=== PATIENT | male | born 1960 | race Caucasian/White ===

== ENCOUNTER 2018-01-26 19:32 | Observation (INO) | payer MEDICARE ==
[2018-01-26 20:08] LABS: Absolute Lymphocytes (CBC) 1.3 K/uL (0.7-4.9); Absolute Monocytes 0.5 K/uL (0.1-1.3); Absolute Neutrophil 10.9 K/uL (1.8-8.0); Basophils % 0.3 % (0-1.3); Eosinophils % 0.7 % (0-4.4); Lymphocytes % 10.4 % (15.3-44.8); MCH 31.4 pg (27.0-35.0); MCV 92.3 fL (80-100); MPV 9.3 fL (7.6-11.3); Monocytes % 4.1 % (3.3-12.3); RBC Red Blood Cell Count 5.52 M/uL (4.33-5.43)
[2018-01-26] MEDS ORDERED: ONDANSETRON 4 MG/2 ML VIAL ONE ×2 (20:21→22:27)
[2018-01-26] MEDS ORDERED: NA CHLORIDE 0.9% 2,000 ML ONE (20:21)
[2018-01-26] MEDS ORDERED: KETOROLAC 30 MG/ML INJ ONE (20:21)
--- NOTE | 2018-01-26 20:28 | RAD REPORT ---
EXAM DESCRIPTION: CT - Stone Protocol - 01/26/2018 8:15 pm CLINICAL HISTORY: Abdominal pain, nausea, history of kidney stones COMPARISON: None. TECHNIQUE: Axial 5 mm thick images were obtained without oral or IV contrast. The ossiq-hz-cakl span s the entirety of the system partially obscuring uppermost abdomen and lung bases. All CT scans are performed using dose optimization technique as appropriate and may include automated exposure control or mA/KV adjustment according to patient size. FINDINGS: Mild right-sided hydronephrosis is present secondary to a 7 mm stone in the mid right uret er. From a KUB projection the stone is at the L4-5 disc level. More distally the ureter is decompress ed. No bladder calculi. Prostate calcifications are present. No left-sided hydronephrosis. A 4 mm amarilis cification is seen lower pole calyx on the right and there is a 2 millimeter calcification present in the mid calyx. A 6 mm calcification is present in a pyramid or calyx of the upper right kidney. 8 mm calcifications seen in the upper pole left kidney. No suspicious renal masses. Isodense masses and p yelonephritis are not excluded on a stone protocol CT scan. No urinary bladder suspicious finding. Imaged portions of the liver, spleen and pancreas show no suspicious findings on non-contrast imaging . Cholecystectomy clips are present. No biliary tree dilatation. No significant adrenal finding. No suspicious bowel findings. No hernia, mass or bulky lymphadenopathy noted. No free air, free fluid or inflammatory stranding. No significant bony abnormality. IMPRESSION: Mild hydronephrosis of the right ureter secondary to 7 mm mid right ureter calculus. From a KUB projection the stone is at the level of the L4-5 disc. Bilateral nonobstructing calculi. Isodense masses and pyelonephritis are not excluded on stone protocol technique.
[2018-01-26 20:30] LABS: Blood Morphology Comment NOT SEEN (NOT SEEN); Platelet Estimate ADEQ; Urine White Blood Cell Casts OK
[2018-01-26 20:51] LABS: Albumin 4.4 g/dL (3.2-5.5); Bilirubin Total 0.9 mg/dL (0.3-1.2); Potassium 4.1 mEq/L (3.6-5.0); Protein, Total 7.5 g/dL (6.0-8.3)
[2018-01-26] MEDS ORDERED: CEFTRIAXONE/SWI 1gm 1 GM/10 ML SYR ONE (21:12)
[2018-01-26] MEDS ORDERED: MORPHINE 4 MG/ML SYR ONE (22:27)
--- NOTE | 2018-01-26 22:50 | ER ---
Nurse's Notes [facility] Name: Lino Dietrich Age: 57 yrs Sex: Male : 1960 Arrival Date: 01/26/2018 Time: 19:34 Bed 15 Private MD: Srinath Stuart E Diagnosis: Kidney stones - right ureter 7 mm Presentation: 01/26 19:40 Presenting complaint: Patient states: abd pain/nausea, started today at 4pm, pt moaning sr5 in triage, history of kidney stone. 19:40 Acuity: MG 2 sr5 19:45 Transition of care: patient was not received from another setting of care. Onset of ea symptoms was January 26, 2018. Care prior to arrival: None. 19:45 Method Of Arrival: Wheelchair ea Triage Assessment: 19:40 General: Appears uncomfortable, Behavior is calm, cooperative, appropriate for age. ea Pain: Complains of pain in posterior aspect of right lateral abdomen, right flank pain Pain currently is 10 out of 10 on a pain scale. Quality of pain is described as sharp, Pain began pain started yesterday but went away and then started again today around 1600. Historical: - Allergies: 19:48 No Known Allergies; ea - Home Meds: 19:48 BLOOD PRESSURE PILL [Active]; ea - PMHx: 19:48 chronic back pain; Hepatitis; Hypertension; Kidney stones; ea - Immunization history:: Adult Immunizations up to date. - Social history:: Smoking status: Patient uses tobacco products, smokes one pack cigarettes per day. Screenin:15 Fall Risk None identified. ea 23:15 Abuse screen: Denies threats or abuse. Nutritional screening: No deficits noted. ea Tuberculosis screening: No symptoms or risk factors identified. Assessment: 19:45 Reassessment: Patient and/or family updated on plan of care and expected duration. Pain ea level reassessed. Patient is alert, oriented x 3, equal unlabored respirations, skin warm/dry/pink. 20:30 Reassessment: Patient and/or family updated on plan of care and expected duration. Pain ea level reassessed. Patient is alert, oriented x 3, equal unlabored respirations, skin warm/dry/pink. 21:55 Reassessment: Patient and/or family updated on plan of care and expected duration. Pain ea level reassessed. Patient is alert, oriented x 3, equal unlabored respirations, skin warm/dry/pink. 22:15 Reassessment: Patient and/or family updated on plan of care and expected duration. Pain ea level reassessed. Patient is alert, oriented x 3, equal unlabored respirations, skin warm/dry/pink. 23:14 Reassessment: Patient and/or family updated on plan of care and expected duration. Pain ea level reassessed. Patient is alert, oriented x 3, equal unlabored respirations, skin warm/dry/pink. 01/27 00:09 Reassessment: Report called to Anita ISRAEL on fourth floor. ea 00:14 Reassessment: Patient and/or family updated on plan of care and expected duration. Pain ea level reassessed. Patient is alert, oriented x 3, equal unlabored respirations, skin warm/dry/pink. Vital Signs: 01/26 19:51 BP 157 / 95; Pulse 61; Resp 20; Temp 98.9(O); Pulse Ox 99% ; Weight 99.34 kg; Height 5 ea ft. 10 in. (177.80 cm); Pain 10/10; 21:00 BP 145 / 92; Pulse 70; Resp 18; Pulse Ox 99% on R/A; ea 22:00 BP 138 / 88; Pulse 68; Resp 18; Pulse Ox 100% on R/A; ea 23:16 BP 132 / 95; Pulse 79; Resp 18; Pulse Ox 100% ; Pain 4/10; ea 01/27 00:13 BP 154 / 88; Pulse 80; Resp 18; Pulse Ox 99% on R/A; ea 01/26 19:51 Body Mass Index 31.42 (99.34 kg, 177.80 cm) ea ED Course: 01/26 19:34 Patient arrived in ED. am2 19:34 Srinath Stuart MD is Private Physician. am2 19:40 Triage completed. sr5 19:45 Barbara Palma, JHONATAN is Primary Nurse. ea 19:45 Patient has correct armband on for positive identification. Bed in low position. Call ea light in reach. Side rails up X2. 19:45 Arm band placed on right wrist. ea 19:47 Jaspal Sexton MD is Attending Physician. ps1 20:04 Missed attempt(s): 20 gauge in right antecubital area. Bleeding controlled, band aid oe applied, catheter tip intact. Inserted saline lock: 22 gauge in left antecubital area, using aseptic technique. Blood collected. 20:[address] via wheelchair. nj 20:15 Stone Protocol In Process Unspecified. EDMS 20:15 CT completed. Patient tolerated procedure well. Patient moved back from CT. nj 22:46 Attending Physician role handed off by Jaspal Sexton MD kdr 22:46 Prem Olivo MD is Attending Physician. kdr 22:49 Lela Valadez MD is Hospitalizing Provider. kdr 01/27 00:14 No provider procedures requiring assistance completed. Patient admitted, IV remains in ea place. Administered Medications: 01/26 20:01 Drug: TORadol 30 mg Route: IVP; Site: left antecubital; ea 20:30 Follow up: Response: Pain is decreased ea 20:01 Drug: Zofran 4 mg Route: IVP; Site: left antecubital; ea 20:30 Follow up: Response: No adverse reaction ea 20:30 Drug: NS 0.9% (20 ml/kg) 20 ml/kg Route: IV; Rate: 1 bolus; Site: left antecubital; ea 01/27 00:18 Follow up: Response: No adverse reaction; IV Status: Completed infusion ea 01/26 21:03 Drug: Rocephin - (cefTRIAXone) 1 grams Route: IVPB; Infused Over: 30 mins; Site: left ea antecubital; 21:50 Follow up: Response: No adverse reaction; IV Status: Completed infusion ea 22:27 Drug: morphine 4 mg Route: IVP; Site: left antecubital; ea 23:19 Follow up: Response: No adverse reaction; Pain is decreased ea 22:27 Drug: Zofran 4 mg Route: IVP; Site: left antecubital; ea 23:19 Follow up: Response: No adverse reaction ea Outcome: 22:50 Decision to Hospitalize by Provider. kdr 23:44 Admitted to Med/surg accompanied by nurse, via wheelchair, room 404, with chart, Report ea called to Anita ISRAEL 23:44 Condition: stable 23:44 Instructed on the need for admit. 01/27 00:16 Patient left the ED. ea Signatures: Dispatcher [employer] EDMS Prem Olivo MD MD kdr Jefferson Lutz RN RN srBret Terrazas Orlando oe Moreno, Amanda am2 Barbara Palma, RN RN Jaspal Chirinos MD MD ps1
--- NOTE | 2018-01-26 22:51 | EDPHYS ---
Physician Documentation [facility] Name: Lino Dietrich Age: 57 yrs Sex: Male : 1960 Arrival Date: 01/26/2018 Time: 19:34 Bed 15 Private MD: Srinath Stuart E ED Physician Prem Olivo HPI: 01/26 22:03 This 57 yrs old Male presents to ER via Wheelchair with complaints of Flank ps1 Pain. 22:03 The patient complains of pain in the right flank. The pain radiates to the abdomen. ps1 Onset: The symptoms/episode began/occurred just prior to arrival. Modifying factors: The symptoms are alleviated by change of position. Associated signs and symptoms: Pertinent positives: nausea, vomiting. Severity of pain: At its worst the pain was moderate. The patient has experienced similar episodes in the past, multiple times. Seen by Dr. Henley for hx of stones in past. . Historical: - Allergies: 19:48 No Known Allergies; ea - Home Meds: 19:48 BLOOD PRESSURE PILL [Active]; ea - PMHx: 19:48 chronic back pain; Hepatitis; Hypertension; Kidney stones; ea - Immunization history:: Adult Immunizations up to date. - Social history:: Smoking status: Patient uses tobacco products, smokes one pack cigarettes per day. ROS: 22:03 Constitutional: Negative for fever, chills, and weight loss, Eyes: Negative for injury, ps1 pain, redness, and discharge, Neck: Negative for injury, pain, and swelling, Cardiovascular: Negative for chest pain, palpitations, and edema, Respiratory: Negative for shortness of breath, cough, wheezing, and pleuritic chest pain. 22:03 MS/Extremity: Negative for injury and deformity, Skin: Negative for injury, rash, and discoloration, Neuro: Negative for headache, weakness, numbness, tingling, and seizure. 22:03 Abdomen/GI: Positive for flank pain. 22:03 : Positive for flank pain. Exam: 22:03 Constitutional: This is a well developed, well nourished patient who is awake, alert, ps1 and in no acute distress. Head/Face: Normocephalic, atraumatic. Neck: Trachea midline, no thyromegaly or masses palpated, and no cervical lymphadenopathy. Supple, full range of motion without nuchal rigidity, or vertebral point tenderness. No Meningismus. Chest/axilla: Normal chest wall appearance and motion. Nontender with no deformity. No lesions are appreciated. Cardiovascular: Regular rate and rhythm. No gallops, murmurs, or rubs. Normal PMI, no JVD. No pulse deficits. Respiratory: Lungs have equal breath sounds bilaterally, clear to auscultation and percussion. No rales, rhonchi or wheezes noted. No increased work of breathing, no retractions or nasal flaring. Abdomen/GI: Soft, non-tender, with normal bowel sounds. No distension or tympany. No guarding or rebound. No evidence of tenderness throughout. Skin: Warm, dry with normal turgor. Normal color with no rashes, no lesions, and no evidence of cellulitis. MS/ Extremity: Pulses equal, no cyanosis. Neurovascular intact. Full, normal range of motion. Neuro: Awake and alert, GCS 15, oriented to person, place, time, and situation. Cranial nerves II-XII grossly intact. Sensory grossly intact. Psych: Awake, alert, with orientation to person, place and time. Behavior, mood, and affect are within normal limits. Vital Signs: 19:51 BP 157 / 95; Pulse 61; Resp 20; Temp 98.9(O); Pulse Ox 99% ; Weight 99.34 kg; Height 5 ea ft. 10 in. (177.80 cm); Pain 10/10; 21:00 BP 145 / 92; Pulse 70; Resp 18; Pulse Ox 99% on R/A; ea 22:00 BP 138 / 88; Pulse 68; Resp 18; Pulse Ox 100% on R/A; ea 23:16 BP 132 / 95; Pulse 79; Resp 18; Pulse Ox 100% ; Pain 4/10; ea 01/27 00:13 BP 154 / 88; Pulse 80; Resp 18; Pulse Ox 99% on R/A; ea 01/26 19:51 Body Mass Index 31.42 (99.34 kg, 177.80 cm) ea MDM: 01/26 19:54 Patient medically screened. ps1 22:03 Data reviewed: vital signs, nurses notes, lab test result(s), radiologic studies. ps1 Response to treatment: the patient's symptoms have markedly improved after treatment. ED course: 7.9mm stone with right hydro. Leukocytosis, minimal. Rocephin given in ED, pain addressed with toradol, morphine and zofran. . 01/26 19:53 Order name: CBC with Diff; Complete Time: 20:43 ps1 01/26 19:53 Order name: CMP; Complete Time: 21:05 ps1 01/26 20:10 Order name: CBC Smear Scan; Complete Time: 20:43 EDMS 01/26 22:35 Order name: Urine Dipstick--Ancillary (enter results); Complete Time: 01:49 oe 01/26 23:29 Order name: CBC with Automated Diff EDMS 01/26 23:29 Order name: CBC with Automated Diff EDCT 01/26 20:01 Order name: Stone Protocol; Complete Time: 20:43 EDMS 01/26 23:29 Order name: Comprehensive Metabolic Panel EDCT 01/26 23:29 Order name: Comprehensive Metabolic Panel EDCT 01/26 19:53 Order name: Urine Dipstick-Ancillary (obtain specimen); Complete Time: 22:33 ps1 01/26 23:29 Order name: CONS Pharmacy Consult EDCT 01/26 23:29 Order name: CONS Physician Consult EDCT 01/26 23:29 Order name: NPO EDCT Administered Medications: 20:01 Drug: TORadol 30 mg Route: IVP; Site: left antecubital; ea 20:30 Follow up: Response: Pain is decreased ea 20:01 Drug: Zofran 4 mg Route: IVP; Site: left antecubital; ea 20:30 Follow up: Response: No adverse reaction ea 20:30 Drug: NS 0.9% (20 ml/kg) 20 ml/kg Route: IV; Rate: 1 bolus; Site: left antecubital; ea 01/27 00:18 Follow up: Response: No adverse reaction; IV Status: Completed infusion ea 01/26 21:03 Drug: Rocephin - (cefTRIAXone) 1 grams Route: IVPB; Infused Over: 30 mins; Site: left ea antecubital; 21:50 Follow up: Response: No adverse reaction; IV Status: Completed infusion ea 22:27 Drug: morphine 4 mg Route: IVP; Site: left antecubital; ea 23:19 Follow up: Response: No adverse reaction; Pain is decreased ea 22:27 Drug: Zofran 4 mg Route: IVP; Site: left antecubital; ea 23:19 Follow up: Response: No adverse reaction ea Disposition: 01/26/18 22:50 Hospitalization ordered by Lela Valadez for Observation. Preliminary diagnosis is Kidney stones - right ureter 7 mm. - Bed requested for Telemetry/MedSurg (observation). - Status is Observation. ea - Condition is Fair. - Problem is an acute exacerbation. - Symptoms have improved. UTI on Admission? No Signatures: Dispatcher [employer] EDMS Sully Fleming rg2 Prem Olivo MD MD kdr Barbara Palma RN RN Jaspal Chirinos MD MD ps1 Corrections: (The following items were deleted from the chart) 20:01 19:54 Abdomen Pelvis Wo Con+CT.RAD.BRZ ordered. EDMS EDMS
[2018-01-26] MEDS ORDERED: ONDANSETRON 4 MG/2 ML VIAL IV PRN (23:27)
[2018-01-26] MEDS ORDERED: MORPHINE 2 MG/ML SYR IV PRN (23:27)
[2018-01-26] MEDS ORDERED: ACETAMINOPHEN 500 MG TAB PO PRN (23:27)
[2018-01-26 23:58] LABS: Urine Blood 3+ (NEG); Urine Glucose NEGATIVE (NEG); Urine Protein 1+ (NEG); Urine Specific Gravity 1.025 (1.005-1.030)
[2018-01-27] MEDS: NA CHLORIDE 0.9% 1,000 ML IV SCH ×2 (00:40→10:27)
[2018-01-27 01:16] VITALS: BMI 31.4
[2018-01-27] MEDS: MORPHINE 4 MG/ML SYR ONE ×2 (02:30→02:33)
[2018-01-27 04:53] LABS: Absolute Lymphocytes (CBC) 1.5 K/uL (0.7-4.9); Absolute Monocytes 0.7 K/uL (0.1-1.3); Absolute Neutrophil 7.5 K/uL (1.8-8.0); Basophils % 0.2 % (0-1.3); Eosinophils % 0.3 % (0-4.4); Hematocrit 42.9 % (39.6-49.0); Lymphocytes % 15.5 % (15.3-44.8); MCH 32.1 pg (27.0-35.0); MPV 10.2 fL (7.6-11.3); Monocytes % 6.9 % (3.3-12.3); RBC Red Blood Cell Count 4.56 M/uL (4.33-5.43)
[2018-01-27 05:21] LABS: ALT/SGPT 42 IU/L (10-60); AST/SGOT 43 IU/L (10-42); Albumin 3.3 g/dL (3.2-5.5); Alkaline Phosphatase 63 IU/L (42-121); BUN Blood Urea Nitrogen 24 mg/dL (6-20); Bicarbonate 24 mEq/L (21-31); Bilirubin Total 0.6 mg/dL (0.3-1.2); Glomerular Filtration Rate > 90 mL/min (=/>90); Glucose Level 112 mg/dL (65-120); Potassium 3.7 mEq/L (3.6-5.0); Protein, Total 6.2 g/dL (6.0-8.3); Sodium Level 139 mEq/L (135-145)
[2018-01-27] MEDS ORDERED: ZOLPIDEM TARTRATE 10 MG TABLET PO PRN (08:31)
[2018-01-27] MEDS ORDERED: HYDROCODONE/APAP 10/325 TAB PO PRN (08:31)
--- NOTE | 2018-01-27 08:57 | P.HP ---
Certification for Inpatient Patient admitted to: Observation With expected LOS: <2 Midnights Patient will require the following post-hospital care: None Practitioner: I am a practitioner with admitting privileges, knowledge of patient current condition, hospital course, and medical plan of care. Services: Services provided to patient in accordance with Admission requirements found in Title 42 Section 412.3 of the Code of Federal Regulations Patient History Date of Service: 01/27/18 Reason for admission: Nephrolithiasis History of Present Illness: Patient is a 57yo who was admitted to the hospital with flank pain. Patient has history of kidney stones. Patient's workup revealed a stone with hydronephrosis. Patient looks to have obstructive uropathy. Patient was admitted to the hospital for further workup. Allergies No Known Allergies Allergy (Unverified 01/27/18 08:36) Home Medications: Hydrocodone 10/APAP 325 [[place] 10/325*] 1 tab PO 5XD PRN 06/21/15 Olmesartan Medoxomil [Benicar] 40 mg PO DAILY AFTER SUPPER 06/21/15 Pravastatin [Pravachol*] 40 mg PO BEDTIME 06/21/15 Hydrochlorothiazide [Hydrochlorothiazide] 12.5 mg PO DAILY 01/27/18 Lisinopril [Lisinopril] 10 mg PO BID 01/27/18 Zolpidem Tartrate [Zolpidem Tartrate] 10 mg PO BEDTIME PRN 01/27/18 - Past Medical/Surgical History Has patient received pneumonia vaccine in the past: No Diabetic: No -: htn -: back pain -: shingles went into nerves in left eye -: Tobacco abuse -: Back acsnomo-Aaxrbqiqedlb-Lj. Bashir- hardware present -: Cholecystectomy Psychosocial/ Personal History: Has fiance, No children, Work-none - Family History Mother Medical History: Hypertension - Social History Smoking Status: Heavy Tobacco smoker (>10 cigarettes/day) Alcohol use: No CD- Drugs: No Caffeine use: Yes Review of Systems 10-point ROS is otherwise unremarkable Physical Examination - Vital Signs Temperature: 98.2 F Blood Pressure: 109/62 Pulse: 56 Respirations: 16 Pulse Ox (%): 94 - Physical Exam General: Alert, In no apparent distress, Oriented x3 HEENT: Atraumatic, PERRLA, Mucous membr. moist/pink, EOMI, Sclerae nonicteric Neck: Supple, 2+ carotid pulse no bruit, No LAD, Without JVD or thyroid abnormality Respiratory: Clear to auscultation bilaterally, Normal air movement Cardiovascular: Regular rate/rhythm, Normal S1 S2, No murmurs Gastrointestinal: Normal bowel sounds, Soft and benign, Non-distended, Tenderness (Right-sided tenderness) Musculoskeletal: No clubbing, No swelling, No tenderness Integumentary: No rashes Neurological: Normal gait, Normal speech, Normal strength at 5/5 x4 extr, Normal tone, Sensation intact, Cranial nerves 3-12 intact, Normal affect Lymphatics: No axilla or inguinal lymphadenopathy - Studies Laboratory Data (last 24 hrs) 01/26/18 19:55: Sodium 136, Potassium 4.1, BUN 26 H, Creatinine 1.05, Glucose 121 H, Total Bilirubin 0.9, AST 26, ALT 30, Alkaline Phosphatase 80 01/26/18 19:55: WBC 12.9 H, Hgb 17.4, Hct 51.0 H, Plt Count 150 L Assessment & Plan - Problems (Diagnosis) (1) Flank pain Onset Date: 06/22/15 Current Visit: No Status: Acute (2) Hydronephrosis Onset Date: 06/19/15 Current Visit: No Status: Acute (3) HTN (hypertension) Onset Date: 06/19/15 Current Visit: No Status: Chronic (4) Nephrolithiasis Onset Date: 06/19/15 Current Visit: No Status: Chronic (5) Tobacco abuse Onset Date: 06/19/15 Current Visit: No Status: Chronic - Plan Plan: 1. IV hydration 2. Pain control 3. Strain urine 4. Urology consultation 5. UA with microscopy 6. GI and DVT prophylaxis - Advance Directives Does patient have a Living Will: Yes Does patient have a Durable POA for Healthcare: No - Code Status/Comfort Care Code Status Assessed: Yes Code Status: Full Code Critical Care: No Time Spent Managing PTS Care (In Minutes): 50
[2018-01-27] MEDS ORDERED: CEFTRIAXONE 1 GM/NS 50 ML 1 GM/50 ML BAG IV SCH (09:00)
[2018-01-27] MEDS ORDERED: hydroCHLOROthiazide 12.5 MG CAP PO SCH (09:00)
[2018-01-27] MEDS ORDERED: LISINOPRIL 10 MG TAB PO SCH (09:00)
[2018-01-27 11:27] VITALS: BP 166/91; TEMP 98
--- NOTE | 2018-01-27 11:42 | RAD REPORT ---
EXAM DESCRIPTION: RAD - Abdomen 1 View (KUB) - 01/27/2018 11:32 am CLINICAL HISTORY: Abdomen pain. ICD N 20.0 FINDINGS: The bowel gas pattern is unremarkable. Bilateral renal calculi are present. A 6 millimeter density is present within the lower right pelvis which probably represents the previou sly described right ureteral calculus which has migrated distally since the January 26 cat scan
[2018-01-27 14:44] VITALS: O2SAT 95
--- NOTE | 2018-01-27 15:53 | P.DS ---
Admission Date: 01/26/18 Discharge Date: 01/27/18 Disposition: ROUTINE DISCHARGE Reason for Admission: Nephrolithiasis - Problems (1) Kidney stone on right side Onset Date: 01/27/18 Status: Acute (2) Urolithiasis Onset Date: 06/19/15 Status: Chronic Qualifiers: Urinary calculus location: kidney and ureter Qualified Code(s): N20.2 - Calculus of kidney with calculus of ureter (3) HTN (hypertension) Onset Date: 06/19/15 Status: Chronic Qualifiers: Hypertension type: essential hypertension Qualified Code(s): I10 - Essential (primary) hypertension (4) Nephrolithiasis Onset Date: 06/19/15 Status: Chronic (5) Tobacco abuse Onset Date: 06/19/15 Status: Chronic Brief History of Present Illness: Patient is a 57yo who was admitted to the hospital with flank pain. Patient has history of kidney stones. Patient's workup revealed a stone with hydronephrosis. Patient looks to have obstructive uropathy. Patient was admitted to the hospital for further workup. Hospital Course: The patient feels much better since after he was hospitalized. He was treated with intravenous fluid replacement pain medicine. Repeated KUB shows some migration of the renal stone without complications. The patient will be discharged home with a follow with Urology in the clinic Vital Signs/Physical Exam: Temp Pulse Resp BP Pulse Ox 98.0 F 50 16 166/91 H 96 01/27/18 11:26 01/27/18 11:26 01/27/18 11:26 01/27/18 11:26 01/27/18 11:26 General: Alert, In no apparent distress HEENT: Atraumatic, PERRLA, EOMI Neck: Supple, JVD not distended Respiratory: Clear to auscultation bilaterally, Normal air movement Cardiovascular: Regular rate/rhythm, Normal S1 S2 Gastrointestinal: Normal bowel sounds, No tenderness Musculoskeletal: No tenderness Integumentary: No rashes Neurological: Normal speech, Normal tone, Normal affect Lymphatics: No axilla or inguinal lymphadenopathy Laboratory Data at Discharge: WBC 9.7 K/uL (4.3-10.9) D 01/27/18 03:51 Hgb 14.6 g/dL (13.6-17.9) D 01/27/18 03:51 Hct 42.9 % (39.6-49.0) D 01/27/18 03:51 Plt Count 156 K/uL (152-406) 01/27/18 03:51 Sodium 139 mEq/L (135-145) 01/27/18 03:51 Potassium 3.7 mEq/L (3.6-5.0) 01/27/18 03:51 BUN 24 mg/dL (6-20) H 01/27/18 03:51 Creatinine 0.84 mg/dL (0.61-1.24) 01/27/18 03:51 Glucose 112 mg/dL (65-120) 01/27/18 03:51 Total Bilirubin 0.6 mg/dL (0.3-1.2) 01/27/18 03:51 AST 43 IU/L (10-42) H 01/27/18 03:51 ALT 42 IU/L (10-60) 01/27/18 03:51 Alkaline Phosphatase 63 IU/L (42-121) 01/27/18 03:51 Home Medications: Hydrocodone 10/APAP 325 [[place] 10/325*] 1 tab PO 5XD PRN 06/21/15 Olmesartan Medoxomil [Benicar] 40 mg PO DAILY AFTER SUPPER 06/21/15 Pravastatin [Pravachol*] 40 mg PO BEDTIME 06/21/15 Hydrochlorothiazide [Hydrochlorothiazide] 12.5 mg PO DAILY 01/27/18 Lisinopril [Lisinopril] 10 mg PO BID 01/27/18 Zolpidem Tartrate [Zolpidem Tartrate] 10 mg PO BEDTIME PRN 01/27/18 Followup: Herberth Henley MD [ACTIVE - CAN ADMIT] - 1-2 Weeks (call to schedule apponitment) Time spent managing pt's care (in minutes): 15
--- NOTE | 2018-01-27 18:37 | CON ---
History Of Present Illness: Pleasant patient who was seen in the past for kidney stones. It has been a few years then, but he presents with about 2 day history of right flank pain. Brought to the emergency room where a CAT scan was done revealing a 2-mm stone in the right mid pole, 4-mm stone in right lower pole, a 7-mm stone by L4-L5. He had a followup KUB in a few hours showing migration of distal stone into pelvic ureter. He is now pain-free for almost 24 hours. We are going to send him home on hydrocodone 10 mg/325, #15, take Surfak b.i.d. and Flomax 0.4 mg 1 p.o. daily #30 to help pass the stone. He knows that if he gets signs for any trouble or severe pain, he is to come back to the emergency room or see me in the office on Thursday morning on February 01. Allergies: NO KNOWN DRUG ALLERGIES. Home Medications: Hydrocodone, Benicar, Pravachol, hydrochlorothiazide, lisinopril 10 mg p.o. b.i.d., zolpidem tartrate 1 p.o. at bedtime 10 mg. Past Medical History: The patient did not receive Pneumovax in the past and not diabetic, with a history of hypertension, back pain, shingles, [QAMARKER] in the left eye, tobacco abuse, back surgery, ear surgery in the past, and cholecystectomy. Psychosocial And Personal History: Lives with clarissa. 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 Family History: Mother with a history of hypertension. Social History: Heavy smoked tobacco smoker, greater than 10 cigarettes a day. Alcohol abuse, none. Drug abuse, none. Caffeine use, yes. Review of Systems: A 10-point review of systems is unremarkable. Physical Examination: Constitutional: The patient is afebrile and stable. Vital Signs: 98.0, pulse 50, respirations 16, blood pressure 166/91, and pulse ox 96%. General: Alert, oriented x3. His fiancee present. HEENT: Atraumatic, normocephalic. Mucous membranes moist. Neck: Supple. No JVD. Respiratory: Clear. Cardiovascular: Regular rate and rhythm. Gastrointestinal: Normal bowel sounds. Musculoskeletal: no clubbing. Integumentary: No rashes. Neurologic: normal gait. Lymphatics: Negative. Laboratory Studies: Chemistries normal. Creatinine 1.05. White count 12.9, H and H 17 and 51 and platelets 150. Assessment: Flank pain, 7 mm stone, which migrated from the mid ureter down to the right lower ureter. He wants medical expulsion therapy by trying to pass the stone. He has been pain-free for several hours now since last night. Wishes to go home on pain medication and Flomax. Follow up with me p.r.n. His pain is severe and has returned to the emergency room. History of back pain and history of tobacco abuse. GENO/MONI Voice ID: [id number] Report ID: [id number] YOLANDA
[2018-01-27] MEDS ORDERED: CEFTRIAXONE/SWI 1gm 1 GM/10 ML SYR IV SCH (21:00)
[2018-01-27] MEDS ORDERED: ATORVASTATIN 10 MG TAB PO SCH (21:00)
== END 2018-01-27 15:36 | disposition home or self-care (01) ==
LOC: ER 19:32 → ERHOLD 22:51 → 4TH 23:54
PROVIDERS: ADMIT Hospitalist; ATTEND Hospitalist
DX: N20.2 Calculus of kidney with calculus of ureter (principal); I10 Essential (primary) hypertension; F17.210 Nicotine dependence, cigarettes, uncomplicated
CPT/HCPCS: 36415; 74000; 74176; 76377; 80053 ×2; 81003; 85025 ×2; 96361; 96365; 96375; 99285; G0378 ×2; J0696; J2405 ×2; J7030 ×3; 74018; J2270

== ENCOUNTER 2018-06-07 22:44 | Observation (INO) | payer MEDICARE ==
[2018-06-07] MEDS ORDERED: MORPHINE 4 MG/ML SYR ONE (23:03)
[2018-06-07] MEDS ORDERED: KETOROLAC 30 MG/ML INJ ONE (23:04)
[2018-06-07] MEDS ORDERED: ONDANSETRON 4 MG/2 ML VIAL ONE (23:04)
[2018-06-07] MEDS ORDERED: NA CHLORIDE 0.9% 1,000 ML ONE (23:06)
[2018-06-07 23:22] LABS: Absolute Lymphocytes (CBC) 1.4 K/uL (0.7-4.9); Absolute Monocytes 2.3 K/uL (0.1-1.3); Absolute Neutrophil 20.7 K/uL (1.8-8.0); Basophils % 0.1 % (0-1.3); Hematocrit 49.2 % (39.6-49.0); Lymphocytes % 5.8 % (15.3-44.8); MCV 93.7 fL (80-100); MPV 9.7 fL (7.6-11.3); Monocytes % 9.3 % (3.3-12.3); RBC Red Blood Cell Count 5.25 M/uL (4.33-5.43)
[2018-06-07 23:36] LABS: Albumin 3.6 g/dL (3.4-5.0); Bilirubin Direct 0.1 mg/dL (0-0.2); Bilirubin Total 0.5 mg/dL (0.2-1.0); Potassium 3.5 mmol/L (3.5-5.1); Protein, Total 7.9 g/dL (6.4-8.2)
[2018-06-07 23:45] LABS: Blood Morphology Comment NOT SEEN (NOT SEEN); Platelet Estimate ADEQ
[2018-06-08 01:11] LABS: Urine Bacteria <20 /HPF (NONE SEEN); Urine Culture Reflex Order NOT NEEDED
[2018-06-08] MEDS ORDERED: NA CHLORIDE 0.9% 1,000 ML ONE (01:18)
[2018-06-08 01:48] LABS: Urine Blood 1+ (NEG); Urine Glucose TRACE (NEG); Urine Protein 2+ (NEG); Urine Specific Gravity 1.025 (1.005-1.030)
--- NOTE | 2018-06-08 02:56 | EDPHYS ---
Physician Documentation [facility] Name: Lino Dietrich Age: 58 yrs Sex: Male : 1960 Arrival Date: 06/07/2018 Time: 22:46 Bed 8 Private MD: ED Physician Casey Valverde HPI: 06/07 23:25 This 58 yrs old Male presents to ER via EMS with complaints of Possible farhad Kidney Stone. 23:25 The patient complains of pain in the right mid back and right low back. The pain does farhad not radiate. Onset: The symptoms/episode began/occurred 1 day(s) ago. Modifying factors: The symptoms are alleviated by nothing. the symptoms are aggravated by nothing. The patient presents with pain. The symptoms are located in the right mid back and right low back. Onset: The symptoms/episode began/occurred 1 day(s) ago. Historical: - Allergies: 22:53 codeine sulfate; ao - Home Meds: 22:53 hydrocodone-acetaminophen 10-325 mg Oral tab 1 tab every 6 hours for Pain [Active]; ao BLOOD PRESSURE PILL [Active]; - PMHx: 22:53 chronic back pain; Hepatitis; Hypertension; Kidney stones; ao - PSHx: 22:53 None; ao - Immunization history:: Adult Immunizations up to date. - Social history:: Smoking status: Patient uses tobacco products, smokes one pack cigarettes per day. Patient/guardian denies using alcohol, street drugs. - Ebola Screening: : Patient negative for fever greater than or equal to 101.5 degrees Fahrenheit, and additional compatible Ebola Virus Disease symptoms Patient denies exposure to infectious person Patient denies travel to an Ebola-affected area in the 21 days before illness onset. - Family history:: not pertinent. ROS: 23:25 Constitutional: Negative for fever, chills, and weight loss, Eyes: Negative for injury, farhad pain, redness, and discharge, ENT: Negative for injury, pain, and discharge, Neck: Negative for injury, pain, and swelling, Cardiovascular: Negative for chest pain, palpitations, and edema, Respiratory: Negative for shortness of breath, cough, wheezing, and pleuritic chest pain, Abdomen/GI: Negative for abdominal pain, nausea, vomiting, diarrhea, and constipation, : Negative for injury, bleeding, discharge, and swelling, MS/Extremity: Negative for injury and deformity, Skin: Negative for injury, rash, and discoloration, Neuro: Negative for headache, weakness, numbness, tingling, and seizure, Psych: Negative for depression, anxiety, suicide ideation, homicidal ideation, and hallucinations, Allergy/Immunology: Negative for hives, rash, and allergies, Endocrine: Negative for neck swelling, polydipsia, polyuria, polyphagia, and marked weight changes, Hematologic/Lymphatic: Negative for swollen nodes, abnormal bleeding, and unusual bruising. 23:25 Back: Positive for flank pain, on the right, radiated pain, of the right mid back and right low back. Exam: 23:25 Constitutional: This is a well developed, well nourished patient who is awake, alert, farhad and in no acute distress. Head/Face: Normocephalic, atraumatic. Eyes: Pupils equal round and reactive to light, extra-ocular motions intact. Lids and lashes normal. Conjunctiva and sclera are non-icteric and not injected. Cornea within normal limits. Periorbital areas with no swelling, redness, or edema. ENT: Nares patent. No nasal discharge, no septal abnormalities noted. Tympanic membranes are normal and external auditory canals are clear. Oropharynx with no redness, swelling, or masses, exudates, or evidence of obstruction, uvula midline. Mucous membranes moist. Neck: Trachea midline, no thyromegaly or masses palpated, and no cervical lymphadenopathy. Supple, full range of motion without nuchal rigidity, or vertebral point tenderness. No Meningismus. Chest/axilla: Normal chest wall appearance and motion. Nontender with no deformity. No lesions are appreciated. Respiratory: Lungs have equal breath sounds bilaterally, clear to auscultation and percussion. No rales, rhonchi or wheezes noted. No increased work of breathing, no retractions or nasal flaring. Abdomen/GI: Soft, non-tender, with normal bowel sounds. No distension or tympany. No guarding or rebound. No evidence of tenderness throughout. Male : Normal genitalia with no discharge or lesions. Skin: Warm, dry with normal turgor. Normal color with no rashes, no lesions, and no evidence of cellulitis. MS/ Extremity: Pulses equal, no cyanosis. Neurovascular intact. Full, normal range of motion. Neuro: Awake and alert, GCS 15, oriented to person, place, time, and situation. Cranial nerves II-XII grossly intact. Motor strength 5/5 in all extremities. Sensory grossly intact. Cerebellar exam normal. Normal gait. Psych: Awake, alert, with orientation to person, place and time. Behavior, mood, and affect are within normal limits. 23:25 Cardiovascular: Rate: tachycardic, Rhythm: regular, Pulses: Pulses are 4+ in bilateral radial, brachial, femoral, popliteal, posterior tibial and and dorsalis pedis arteries.. Heart sounds: normal, Edema: is not appreciated, JVD: is not appreciated. Vital Signs: 22:51 BP 111 / 90; Pulse 112; Resp 22; Temp 98.4(O); Pulse Ox 94% on R/A; Weight 99.79 kg; ao Height 5 ft. 11 in. (180.34 cm); Pain 10/10; 23:45 BP 133 / 78; Pulse 105; Resp 16; Pulse Ox 100% on R/A; Pain 0/10; ao 06/08 00:57 BP 126 / 77; Pulse 94; Resp 12; Pulse Ox 98% on R/A; Pain 0/10; ao 02:06 BP 132 / 70; Pulse 72; Resp 20; Pulse Ox 93% on R/A; Pain 0/10; ao 03:03 BP 108 / 75; Pulse 61; Resp 16; Pulse Ox 96% ; Pain 0/10; ao 04:09 BP 144 / 74; Pulse 60; Resp 20; Temp 98.6(O); Pulse Ox 96% on R/A; Pain 4/10; fc 06/07 22:51 Body Mass Index 30.68 (99.79 kg, 180.34 cm) ao MDM: 06/07 22:48 Patient medically screened. [facility] 23:25 Data reviewed: vital signs, nurses notes, lab test result(s), radiologic studies, CT farhad scan. 06/07 22:51 Order name: Amylase, Serum [facility] 06/07 22:51 Order name: Basic Metabolic Panel [facility] 06/07 22:51 Order name: CBC with Diff; Complete Time: 00:30 [facility] 06/07 22:51 Order name: Creatinine for Radiology; Complete Time: 00:30 [facility] 06/07 22:51 Order name: Hepatic Function; Complete Time: 00:30 [facility] 06/07 22:51 Order name: Lipase; Complete Time: 00:30 [facility] 06/07 22:51 Order name: Urine Microscopic Only [facility] 06/07 22:51 Order name: Urine Culture [facility] 06/07 22:51 Order name: Amylase Level; Complete Time: 00:30 EDMS 06/07 22:51 Order name: Basic Metabolic Panel; Complete Time: 00:30 EDMS 06/07 23:45 Order name: Manual Differential; Complete Time: 00:30 EDMS 06/08 00:58 Order name: Urine Dipstick--Ancillary (enter results) 2 06/08 03:08 Order name: PT-INR 06/08 03:08 Order name: Ptt, Activated 06/07 22:51 Order name: IV Saline Lock; Complete Time: 00:13 [facility] 06/07 22:51 Order name: Labs collected and sent; Complete Time: 00:13 [facility] 06/07 22:51 Order name: Urine Dipstick-Ancillary (obtain specimen); Complete Time: 01:27 [facility] 06/07 22:51 Order name: CT Stone Protocol [facility] 06/08 02:54 Order name: Abdomen 1 View (KUB) XRAY [facility] 06/08 03:01 Order name: CONS Physician Consult; Complete Time: 04:12 EDMS 06/08 03:08 Order name: CXR XRAY 06/08 03:08 Order name: EKG; Complete Time: 03:09 06/08 03:09 Order name: Protime (+INR) EDAL 06/08 03:09 Order name: PTT, Activated Partial Thromb EDAL 06/08 02:54 Order name: NPO; Complete Time: 02:55 [facility] 06/08 03:08 Order name: EKG - Nurse/Tech; Complete Time: 04:12 fc Administered Medications: 23:29 Drug: NS 0.9% 1000 ml Route: IV; Rate: 1 bolus; Site: left antecubital; ao 06/08 01:03 Follow up: IV Status: Completed infusion; IV Intake: 1000ml 06/07 23:29 Drug: TORadol 30 mg Route: IVP; Site: right antecubital; ao 06/08 01:04 Follow up: Response: No adverse reaction ao 06/07 23:50 Drug: Rocephin - (cefTRIAXone) 1 grams Route: IVPB; Infused Over: 30 mins; Site: right ao antecubital; 06/08 00:00 Follow up: IV Status: Completed infusion; IV Intake: 10ml ao 00:11 Drug: Zofran 4 mg Route: IVP; Site: right antecubital; ao 01:04 Follow up: Response: No adverse reaction ao 00:12 Drug: morphine 4 mg Route: IVP; Site: right antecubital; ao 01:04 Follow up: Response: No adverse reaction ao 01:15 Drug: NS 0.9% 1000 ml Route: IV; Rate: 1 bolus; Site: right antecubital; ao 02:00 Follow up: IV Status: Completed infusion; IV Intake: 1000ml ao Disposition: 06/08/18 02:56 Hospitalization ordered by Gina De Anda for Observation. Preliminary diagnosis is Hydronephrosis with renal and ureteral calculous obstruction - 12 mm right mid. - Bed requested for Telemetry/MedSurg (observation). - Status is Observation. ao - Condition is Fair. - Problem is new. - Symptoms have improved. UTI on Admission? Yes Signatures: Dispatcher [employer] EDMS Casey Valverde MD MD cha Chretien, Felicia, RN RN Sourav Orosco RN RN Javy Rome mw2 Corrections: (The following items were deleted from the chart) 03:10 02:56 Hospitalization Ordered by Gina De Anda MD for Observation. Preliminary mw2 diagnosis is Hydronephrosis with renal and ureteral calculous obstruction - 12 mm right mid. Bed requested for Telemetry/MedSurg (observation). Status is Observation. Condition is Fair. Problem is new. Symptoms have improved. UTI on Admission? Yes. farhad 04:47 03:10 06/08/2018 02:56 Hospitalization Ordered by Gina De Anda MD for Observation. ao Preliminary diagnosis is Hydronephrosis with renal and ureteral calculous obstruction - 12 mm right mid. Bed requested for Telemetry/MedSurg (observation). Status is Observation. Condition is Fair. Problem is new. Symptoms have improved. UTI on Admission? Yes. mw2
--- NOTE | 2018-06-08 02:56 | ER ---
Nurse's Notes [facility] Name: Lino Dietrich Age: 58 yrs Sex: Male : 1960 Arrival Date: 06/07/2018 Time: 22:46 Bed 8 Private MD: Diagnosis: Hydronephrosis with renal and ureteral calculous obstruction-12 mm right mid Presentation: 06/07 22:47 Presenting complaint: Patient states: Right kidney pain since yesterday with nausea and ao vomiting. Transition of care: patient was not received from another setting of care. Onset of symptoms was June 06, 2018 at 09:00. Risk Assessment: Do you want to hurt yourself or someone else? Patient reports no desire to harm self or others. Initial Sepsis Screen: Does the patient meet any 2 criteria? No. Patient's initial sepsis screen is negative. Does the patient have a suspected source of infection? No. Patient's initial sepsis screen is negative. Care prior to arrival: None. 22:47 Method Of Arrival: EMS: [facility] ao 22:47 Acuity: MG 3 ao Historical: - Allergies: 22:53 codeine sulfate; ao - Home Meds: 22:53 hydrocodone-acetaminophen 10-325 mg Oral tab 1 tab every 6 hours for Pain [Active]; ao BLOOD PRESSURE PILL [Active]; - PMHx: 22:53 chronic back pain; Hepatitis; Hypertension; Kidney stones; ao - PSHx: 22:53 None; ao - Immunization history:: Adult Immunizations up to date. - Social history:: Smoking status: Patient uses tobacco products, smokes one pack cigarettes per day. Patient/guardian denies using alcohol, street drugs. - Ebola Screening: : Patient negative for fever greater than or equal to 101.5 degrees Fahrenheit, and additional compatible Ebola Virus Disease symptoms Patient denies exposure to infectious person Patient denies travel to an Ebola-affected area in the 21 days before illness onset. - Family history:: not pertinent. Screenin/07 01:02 Abuse screen: Denies threats or abuse. Denies injuries from another. Nutritional ao screening: No deficits noted. Tuberculosis screening: No symptoms or risk factors identified. Fall Risk None identified. Assessment: 06/07 22:55 General: Appears in no apparent distress. uncomfortable, Behavior is cooperative, ao agitated, anxious. Pain: Complains of pain in right low back and right mid back Pain does not radiate. Pain currently is 10 out of 10 on a pain scale. Pain began 1 day ago. Is continuous. Neuro: Level of Consciousness is awake, alert, obeys commands, Oriented to person, place, time, situation, Appropriate for age Moves all extremities. Full function Speech is normal, Facial symmetry appears normal. Cardiovascular: Capillary refill < 3 seconds Patient's skin is warm and dry. Respiratory: Airway is patent Respiratory effort is even, unlabored, Respiratory pattern is regular, symmetrical. GI: Bowel sounds present X 4 quads. Abd is soft and non tender X 4 quads. Reports lower abdominal pain, nausea, vomiting, since yesterday. : No signs and/or symptoms were reported regarding the genitourinary system. EENT: No signs and/or symptoms were reported regarding the EENT system. Derm: Skin is pink, warm \T\ dry. normal, Skin temperature is warm. Musculoskeletal: Circulation, motion, and sensation intact. Range of motion:. 23:55 Reassessment: Patient appears in no apparent distress at this time. No changes from ao previously documented assessment. Patient and/or family updated on plan of care and expected duration. Pain level reassessed. Patient is alert, oriented x 3, equal unlabored respirations, skin warm/dry/pink. Patient denies pain at this time. Patient states feeling better. 06/08 00:57 Reassessment: Patient appears in no apparent distress at this time. Patient and/or ao family updated on plan of care and expected duration. Pain level reassessed. Patient is alert, oriented x 3, equal unlabored respirations, skin warm/dry/pink. Dr Valevrde was notified of patient wishes to talk to him if in case of discharge. Waiting on dispo orders at this moment Patient denies pain at this time. 01:55 Reassessment: Patient appears in no apparent distress at this time. Patient and/or ao family updated on plan of care and expected duration. Pain level reassessed. Patient is alert, oriented x 3, equal unlabored respirations, skin warm/dry/pink. Patient resting with no SS of distress. Waiting on DIspo orders. 02:56 Reassessment: Patient appears in no apparent distress at this time. Patient and/or ao family updated on plan of care and expected duration. Pain level reassessed. Patient is alert, oriented x 3, equal unlabored respirations, skin warm/dry/pink. Patient to stay in the hospital. Waiting for admission orders. 03:55 Reassessment: Patient appears in no apparent distress at this time. Patient and/or ao family updated on plan of care and expected duration. Pain level reassessed. Patient is alert, oriented x 3, equal unlabored respirations, skin warm/dry/pink. Patient to be admitted. patient agree with the POC. Vital Signs: 06/07 22:51 BP 111 / 90; Pulse 112; Resp 22; Temp 98.4(O); Pulse Ox 94% on R/A; Weight 99.79 kg; ao Height 5 ft. 11 in. (180.34 cm); Pain 10/10; 23:45 BP 133 / 78; Pulse 105; Resp 16; Pulse Ox 100% on R/A; Pain 0/10; ao 06/08 00:57 BP 126 / 77; Pulse 94; Resp 12; Pulse Ox 98% on R/A; Pain 0/10; ao 02:06 BP 132 / 70; Pulse 72; Resp 20; Pulse Ox 93% on R/A; Pain 0/10; ao 03:03 BP 108 / 75; Pulse 61; Resp 16; Pulse Ox 96% ; Pain 0/10; ao 04:09 BP 144 / 74; Pulse 60; Resp 20; Temp 98.6(O); Pulse Ox 96% on R/A; Pain 4/10; fc 06/07 22:51 Body Mass Index 30.68 (99.79 kg, 180.34 cm) ao ED Course: 06/07 22:46 Patient arrived in ED. ao 22:48 Casey Valverde MD is Attending Physician. farhad 22:49 Triage completed. ao 22:49 Arm band placed on right wrist. Patient placed in an exam room, on a stretcher, on ao pulse oximetry, Patient notified of wait time Emesis basin given. 23:00 Inserted saline lock: 20 gauge in right antecubital area, using aseptic technique. ak1 Blood collected. 23:[address] nj 23:06 CT completed. Patient tolerated procedure well. Patient moved back from CT. nj 23:06 CT Stone Protocol In Process Unspecified. EDMS 23:29 Sourav Dempsey RN is Primary Nurse. ao 06/08 01:02 Patient has correct armband on for positive identification. Pulse ox on. NIBP on. ao 02:54 Gina De Anda MD is Hospitalizing Provider. farhad 03:21 Patient moved to radiology via wheelchair. kw 03:21 X-ray completed. Patient tolerated procedure well. kw 03:21 Patient moved back from radiology. kw 04:06 No provider procedures requiring assistance completed. Patient admitted, IV remains in fc place. 04:12 Ptt, Activated Sent. fc 04:12 PT-INR Sent. fc 04:12 CXR XRAY Sent. fc 04:12 Abdomen 1 View (KUB) XRAY Sent. fc Administered Medications: 06/07 23:29 Drug: NS 0.9% 1000 ml Route: IV; Rate: 1 bolus; Site: left antecubital; ao 06/08 01:03 Follow up: IV Status: Completed infusion; IV Intake: 1000ml ao 06/07 23:29 Drug: TORadol 30 mg Route: IVP; Site: right antecubital; ao 06/08 01:04 Follow up: Response: No adverse reaction ao 06/07 23:50 Drug: Rocephin - (cefTRIAXone) 1 grams Route: IVPB; Infused Over: 30 mins; Site: right ao antecubital; 06/08 00:00 Follow up: IV Status: Completed infusion; IV Intake: 10ml ao 00:11 Drug: Zofran 4 mg Route: IVP; Site: right antecubital; ao 01:04 Follow up: Response: No adverse reaction ao 00:12 Drug: morphine 4 mg Route: IVP; Site: right antecubital; ao 01:04 Follow up: Response: No adverse reaction ao 01:15 Drug: NS 0.9% 1000 ml Route: IV; Rate: 1 bolus; Site: right antecubital; ao 02:00 Follow up: IV Status: Completed infusion; IV Intake: 1000ml ao Intake: 00:00 IV: 10ml; Total: 10ml. ao 01:03 IV: 1000ml; Total: 1010ml. ao 02:00 IV: 1000ml; Total: 2010ml. ao Outcome: 02:56 Decision to Hospitalize by Provider. farhad 04:06 Admitted to [facility] accompanied by tech, room 428, with chart, Report called to Davy davies RN 04:06 Condition: good 04:06 Discharge instructions given to patient, Instructed on the need for admit, Demonstrated understanding of instructions. 04:47 Patient left the ED. ao Signatures: Dispatcher [employer] Casey Lima MD MD cha Chretien, Felicia, RN RN Cintia Ribera Amber RN RN ak1 Sourav Dempsey RN RN Bret Roe
[2018-06-08 03:29] LABS: Protime INR 1.08
--- NOTE | 2018-06-08 04:06 | P.HP ---
Certification for Inpatient Patient admitted to: Observation With expected LOS: <2 Midnights Practitioner: I am a practitioner with admitting privileges, knowledge of patient current condition, hospital course, and medical plan of care. Services: Services provided to patient in accordance with Admission requirements found in Title 42 Section 412.3 of the Code of Federal Regulations Patient History Date of Service: 06/08/18 Reason for admission: obstructive ureterolithiasis History of Present Illness: Mr Dietrich is a 58 years old male with history of Hepatitis C, kidney stones, HTN , who start yesterday morning with right flank pain. The pain was radiated to his right belen, associated with hot flashes, nausea and vomiting. He had previous episodes like that. Lab work remarkable for leukocytosis, 24.4K, no fever at presentation. CT abd/pelvis remarkable for 12 mm stones in the right ureter, leading with moderate to severe hydronephrosis. Also perinephric stranding consistent with pyelonephritis. Allergies No Known Allergies Allergy (Unverified 06/08/18 03:54) Home medications list reviewed: Yes Home Medications: Hydrocodone Bit/Acetaminophen [[place] 10-325 Tablet] 1 each PO Q4HP PRN 06/08/18 Lisinopril 20 mg PO DAILY 06/08/18 Metoprolol Tartrate 50 mg PO BID 06/08/18 Pravastatin Sodium 20 mg PO DAILY 06/08/18 - Past Medical/Surgical History Diabetic: No -: htn -: back pain -: shingles went into nerves in left eye -: Tobacco abuse -: hep c -: kidney stones -: Back sxilsax-Qsejzowfhekt-Uw. Bashir- hardware present -: Cholecystectomy Psychosocial/ Personal History: Has fiance, No children, Work-none - Family History Mother -: Hypertension - Social History Smoking Status: Heavy Tobacco smoker (>10 cigarettes/day) Counseled patient to stop smoking for: less than 10 minutes Smoking therapy provided: Yes Patient receptive to therapy: Yes Alcohol use: No CD- Drugs: No Caffeine use: Yes Place of Residence: Home Review of Systems 10-point ROS is otherwise unremarkable Physical Examination - Physical Exam General: Alert, In no apparent distress HEENT: Atraumatic, PERRLA, Mucous membr. moist/pink, EOMI, Sclerae nonicteric Neck: Supple, 2+ carotid pulse no bruit, No LAD, Without JVD or thyroid abnormality Respiratory: Clear to auscultation bilaterally, Normal air movement Cardiovascular: Regular rate/rhythm, Normal S1 S2 Gastrointestinal: Normal bowel sounds, Tenderness (right flank, RLQ) Musculoskeletal: No tenderness Integumentary: No rashes Neurological: Normal speech, Normal strength at 5/5 x4 extr, Normal tone, Normal affect Lymphatics: No axilla or inguinal lymphadenopathy - Studies Laboratory Data (last 24 hrs) 06/08/18 01:45: PT 12.7 H, INR 1.08, APTT 31.2 06/07/18 22:59: Creatinine 1.50 H 06/07/18 22:59: WBC 24.4 H*, Hgb 16.8, Hct 49.2 H, Plt Count 222 06/07/18 22:59: Sodium 141, Potassium 3.5, BUN 27 H, Creatinine 1.50 H, Glucose 134 H, Total Bilirubin 0.5, AST 14 L, ALT 30, Alkaline Phosphatase 97, Amylase 34, Lipase 60 L Assessment and Plan - Problems (Diagnosis) (1) Hydronephrosis Onset Date: 06/19/15 Current Visit: No Status: Acute Qualifiers: Hydronephrosis type: with ureteral calculous obstruction Qualified Code(s) : N13.2 - Hydronephrosis with renal and ureteral calculous obstruction (2) Nephrolithiasis Onset Date: 06/19/15 Current Visit: No Status: Chronic (3) Tobacco abuse Onset Date: 06/19/15 Current Visit: No Status: Chronic (4) Urolithiasis Onset Date: 06/19/15 Current Visit: No Status: Chronic Qualifiers: Urinary calculus location: kidney and ureter Qualified Code(s): N20.2 - Calculus of kidney with calculus of ureter (5) Acute renal injury Current Visit: Yes Status: Acute - Plan The patient will be admitted to the hospital due to obstructive ureteral stone. He has signs of pyelonephritis on CT abd/pelvis, also leukocytosis. Will order empiric treatment with Levaquin. Dr Henley already consulted. Keep NPO for potential cystoscopy in AM. - Advance Directives Does patient have a Living Will: No Does patient have a Durable POA for Healthcare: No - Code Status/Comfort Care Code Status Assessed: Yes Code Status: Full Code
[2018-06-08] MEDS ORDERED: ACETAMINOPHEN 500 MG TAB PO PRN (05:15)
[2018-06-08] MEDS ORDERED: Morphine 2 MG/2 ML SYR IV PRN (05:15)
[2018-06-08] MEDS ORDERED: ONDANSETRON 4 MG/2 ML VIAL IV PRN (05:15)
[2018-06-08] MEDS: Levofloxacin 750mg IV 750 MG/150 ML BAG IV SCH (06:18)
[2018-06-08] MEDS: NA CHLORIDE 0.9% 1,000 ML IV SCH ×3 (06:18→21:10)
--- NOTE | 2018-06-08 06:52 | EKG ---
Test Date: 2018-06-08 Test Time: 03:27:41 Mounting Inspector: ABI MEASUREMENT RESULTS: Intervals: Rate: 51 IL: 234 QRSD: 104 QT: 418 QTc: 385 Sublimity: P: 13 IL: 234 QRS: 56 T: -85 INTERPRETIVE STATEMENTS: Sinus bradycardia with 1st degree AV block ST & T wave abnormality, consider inferior ischemia Abnormal ECG Compared to ECG 06/13/2016 10:20:24 ST (T wave) deviation now present Possible ischemia now present Left ventricular hypertrophy no longer present Myocardial infarct finding no longer present Electronically Signed On 06-08-18 06:51:09 CDT by Chaz Garg
[2018-06-08] MEDS ORDERED: MORPHINE 2 MG/ML SYR IV PRN (07:14)
--- NOTE | 2018-06-08 08:25 | RAD REPORT ---
EXAM DESCRIPTION: CT - Stone Protocol - 06/08/2018 6:34 am CLINICAL HISTORY: Flank pain. FLANK PAIN COMPARISON: Stone Protocol dated 01/26/2018; Abdomen 1 View (KUB) dated 01/27/2018; Abdomen Pelvis W Contrast dated 07/23/2017 TECHNIQUE: Axial images were obtained without oral or IV contrast. Lack of contrast limits solid org an and vascular assessment. The [id number] spans the entirety of the system partially obscuring uppermost abdomen and lung bases. Coronal reformatted images were obtained and reviewed. All CT scans are performed using dose optimization technique as appropriate and may include automated exposure control or mA/KV adjustment according to patient size. FINDINGS: The lower lung smith are clear. A small hiatal hernia is present with distal esophageal t hickening. Imaged portions of the liver and spleen show no suspicious findings on non-contrast imaging.Cholecyst ectomy clips. The pancreas and adrenal glands are normal. No pathologic lymphadenopathy in the abdome n or pelvis. 6 mm stone (1300 HU) is present in the mid right ureter to the right of the L4 vertebral body resulti ng in moderate right hydronephrosis. Additional bilateral nephrolithiasis is seen, largest in the sup erior left kidney measuring 9 mm. Tiny sandlike stones are present in the urinary bladder. Several cy sts are suspected involving both kidneys, incompletely assessed due to lack of IV contrast. No bowel obstruction, free air, free fluid or abscess. Normal appendix noted.Sigmoid diverticulosis c anna without diverticulitis. Moderate degenerative change with hardware in place spanning L4-5. IMPRESSION: 6 mm stone (1300 HU) mid right ureter resulting in moderate right hydronephrosis. Additional bilateral nephrolithiasis is present as detailed. Small sandlike stones layer in dependent portion of the urinary bladder.
--- NOTE | 2018-06-08 08:40 | RAD REPORT ---
EXAM DESCRIPTION: RAD - Abdomen 1 View (KUB) - 06/08/2018 3:22 am CLINICAL HISTORY: Abd pain;Flank pain Pain COMPARISON: Abdomen 1 View (KUB) dated 01/27/2018; Abdomen 1 View (KUB) dated 06/17/2016; Abdomen 1 Vi ew (KUB) dated 06/11/2016; ABDOMEN 1 VIEW KUB dated 06/20/2015 FINDINGS: The bowel gas pattern is non-obstructive. No evidence of free air or pneumatosis. Triangul ar calculus is noted in the right ureter at the level of L4. This correlates with recent CT findings. Bilateral nephrolithiasis is also seen. Cholecystectomy clips. Hardware is present at L4-5. IMPRESSION: Triangular right ureter stone is visible on KUB, correlating with recent CT findings. Ad ditional bilateral nephrolithiasis is present.
--- NOTE | 2018-06-08 08:43 | RAD REPORT ---
EXAM DESCRIPTION: RAD - Chest Single View - 06/08/2018 3:23 am CLINICAL HISTORY: Flank pain Chest pain. COMPARISON: Abdomen 1 View (KUB) dated 06/08/2018; Abdomen 1 View (KUB) dated 01/27/2018; Chest Pa And Lat (2 Views) dated 11/12/2017; Abdomen 1 View (KUB) dated 06/17/2016 FINDINGS: Portable technique limits examination quality. Mild linear atelectasis is present in the right mid lung. The lungs are clear of acute infiltrate. Th e heart is normal in size. No displaced fractures.
[2018-06-08] MEDS: HYDRALAZINE HCL 20 MG/ML VIAL IV PRN ×2 (08:48→21:16)
[2018-06-08] MEDS ORDERED: KCL 20 MEQ/100 mL IVPB 20 MEQ/100 ML BAG IV SCH (09:00)
[2018-06-08] MEDS ORDERED: MORPHINE 4 MG/ML SYR IV PRN (09:14)
--- NOTE | 2018-06-08 10:19 | P.PN ---
Subjective Date of Service: 06/08/18 Primary Care Provider: Dr. Stuart; Urology-Dr. Henley Chief Complaint: obstructive ureterolithiasis Subjective: Other (Patient remained stable. Patient currently NPO for cytoscopy. Patient expresses the need for discharge after his procedure or later tonight as the patient has chronic pain and needs to see his chronic pain doctor tomorrow.) Physical Examination - Vital Signs Temperature: 97.9 F Blood Pressure: 174/84 Pulse: 79 Respirations: 18 Pulse Ox (%): 94 - Physical Exam General: Alert, In no apparent distress, Oriented x3, Cooperative HEENT: Atraumatic Neck: Supple Respiratory: Clear to auscultation bilaterally, Normal air movement Cardiovascular: Normal pulses, Regular rate/rhythm Gastrointestinal: Normal bowel sounds, Soft and benign, Non-distended, No masses , No rebound, No guarding Musculoskeletal: No erythema, No tenderness, No warmth Integumentary: No tenderness/swelling, No erythema, No warmth, No cyanosis Neurological: Normal speech, Normal strength at 5/5 x4 extr, Normal tone, Normal affect - Studies Laboratory Data (last 24 hrs) 06/08/18 01:45: PT 12.7 H, INR 1.08, APTT 31.2 06/07/18 22:59: Creatinine 1.50 H 06/07/18 22:59: WBC 24.4 H*, Hgb 16.8, Hct 49.2 H, Plt Count 222 06/07/18 22:59: Sodium 141, Potassium 3.5, BUN 27 H, Creatinine 1.50 H, Glucose 134 H, Total Bilirubin 0.5, AST 14 L, ALT 30, Alkaline Phosphatase 97, Amylase 34, Lipase 60 L Medications List Reviewed: Yes Assessment & Plan - Problems (Diagnosis) (1) Acute renal injury Onset Date: 06/08/18 Current Visit: Yes Status: Acute Plan: Secondary from right mid ureteral stone 6 mm in size with hydronephrosis. Patient NPO as urology plans to take the patient to the OR for treatment. Patient may require removal of stone and/or stent. Will continue with IV fluids. Continue with pain control medication. Patient desires to go home later tonight as the patient has chronic pain in needs to see his pain specialist tomorrow. Will discuss with urology. (2) Flank pain Onset Date: 06/22/15 Current Visit: No Status: Acute Plan: Secondary to ureteral stone. Continue as above. (3) Hematuria Onset Date: 06/22/15 Current Visit: No Status: Acute Plan: Secondary to ureteral stone. Continue as above. Qualifiers: Hematuria type: unspecified type Qualified Code(s): R31.9 - Hematuria, unspecified (4) Hydronephrosis Onset Date: 06/19/15 Current Visit: No Status: Acute Plan: Continue as above Qualifiers: Hydronephrosis type: with ureteral calculous obstruction Qualified Code(s) : N13.2 - Hydronephrosis with renal and ureteral calculous obstruction (5) Kidney stone on right side Onset Date: 01/27/18 Current Visit: No Status: Acute Plan: Continue as above. (6) Chronic back pain Onset Date: 06/19/15 Current Visit: No Status: Chronic Plan: Will provide medication for pain Patient desires the need to be discharged later today as the patient needs to follow up with his chronic pain specialist tomorrow to get his chronic pain medication. Qualifiers: Back pain location: back pain in unspecified location Back pain laterality : unspecified Qualified Code(s): M54.9 - Dorsalgia, unspecified; G89.29 - Other chronic pain (7) HTN (hypertension) Onset Date: 06/19/15 Current Visit: No Status: Chronic Plan: Will provide IV medication at this time. Will continue with his medication at discharge. Qualifiers: Hypertension type: essential hypertension Qualified Code(s): I10 - Essential (primary) hypertension (8) Nephrolithiasis Onset Date: 06/19/15 Current Visit: No Status: Chronic Plan: Continue as above. (9) Tobacco abuse Onset Date: 06/19/15 Current Visit: No Status: Chronic Plan: Patient may require nicotine patch. Will address tobacco cessation (10) Urolithiasis Onset Date: 06/19/15 Current Visit: No Status: Chronic Plan: Continue as above. Qualifiers: Urinary calculus location: kidney and ureter Qualified Code(s): N20.2 - Calculus of kidney with calculus of ureter Discharge Plan: Home Plan to discharge in: 24 Hours Time Spent Managing Pts Care (In Minutes): 55
[2018-06-08] MEDS ORDERED: PROPOFOL 200 MG/20 ML VIAL IV ONE (10:24)
[2018-06-08] MEDS ORDERED: MIDAZOLAM HCL 2 MG/2 ML INJ ONE (10:24)
[2018-06-08] MEDS ORDERED: LIDOCAINE 1% MPF 5 ML VIAL ONE (10:24)
[2018-06-08] MEDS ORDERED: FENTANYL CITR 100 MCG/2 ML ONE (10:24)
[2018-06-08] MEDS ORDERED: GENTAMICIN 100 MG/100 ML BAG 100 MG/100 ML BAG IV ONE (10:45)
[2018-06-08] MEDS ORDERED: ONDANSETRON HCL 40 MG/20 ML VIAL ONE (10:53)
[2018-06-08] MEDS ORDERED: Mastisol Adhesive Liq ONE (10:55)
--- NOTE | 2018-06-08 12:12 | RAD REPORT ---
EXAM DESCRIPTION: RAD - Urethrocystogrphy Retrograde - 06/08/2018 11:23 am CLINICAL HISTORY: ICD N 20.0/ureteral stent placement. FINDINGS: Seven fluoroscopic spot images are submitted. They demonstrate cannulated of the right ureter with the administration of contrast. Subsequently a r ight ureteral stent was placed. The examination was performed by Dr. Henley. Fluoroscopy time 23 seconds.
--- NOTE | 2018-06-08 13:17 | CON ---
History Of Present Illness: A 58-year-old male with a history of hepatitis, kidney stones, hypertens ion, who started to have pains 2 days ago associated with nausea. He denies fevers or chills. The p ain radiates to his right side associated with hot flashes and nausea. He had a previous episode lik e that. His lab work was remarkable for leukocytosis of 24,400, but no fevers on presentation, in fa ct he still is afebrile this morning. CT showed a 12-mm stone in right ureter, approximately right L 4 leading to severe hydronephrosis and perinephric fat stranding. Allergies: NO KNOWN DRUG ALLERGIES. Review of Systems: A 10-point review of systems otherwise is normal as mentioned above. Home Medications: Reviewed. Home medications include hydrocodone acetaminophen 10/325, lisinopril 2 0 mg a day, metoprolol tartrate 50 mg p.o. b.i.d., pravastatin 20 mg p.o. daily. Past Medical And Surgical History: No diabetes. Positive for hypertension, back pain, shingles to n erves in the left eye, tobacco abuse, hepatitis C, viral load 0 to minimal now; kidney stones, back s urgery, ear surgery, hardware present, cholecystectomy. Family History: Significant for hypertension in mom. Social History: Heavy smoker, greater than 10 cigarettes a day home. He has received counseling to stop smoking. No alcohol. No drug use. Some caffeine use. Resides at home. [facility] [employer]. No [employer]. Works at home. Physical Examination: Vital Signs: Afebrile, stable vital signs. Temperature 98.6, pulse 60, respiratory rate 20, BP 144/ 74. He is 96% sating on room air. HEENT: Atraumatic, normocephalic. Neck: Supple. No JVD. Carotid pulses, no bruit. Respirations: Clear. Cardiovascular: S1-S2. Gastrointestinal: Normal bowel sounds. No tenderness. Skin: No rashes. Neurologic: Normal speech, gait. Lymphatics: Negative. Laboratory Data: Laboratory studies; normal PT, PTT, creatinine slightly elevated at 1.0. White cou nt elevated at 24,000. H and H 16.8 and 49, platelet count 222. Electrolytes; sodium 141, potassium 3.5, BUN 27, creatinine 1.5, glucose 134. Urine studies, pH 6.0, specific gravity 1.025, blood 1+, nitrite negative, esterase trace, bacteria less than 20. Assessment: Right, 12 [place] [address]. Plan: Plan is to place a stent. Await for the white count to defervesced and do ESWL. We will send the patient home on antibiotics and pain medications. GENO/MONI Voice ID: [id number] Report ID: [id number]
[2018-06-08 23:05] VITALS: O2SAT 93
[2018-06-09 04:10] LABS: Absolute Monocytes 0.8 K/uL (0.1-1.3); Absolute Neutrophil 6.6 K/uL (1.8-8.0); Basophils % 0.2 % (0-1.3); Eosinophils % 0.2 % (0-4.4); Hematocrit 43.5 % (39.6-49.0); Lymphocytes % 11.3 % (15.3-44.8); MCH 32.4 pg (27.0-35.0); MCV 94.1 fL (80-100); MPV 10.1 fL (7.6-11.3); RBC Red Blood Cell Count 4.63 M/uL (4.33-5.43)
[2018-06-09 04:32] LABS: Magnesium 1.9 mg/dL (1.8-2.4); Potassium 3.4 mmol/L (3.5-5.1)
[2018-06-09] MEDS ORDERED: POTASSIUM 25 MEQ EFFERV TAB PO ONE (05:21)
[2018-06-09] MEDS: Levofloxacin 750mg IV 750 MG/150 ML BAG IV SCH (05:30)
[2018-06-09] MEDS: NA CHLORIDE 0.9% 1,000 ML IV SCH (05:30)
[2018-06-09 06:08] VITALS: BMI 28.4
--- NOTE | 2018-06-09 08:25 | P.DS ---
Admission Date: 06/08/18 Discharge Date: 06/09/18 Primary Care Provider: Dr. Stuart; Urology-Dr. Henley Disposition: ROUTINE DISCHARGE Discharge Condition: GOOD Reason for Admission: obstructive ureterolithiasis Consultations: Urology-Dr. Henley Procedures: CT scan: COMPARISON: Stone Protocol dated 01/26/2018; Abdomen 1 View (KUB) dated 2017; Abdomen Pelvis W Contrast dated 07/23/2017 TECHNIQUE: Axial images were obtained without oral or IV contrast. Lack of contrast limits solid organ and vascular assessment. The [id number] spans the entirety of the system partially obscuring uppermost abdomen and lung bases. Coronal reformatted images were obtained and reviewed. All CT scans are performed using dose optimization technique as appropriate and may include automated exposure control or mA/KV adjustment according to patient size. FINDINGS: The lower lung smith are clear. A small hiatal hernia is present with distal esophageal thickening. Imaged portions of the liver and spleen show no suspicious findings on non- contrast imaging.Cholecystectomy clips. The pancreas and adrenal glands are normal. No pathologic lymphadenopathy in the abdomen or pelvis. 6 mm stone (1300 HU) is present in the mid right ureter to the right of the L4 vertebral body resulting in moderate right hydronephrosis. Additional bilateral nephrolithiasis is seen, largest in the superior left kidney measuring 9 mm. Tiny sandlike stones are present in the urinary bladder. Several cysts are suspected involving both kidneys, incompletely assessed due to lack of IV contrast. No bowel obstruction, free air, free fluid or abscess. Normal appendix noted.Sigmoid diverticulosis coli without diverticulitis. Moderate degenerative change with hardware in place spanning L4-5. IMPRESSION: 6 mm stone (1300 HU) mid right ureter resulting in moderate right hydronephrosis. Additional bilateral nephrolithiasis is present as detailed. Small sandlike stones layer in dependent portion of the urinary bladder. Surgery: Cystoscopy with stent placed to right ureter - Problems (1) Acute renal injury Onset Date: 06/08/18 Current Visit: Yes Status: Acute (2) Flank pain Onset Date: 06/22/15 Current Visit: No Status: Acute (3) Hematuria Onset Date: 06/22/15 Current Visit: No Status: Acute Qualifiers: Hematuria type: unspecified type Qualified Code(s): R31.9 - Hematuria, unspecified (4) Hydronephrosis Onset Date: 06/19/15 Current Visit: No Status: Acute Qualifiers: Hydronephrosis type: with ureteral calculous obstruction Qualified Code(s) : N13.2 - Hydronephrosis with renal and ureteral calculous obstruction (5) Kidney stone on right side Onset Date: 01/27/18 Current Visit: No Status: Acute (6) Chronic back pain Onset Date: 06/19/15 Current Visit: No Status: Chronic Qualifiers: Back pain location: back pain in unspecified location Back pain laterality : unspecified Qualified Code(s): M54.9 - Dorsalgia, unspecified; G89.29 - Other chronic pain (7) HTN (hypertension) Onset Date: 06/19/15 Current Visit: No Status: Chronic Qualifiers: Hypertension type: essential hypertension Qualified Code(s): I10 - Essential (primary) hypertension (8) Nephrolithiasis Onset Date: 06/19/15 Current Visit: No Status: Chronic (9) Tobacco abuse Onset Date: 06/19/15 Current Visit: No Status: Chronic (10) Urolithiasis Onset Date: 06/19/15 Current Visit: No Status: Chronic Qualifiers: Urinary calculus location: kidney and ureter Qualified Code(s): N20.2 - Calculus of kidney with calculus of ureter (11) Hepatitis C Current Visit: Yes Status: Chronic Qualifiers: Viral hepatitis chronicity: chronic Hepatic coma status: without hepatic coma Qualified Code(s): B18.2 - Chronic viral hepatitis C Brief History of Present Illness: 58-year-old male presented to the ER with right flank pain. This started earlier in the day. Patient found to have elevated white count. CT scan showed 6 mm stone to the mid right ureter with moderate right hydronephrosis. Additional bilateral nephrolithiasis was also noted. Small sandlike stones layering in the urinary bladder was identified. The patient was admitted for further treatment. Urology consulted. Hospital Course: Patient found to have right 6 mm mid ureteral stone with moderate right hydronephrosis with additional bilateral nephrolithiasis. Patient was evaluated by urology. Urology intervention was recommended. Patient had cystoscopy with placement of stent to the right ureter. Patient tolerated the procedure well. No complications were noted. Repeat lab showed improvement in CBC and BMP. At discharge patient will continue with Keflex 500 mg daily for 21 days and oxybutynin 10 mg 1 pill daily. Patient will be given a limited supply of tramadol 50 mg every 6 hr as needed for pain by urology. Urology will provide prescriptions. Recommendations for the patient to follow up with urology in 1 week to monitor his progress and continue his care. Patient had acute renal injury secondary to ureteral stone with hydronephrosis. Patient will continue to increase fluid intake. Recommendation to recheck lab -BMP in 1 week to monitor his progress. Patient has hypertension. Patient will continue with his medications- lisinopril 20 mg 1 pill daily and metoprolol 50 mg 1 pill twice daily. Recommendation is to maintain blood pressures less 150/80. Further adjustment can be done by his PCP. Tobacco cessation education will be provided. Patient has chronic pain with his medication-[place] 10/325 mg 1 pill 4 times. Patient has follow up with chronic pain management tomorrow for refill on the med his medication. Patient has hyperlipidemia. Patient will continue with pravastatin 20 mg 1 pill once daily. Vital Signs/Physical Exam: Temp Pulse Resp BP Pulse Ox 98.6 F 85 17 141/80 H 92 06/09/18 04:00 06/09/18 04:00 06/09/18 04:00 06/09/18 04:00 06/09/18 00:00 General: Alert, In no apparent distress, Oriented x3, Cooperative HEENT: Atraumatic Neck: Supple Respiratory: Clear to auscultation bilaterally, Normal air movement Cardiovascular: Normal pulses, Regular rate/rhythm Gastrointestinal: Normal bowel sounds, Soft and benign, Non-distended, No tenderness, No masses, No rebound, No guarding Musculoskeletal: No erythema, No tenderness, No warmth Integumentary: No tenderness/swelling, No erythema, No warmth, No cyanosis Neurological: Normal speech, Normal strength at 5/5 x4 extr, Normal tone, Normal affect Laboratory Data at Discharge: WBC 8.5 K/uL (4.3-10.9) D 06/09/18 03:30 Hgb 15.0 g/dL (13.6-17.9) 06/09/18 03:30 Hct 43.5 % (39.6-49.0) 06/09/18 03:30 Plt Count 151 K/uL (152-406) L D 06/09/18 03:30 PT 12.7 SECONDS (9.5-12.5) H 06/08/18 01:45 INR 1.08 06/08/18 01:45 APTT 31.2 SECONDS (24.3-36.9) 06/08/18 01:45 Sodium 143 mmol/L (136-145) 06/09/18 03:30 Potassium 3.4 mmol/L (3.5-5.1) L 06/09/18 03:30 BUN 22 mg/dL (7-18) H 06/09/18 03:30 Creatinine 1.00 mg/dL (0.55-1.3) 06/09/18 03:30 Glucose 109 mg/dL (74-106) H 06/09/18 03:30 Magnesium 1.9 mg/dL (1.8-2.4) 06/09/18 03:30 Total Bilirubin 0.5 mg/dL (0.2-1.0) 06/07/18 22:59 AST 14 U/L (15-37) L 06/07/18 22:59 ALT 30 U/L (12-78) 06/07/18 22:59 Alkaline Phosphatase 97 U/L (45-117) 06/07/18 22:59 Amylase 34 U/L (25-115) 06/07/18 22:59 Lipase 60 U/L (73-393) L 06/07/18 22:59 Home Medications: Hydrocodone Bit/Acetaminophen [[place] 10-325 Tablet] 1 each PO Q4HP PRN 06/08/18 Lisinopril 20 mg PO DAILY 06/08/18 Metoprolol Tartrate 50 mg PO BID 06/08/18 Pravastatin Sodium 20 mg PO DAILY 06/08/18 Patient Discharge Instructions: 1. Patient presented with right flank pain. Patient found to have 6 mm right mid ureteral stone with hydronephrosis. Nephrolithiasis was also seen. Patient evaluated by urology. Urology intervention performed. Recommendations for the patient to follow up with urology in 1 week to monitor his progress and continue his care. Patient may require future urological intervention. At discharge patient will continue with Keflex 500 mg daily and oxybutynin 10 mg daily. Prescriptions for medications, antibiotic, and tramadol will be provided by urology at discharge. 2. Patient had acute renal injury secondary to ureteral stone with hydronephrosis. Patient will continue to increase fluid intake. Recommendation to recheck lab-BMP in 1 week to monitor his progress. 3. Patient has hypertension. Patient will continue with his medications- lisinopril 20 mg 1 pill daily and metoprolol 50 mg 1 pill twice daily. Recommendation is to maintain blood pressures less 150/80. Further adjustment can be done by his PCP. 4. Tobacco cessation education will be provided. 5. Patient has chronic pain with his medication-[place] 10/325 mg 1 pill 4 times. Patient has follow up with chronic pain management tomorrow for refill on the med his medication. 6. Patient has hyperlipidemia. Patient will continue with pravastatin 20 mg 1 pill once daily. Diet: AHA Activity: Ad eh Time spent managing pt's care (in minutes): 55
[2018-06-09 08:42] VITALS: BP 159/95; TEMP 97.5
== END 2018-06-09 11:19 | disposition home or self-care (01) ==
LOC: ER 22:44 → ERHOLD 06-08 02:57 → 4TH 06-08 04:23
PROVIDERS: ADMIT Internal Medicine; ATTEND Internal Medicine
PROC: 0T768DZ Dilation of Right Ureter with Intraluminal Device, Via Natural or Artificial Opening Endoscopic (ICD-10-PCS; principal; 2018-06-08 15:45)
DX: N13.2 Hydronephrosis with renal and ureteral calculous obstruction (principal); N17.9 Acute kidney failure, unspecified; B18.2 Chronic viral hepatitis C; I10 Essential (primary) hypertension; E78.5 Hyperlipidemia, unspecified; G89.29 Other chronic pain; F17.210 Nicotine dependence, cigarettes, uncomplicated
CPT/HCPCS: 36415 ×2; 51610; 52332; 71045; 74018; 74176; 74450; 76377; 80048 ×2; 80076; 82150; 83690; 83735; 84145; 85025 ×2; 85610; 85730; 87040 ×2; 87088 ×2; 93005; 96361; 96374; 96375; 99285; G0378 ×2; J0360 ×2; J1580; J2250; J2405 ×3; J3010; J7030 ×6; Q9967; 81003; 81015; 87086; J2270

== ENCOUNTER 2018-06-12 20:45 | Observation (INO) | payer MEDICARE ==
[2018-06-12 21:52] LABS: Absolute Lymphocytes (CBC) 2.1 K/uL (0.7-4.9); Absolute Monocytes 1.1 K/uL (0.1-1.3); Absolute Neutrophil 7.4 K/uL (1.8-8.0); Basophils % 0.4 % (0-1.3); Eosinophils % 2.7 % (0-4.4); MCH 32.3 pg (27.0-35.0); MCV 93.2 fL (80-100); MPV 9.6 fL (7.6-11.3); RBC Red Blood Cell Count 5.04 M/uL (4.33-5.43)
[2018-06-12 22:07] LABS: Potassium 3.6 mmol/L (3.5-5.1)
[2018-06-12 22:55] LABS: Urine Blood 3+ (NEG); Urine Glucose NEGATIVE (NEG); Urine Protein 2+ (NEG)
[2018-06-12] MEDS ORDERED: ONDANSETRON 4 MG/2 ML VIAL IV PRN (23:55)
[2018-06-12] MEDS ORDERED: ACETAMINOPHEN 500 MG TAB PO PRN (23:55)
--- NOTE | 2018-06-12 23:56 | EDPHYS ---
Physician Documentation [facility] Name: Lino Dietrich Age: 58 yrs Sex: Male : 1960 Arrival Date: 06/12/2018 Time: 20:46 Bed 14 Private MD: Srinath Stuart E ED Physician Bill Benjamin HPI: 06/12 23:36 This 58 yrs old Male presents to ER via Ambulatory with complaints of Chest gs Pain. 23:36 The patient or guardian reports chest pain that is located primarily in the anterior gs chest wall. Onset: acutely, this morning. The pain does not radiate. Associated signs and symptoms: Pertinent negatives: shortness of breath, vomiting. The chest pain is described as a heaviness. Duration: The patient or guardian reports a single episode, that is still ongoing, but improving. Modifying factors: The symptoms are alleviated by nothing. the symptoms are aggravated by nothing. Severity of pain: At its worst the pain was mild in the emergency department the pain is unchanged. The patient has experienced similar episodes in the past, a few times. Historical: - Allergies: 21:05 NKDA; aj1 - Home Meds: 21:05 hydrocodone-acetaminophen 10-325 mg Oral tab 1 tab every 6 hours for Pain [Active]; 3 aj1 blood pressure medications [Active]; - PMHx: 21:05 chronic back pain; Hepatitis; Hypertension; Kidney stones; aj1 - Immunization history:: Flu vaccine is up to date. - Social history:: Smoking status: Patient uses tobacco products, smokes one pack cigarettes per day. - Ebola Screening: : Patient denies travel to an Ebola-affected area in the 21 days before illness onset. ROS: 23:36 All other systems are negative. gs Exam: 23:36 Head/Face: Normocephalic, atraumatic. Eyes: Pupils equal round and reactive to light, gs extra-ocular motions intact. Lids and lashes normal. Conjunctiva and sclera are non-icteric and not injected. Cornea within normal limits. Periorbital areas with no swelling, redness, or edema. ENT: Nares patent. No nasal discharge, no septal abnormalities noted. Tympanic membranes are normal and external auditory canals are clear. Oropharynx with no redness, swelling, or masses, exudates, or evidence of obstruction, uvula midline. Mucous membranes moist. Neck: Trachea midline, no thyromegaly or masses palpated, and no cervical lymphadenopathy. Supple, full range of motion without nuchal rigidity, or vertebral point tenderness. No Meningismus. Chest/axilla: Normal chest wall appearance and motion. Nontender with no deformity. No lesions are appreciated. Cardiovascular: Regular rate and rhythm with a normal S1 and S2. No gallops, murmurs, or rubs. Normal PMI, no JVD. No pulse deficits. Respiratory: Lungs have equal breath sounds bilaterally, clear to auscultation and percussion. No rales, rhonchi or wheezes noted. No increased work of breathing, no retractions or nasal flaring. Abdomen/GI: Soft, non-tender, with normal bowel sounds. No distension or tympany. No guarding or rebound. No evidence of tenderness throughout. Back: No spinal tenderness. No costovertebral tenderness. Full range of motion. Skin: Warm, dry with normal turgor. Normal color with no rashes, no lesions, and no evidence of cellulitis. Neuro: Awake and alert, GCS 15, oriented to person, place, time, and situation. Cranial nerves II-XII grossly intact. Motor strength 5/5 in all extremities. Sensory grossly intact. Cerebellar exam normal. Normal gait. 23:36 Constitutional: The patient appears in no acute distress, alert, awake. 23:36 ECG was reviewed by the Attending Physician. 23:36 Musculoskeletal/extremity: Extremities: noted in the right antecubital area: erythema, tenderness, palpable cord medial antecubital fossa, Pulses: are normal with no appreciated deficits. Vital Signs: 21:06 BP 137 / 97; Pulse 101; Resp 20; Temp 97.8; Pulse Ox 100% on R/A; Weight 91.63 kg (R); aj1 Height 5 ft. 11 in. (180.34 cm) (R); Pain 3/10; 22:18 BP 157 / 97; Pulse 82; Resp 21; Pulse Ox 95% on R/A; kr2 23:24 BP 153 / 99; Pulse 74; Resp 17; Pulse Ox 96% on R/A; kr2 21:06 Body Mass Index 28.17 (91.63 kg, 180.34 cm) aj1 MDM: 21:21 Patient medically screened. 23:36 Differential diagnosis: acute myocardial infarction, chest wall pain, stable angina, gs unstable angina, superficial phlebitis. Data reviewed: vital signs, nurses notes, old medical records. Physician consultation: Chaz Garg MD regarding consult, ekg review says no sig change will see in hospital. 23:36 Response to treatment: the patient's symptoms have resolved after treatment, the patient's pain is gone, the patient's condition has returned to base line. 06/12 21:22 Order name: Basic Metabolic Panel; Complete Time: 22:31 06/12 21:22 Order name: CBC with Diff; Complete Time: 22:31 06/12 21:22 Order name: Troponin (emerg Dept Use Only); Complete Time: 22:31 06/12 22:47 Order name: Urine Dipstick--Ancillary (enter results); Complete Time: 23:55 de 06/12 23:30 Order name: Troponin (emerg Dept Use Only) 06/13 00:03 Order name: Basic Metabolic Panel [facility] 06/12 21:22 Order name: XRAY Chest (1 view) 06/12 21:22 Order name: EKG; Complete Time: 21:22 06/12 23:30 Order name: EKG; Complete Time: 23:31 06/13 00:03 Order name: CONS Physician Consult [facility] 06/13 00:03 Order name: NPO [facility] 06/13 00:03 Order name: CBC with Automated Diff [facility] 06/13 00:03 Order name: Lipid Profile [facility] 06/13 00:03 Order name: Troponin I [facility] 06/12 21:22 Order name: Cardiac monitoring; Complete Time: 21:47 06/12 21:22 Order name: EKG - Nurse/Tech; Complete Time: 21:47 06/12 21:22 Order name: IV Saline Lock; Complete Time: 21:47 06/12 21:22 Order name: Labs collected and sent; Complete Time: 21:47 06/12 21:22 Order name: O2 Per Protocol; Complete Time: 21:47 06/12 21:22 Order name: O2 Sat Monitoring; Complete Time: 21:47 06/12 21:22 Order name: Urine Dipstick-Ancillary (obtain specimen); Complete Time: 22:36 06/12 23:30 Order name: EKG - Nurse/Tech; Complete Time: 23:46 06/13 00:03 Order name: EKG Electrocardiogram [facility] 06/13 00:03 Order name: EKG Electrocardiogram [facility] EC:36 Rate is 79 beats/min. Rhythm is regular. MT interval is normal. QRS interval is normal. QT interval is normal. Q waves are Old in leads II, III, aVF. T waves are Flattened. Clinical impression: NSR w/ Non-specific ST/T Changes. Changes noted from previous ECG. Administered Medications: No medications were administered Disposition: 23:36 Critical Care:. Disposition: 06/12/18 23:55 Hospitalization ordered by Gina De Anda for Inpatient Admission. Preliminary diagnosis are Precordial pain, Phlebitis and thrombophlebitis. - Bed requested for Telemetry/MedSurg (Inpatient). - Status is Inpatient Admission. ao - Condition is Stable. - Problem is new. - Symptoms have improved. UTI on Admission? No Critical care time excluding procedures: 23:36 Critical care time: Bedside Care: 10 minutes, Consultation: 10 minutes, Family gs Intervention: 10 minutes. Total time: 30 minutes Signatures: Dispatcher [employer] EDFL Marilee Tamez RN RN ajJuana Lugo RN RN kl Ortiz, Alex, RN RN ao Starr, Gregory, MD MD Corrections: (The following items were deleted from the chart) 06/13 00:06/12 23:55 Hospitalization Ordered by Gina De Anda MD for Inpatient Admission. kl Preliminary diagnosis is Precordial pain; Phlebitis and thrombophlebitis. Bed requested for Telemetry/MedSurg (Inpatient). Status is Inpatient Admission. Condition is Stable. Problem is new. Symptoms have improved. UTI on Admission? No. gs 06/13 00:56 00:09 06/12/2018 23:55 Hospitalization Ordered by Gina De Anda MD for Inpatient ao Admission. Preliminary diagnosis is Precordial pain; Phlebitis and thrombophlebitis. Bed requested for Telemetry/MedSurg (Inpatient). Status is Inpatient Admission. Condition is Stable. Problem is new. Symptoms have improved. UTI on Admission? No. kl
--- NOTE | 2018-06-12 23:56 | ER ---
Nurse's Notes [facility] Name: Lino Dietrich Age: 58 yrs Sex: Male : 1960 Arrival Date: 06/12/2018 Time: 20:46 Bed 14 Private MD: Srinath Stuart E Diagnosis: Precordial pain;Phlebitis and thrombophlebitis Presentation: 06/12 20:59 Presenting complaint: Patient states: He was discharged from the hospital 3 days ago, aj1 the site where he had his IV started to swell up when he got home and have gotten progressive worse over the past few days. Patient also reports dizziness and a mild headache. Patient also reports that he is urinating blood at time, but state that he had been admitted for a kidney stone and they put a stent in. Patient also reports chest pain across the lower chest. Denies shortness of breath. States he has not taken any pain medication because his pain is not severe enough to need any. Transition of care: patient was not received from another setting of care. Onset of symptoms was June 09, 2018. Risk Assessment: Do you want to hurt yourself or someone else? Patient reports no desire to harm self or others. Initial Sepsis Screen: Does the patient meet any 2 criteria? HR > 90 bpm. No. Patient's initial sepsis screen is negative. Does the patient have a suspected source of infection? Yes: Skin breakdown/wound. Care prior to arrival: None. 20:59 Method Of Arrival: Ambulatory aj1 20:59 Acuity: MG 3 aj1 Triage Assessment: 21:06 General: Appears in no apparent distress. uncomfortable, Behavior is calm, cooperative, aj1 appropriate for age. Pain: Complains of pain in top of head and chest Pain currently is 3 out of 10 on a pain scale. Neuro: Level of Consciousness is awake, alert, obeys commands. Cardiovascular: Patient's skin is warm and dry. Respiratory: Airway is patent Respiratory effort is even, unlabored, Respiratory pattern is regular, symmetrical. Historical: - Allergies: 21:05 NKDA; aj1 - Home Meds: 21:05 hydrocodone-acetaminophen 10-325 mg Oral tab 1 tab every 6 hours for Pain [Active]; 3 aj1 blood pressure medications [Active]; - PMHx: 21:05 chronic back pain; Hepatitis; Hypertension; Kidney stones; aj1 - Immunization history:: Flu vaccine is up to date. - Social history:: Smoking status: Patient uses tobacco products, smokes one pack cigarettes per day. - Ebola Screening: : Patient denies travel to an Ebola-affected area in the 21 days before illness onset. Screenin:23 Abuse screen: Denies threats or abuse. Denies injuries from another. Nutritional kr2 screening: No deficits noted. Tuberculosis screening: No symptoms or risk factors identified. Fall Risk None identified. Assessment: 21:15 General: Appears in no apparent distress. comfortable, well groomed, well developed, kr2 well nourished, Behavior is calm, cooperative, appropriate for age. Pain: Complains of pain in right bicep and chest Pain currently is 2 out of 10 on a pain scale. Quality of pain is described as aching, tender. Neuro: Level of Consciousness is awake, alert, obeys commands, Oriented to person, place, time, situation, Appropriate for age. Cardiovascular: Capillary refill < 3 seconds in bilateral fingers Patient's skin is warm and dry. Rhythm is regular. Respiratory: Airway is patent Respiratory effort is even, unlabored, Respiratory pattern is regular, symmetrical. GI: Abdomen is round non-distended. : Reports blood in urine at times, recently had a urinary stent placed for stones, currently on antibiotics. EENT: Oral mucosa is moist. Derm: Skin is intact, is healthy with good turgor, Skin is pink, warm \T\ dry. Musculoskeletal: Circulation, motion, and sensation intact. 22:15 Reassessment: Patient appears in no apparent distress at this time. Patient and/or kr2 family updated on plan of care and expected duration. Pain level reassessed. Patient is alert, oriented x 3, equal unlabored respirations, skin warm/dry/pink. 23:24 Reassessment: Patient appears in no apparent distress at this time. Patient and/or kr2 family updated on plan of care and expected duration. Pain level reassessed. Patient is alert, oriented x 3, equal unlabored respirations, skin warm/dry/pink. Patient states feeling better. 23:47 Reassessment: Patient appears in no apparent distress at this time. Patient and/or kr2 family updated on plan of care and expected duration. Pain level reassessed. Patient is alert, oriented x 3, equal unlabored respirations, skin warm/dry/pink. Vital Signs: 21:06 BP 137 / 97; Pulse 101; Resp 20; Temp 97.8; Pulse Ox 100% on R/A; Weight 91.63 kg (R); aj1 Height 5 ft. 11 in. (180.34 cm) (R); Pain 3/10; 22:18 BP 157 / 97; Pulse 82; Resp 21; Pulse Ox 95% on R/A; kr2 23:24 BP 153 / 99; Pulse 74; Resp 17; Pulse Ox 96% on R/A; kr2 21:06 Body Mass Index 28.17 (91.63 kg, 180.34 cm) aj1 ED Course: 20:46 Patient arrived in ED. es 20:49 Srinath Stuart MD is Private Physician. es 21:04 Triage completed. aj1 21:06 Arm band placed on Patient placed in an exam room. aj1 21:11 Bill Benjamin MD is Attending Physician. gs 21:15 Patient has correct armband on for positive identification. Bed in low position. Call kr2 light in reach. Side rails up X 1. monitoring analyst on. Pulse ox on. NIBP on. Door closed. Warm blanket given. Head of bed elevated. 21:28 Hilary Wren RN is Primary Nurse. kr2 21:40 Inserted saline lock: 20 gauge in left upper arm, using aseptic technique. Blood kr2 collected. 21:45 EKG done, by ED staff, reviewed by Bill Benjamin MD. kr2 22:10 XRAY Chest (1 view) In Process Unspecified. EDMS 22:37 Urine collected: clean catch specimen, clear, [place] colored. kr2 23:46 Repeat lab(s) drawn. by id, sent to lab. EKG done, by ED staff, reviewed by Bill Benjamin MD. 23:53 Gina De Anda MD is Hospitalizing Provider. 06/13 00:55 No provider procedures requiring assistance completed. Patient admitted, IV remains in ao place. Administered Medications: No medications were administered Outcome: 06/12 23:55 Decision to Hospitalize by Provider. 06/13 00:55 Admitted to Tele accompanied by suyapa, room 411, with chart, Report called to JHONATAN Estrella ao Condition: stable Instructed on the need for admit. 00:56 Patient left the ED. ao Signatures: Dispatcher [employer] Marilee Black RN RN aj1 Jennifer Grace Alex RN Bill Parikh MD MD Hilray Wren RN RN kr2 Corrections: (The following items were deleted from the chart) 06/12 21:06 20:59 Presenting complaint: Patient states: He was discharged from the hospital 3 days aj1 ago, the site where he had his IV started to swell up when he got home and have gotten progressive worse over the past few days. Patient also reports dizziness and a mild headache. Patient also reports that he is urinating blood at time, but state that he had been admitted for a kidney stone and they put a stent in. Patient also reports chest pain across the lower chest. Denies shortness of breath aj1 22:24 22:18 Pulse 82bpm; Resp 21bpm; Pulse Ox 95% RA; kr2 kr2
--- NOTE | 2018-06-13 00:50 | P.HP ---
Certification for Inpatient Patient admitted to: Observation With expected LOS: <2 Midnights Practitioner: I am a practitioner with admitting privileges, knowledge of patient current condition, hospital course, and medical plan of care. Services: Services provided to patient in accordance with Admission requirements found in Title 42 Section 412.3 of the Code of Federal Regulations Patient History Date of Service: 06/13/18 Reason for admission: Chest pain History of Present Illness: Mr. Dietrich is a 58-year-old male with history of hepatitis-C, hypertension, tobacco abuse, recently was admitted to the hospital due to an obstructive ureteral stone requiring cystoscopy with stent placement, who was discharged 3 days ago with oral antibiotics. He came to ED at this time complaining of redness, swelling, and pain in his right forearm, in the area with his IV was placed. He denied any fever or chills. He also is complaining of recurrent episode chest pain, located in substernal area radiating across the chest, intensity 5/10, associated with nausea. Initial EKG shows pseudonormalization of T-wave in the inferior leads, troponin I within normal limits. He also is complaining of headache. He says that his headache is similar to previous episodes of migraine. Allergies codeine sulfate Allergy (Uncoded 06/13/18 00:41) Unknown Home medications list reviewed: Yes Home Medications: Hydrocodone Bit/Acetaminophen [Walls 10-325 Tablet] 1 each PO Q4HP PRN 06/08/18 Lisinopril 20 mg PO DAILY 06/08/18 Metoprolol Tartrate 50 mg PO BID 06/08/18 Pravastatin Sodium 20 mg PO DAILY 06/08/18 - Past Medical/Surgical History Diabetic: No -: htn -: back pain -: shingles went into nerves in left eye -: Tobacco abuse -: hep c -: kidney stones -: Back [id number]-Gxhyebrebvmn-Pm. Bashir- hardware present -: Cholecystectomy Psychosocial/ Personal History: Has fiance, No children, Work-none - Family History Mother -: Hypertension - Social History Smoking Status: Current every day smoker Counseled patient to stop smoking for: less than 10 minutes Alcohol use: No CD- Drugs: No Caffeine use: Yes Place of Residence: Home Review of Systems 10-point ROS is otherwise unremarkable Physical Examination - Physical Exam General: Alert, In no apparent distress HEENT: Atraumatic, PERRLA, Mucous membr. moist/pink, EOMI, Sclerae nonicteric Neck: Supple, 2+ carotid pulse no bruit, No LAD, Without JVD or thyroid abnormality Respiratory: Clear to auscultation bilaterally, Normal air movement Cardiovascular: Regular rate/rhythm, Normal S1 S2 Gastrointestinal: Normal bowel sounds, No tenderness Musculoskeletal: No tenderness Integumentary: Tenderness/swelling (Right forearm), Erythema, Warmth Neurological: Normal speech, Normal strength at 5/5 x4 extr, Normal tone, Normal affect Lymphatics: No axilla or inguinal lymphadenopathy - Studies Laboratory Data (last 24 hrs) 06/12/18 21:40: WBC 10.9 D, Hgb 16.3, Hct 47.0, Plt Count 197 D 06/12/18 21:40: Sodium 143, Potassium 3.6, BUN 29 H, Creatinine 1.00, Glucose 148 H Assessment and Plan - Problems (Diagnosis) (1) Chest pain Current Visit: Yes Status: Acute Qualifiers: Chest pain type: precordial pain Qualified Code(s): R07.2 - Precordial pain (2) Cellulitis Current Visit: Yes Status: Acute Qualifiers: Site of cellulitis: extremity Site of cellulitis of extremity: upper extremity Laterality: right Qualified Code(s): L03.113 - Cellulitis of right upper limb (3) Migraine Current Visit: Yes Status: Acute Qualifiers: Migraine type: unspecified Status migrainosus presence: without status migrainosus Intractability: not intractable Qualified Code(s): G43.909 - Migraine, unspecified, not intractable, without status migrainosus (4) HTN (hypertension) Onset Date: 06/19/15 Current Visit: No Status: Chronic Qualifiers: Hypertension type: essential hypertension Qualified Code(s): I10 - Essential (primary) hypertension (5) Tobacco abuse Onset Date: 06/19/15 Current Visit: No Status: Chronic - Plan The patient will be admitted to the hospital due to right forearm cellulitis and chest pain with EKG changes. He has normal WBC count, no fever. With will start empirical treatment with Levaquin and vancomycin IV. The patient is has previous history of an inferior IA, and NM stress test from 2011 already shows fixed defect in inferior wall. Will order serial cardiac enzymes and EKG, echo in a.m., consult bit bender. - Advance Directives Does patient have a Living Will: No Does patient have a Durable POA for Healthcare: No - Code Status/Comfort Care Code Status Assessed: Yes Code Status: Full Code
[2018-06-13 00:59] VITALS: BMI 28.0
[2018-06-13] MEDS: NA CHLORIDE 0.9% 1,000 ML IV SCH ×2 (01:09→13:42)
[2018-06-13] MEDS ORDERED: VANCOMYCIN 1 GM in NA CHLORIDE 0.9% 500 ML IVPB SCH (01:18)
[2018-06-13] MEDS ORDERED: Levofloxacin500mg IV 500 MG/100 ML BAG IV SCH (01:18)
[2018-06-13] MEDS ORDERED: HYDROCODONE/APAP 10/325 TAB PO PRN (01:18)
[2018-06-13] MEDS ORDERED: ENOXAPARIN 100 MG/ML SYR SQ SCH (02:00)
[2018-06-13] MEDS: ASPIRIN 81 MG CHEWABLE TABLET PO SCH ×2 (02:50→09:41)
[2018-06-13] MEDS ORDERED: NA CHLORIDE 0.9% IVPB SCH (03:00)
[2018-06-13] MEDS ORDERED: VANCOMYCIN IVPB SCH (03:00)
[2018-06-13] MEDS ORDERED: NA CHLORIDE 0.9% 500 ML ONE (03:05)
[2018-06-13] MEDS ORDERED: VANCOMYCIN 1 GM/VIAL ONE (03:05)
[2018-06-13] MEDS ORDERED: VANCOMYCIN 500 MG/VIAL ONE (03:06)
[2018-06-13 04:48] LABS: Absolute Lymphocytes (CBC) 2.1 K/uL (0.7-4.9); Absolute Monocytes 1.1 K/uL (0.1-1.3); Absolute Neutrophil 8.4 K/uL (1.8-8.0); Basophils % 0.4 % (0-1.3); Eosinophils % 2.4 % (0-4.4); Hematocrit 43.9 % (39.6-49.0); Lymphocytes % 17.5 % (15.3-44.8); MCH 32.2 pg (27.0-35.0); MCV 94.7 fL (80-100); MPV 9.5 fL (7.6-11.3); Monocytes % 9.1 % (3.3-12.3); RBC Red Blood Cell Count 4.64 M/uL (4.33-5.43)
[2018-06-13 05:22] LABS: BUN Blood Urea Nitrogen 28 mg/dL (7-18); Bicarbonate 27 mmol/L (21-32); Glucose Level 130 mg/dL (74-106); HDL Cholesterol 25 mg/dL (40-60); LDL Cholesterol, Calculated 80 (<130); Potassium 3.3 mmol/L (3.5-5.1); Sodium Level 141 mmol/L (136-145)
--- NOTE | 2018-06-13 06:08 | EKG ---
Test Date: 2018-06-12 Test Time: 23:43:17 Baggage And Mail Agent: GEE MEASUREMENT RESULTS: Intervals: Rate: 78 WV: 260 QRSD: 98 QT: 368 QTc: 419 [place]: P: 36 WV: 260 QRS: 34 T: 89 INTERPRETIVE STATEMENTS: Sinus rhythm with 1st degree AV block Anterior infarct, age undetermined Abnormal ECG Compared to ECG 06/12/2018 21:41:37 No significant changes Electronically Signed On 06-13-18 06:08:37 CDT by Chaz Garg
--- NOTE | 2018-06-13 06:10 | EKG ---
Test Date: 2018-06-12 Test Time: 21:41:37 Assessment Rn: GEE MEASUREMENT RESULTS: Intervals: Rate: 79 CT: 254 QRSD: 98 QT: 358 QTc: 410 [place]: P: 17 CT: 254 QRS: -8 T: 82 INTERPRETIVE STATEMENTS: Sinus rhythm with 1st degree AV block Inferior infarct, age undetermined Anterior infarct, age undetermined Abnormal ECG Compared to ECG 06/08/2018 03:27:41 Myocardial infarct finding now present Sinus bradycardia no longer present Electronically Signed On 06-13-18 06:09:13 CDT by Chaz Garg
--- NOTE | 2018-06-13 07:49 | P.PN ---
Subjective Date of Service: 06/13/18 Primary Care Provider: Dr. Stuart; Urology-Dr. Henley Chief Complaint: Chest pain Subjective: Other (Patient denies any significant chest pain flank pain. Patient recently hospitalized for ureteral stone status post stent placement. Patient reported some nausea and vomiting prior to his last admission. Patient with mild erythema to the right elbow all region where he had an IV placed. Patient overall improved. Patient with history of hypertension, chronic back pain, tobacco abuse.) Physical Examination - Vital Signs Temperature: 97.3 F Blood Pressure: 128/75 Pulse: 70 Respirations: 20 Pulse Ox (%): 92 - Physical Exam General: Alert, In no apparent distress, Oriented x3, Cooperative HEENT: Atraumatic, Mucous membr. moist/pink Neck: Supple Respiratory: Clear to auscultation bilaterally, Normal air movement Cardiovascular: Normal pulses, Regular rate/rhythm Gastrointestinal: Normal bowel sounds, Soft and benign, Non-distended, No masses , No rebound, No guarding, Tenderness (Minimal pain to the right flank) Musculoskeletal: No erythema, No tenderness, No warmth Integumentary: No tenderness/swelling, No erythema, No warmth, No cyanosis Neurological: Normal speech, Normal strength at 5/5 x4 extr, Normal tone, Normal affect - Studies Laboratory Data (last 24 hrs) 06/12/18 21:40: WBC 10.9 D, Hgb 16.3, Hct 47.0, Plt Count 197 D 06/12/18 21:40: Sodium 143, Potassium 3.6, BUN 29 H, Creatinine 1.00, Glucose 148 H Medications List Reviewed: Yes Assessment & Plan - Problems (Diagnosis) (1) Cellulitis Current Visit: Yes Status: Acute Plan: Mild cellulitis to the right elbow. This is likely where previous IV was placed. This has improved. Will switch antibiotic therapy to Levaquin 500 mg daily Qualifiers: Site of cellulitis: extremity Site of cellulitis of extremity: upper extremity Laterality: right Qualified Code(s): L03.113 - Cellulitis of right upper limb (2) Chest pain Current Visit: Yes Status: Acute Plan: Patient reported chest pain. Patient with history of hypertension, tobacco abuse. Cardiac enzymes unremarkable. Cardiology consulted to further assess. Chest pain appears to be more related to right flank pain. Patient with recent history of right 6 mm ureteral stone, hydronephrosis and nephrolithiasis. Patient had stent placed by Urology this past week. Patient had reported some increased nausea prior to his last admission. Patient now improved. Await further recommendations from cardiology. Patient now stable at this time. Will consider discharge if okay with cardiology. Qualifiers: Chest pain type: precordial pain Qualified Code(s): R07.2 - Precordial pain (3) Hydronephrosis Onset Date: 06/19/15 Current Visit: No Status: Acute Plan: Will check abdominal ultrasound. Patient has stent in place. Anticipate discharge today if okay with cardiology. Patient has follow up with urology early this week. Qualifiers: Hydronephrosis type: with ureteral calculous obstruction Qualified Code(s) : N13.2 - Hydronephrosis with renal and ureteral calculous obstruction (4) Kidney stone on right side Onset Date: 01/27/18 Current Visit: No Status: Acute Plan: Patient now with stent to right side. 6 mm stone was noted on previous CT scan. Patient also has nephrolithiasis. Patient has urology appointment early this week. (5) Chronic back pain Onset Date: 06/19/15 Current Visit: No Status: Chronic Plan: Continue with chronic pain medication. Qualifiers: Back pain location: back pain in unspecified location Back pain laterality : unspecified Qualified Code(s): M54.9 - Dorsalgia, unspecified; G89.29 - Other chronic pain (6) HTN (hypertension) Onset Date: 06/19/15 Current Visit: No Status: Chronic Plan: Continue with hypertensive medication. Await recommendations by Cardiology. Qualifiers: Hypertension type: essential hypertension Qualified Code(s): I10 - Essential (primary) hypertension (7) Hepatitis C Current Visit: No Status: Chronic Plan: This can be followed up as an outpatient. Qualifiers: Viral hepatitis chronicity: chronic Hepatic coma status: without hepatic coma Qualified Code(s): B18.2 - Chronic viral hepatitis C (8) Nephrolithiasis Onset Date: 06/19/15 Current Visit: No Status: Chronic Plan: Continue as above. Stent in place. (9) Tobacco abuse Onset Date: 06/19/15 Current Visit: No Status: Chronic Plan: Will provide nicotine patch as needed. Tobacco cessation addressed. (10) Urolithiasis Onset Date: 06/19/15 Current Visit: No Status: Chronic Plan: Patient had 6 mm right ureteral stone. Stent was placed last week. Patient to follow up within urology this week. Continue as above. Qualifiers: Urinary calculus location: kidney and ureter Qualified Code(s): N20.2 - Calculus of kidney with calculus of ureter Discharge Plan: Home Plan to discharge in: 24 Hours Time Spent Managing Pts Care (In Minutes): 55
--- NOTE | 2018-06-13 08:01 | RAD REPORT ---
EXAM DESCRIPTION: RAD - Chest Single View - 06/12/2018 10:10 pm CLINICAL HISTORY: Chest pain COMPARISON: June 08 TECHNIQUE: AP portable chest image was obtained 2202 hour . FINDINGS: Lung volumes are relatively low but similar to comparison. Interstitial markings are promi nent, similar or slightly less pronounced than seen previously. No focal infiltrate, mass or signific ant failure finding. Heart and vasculature are normal. No measurable pleural effusion and no pneumoth orax. No gross bony abnormality seen. No acute aortic findings suspected. IMPRESSION: No acute cardiopulmonary finding when compared to June 08 study.
[2018-06-13] MEDS: METOPROLOL TAR 50 MG TAB PO SCH ×2 (09:41→20:58)
[2018-06-13] MEDS: levoFLOXacin 500 MG TAB PO SCH (09:41)
[2018-06-13] MEDS: LISINOPRIL 20 MG TAB PO SCH (09:41)
[2018-06-13] MEDS: PANTOPRAZOLE 40MG TABLET PO SCH (09:42)
[2018-06-13] MEDS: OXYBUTYNIN ER 5 MG TAB PO SCH (09:46)
[2018-06-13] MEDS: MUPIROCIN 2% OINT 22GM TUBE TOP SCH ×2 (09:46→20:57)
--- NOTE | 2018-06-13 11:08 | CON ---
History Of Present Illness: Mr. Dietrich came to the hospital mainly because of an IV, he had blown cau sed a lot of bruising, and then he was worried that he had infected skin. As the doctors were interv iewing, he casually mentioned that he also had chest pain. Apparently, the chest pain happens whenev er he coughs. A week or so ago, he had a kidney stone, underwent surgery, a stent. I think the sten t has been removed. He is not exactly sure. While he was sick with the kidney stone, he was vomitin g a lot, pain medicines made him vomit and that is when his pain is started, so more than a week ago, it hurts when he coughs. It does not sound very much like angina. He has CAD. We have seen it on stress test, on his EKG. There was an extensive inferior and anterior DC that shows both on the EKG and nuclear stress testing. He had a stress test with Dr. Jarrell a year ago. Dr. Jarrell told him he w ould be okay and not need a heart cath. He has never had bypass surgery, stents, or cardiac catheter ization. He does not have exertional chest pain. He has pain when he coughs. Physical Examination: HEENT: Unremarkable. Lungs: Clear. Heart: S4 gallop, otherwise it is normal. Abdomen: Soft. Extremities: Normal. All of his troponins are normal. His EKG shows an extensive anterolateral DC. I have recommended th at he do a nuclear stress test. He also has an elevated calcium level. It has been repeated and fou nd to be elevated, so he really needs a hypercalcemia workup. It may be the cause of various pains h e has as well. Mr. Dietrich has CAD with chest pain, not sure we can safely attribute all the chest pain to his vomiting. I think doing a stress test is really reasonable. We will do that tomorrow. HELENE/MONI Voice ID: [id number] Report ID: [id number]
--- NOTE | 2018-06-13 11:20 | RAD REPORT ---
EXAM DESCRIPTION: US - Abdomen Exam Complete - 06/13/2018 11:09 am CLINICAL HISTORY: Epigastric pain, right upper quadrant pain COMPARISON: CT June 07 FINDINGS: Gallbladder is absent. Common bile duct is normal with no common duct stone identified. Li mukul shows an increased cortical echogenicity that likely reflects diffuse fatty infiltration. No foca l liver or spleen finding. The pancreas is obscured Right hydronephrosis seen on the prior CT imaging is not identifiable on this examination. Patient guevara s echogenicity of the hilum that may represent an indwelling stent. No left-sided hydronephrosis. Upp er pole left calculus again noted. Aorta is normal is size. No ascites or bulky lymphadenopathy. No IVC abnormality. IMPRESSION: Hydronephrosis of the right kidney seen June 07 is no longer identifiable. Patient may still have an indwelling stent in place. Patient is status post cholecystectomy. No biliary tree dilatation. Probable fatty infiltration of the liver. Pancreas is obscured.
[2018-06-13] MEDS ORDERED: ATORVASTATIN 10 MG TAB PO SCH (21:00)
[2018-06-14] MEDS: NA CHLORIDE 0.9% 1,000 ML IV SCH (00:04)
[2018-06-14] MEDS ORDERED: REGADENOSON 0.4 MG/5 ML SYR IV ONE (09:33)
[2018-06-14] MEDS: LISINOPRIL 20 MG TAB PO SCH (10:39)
[2018-06-14] MEDS: ASPIRIN 81 MG CHEWABLE TABLET PO SCH (10:40)
[2018-06-14] MEDS: levoFLOXacin 500 MG TAB PO SCH (10:40)
[2018-06-14] MEDS: METOPROLOL TAR 50 MG TAB PO SCH (10:40)
[2018-06-14] MEDS: PANTOPRAZOLE 40MG TABLET PO SCH (10:40)
[2018-06-14] MEDS: OXYBUTYNIN ER 5 MG TAB PO SCH (10:41)
[2018-06-14] MEDS: MUPIROCIN 2% OINT 22GM TUBE TOP SCH (10:42)
--- NOTE | 2018-06-14 11:09 | RAD REPORT ---
EXAM DESCRIPTION: NM - Rest Stress Cardiac Imaging - 06/14/2018 10:59 am CLINICAL HISTORY: Chest pain COMPARISON: July 2012 TECHNIQUE: The patient was administered 11.1 mCi of Tc 99m Sestamibi prior to resting SPECT imaging of the heart. The patient was then administered 30.3 mCi of Tc 99m Sestamibi following exercise or ph armacologic stress. Multiplanar SPECT images were reviewed. FINDINGS: The end diastolic volume is 105 ml, the end systolic volume is 48 ml, and the ejection fra ction is 55 %. Ventricular volumes have decreased from the 2012 study. Ejection fraction is similar t o the prior study. No stress-induced ischemic changes are a confirmed on this study. Large fixed defect based apex pushpa g the inferior wall and a portion of the septum does not change between rest and stress imaging. Suzy yudi is substantially similar to 2012. Scarring would be favored over diaphragm attenuation artifact. IMPRESSION: No stress-induced ischemic changes seen. Large fixed defect inferior wall is favored to be scarring over attenuation artifact. This defect is similar to 2012. Ventricular volumes are improved compared to 2012 and fall in normal range. Ejection fraction is sapna lar to the prior study at 55%.
[2018-06-14 11:15] VITALS: O2SAT 98
--- NOTE | 2018-06-14 11:34 | ECHO ---
HEIGHT: 5 ft 11 in WEIGHT: 201 lb 0 oz DATE OF STUDY: 06/14/[address]: Gina Hamilton MD 2-DIMENSIONAL: YES M.MODE: YES DOPPLER: YES COLOR FLOW: YES TDS: NO PORTABLE: NO DEFINITY: NO BUBBLE STUDY: NO DIAGNOSIS: CHEST PAIN CARDIAC HISTORY: CATHERIZATION: NO SURGERY: NO PROSTHETIC VALVE: NO PACEMAKER: NO MEASUREMENTS (cm) DIASTOLIC (NORMALS) SYSTOLIC (NORMALS) IVSd 1.3 (0.6-1.2) LA Diam 4.2 (1.9-4.0) LVEF 69% LVIDd 4.5 (3.5-5.7) LVIDs 2.7 (2.0-3.5) %FS 39% LVPWd 1.3 (0.6-1.2) Ao Diam 3.1 (2.0-3.7) 2 DIMENSIONAL ASSESSMENT: RIGHT ATRIUM: NORMAL LEFT ATRIUM: NORMAL RIGHT VENTRICLE: NORMAL LEFT VENTRICLE: NORMAL TRICUSPID VALVE: NORMAL MITRAL VALVE: NORMAL PULMONIC VALVE: NORMAL AORTIC VALVE: NORMAL PERICARDIAL EFFUSION: NONE AORTIC ROOT: NORMAL LEFT VENTRICULAR WALL MOTION: MILD APICAL DISTAL SEPTAL HYPOKINESIS. DOPPLER/COLOR FLOW: MILD MITRAL REGURGITATION. COMMENTS: NORMAL LEFT VENTRICULAR EJECTION FRACTION. MILD MITRAL REGURGITATION. TECHNOLOGIST: Maria Isabel HOLLAND
--- NOTE | 2018-06-14 11:41 | TREADPHA ---
DX: CHEST PAIN Date of Study: 06/14/2018 Ht: 5 11 Wt: 201 lb 0 oz Consulting Physician: DONIS MEDICATIONS: TYLENOL, ASPIRIN, NORCO, LEVAQUIN, LIPITOR, LOPRESSOR, ZOFRAN, PROTONIX HISTORY: 58 YEAR OLD MALE HERE FOR CHEST PAIN. HISTORY OF CHRONIC BACK PAIN, HEPATITIS, HYPERTENSION, KIDNEY STONES AND MYOCARDIAL INFARCTION. PHYSICIAL EXAMINATION: RESTING B.P.: 150/98 RESTING H.R.: 59 RESTING EKG: ANTERIOR LATERAL MYOCARDIAL INFARCTION, INFERIOR MYOCARDIAL INFARCTION. PROTOCOL: LEXISCAN EXERCISE TIME: 3:30 B.P. AT [facility] STRESS: 147/79 IMPRESSION: LEXISCAN STRESS PREFORMED. CARDIOLITE INJECTED PER PROTOCOL. NO ARRHYTHMIAS NOTED. DENIES ANY CHEST PAIN. SEE NUCLEAR MEDICINE REPORT. NON DIAGNOSTIC EKG WITH LEXISCAN STRESS.
[2018-06-14 12:25] VITALS: BP 187/102; TEMP 98.3
--- NOTE | 2018-06-14 12:29 | P.DS ---
Admission Date: 06/12/18 Discharge Date: 06/14/18 Primary Care Provider: Dr. Stuart; Urology-Dr. Henley Disposition: ROUTINE DISCHARGE Discharge Condition: GOOD Reason for Admission: Chest pain Consultations: Cardiology-Dr. Garg Procedures: ECHO: EF 69% LEFT VENTRICULAR WALL MOTION: MILD APICAL DISTAL SEPTAL HYPOKINESIS. DOPPLER/COLOR FLOW: MILD MITRAL REGURGITATION. COMMENTS: NORMAL LEFT VENTRICULAR EJECTION FRACTION. MILD MITRAL REGURGITATION. Cardiac stress test: FINDINGS: The end diastolic volume is 105 ml, the end systolic volume is 48 ml , and the ejection fraction is 55 %. Ventricular volumes have decreased from the 2012 study. Ejection fraction is similar to the prior study. No stress-induced ischemic changes are a confirmed on this study. Large fixed defect based apex along the inferior wall and a portion of the septum does not change between rest and stress imaging. Pattern is substantially similar to 2012. Scarring would be favored over diaphragm attenuation artifact. IMPRESSION: No stress-induced ischemic changes seen. Large fixed defect inferior wall is favored to be scarring over attenuation artifact. This defect is similar to 2012. Ventricular volumes are improved compared to 2012 and fall in normal range. Ejection fraction is similar to the prior study at 55%. - Problems (1) Cellulitis Onset Date: 06/14/18 Current Visit: Yes Status: Acute Qualifiers: Site of cellulitis: extremity Site of cellulitis of extremity: upper extremity Laterality: right Qualified Code(s): L03.113 - Cellulitis of right upper limb (2) Chest pain Onset Date: 06/14/18 Current Visit: Yes Status: Acute Qualifiers: Chest pain type: precordial pain Qualified Code(s): R07.2 - Precordial pain (3) Hydronephrosis Onset Date: 06/19/15 Current Visit: No Status: Acute Qualifiers: Hydronephrosis type: with ureteral calculous obstruction Qualified Code(s) : N13.2 - Hydronephrosis with renal and ureteral calculous obstruction (4) Kidney stone on right side Onset Date: 01/27/18 Current Visit: No Status: Acute (5) Chronic back pain Onset Date: 06/19/15 Current Visit: No Status: Chronic Qualifiers: Back pain location: back pain in unspecified location Back pain laterality : unspecified Qualified Code(s): M54.9 - Dorsalgia, unspecified; G89.29 - Other chronic pain (6) HTN (hypertension) Onset Date: 06/14/18 Current Visit: Yes Status: Chronic Qualifiers: Hypertension type: essential hypertension Qualified Code(s): I10 - Essential (primary) hypertension (7) Hepatitis C Current Visit: No Status: Chronic Qualifiers: Viral hepatitis chronicity: chronic Hepatic coma status: without hepatic coma Qualified Code(s): B18.2 - Chronic viral hepatitis C (8) Nephrolithiasis Onset Date: 06/19/15 Current Visit: No Status: Chronic (9) Tobacco abuse Onset Date: 06/14/18 Current Visit: Yes Status: Chronic (10) Urolithiasis Onset Date: 06/19/15 Current Visit: No Status: Chronic Qualifiers: Urinary calculus location: kidney and ureter Qualified Code(s): N20.2 - Calculus of kidney with calculus of ureter (11) Hypercalcemia Current Visit: Yes Status: Acute (12) Hyperparathyroidism Current Visit: Yes Status: Suspected (13) COPD (chronic obstructive pulmonary disease) Current Visit: Yes Status: Chronic Qualifiers: COPD type: unspecified COPD Qualified Code(s): J44.9 - Chronic obstructive pulmonary disease, unspecified (14) GERD (gastroesophageal reflux disease) Current Visit: Yes Status: Chronic Qualifiers: Esophagitis presence: esophagitis presence not specified Qualified Code(s) : K21.9 - Gastro-esophageal reflux disease without esophagitis Brief History of Present Illness: 58 yo CM presented to the ER with Chest pain. Patient was recently hospitalized for right ureteral stone with hydronephrosis. He was seen in the ER and admitted for further evaluation. Hospital Course: Patient was seen and evaluated for his chest pain. He was seen by Cardiology. Cardiology recommended ECHO and stress test. ECHO was normal and cardiac stress test showed no stress induced ischemia. Cardiology recommended no further workup. Patient may continue with Aspirin 81 mg daily. Patient was also found to have elevated calcium. PTH was slightly high. Ionized calcium is pending. Both can be followed up by his PCP as outpatient. Patient may have Primary Hyperparathyroidism. Recommendation is for the patient to see Endocrinology to further evaluate and workup elevated calcium. This may be contributing to his renal stones. Patient seen last week for right ureteral stone with hydronephrosis. Stent was placed by Urology. Repeat US showed no hydronephrosis. He will need to follow up with Urology to further address. He will continue with Oxybutynin 10 mg daily. I will DC Keflex. He may continue with Levaquin 500 mg one pill daily for 7 days. Patient had mild cellulitis to the right elbow. He will continue with Levaquin 500 mg daily for 7 days. Patient has HTN. He will continue with his medication-Metoprolol 50 mg one pill twice daily and Lisinopril 20 mg one pill every day. Recommendation is to maintain his BP less than 150/80. Further adjustment can be done by his PCP. Patient likely has GERD. At discharge he will continue with Protonix 40 mg daily. He may need to see GI as outpatient to further address. Patient likely has COPD. At discharge he will continue with Symbicort 160 mcg 2 puff twice daily and Proair HFA 2 puff 3 times a day as needed for shortness of breath. Tobacco cessation recommended. Recommendation to follow up and establish care with Pulmonary to follow. Patient has Hyperlipidemia. He will continue with Pravastatin 20 mg daily. Patient has Hepatitis C. He will need to establish care with GI to further address and treat. Vital Signs/Physical Exam: Temp Pulse Resp BP Pulse Ox 98 F 67 20 145/85 H 97 06/14/18 04:00 06/14/18 10:40 06/14/18 04:00 06/14/18 10:40 06/14/18 04:00 General: Alert, In no apparent distress, Oriented x3, Cooperative HEENT: Atraumatic Neck: Supple Respiratory: Clear to auscultation bilaterally, Normal air movement Cardiovascular: Normal pulses, Regular rate/rhythm Gastrointestinal: Normal bowel sounds, Soft and benign, Non-distended, No tenderness, No masses, No rebound, No guarding Musculoskeletal: No erythema, No tenderness, No warmth Integumentary: No tenderness/swelling, No erythema, No warmth, No cyanosis Neurological: Normal speech, Normal strength at 5/5 x4 extr, Normal tone, Normal affect Laboratory Data at Discharge: WBC 11.9 K/uL (4.3-10.9) H 06/13/18 04:30 Hgb 14.9 g/dL (13.6-17.9) 06/13/18 04:30 Hct 43.9 % (39.6-49.0) 06/13/18 04:30 Plt Count 173 K/uL (152-406) 06/13/18 04:30 Sodium 141 mmol/L (136-145) 06/13/18 04:30 Potassium 3.3 mmol/L (3.5-5.1) L 06/13/18 04:30 BUN 28 mg/dL (7-18) H 06/13/18 04:30 Creatinine 0.80 mg/dL (0.55-1.3) 06/13/18 04:30 Glucose 130 mg/dL (74-106) H 06/13/18 04:30 Troponin I < 0.02 ng/mL (0.0-0.045) 06/13/18 04:30 Triglycerides 104 mg/dL (<150) 06/13/18 04:30 Cholesterol 126 mg/dL (<200) 06/13/18 04:30 HDL Cholesterol 25 mg/dL (40-60) L 06/13/18 04:30 Cholesterol/HDL Ratio 5.04 06/13/18 04:30 Home Medications: Hydrocodone Bit/Acetaminophen [Creighton 10-325 Tablet] 1 each PO Q4HP PRN 06/08/18 Lisinopril 20 mg PO DAILY 06/08/18 Metoprolol Tartrate 50 mg PO BID 06/08/18 Pravastatin Sodium 20 mg PO DAILY 06/08/18 Albuterol Sulfate [Proair Hfa] 8.5 gm IH TID PRN #1 hfa.aer.ad 06/14/18 Aspirin Chewable [Aspirin Chewable*] 81 mg PO DAILY #90 tab.chew 06/14/18 Budesonide/Formoterol Fumarate [Symbicort 160-4.5 Mcg Inhaler] 2 puff IH BID #1 hfa.aer.ad 06/14/18 Mupirocin Oint [Bactroban 2% Ointment*] 1 appl TOP BID #1 tube 06/14/18 Oxybutynin Chloride [Ditropan Xl*] 10 mg PO DAILY #30 tab.sa 06/14/18 Pantoprazole [Protonix Tab*] 40 mg PO DAILY #30 tab 06/14/18 levoFLOXacin [Levaquin*] 500 mg PO DAILY #7 tab 06/14/18 New Medications: Albuterol Sulfate [Proair Hfa] 8.5 gm IH TID PRN #1 hfa.aer.ad PRN Reason: Shortness Of Breath Aspirin Chewable [Aspirin Chewable*] 81 mg PO DAILY #90 tab.chew Budesonide/Formoterol Fumarate [Symbicort 160-4.5 Mcg Inhaler] 2 puff IH BID #1 hfa.aer.ad levoFLOXacin [Levaquin*] 500 mg PO DAILY #7 tab Mupirocin Oint [Bactroban 2% Ointment*] 1 appl TOP BID #1 tube Oxybutynin Chloride [Ditropan Xl*] 10 mg PO DAILY #30 tab.sa Pantoprazole [Protonix Tab*] 40 mg PO DAILY #30 tab Patient Discharge Instructions: 1. Patient presented with chest pain and right flank pain. He was seen by Cardiology. Cardiology recommended ECHO and stress test. ECHO was normal and cardiac stress test showed no stress induced ischemia. Cardiology recommended no further workup. Patient may continue with Aspirin 81 mg daily. 2. Patient was also found to have elevated calcium. PTH was slightly high. Ionized calcium is pending. Both can be followed up by his PCP as outpatient. Patient may have Primary Hyperparathyroidism. Recommendation is for the patient to see Endocrinology to further evaluate and workup elevated calcium. This may be contributing to his renal stones. 3. Patient seen last week for right ureteral stone with hydronephrosis. Stent was placed by Urology. Repeat US showed no hydronephrosis. He will need to follow up with Urology to further address. He will continue with Oxybutynin 10 mg daily. I will DC Keflex. He may continue with Levaquin 500 mg one pill daily for 7 days. 4. Patient had mild cellulitis to the right elbow. He will continue with Levaquin 500 mg daily for 7 days. 5. Patient has HTN. He will continue with his medication-Metoprolol 50 mg one pill twice daily and Lisinopril 20 mg one pill every day. Recommendation is to maintain his BP less than 150/80. Further adjustment can be done by his PCP. 6. Patient likely has GERD. At discharge he will continue with Protonix 40 mg daily. He may need to see GI as outpatient to further address. 7. Patient likely has COPD. At discharge he will continue with Symbicort 160 mcg 2 puff twice daily and Proair HFA 2 puff 3 times a day as needed for shortness of breath. Tobacco cessation recommended. Recommendation to follow up and establish care with Pulmonary to follow. 8. Patient has Hyperlipidemia. He will continue with Pravastatin 20 mg daily. 9. Patient has Hepatitis C. He will need to establish care with GI to further address and treat. 10. Patient has chronic pain. He will need to followup with his Pain specialist to continue with his care. Diet: AHA Activity: Ad eh Time spent managing pt's care (in minutes): 55
== END 2018-06-14 14:55 | disposition home or self-care (01) ==
LOC: ER 20:45 → ERHOLD 23:55 → 4TH 06-13 00:24
PROVIDERS: ADMIT Internal Medicine; ATTEND Family Medicine
DX: R07.9 Chest pain, unspecified (principal); I34.0 Nonrheumatic mitral (valve) insufficiency; I44.0 Atrioventricular block, first degree; L03.113 Cellulitis of right upper limb; N13.2 Hydronephrosis with renal and ureteral calculous obstruction; M54.9 Dorsalgia, unspecified; G89.29 Other chronic pain; I10 Essential (primary) hypertension; B18.2 Chronic viral hepatitis C; E83.52 Hypercalcemia; E21.3 Hyperparathyroidism, unspecified; J44.9 Chronic obstructive pulmonary disease, unspecified; K21.9 Gastro-esophageal reflux disease without esophagitis; Z79.82 Long term (current) use of aspirin; I25.10 Atherosclerotic heart disease of native coronary artery without angina pectoris; I25.2 Old myocardial infarction; F17.210 Nicotine dependence, cigarettes, uncomplicated; L03.114 Cellulitis of left upper limb
CPT/HCPCS: 36415; 71045; 76700; 78452; 80048 ×2; 80061; 81003; 82330; 83970; 84145; 84484 ×3; 85025 ×2; 93005 ×2; 93017; 93306; 99285; A9500; G0378 ×2; J1650; J2785; J7030 ×3

== ENCOUNTER 2018-06-27 23:08 | Inpatient (IN) | payer MEDICARE ==
[2018-06-27 23:37] LABS: Absolute Lymphocytes (CBC) 1.2 K/uL (0.7-4.9); Absolute Monocytes 0.9 K/uL (0.1-1.3); Absolute Neutrophil 10.1 K/uL (1.8-8.0); Basophils % 0.2 % (0-1.3); Eosinophils % 2.1 % (0-4.4); Hematocrit 43.5 % (39.6-49.0); MPV 9.7 fL (7.6-11.3); Monocytes % 6.9 % (3.3-12.3); RBC Red Blood Cell Count 4.63 M/uL (4.33-5.43)
[2018-06-27 23:58] LABS: ALT/SGPT 21 U/L (12-78); AST/SGOT 14 U/L (15-37); Albumin 3.2 g/dL (3.4-5.0); Alkaline Phosphatase 87 U/L (45-117); BUN Blood Urea Nitrogen 29 mg/dL (7-18); Bicarbonate 23 mmol/L (21-32); Bilirubin Direct < 0.1 mg/dL (0-0.2); Bilirubin Total 0.2 mg/dL (0.2-1.0); Glucose Level 170 mg/dL (74-106); Lipase 106 U/L (73-393); Magnesium 1.7 mg/dL (1.8-2.4); NT PRO-BNP 106 pg/mL (<125); Potassium 3.7 mmol/L (3.5-5.1); Protein, Total 7.2 g/dL (6.4-8.2); Sodium Level 140 mmol/L (136-145)
[2018-06-27 23:59] LABS: Protime INR 1.03
[2018-06-28] MEDS ORDERED: MEPERIDINE HCL 50 MG/ML AMP ONE ×2 (00:50→04:44)
[2018-06-28 03:09] LABS: Urine Blood 3+ (NEG); Urine Glucose NEGATIVE (NEG); Urine Protein 2+ (NEG); Urine Specific Gravity 1.015 (1.005-1.030)
[2018-06-28] MEDS ORDERED: ENOXAPARIN 100 MG/ML SYR SQ ONE (03:43)
--- NOTE | 2018-06-28 03:48 | EDPHYS ---
Physician Documentation [facility] Name: Lino Dietrich Age: 58 yrs Sex: Male : 1960 Arrival Date: 06/27/2018 Time: 23:10 Bed 20 Private MD: ED Physician Damir Vasques HPI: 06/27 23:51 This 58 yrs old Male presents to ER via EMS with complaints of Chest Pain. rn 23:51 The patient or guardian reports chest pain that is located primarily in the left rn lateral anterior chest. Onset: this morning. The pain does not radiate. Associated signs and symptoms: Pertinent positives: shortness of breath, Pertinent negatives: cough, diaphoresis, near syncope, syncope, vomiting. The chest pain is described as sharp, stabbing. Duration: The patient or guardian reports multiple episodes, that are intermittent. Modifying factors: The symptoms are alleviated by nothing. the symptoms are aggravated by deep breath, movement, palpation of area. Severity of pain: At its worst the pain was moderate in the emergency department the pain has improved. The patient has not experienced similar symptoms in the past. Reports recent ureteral stent placement and removal of kidney stones, reports this AM with left sided chest pain, non-radiating, assoc with sob, no hx of DVT/PE, thinks maybe sore from surgery and from being moved incorrectly, feels better after pain meds from EMS. Reports recent normal stress test. . Historical: - Allergies: 23:22 NKDA; fc - Home Meds: 23:27 pravastatin 20 mg oral tab 1 tab once daily [Active]; Protonix 40 mg oral TbEC 1 tab fc once daily [Active]; Ditropan XL 10 mg Oral tr24 1 tab once daily [Active]; metoprolol tartrate 50 mg Oral tab 1 tab 2 times per day [Active]; lisinopril 20 mg Oral tab 1 tab once daily [Active]; [place] 10-325 mg Oral tab 1 tab q 4 hrs prn [Active]; Symbicort 160-4.5 mcg/actuation inhalation HFAA 2 puffs 2 times per day [Active]; ProAir HFA 90 mcg/actuation inhalation HFAA 1 puff tid prn [Active]; aspirin 81 mg Oral TbEC 1 tab once daily [Active]; - PMHx: 23:22 chronic back pain; Hepatitis; Hypertension; Kidney stones; CAD; fc - PSHx: 23:22 Kidney stents; back surg; Cholecystectomy; fc - Immunization history:: Last tetanus immunization: unknown. - Social history:: Smoking status: Patient uses tobacco products, smokes one pack cigarettes per day. - Ebola Screening: : Patient negative for fever greater than or equal to 101.5 degrees Fahrenheit, and additional compatible Ebola Virus Disease symptoms Patient denies exposure to infectious person Patient denies travel to an Ebola-affected area in the 21 days before illness onset. - Family history:: not pertinent. - Hospitalizations: : The patient was recently seen at [facility]. ROS: 23:51 Constitutional: Negative for fever, chills, and weight loss, Eyes: Negative for injury, rn pain, redness, and discharge, Neck: Negative for injury, pain, and swelling, Cardiovascular: + chest pain Respiratory: + sob, no cough Abdomen/GI: Negative for nausea, vomiting, diarrhea, and constipation, Back: Negative for injury and pain, MS/Extremity: Negative for injury and deformity, Neuro: Negative for headache, weakness, numbness, tingling, and seizure. Exam: 23:51 Constitutional: This is a well developed, well nourished patient who is awake, alert, rn and in no acute distress. Head/Face: Normocephalic, atraumatic. Eyes: Pupils equal round and reactive to light, extra-ocular motions intact. Lids and lashes normal. Conjunctiva and sclera are non-icteric and not injected. Cornea within normal limits. Periorbital areas with no swelling, redness, or edema. Chest/axilla: Normal chest wall appearance and motion. Mild tenderness left lateral/inferior chest wall, no skin changes Cardiovascular: Regular rate and rhythm with a normal S1 and S2. No gallops, murmurs, or rubs. Normal PMI, no JVD. No pulse deficits. Respiratory: Lungs have equal breath sounds bilaterally, clear to auscultation and percussion. No rales, rhonchi or wheezes noted. No increased work of breathing, no retractions or nasal flaring. Abdomen/GI: Soft, non-tender, with normal bowel sounds. No distension or tympany. No guarding or rebound. No evidence of tenderness throughout. MS/ Extremity: Pulses equal, no cyanosis. Neurovascular intact. Full, normal range of motion. Equal circumference. Neuro: Awake and alert, GCS 15, oriented to person, place, time, and situation. Cranial nerves II-XII grossly intact. Motor strength 5/5 in all extremities. Sensory grossly intact. Vital Signs: 23:03 BP 138 / 84; Pulse 71; Resp 20; Temp 97.7(O); Pulse Ox 93% on R/A; Weight 92.99 kg (R); fc Height 5 ft. 10 in. (177.80 cm) (R); Pain 3/10; 23:48 BP 109 / 74; Pulse 99; Resp 16; Pulse Ox 93% on R/A; ak1 06/28 00:23 BP 112 / 75; Pulse 102; Resp 24; Pulse Ox 88% on R/A; ak1 00:36 Pulse Ox 93% on 2 lpm NC; ak1 00:53 BP 113 / 78; Pulse 106; Resp 21 S; Pulse Ox 92% on 2 lpm NC; Pain 6/10; ak1 02:05 BP 117 / 72; Pulse 99; Resp 20; Pulse Ox 94% on R/A; ao 02:43 BP 92 / 64; Pulse 96; Resp 22; Pulse Ox 93% on 2 lpm NC; ak1 06/27 23:03 Body Mass Index 29.41 (92.99 kg, 177.80 cm) fc 00:36 placed pt on 2L NC after oxygent saturation reading 88%. pt responded well. ak1 MDM: 06/27 23:10 Patient medically screened. rn 06/28 03:46 ED course: Pt without gross hematuria, no blood in stool, benefits of anticoagulation rn with multiple PEs outweigh risks, lovenox ordered. . 06/27 23:12 Order name: Basic Metabolic Panel rn 06/27 23:12 Order name: CBC with Diff rn 06/27 23:12 Order name: LFT's; Complete Time: 00:14 rn 06/27 23:12 Order name: Magnesium; Complete Time: 00:14 rn 06/27 23:12 Order name: NT PRO-BNP; Complete Time: 00:14 rn 06/27 23:12 Order name: PT-INR; Complete Time: 00:14 rn 06/27 23:12 Order name: Ptt, Activated; Complete Time: 00:14 rn 06/27 23:12 Order name: Troponin (emerg Dept Use Only); Complete Time: 00:14 rn 06/27 23:12 Order name: XRAY Chest (1 view) rn 06/27 23:12 Order name: Lipase; Complete Time: 00:14 rn 06/27 23:12 Order name: CT Chest For PE Angio rn 06/27 23:12 Order name: Basic Metabolic Panel; Complete Time: 00:14 EDMS 06/27 23:12 Order name: CBC with Automated Diff; Complete Time: 00:14 EDMS 06/28 03:05 Order name: Urine Dipstick--Ancillary (enter results); Complete Time: 03:46 oe 06/27 23:12 Order name: EKG; Complete Time: 23:13 rn 06/27 23:12 Order name: Cardiac monitoring; Complete Time: 23:52 rn 06/27 23:12 Order name: EKG - Nurse/Tech; Complete Time: 23:52 rn 06/27 23:12 Order name: IV Saline Lock; Complete Time: 23:52 rn 06/27 23:12 Order name: Labs collected and sent; Complete Time: 23:51 rn 06/27 23:12 Order name: O2 Per Protocol; Complete Time: 23:51 rn 06/27 23:12 Order name: O2 Sat Monitoring; Complete Time: 23:51 rn 06/27 23:12 Order name: Urine Dipstick-Ancillary (obtain specimen); Complete Time: 03:04 rn 06/27 23:12 Order name: CT Abd/Pelvis - W/Contrast rn Administered Medications: 00:51 Drug: Demerol 50 mg Route: IVP; Site: right hand; ak1 02:04 Follow up: Response: No adverse reaction; Pain is decreased ak1 03:42 Drug: Lovenox 1 mg/kg Route: Sub-Q; Site: abdomen; ao 05:11 Follow up: Response: No adverse reaction ak1 04:10 Drug: Rocephin - (cefTRIAXone) 1 grams Route: IVPB; Infused Over: 30 mins; Site: right ao hand; 05:11 Follow up: IV Status: Completed infusion ak1 04:17 Drug: Zithromax 500 mg Route: IVPB; Infused Over: 1 hrs; Site: left hand; ao 05:11 Follow up: IV Status: Infusion continued upon admission ak1 04:46 Drug: Demerol 25 mg Route: IVP; Site: right hand; ad1 04:56 Drug: NS 0.9% 500 ml Route: IV; Rate: bolus; Site: right antecubital; ad1 Disposition: 06/28/18 03:48 Hospitalization ordered by Gina De Anda for Inpatient Admission. Preliminary diagnosis are Pulmonary embolism without acute cor pulmonale, Pneumonia, Dyspnea, unspecified. - Bed requested for Telemetry/MedSurg (observation). - Status is Inpatient Admission. lp1 - Condition is Stable. - Problem is new. - Symptoms have improved. UTI on Admission? No Signatures: Dispatcher [employer] EDMS Juana Woods RN RN Ann Marie Marrero RN JHONATAN Damir Vasques MD MD rn DelToro, Anna RN JHONATAN ad1 Kristi Cohen RN JHONATAN lp1 Barbara Vega RN RN ak1 Sourav Dempsey RN RN ao Corrections: (The following items were deleted from the chart) 05:02 03:48 Hospitalization Ordered by Gina De Anda MD for Inpatient Admission. Preliminary fc diagnosis is Pulmonary embolism without acute cor pulmonale; Pneumonia; Dyspnea, unspecified. Bed requested for Telemetry/MedSurg (Inpatient). Status is Inpatient Admission. Condition is Stable. Problem is new. Symptoms have improved. UTI on Admission? No. rn 05:14 05:02 06/28/2018 03:48 Hospitalization Ordered by Gina De Anda MD for Inpatient kl Admission. Preliminary diagnosis is Pulmonary embolism without acute cor pulmonale; Pneumonia; Dyspnea, unspecified. Bed requested for [facility] ER HOLD. Status is Inpatient Admission. Condition is Stable. Problem is new. Symptoms have improved. UTI on Admission? No. fc 05:28 05:14 06/28/2018 03:48 Hospitalization Ordered by Gina De Anda MD for Inpatient lp1 Admission. Preliminary diagnosis is Pulmonary embolism without acute cor pulmonale; Pneumonia; Dyspnea, unspecified. Bed requested for Telemetry/MedSurg (observation). Status is Inpatient Admission. Condition is Stable. Problem is new. Symptoms have improved. UTI on Admission? No. kl
--- NOTE | 2018-06-28 03:48 | ER ---
Nurse's Notes [facility] Name: Lino Dietrich Age: 58 yrs Sex: Male : 1960 Arrival Date: 06/27/2018 Time: 23:10 Bed 20 Private MD: Diagnosis: Pulmonary embolism without acute cor pulmonale;Pneumonia;Dyspnea, unspecified Presentation: 06/27 23:03 Presenting complaint: Patient states: he is having left lower chest pain that started fc this am. Positive shortness of breath but denies any nausea or vomiting. Pain is worse with deep breathes and touching the area. He states that it feels like a bad bruise. 23:14 Transition of care: patient was not received from another setting of care. Onset of symptoms was June 27, 2018. Risk Assessment: Do you want to hurt yourself or someone else? Patient reports no desire to harm self or others. Initial Sepsis Screen: Does the patient meet any 2 criteria? No. Patient's initial sepsis screen is negative. Does the patient have a suspected source of infection? No. Patient's initial sepsis screen is negative. Care prior to arrival: Medication(s) given: LR bolus of 500 ml and Morphine 10 mg ivp IV initiated. 20 GA, in the right hand. 23:14 Method Of Arrival: EMS: [facility] 23:14 Acuity: MG 3 Triage Assessment: 23:50 General: Appears in no apparent distress. Behavior is calm, cooperative. Pain: ak1 Complains of pain in chest. Historical: - Allergies: 23:22 NKDA; fc - Home Meds: 23:27 pravastatin 20 mg oral tab 1 tab once daily [Active]; Protonix 40 mg oral TbEC 1 tab fc once daily [Active]; Ditropan XL 10 mg Oral tr24 1 tab once daily [Active]; metoprolol tartrate 50 mg Oral tab 1 tab 2 times per day [Active]; lisinopril 20 mg Oral tab 1 tab once daily [Active]; [place] 10-325 mg Oral tab 1 tab q 4 hrs prn [Active]; Symbicort 160-4.5 mcg/actuation inhalation HFAA 2 puffs 2 times per day [Active]; ProAir HFA 90 mcg/actuation inhalation HFAA 1 puff tid prn [Active]; aspirin 81 mg Oral TbEC 1 tab once daily [Active]; - PMHx: 23:22 chronic back pain; Hepatitis; Hypertension; Kidney stones; CAD; fc - PSHx: 23:22 Kidney stents; back surg; Cholecystectomy; fc - Immunization history:: Last tetanus immunization: unknown. - Social history:: Smoking status: Patient uses tobacco products, smokes one pack cigarettes per day. - Ebola Screening: : Patient negative for fever greater than or equal to 101.5 degrees Fahrenheit, and additional compatible Ebola Virus Disease symptoms Patient denies exposure to infectious person Patient denies travel to an Ebola-affected area in the 21 days before illness onset. - Family history:: not pertinent. - Hospitalizations: : The patient was recently seen at [facility]. Screenin:03 Abuse screen: Denies threats or abuse. Nutritional screening: No deficits noted. fc Tuberculosis screening: No symptoms or risk factors identified. Fall Risk None identified. Assessment: 23:48 Pain: Pain does not radiate. Pain began. Cardiovascular: Reports chest pain. ak1 23:48 General: Appears in no apparent distress. pt resting with eyes closed. resp even and ak1 unlabored. skin w\T\d. . Pain: Pain began this morning. Neuro: No deficits noted. Respiratory: Reports shortness of breath since this morning. no resp distress noted at this time. GI: No signs and/or symptoms were reported involving the gastrointestinal system. : No signs and/or symptoms were reported regarding the genitourinary system. EENT: No signs and/or symptoms were reported regarding the EENT system. Derm: No signs and/or symptoms reported regarding the dermatologic system. 06/28 00:48 Reassessment: pt sat up c/o left sided chest wall pain 10/10. pt resp rate increased to ak1 40breaths per min. ERP notified with new orders for pain medication. Vital Signs: 06/27 23:03 BP 138 / 84; Pulse 71; Resp 20; Temp 97.7(O); Pulse Ox 93% on R/A; Weight 92.99 kg (R); fc Height 5 ft. 10 in. (177.80 cm) (R); Pain 3/10; 23:48 BP 109 / 74; Pulse 99; Resp 16; Pulse Ox 93% on R/A; ak1 06/28 00:23 BP 112 / 75; Pulse 102; Resp 24; Pulse Ox 88% on R/A; ak1 00:36 Pulse Ox 93% on 2 lpm NC; ak1 00:53 BP 113 / 78; Pulse 106; Resp 21 S; Pulse Ox 92% on 2 lpm NC; Pain 6/10; ak1 02:05 BP 117 / 72; Pulse 99; Resp 20; Pulse Ox 94% on R/A; ao 02:43 BP 92 / 64; Pulse 96; Resp 22; Pulse Ox 93% on 2 lpm NC; ak1 06/27 23:03 Body Mass Index 29.41 (92.99 kg, 177.80 cm) fc 00:36 placed pt on 2L NC after oxygent saturation reading 88%. pt responded well. ak1 ED Course: 06/27 23:03 Arm band placed on Patient placed in an exam room, on a stretcher. fc 23:03 Patient has correct armband on for positive identification. Bed in low position. Call fc light in reach. school lunch monitor on. Pulse ox on. NIBP on. 23:03 Maintain EMS IV. Dressing intact. Good blood return noted. Site clean \T\ dry. Gauge \T\ fc site: 20 gauge to right hand. Patient maintains SpO2 saturation greater than 95% on room air. 23:10 Patient arrived in ED. rn 23:10 Damir Vasques MD is Attending Physician. rn 23:12 Barbara Vega, JHONATAN is Primary Nurse. ak1 23:19 X-ray completed. Portable x-ray completed in exam room. Patient tolerated procedure kw well. 23:20 Triage completed. fc 23:21 XRAY Chest (1 view) In Process Unspecified. EDMS 06/28 00:11 Inserted saline lock: 20 gauge in right antecubital area, using aseptic technique. ak1 ,using aseptic technique. placed for CT scan. 01:[address] via stretcher. kw1 02:04 CT completed. Patient tolerated procedure well. Patient moved back from CT. kw1 02:07 CT Chest For PE Angio In Process Unspecified. EDMS 02:09 CT Abd/Pelvis - W/Contrast In Process Unspecified. EDMS 03:47 Gina De Anda MD is Hospitalizing Provider. rn 05:10 Basic Metabolic Panel Sent. ak1 05:10 CBC with Diff Sent. ak1 05:12 No provider procedures requiring assistance completed. Patient admitted, IV remains in ak1 place. Administered Medications: 00:51 Drug: Demerol 50 mg Route: IVP; Site: right hand; ak1 02:04 Follow up: Response: No adverse reaction; Pain is decreased ak1 03:42 Drug: Lovenox 1 mg/kg Route: Sub-Q; Site: abdomen; ao 05:11 Follow up: Response: No adverse reaction ak1 04:10 Drug: Rocephin - (cefTRIAXone) 1 grams Route: IVPB; Infused Over: 30 mins; Site: right ao hand; 05:11 Follow up: IV Status: Completed infusion ak1 04:17 Drug: Zithromax 500 mg Route: IVPB; Infused Over: 1 hrs; Site: left hand; ao 05:11 Follow up: IV Status: Infusion continued upon admission ak1 04:46 Drug: Demerol 25 mg Route: IVP; Site: right hand; ad1 04:56 Drug: NS 0.9% 500 ml Route: IV; Rate: bolus; Site: right antecubital; ad1 Outcome: 03:48 Decision to Hospitalize by Provider. rn 05:13 Admitted to ER Hold. Please see [facility] for further documentation. ak1 05:13 Condition: stable 05:13 Instructed on the need for admit. 05:28 Patient left the ED. lp1 Signatures: Dispatcher [employer] EDMS Ann Marie Marrero RN RN Damir Vasques MD MD rn DelToro, Anna, RN RN ad1 Cintia Gutierrez Laura, RN RN 1 Barbara Vega RN RN ak Sourav Dempsey RN Juana Trejo [facility] Corrections: (The following items were deleted from the chart) 06/27 23:20 23:14 Presenting complaint: Patient states: he is having left lower chest pain that fc started this am. Positive shortness of breath but denies any nausea or vomiting. Pain is worse with deep breathes and touching the area. He states that it feels like a bad bruise.
[2018-06-28] MEDS ORDERED: CEFTRIAXONE/SWI 1gm 1 GM/10 ML SYR ONE (04:16)
[2018-06-28] MEDS ORDERED: AZITHROMYCIN 500 MG/250 ML BAG ONE (04:16)
[2018-06-28] MEDS ORDERED: NA CHLORIDE 0.9% 500 ML ONE (04:53)
--- NOTE | 2018-06-28 05:17 | P.HP ---
Certification for Inpatient Patient admitted to: Inpatient With expected LOS: >2 Midnights Practitioner: I am a practitioner with admitting privileges, knowledge of patient current condition, hospital course, and medical plan of care. Services: Services provided to patient in accordance with Admission requirements found in Title 42 Section 412.3 of the Code of Federal Regulations Patient History Date of Service: 06/28/18 Reason for admission: Pulmonary embolism History of Present Illness: Mr Dietrich is a 58-year-old male with history coronary artery disease, tobacco abuse, hypertension, ureteral stone requiring cystoscopy with stent placement by Dr. Henley a few weeks ago. Then he went to see a different urologist in [place] will need another cystoscopy with stent placement about 2 days ago. Yesterday afternoon, the patient suddenly started feeling chest pain associated with significant shortness of breath. He states that it was difficult for him to catch the air. He denied fever or chills, has had more cough than usual. ER workup remarkable for leukocytosis 12.5 K. CTA chest remarkable for pulmonary embolism in the distal left lower lobar pulmonary artery. He also has a patchy infiltrate in the right lower lobe consistent with possible pneumonia. During his stay in ER, BP was on the lower side, he was tachycardic , O2 sat as low us 88% on room air. Allergies No Known Drug Allergies Allergy (Unverified 06/13/18 01:00) Unknown codeine sulfate Allergy (Uncoded 06/13/18 00:41) Unknown Home Medications: Hydrocodone Bit/Acetaminophen [[place] 10-325 Tablet] 1 each PO Q4HP PRN 06/08/18 Lisinopril 20 mg PO DAILY 06/08/18 Metoprolol Tartrate 50 mg PO BID 06/08/18 Pravastatin Sodium 20 mg PO DAILY 06/08/18 Albuterol Sulfate [Proair Hfa] 8.5 gm IH TID PRN #1 hfa.aer.ad 06/14/18 Aspirin Chewable [Aspirin Chewable*] 81 mg PO DAILY #90 tab.chew 06/14/18 Budesonide/Formoterol Fumarate [Symbicort 160-4.5 Mcg Inhaler] 2 puff IH BID #1 hfa.aer.ad 06/14/18 Mupirocin Oint [Bactroban 2% Ointment*] 1 appl TOP BID #1 tube 06/14/18 Oxybutynin Chloride [Ditropan Xl*] 10 mg PO DAILY #30 tab.sa 06/14/18 Pantoprazole [Protonix Tab*] 40 mg PO DAILY #30 tab 06/14/18 levoFLOXacin [Levaquin*] 500 mg PO DAILY #7 tab 06/14/18 - Past Medical/Surgical History Diabetic: No -: htn -: back pain -: shingles went into nerves in left eye -: Tobacco abuse -: hep c -: kidney stones -: Back [id number]. Bashir- hardware present -: Cholecystectomy Psychosocial/ Personal History: Has fiance, No children, Work-none - Family History Mother -: Hypertension - Social History Smoking Status: Current every day smoker Counseled patient to stop smoking for: less than 10 minutes Alcohol use: No CD- Drugs: No Caffeine use: Yes Place of Residence: Home Review of Systems 10-point ROS is otherwise unremarkable Physical Examination - Physical Exam General: Alert, In no apparent distress HEENT: Atraumatic, PERRLA, Mucous membr. moist/pink, EOMI, Sclerae nonicteric Neck: Supple, 2+ carotid pulse no bruit, No LAD, Without JVD or thyroid abnormality Respiratory: Normal air movement, Crackles/rales (Right lower lobe crackles) Cardiovascular: Regular rate/rhythm, Normal S1 S2 Gastrointestinal: Normal bowel sounds, No tenderness Musculoskeletal: No tenderness Integumentary: No rashes Neurological: Normal speech, Normal strength at 5/5 x4 extr, Normal tone, Normal affect Lymphatics: No axilla or inguinal lymphadenopathy - Studies Laboratory Data (last 24 hrs) 06/27/18 23:30: PT 12.2, INR 1.03, APTT 29.0 06/27/18 23:30: WBC 12.5 H, Hgb 14.8, Hct 43.5, Plt Count 156 06/27/18 23:30: Sodium 140, Potassium 3.7, BUN 29 H, Creatinine 1.30, Glucose 170 H, Magnesium 1.7 L, Total Bilirubin 0.2, AST 14 L, ALT 21, Alkaline Phosphatase 87, Lipase 106 Assessment and Plan - Problems (Diagnosis) (1) CAD (coronary artery disease) Current Visit: Yes Status: Acute Qualifiers: Coronary Disease-Associated Artery/Lesion type: [place] artery [place] vs. transplanted heart: [place] heart Associated angina: without angina Qualified Code(s): I25.10 - Atherosclerotic heart disease of [place] coronary artery without angina pectoris (2) Pulmonary embolism Current Visit: Yes Status: Acute Qualifiers: Pulmonary embolism type: other Chronicity: acute Acute cor pulmonale presence: without acute cor pulmonale Qualified Code(s): I26.99 - Other pulmonary embolism without acute cor pulmonale (3) Chest pain Onset Date: 06/14/18 Current Visit: No Status: Acute Qualifiers: Chest pain type: precordial pain Qualified Code(s): R07.2 - Precordial pain (4) COPD (chronic obstructive pulmonary disease) Current Visit: No Status: Chronic Qualifiers: COPD type: unspecified COPD Qualified Code(s): J44.9 - Chronic obstructive pulmonary disease, unspecified (5) Tobacco abuse Onset Date: 06/14/18 Current Visit: No Status: Chronic - Plan The patient will be admitted to the hospital due to an acute pulmonary embolism , bleeding with acute respiratory failure with hypoxemia. CT of the chest also shows right lower lobe pneumonia, he has had low-grade fever which may be possible due to the PE but also respiratory infection. Will cover with empiric antibiotic in any case. Will consult size maker for evaluation recommendation. - Advance Directives Does patient have a Living Will: Yes Does patient have a Durable POA for Healthcare: No - Code Status/Comfort Care Code Status Assessed: Yes Code Status: Full Code
[2018-06-28] MEDS ORDERED: IPRATROPIUM BROM 0.5MG/2.5ML NEB PRN (05:40)
[2018-06-28] MEDS ORDERED: ONDANSETRON 4 MG/2 ML VIAL IV PRN (05:40)
[2018-06-28] MEDS ORDERED: NA CHLORIDE 0.9% 1,000 ML IV SCH (05:40)
[2018-06-28] MEDS ORDERED: ALBUTEROL 2.5 MG/3 ML NEB SOL NEB PRN (05:40)
[2018-06-28 05:57] VITALS: BMI 28.8
--- NOTE | 2018-06-28 06:48 | RAD REPORT ---
EXAM DESCRIPTION: RAD - Chest Single View - 06/27/2018 11:23 pm CLINICAL HISTORY: Chest pain COMPARISON: June 12 TECHNIQUE: AP portable chest image was obtained 2309 hours . FINDINGS: Low lung volumes are noted. Lung base opacification is probably atelectasis. Mild cardiome milton is present. Central vasculature and lung markings are prominent, in part due to shallow inspirat ion. Small bilateral pleural effusions are not excluded. No gross bony abnormality seen. No acute aor tic findings suspected. IMPRESSION: Bilateral lung base opacification on low lung volume examination. Atelectasis and lung base infiltrates have a similar appearance in this setting. Earliest stages of failure or volume overload can be masked.
[2018-06-28] MEDS ORDERED: HYDROCODONE/APAP 7.5/325 MG TAB PO PRN (08:25)
--- NOTE | 2018-06-28 08:27 | P.CNS ---
Date of Consult: 06/28/18 Reason for Consult: Chest pain Chief Complaint: Pulmonary embolism History of Present Illness: Patient is 58 years of age and active smoker admitted with sudden onset of left- sided lower chest pain describes a pleuritic in nature worse with movement came on rather suddenly the recently had a stent placed for kidney stones patient is uncomfortable with the discomfort in the chest denies any swelling of his lower extremities diagnosed to have an infiltrate with a left lower lobe pulmonary embolism was recently prescribed an inhaler for prior history of cardiac problems recently had a stress test done Allergies No Known Drug Allergies Allergy (Verified 06/28/18 05:56) Unknown - Past Medical/Surgical History Diabetic: No -: htn -: chronic back pain -: shingles went into nerves in left eye -: Tobacco abuse -: hep c -: kidney stones -: Back [id number]-Er. Bashir- hardware present -: Cholecystectomy Psychosocial/ Personal History: Has fiance, No children, Work-none - Family History Mother Medical History: Hypertension - Social History Smoking Status: Current every day smoker Alcohol use: No CD- Drugs: No Caffeine use: Yes Place of Residence: Home Review of Systems 10-point ROS is otherwise unremarkable Respiratory: Shortness of Breath Cardiovascular: Chest Pain Physical Examination Temp Pulse Resp BP Pulse Ox 98.2 F 75 18 118/72 94 06/28/18 05:43 06/28/18 05:43 06/28/18 05:43 06/28/18 05:43 06/28/18 05:43 General: Alert, Oriented x3, Mild distress HEENT: Atraumatic Neck: Supple Respiratory: Clear to auscultation bilaterally Cardiovascular: No edema, Normal S1 S2 Gastrointestinal: Normal bowel sounds, Soft and benign, Non-distended Musculoskeletal: No clubbing, No swelling Integumentary: No rashes, No breakdown Laboratory Data (last 24 hrs) 06/27/18 23:30: PT 12.2, INR 1.03, APTT 29.0 06/27/18 23:30: WBC 12.5 H, Hgb 14.8, Hct 43.5, Plt Count 156 06/27/18 23:30: Sodium 140, Potassium 3.7, BUN 29 H, Creatinine 1.30, Glucose 170 H, Magnesium 1.7 L, Total Bilirubin 0.2, AST 14 L, ALT 21, Alkaline Phosphatase 87, Lipase 106 - Problems (1) Pulmonary embolism Current Visit: Yes Status: Acute Plan: Patient is 58 years of age admitted with sudden onset of left-sided chest pain he recently has some stands place for kidney stones left lower lobe defect with the underlying infiltrates in both lung bases heavy active smoker probably has underlying COPD can change the patient to p.o. Eliquis white count is mildly elevated continue to monitor oxygen he is bronchodilators steroids Qualifiers: Pulmonary embolism type: other Chronicity: acute Acute cor pulmonale presence: without acute cor pulmonale Qualified Code(s): I26.99 - Other pulmonary embolism without acute cor pulmonale
--- NOTE | 2018-06-28 08:51 | RAD REPORT ---
EXAM DESCRIPTION: CT - Chest For Pe Angio - 06/28/2018 5:41 am CLINICAL HISTORY: Left-sided pleuritic chest pain, recent surgery A preliminary report was provided at the time of the study and reviewed prior to final report. COMPARISON: Chest films same date TECHNIQUE: Dynamically enhanced 3 mm thick images of the chest were obtained during administration o f approximately 150mL Isovue 370 IV contrast. Coronal and oblique MIP reconstruction images were gene rated and reviewed. Exam utilizes a protocol to evaluate the pulmonary arterial tree. All CT scans are performed using dose optimization technique as appropriate and may include automated exposure control or mA/KV adjustment according to patient size. FINDINGS: Large pulmonary embolism is present at the left lower lobe lobar and segmental branch junc tion. Emboli continue into segmental and subsegmental branches in the medial left lung base. Left upp er lobe emboli not confirmed. There appear to be small emboli in the medial base on the right. No sad dle embolus or main that pulmonary artery embolic disease. Exam has significant limitation due to mot ion. Pulmonary arteries are prominent. Ascending aorta is 4 cm in diameter. No acute aortic finding. No pericardial thickening or effusion. Left ventricular myocardium appears thickened but limited in assessment due to motion. No pericardial thickening or effusion. Airspace opacification is present in each lower lobe, more so on the right. There is less prominent i nterstitial and alveolar opacification in the lingula and in the posterior inferior right upper lobe. Air bronchograms are present. No pleural effusion or pleural thickening. No mediastinal or hilar suspicious masses. No chest wall masses or abnormal axillary lymphadenopathy. IMPRESSION: Left lower lobe pulmonary emboli and suspected medial right lower lobe pulmonary emboli. Bilateral lung base alveolar opacification suspected to be pneumonia rather than simple atelectasis. Additional nonacute findings detailed in the body of the report.
--- NOTE | 2018-06-28 09:00 | RAD REPORT ---
EXAM DESCRIPTION: CT - Abdomen Pelvis W Contrast - 06/28/2018 2:09 am CLINICAL HISTORY: Abdominal pain, chest pain, shortness of breath. A preliminary report was provided at the time of the study and reviewed prior to final report. COMPARISON: CT imaging July 2017, CT June 07, 2018 TECHNIQUE: Biphasic, helical CT imaging of the abdomen and pelvis was performed following 100 ml non -ionic IV contrast. No oral contrast. All CT scans are performed using dose optimization technique as appropriate and may include automated exposure control or mA/KV adjustment according to patient size. FINDINGS: Lung findings are detailed on separate CT pulmonary angiogram study. The liver, spleen, and pancreas show no suspicious findings. Gallbladder is absent. Extrahepatic bili miguel tree is dilated to 17 mm. Intrahepatic ducts are prominent. Biliary tree overall has enlarged sin ce prior imaging. No CT evidence for a duodenal or pancreatic mass. Duct stones can be occult. Correl ation is needed with any clinical or laboratory findings of biliary obstruction. Findings are potenti ally benign and represent the reservoir effect that can occur after a cholecystectomy. Renal function is symmetric. No pyelonephritis or acute renal parenchymal process. Renal cysts are pr esent. Double-pigtail stent is in place in the right collecting system. Right pelvis and calices are dilated [id number] in degree. Similar to the June 07 study. Left ureter is decompressed. The o bstructing proximal ureter calculus seen June 07 is no longer present. This may have passed or been treated by lithotripsy. No retro grade displacement. There is a tiny 3 mm calcification in the mid ri ght kidney. Approximately 12 mm calcification upper pole left kidney has not changed. No left-sided h ydronephrosis. There is some questionable wall thickening or debris along the floor the bladder anter ior to the pigtail stent. Prostate calcifications are present without prostatic enlargement. No dilated bowel loops or bowel wall thickening. Mild diverticulosis present without diverticulitis. No free air, free fluid or inflammatory stranding. No hernia, mass or bulky lymphadenopathy. Mild ad renal nodularity is similar to comparison. No suspicious bony findings. IMPRESSION: Patient is status post cholecystectomy. Biliary tree is enlarged to 17 mm with intrahepa tic dilatation. No masses identified. Duct stones can be occult. This could also be progression of th e reservoir effect that can be seen after a cholecystectomy. Hydronephrosis of the right pelvis and calices with pigtail stent in place. The obstructing ureteral calculus seen June 07 is not identifiable. This may have been treated with lithotripsy an passed. Retrograde displacement is not seen. Additional non obstructing ureteral calculi. No acute GI process. Prominence along the floor the bladder that could be wall thickening or debris. Mass is not likely bu t not excluded. This can be evaluated at the time of pigtail stent replacement or removal.
[2018-06-28] MEDS: levoFLOXacin 500 MG TAB PO SCH (09:14)
[2018-06-28] MEDS: APIXABAN 5 MG TABLET PO SCH ×2 (09:14→20:49)
[2018-06-28] MEDS: predniSONE 20 MG TAB PO SCH ×2 (09:14→20:50)
--- NOTE | 2018-06-28 09:39 | EKG ---
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
[2018-06-28] MEDS ORDERED: POTASSIUM CL SA 10 MEQ TAB PO ONE (12:21)
[2018-06-28] MEDS ORDERED: MAGNESIUM SULFATE 1 gm IVPB 1 GM/100 ML BAG IV ONE (12:22)
[2018-06-28] MEDS: IPRATROPIUM BROM 0.5MG/2.5ML NEB SCH ×2 (14:26→19:11)
[2018-06-28] MEDS ORDERED: ENOXAPARIN 100 MG/ML SYR SQ SCH (18:00)
[2018-06-28] MEDS: MEPERIDINE HCL 25 MG/0.5 ML IV PRN (20:13)
[2018-06-28 20:26] LABS: Hematocrit 41.5 % (39.6-49.0)
[2018-06-28] MEDS: HOME MED 1 EA UNK (Budesonide/Formoterol Fumarate [Symbicort 160-4.5 Mcg Inhaler] 2 PUFF) IN SCH (20:47)
[2018-06-28] MEDS: ATORVASTATIN 10 MG TAB PO SCH (20:50)
[2018-06-28] MEDS: METOPROLOL TAR 50 MG TAB PO SCH (20:50)
[2018-06-28] MEDS ORDERED: ATORVASTATIN 10 MG TAB PO SCH (21:00)
--- NOTE | 2018-06-28 21:43 | PN ---
Date of Progress Note: 06/28/2018 Subjective: The patient is seen and examined. Chart reviewed and case discussed with RN. The patie nt's at the bedside. Treatment plan explained. All questions answered. The patient is complai eladio of pain with deep breaths. Requesting pain medications to be adjusted. Review of Systems: Negative except as above. Medications: List reviewed. Physical Examination: Vital Signs: Temperature 97, heart rate 79, blood pressure 141/83, respirations 18, and O2 is 90% on room air. General: Awake, alert, oriented x3. Some mild distress. CV: S1, S2. No murmurs. Regular rate and rhythm. Peripheral pulses present. Respiratory: Moving air well bilaterally. No wheezing. Gastrointestinal: Abdomen is soft, nontender, nondistended. Positive bowel sounds. Extremities: No clubbing, cyanosis, edema. Neurologic: Nonfocal. Laboratory Data: Labs pending. CT angio chest shows left lower lobe pulmonary emboli and suspected medial right lower lobe pulmonary emboli. Bilateral lung base alveolar opacification, suspected to b e pneumonia rather than simple atelectasis. CT abdomen status post colectomy. Biliary tree and lexi ry 17 mm with intrahepatic dilatation. No masses identified. Ducts, stones can be occult. This cou ld be progression versus effect that can be seen after cholecystectomy. Hydronephrosis of the right pelvis and calyces with pigtail stent in place. Obstructing ureteral calculus not identifiable since June 07 that was seen at that time. In addition, nonobstructing ureteral calculi. No acute GI pro cess. Prominence along the floor of the bladder that could be wall thickening or debris. Mass not l ikely, but not excluded. Can be evaluated at the time of pigtail stent replacement or removal. Assessment And Plan: A 58-year-old male with; 1.Acute pulmonary embolism, bilateral. We will continue with anticoagulation. The patient has been switched to oral anticoagulation. Appreciate Dr. Collazo's input. 2.Coronary artery disease, [place] artery and [place] heart, without angina, stable. 3.Pleuritic chest pain secondary to pulmonary embolism. 4.Chronic obstructive pulmonary disease, chronic bronchitis. We will continue with nebulizer treatm ents. 5.Nicotine dependence with cigarette smoking. Counseled. 6.Essential hypertension, stable. 7.Recent ureteral stone with stent placement. 8.Possible pneumonia. Plan to continue Levaquin. Follow up on cultures. SA/MODL Voice ID: [id number] Report ID: [id number]
[2018-06-29] MEDS: IPRATROPIUM BROM 0.5MG/2.5ML NEB SCH ×4 (01:51→19:37)
[2018-06-29 04:15] LABS: Absolute Lymphocytes (CBC) 0.7 K/uL (0.7-4.9); Absolute Monocytes 0.3 K/uL (0.1-1.3); Absolute Neutrophil 7.1 K/uL (1.8-8.0); Basophils % 0.1 % (0-1.3); Eosinophils % 0.4 % (0-4.4); Hematocrit 40.7 % (39.6-49.0); Lymphocytes % 8.3 % (15.3-44.8); MCV 93.4 fL (80-100); MPV 10.4 fL (7.6-11.3); Monocytes % 3.9 % (3.3-12.3); RBC Red Blood Cell Count 4.36 M/uL (4.33-5.43)
[2018-06-29 04:29] LABS: BUN Blood Urea Nitrogen 23 mg/dL (7-18); Bicarbonate 26 mmol/L (21-32); Glucose Level 137 mg/dL (74-106); Magnesium 2.2 mg/dL (1.8-2.4); Potassium 4.2 mmol/L (3.5-5.1); Sodium Level 142 mmol/L (136-145)
[2018-06-29 04:50] LABS: Blood Morphology Comment NOT SEEN (NOT SEEN); Platelet Estimate ADEQ
[2018-06-29] MEDS: MEPERIDINE HCL 25 MG/0.5 ML IV PRN (06:08)
[2018-06-29] MEDS ORDERED: HOME MED 1 EA UNK (Oxybutynin Chloride [Oxybutynin Chloride Er] 10 MG) PO SCH (09:00)
[2018-06-29] MEDS ORDERED: CEFTRIAXONE 1 GM/NS 50 ML 1 GM/50 ML BAG IV SCH (09:00)
[2018-06-29] MEDS: HOME MED 1 EA UNK (Budesonide/Formoterol Fumarate [Symbicort 160-4.5 Mcg Inhaler] 2 PUFF) IN SCH ×2 (09:00→20:35)
[2018-06-29] MEDS ORDERED: AZITHROMYCIN IV 500 MG in NA CHLORIDE 0.9% 250 ML IVPB SCH (09:00)
[2018-06-29] MEDS: LISINOPRIL 20 MG TAB PO SCH (09:34)
[2018-06-29] MEDS: levoFLOXacin 500 MG TAB PO SCH (09:34)
[2018-06-29] MEDS: PANTOPRAZOLE 40MG TABLET PO SCH (09:34)
[2018-06-29] MEDS: METOPROLOL TAR 50 MG TAB PO SCH ×2 (09:35→20:33)
[2018-06-29] MEDS: predniSONE 20 MG TAB PO SCH ×2 (09:35→20:34)
[2018-06-29] MEDS: APIXABAN 5 MG TABLET PO SCH ×2 (09:36→20:34)
[2018-06-29] MEDS: OXYBUTYNIN ER 5 MG TAB PO SCH (09:36)
--- NOTE | 2018-06-29 14:35 | CON ---
History Of Present Illness: A 58-year-old gentleman who had a kidney stone. I place a stent on him few weeks ago, then he went to see the urologist due to insurance issues. He had a ureteroscopy, sto ne extraction at that point and stent placed last Thursday. He now comes in with pulmonary embolus aft er his second surgery and he was admitted for anticoagulation. Since then, the urine has been grossl y bloody. He has a stent in place that is irritating the bladder. I reviewed the CT scan. There ar e no more stones in the right ureter. May have a 3 mm stone in the right kidney and a 12 mm stone in the left upper pole of the left kidney that is nonobstructive. I think it is best to remove stent n ow and that can hopefully decrease the hematuria. If he continues to be grossly hematuric over the n ext several hours, we will consider putting a 3-way hematuria catheter flushing. I have advised him to drink lots of water so far. Allergies: CODEINE. Home Medications: Hydrocodone, lisinopril, metoprolol, pravastatin, albuterol, aspirin, Symbicort, _ , oxybutynin 10 mg, Protonix, Levaquin. Past Medical History: Hypertension. No diabetes, back pain, shingles, tobacco use, hep C, kidney st ones, back surgery, cholecystectomy. Psychosocial History: Has fiancee. No children. No work. Family History: Mother had hypertension. Social History: Current smoker. He has received counseling to stop smoking. Some alcohol use, drug use, caffeine use. Resides at home. Review of Systems: A 10-point review of systems otherwise unremarkable. Physical Examination: General: Alert, no acute distress. HEENT: Atraumatic, normocephalic. Neck: Supple. Respiratory: Clear breath sounds. Cardiovascular: S1, S2. Gastrointestinal: Normal bowel sounds. Musculoskeletal: No tenderness. Skin: No rashes. Neurologic: Alert and oriented. Lymphatics: No adenopathies. Laboratory Data: Reviewed. CBC, WBC 12.5, H and H 14 and 43, platelet count 186. Assessment: Status post ureteroscopy, stent placement, now with pulmonary embolus. He is on anticoa gulation. Plan: To go ahead and remove the stent via the string this morning to see how he does. If he is sti ll continuously grossly bloody, then he will need a 3-way hematuria catheter with irrigation. For no w, let us see how he does without a stent. Continue hydration. Continue treatment for pulmonary emb olus. PB/MODL Voice ID: [id number] Report ID: [id number]
[2018-06-29] MEDS ORDERED: NACL 0.9% IRR SOLN 4,000 ML IRR ONE (17:50)
[2018-06-29] MEDS: ATORVASTATIN 10 MG TAB PO SCH (20:34)
--- NOTE | 2018-06-29 22:27 | PN ---
Date of Progress Note: 06/29/2018 Subjective: The patient was seen and examined. Chart was reviewed and case was discussed with JHONATAN Collazo as well as Dr. Henley. The patient states his breathing is significantly better, no fu rther pleuritic chest pain. However, the patient continues to have gross hematuria. Review of Systems: Negative except as above. Medications: Reviewed. Physical Examination: Vital Signs: Temperature 98, heart rate 52, blood pressure 117/70, respirations 20, and O2 98% on ro om air. General: Awake, alert, and oriented x3, in no acute distress. Elderly male. CV: S1, S2. No murmurs. Regular rate and rhythm. Peripheral pulses present. Respiratory: Clear to auscultation bilaterally. No wheezing. No stridor. No use of accessory musc les. Gastrointestinal: Abdomen is soft, nontender, and nondistended. Positive bowel sounds. Extremities: No clubbing, cyanosis, or edema. Neurologic: Nonfocal. Laboratory Data: Sodium 142, potassium 4.2, chloride 110, CO2 26, BUN 23, creatinine 0.8, glucose 13 7, calcium 10.6, and magnesium 2.2. WBC 8.1, H and H 14 and 40.7, platelets 137, and neutrophils 87% . Assessment And Plan: A 58-year-old male with: 1.Acute pulmonary embolism, bilateral. We will continue with anticoagulation. Appreciate Dr. Diane fowler's input. The patient's pleuritic chest pain is resolved, saturating 100% on room air. 2.Gross hematuria. We will start on bladder irrigation. Appreciate Dr. Henley's input. He removed the stent today at bedside. 3.Coronary artery disease, [place] artery and [place] heart without angina, stable. 4.Pleuritic chest pain, resolved. 5.Chronic obstructive pulmonary disease, chronic bronchitis. Continue nebulizer treatments. 6.Nicotine dependence with cigarette smoking. Counseled. 7.Essential hypertension, stable. 8.Pneumonia underlying the pulmonary embolism. We will continue with Levaquin. White count has nor malized. No signs of sepsis. We will likely DC once gross hematuria is resolved. SA/MODL Voice ID: [id number] Report ID: [id number]
--- NOTE | 2018-06-29 23:03 | PN ---
The patient's urine cleared up after the stent was removed this morning. It became grossly bloody ag ain this afternoon, so Dr. Vogel called me to place a 3-way hematuria [place] catheter. He came in. T he patient did not want a catheter placed and said he is afraid of complications and things like that , but he said he is continent, he is not losing his urine. I have explained to him that the reason f or placing the catheter was not for continence, but for the gross hematuria. We want to begin normal saline CBI to have him clear up the infection because we were not able to take him back to surgery n ow and he has an acute pulmonary embolism going on. After talking for a while, he and his agree d to have it placed. He was prepped and draped. Jelly was placed inside the urethra, approximately 8 cc. The 22-[place] 3-way hematuria catheter was placed. It was tight to the meatus. We were able to place it all the way into the bladder with good return of pink urine. I went ahead and irrigated. No clots were seen. It was placed in a bag. The nurses were trying to get the irrigation tubing a ttached to the bag, so we can start irrigating tonight. We can titrate irrigation to keep it clear. GENO/MONI Voice ID: [id number] Report ID: [id number]
[2018-06-30] MEDS: IPRATROPIUM BROM 0.5MG/2.5ML NEB SCH ×4 (01:31→19:38)
[2018-06-30] MEDS ORDERED: NACL 0.9% IRR SOLN 4,000 ML IRR ONE (03:20)
[2018-06-30] MEDS: MORPHINE 2 MG/ML SYR IV PRN ×2 (03:25→22:06)
[2018-06-30] MEDS ORDERED: SODIUM CHL 0.9% IRR SOLN 2000 ML IRR PRN (03:45)
[2018-06-30 04:54] LABS: Absolute Lymphocytes (CBC) 0.6 K/uL (0.7-4.9); Absolute Monocytes 0.4 K/uL (0.1-1.3); Basophils % 0.1 % (0-1.3); Eosinophils % 0.3 % (0-4.4); Hematocrit 41.7 % (39.6-49.0); Lymphocytes % 5.9 % (15.3-44.8); MCH 32.1 pg (27.0-35.0); MPV 9.7 fL (7.6-11.3); Monocytes % 3.6 % (3.3-12.3); RBC Red Blood Cell Count 4.43 M/uL (4.33-5.43)
[2018-06-30] MEDS: METOPROLOL TAR 50 MG TAB PO SCH ×2 (08:13→22:06)
[2018-06-30] MEDS: APIXABAN 5 MG TABLET PO SCH ×2 (08:13→22:05)
[2018-06-30] MEDS: PANTOPRAZOLE 40MG TABLET PO SCH (08:13)
[2018-06-30] MEDS: LISINOPRIL 20 MG TAB PO SCH (08:14)
[2018-06-30] MEDS: levoFLOXacin 500 MG TAB PO SCH (08:14)
[2018-06-30] MEDS: OXYBUTYNIN ER 5 MG TAB PO SCH (08:14)
[2018-06-30] MEDS: predniSONE 20 MG TAB PO SCH (08:17)
[2018-06-30] MEDS: HOME MED 1 EA UNK (Budesonide/Formoterol Fumarate [Symbicort 160-4.5 Mcg Inhaler] 2 PUFF) IN SCH ×2 (09:00→21:00)
--- NOTE | 2018-06-30 11:48 | P.PN ---
Subjective Date of Service: 06/30/18 Chief Complaint: Pulmonary embolism and hematuria Subjective: Improving Patient is doing much better the pain on the left side has resolved he has hematuria is also resolved Review of Systems Unremarkable Physical Examination - Vital Signs Temperature: 97.4 F Blood Pressure: 168/92 Pulse: 67 Respirations: 18 Pulse Ox (%): 94 - Physical Exam General: Alert, Oriented x3 HEENT: Atraumatic Neck: Supple Respiratory: Clear to auscultation bilaterally Cardiovascular: No edema Assessment & Plan - Problems (Diagnosis) (1) Pulmonary embolism Onset Date: 06/29/18 Current Visit: Yes Status: Acute Plan: Patient is 58 years of age admitted with pulmonary embolism doing much better left-sided chest pain has resolved oxygenation satisfactory blood pressure is little elevated labs reviewed I have ordered a repeat x-ray can Dc his antibiotics and steroids can be discharged on an inhaler Qualifiers: Pulmonary embolism type: other Chronicity: acute Acute cor pulmonale presence: without acute cor pulmonale Qualified Code(s): I26.99 - Other pulmonary embolism without acute cor pulmonale
[2018-06-30] MEDS ORDERED: NACL 0.9% IRR SOLN 2,000 ML IRR ONE (13:22)
--- NOTE | 2018-06-30 13:28 | RAD REPORT ---
EXAM DESCRIPTION: RAD - Chest Pa And Lat (2 Views) - 06/30/2018 1:04 pm CLINICAL HISTORY: Follow for possible pneumonia<Reason For Exam>Follow for possible pneumonia COMPARISON: Chest Single View dated 06/27/2018; Chest Single View dated 06/12/2018; Chest Single View dated 06/08/2018; Abdomen 1 View (KUB) dated 06/08/2018; Chest For Pe Angio dated 06/28/2018<Comparisons> TECHNIQUE: PA and lateral views of the chest were obtained. FINDINGS: The lungs are clear of a focal mass or consolidation. No remnant infiltrate seen. No acut e failure or volume overload. Heart size is normal and central vasculature is within normal limits. No pleural effusion or pneumothorax seen. No acute bony finding noted. No aortic abnormality. IMPRESSION: No acute cardiopulmonary process. No residual pneumonia, edema or volume overload.
[2018-06-30] MEDS: ATORVASTATIN 10 MG TAB PO SCH (22:06)
--- NOTE | 2018-06-30 22:26 | PN ---
The patient is doing well today. He is ready for discharge. His urine is clear. CT has been normal . Plans: We will plan to remove the [place] catheter at midnight. The patient can void. He is planned to go home in a.m. and follow up p.r.n. Actually, he has a urologist in [place] he will follow up w [facility]. ANN-MARIE Voice ID: [id number] Report ID: [id number]
[2018-07-01] MEDS: MORPHINE 2 MG/ML SYR IV PRN (00:46)
[2018-07-01] MEDS: IPRATROPIUM BROM 0.5MG/2.5ML NEB SCH ×2 (01:40→07:53)
--- NOTE | 2018-07-01 05:32 | DS ---
Date of Discharge: 06/30/2018 Consultants: Dr. Collazo with Pulmonology and Dr. Henley with Urology. Procedures: By Dr. Henley on 06/29/2018, removal of double-J stent. Admitting Diagnoses: 1.Pulmonary embolism, bilateral. 2.Pleuritic chest pain. 3.Coronary artery disease, [place] artery and [place] heart, without angina. 4.Chronic obstructive pulmonary disease, chronic bronchitis. 5.Nicotine dependence with cigarette smoking. 6.Respiratory distress. Discharge Diagnoses: 1.Acute pulmonary embolism, bilateral, on oral anticoagulation. 2.Gross hematuria, resolved. 3.Recent nephrolithiasis with extraction and stenting with double-J stent removal at this admission. 4.Coronary artery disease, [place] artery and [place] heart, without angina, stable. 5.Pleuritic chest pain, resolved. 6.Chronic obstructive pulmonary disease, chronic bronchitis, stable. 7.Nicotine dependence with cigarette smoking, counseled. 8.Essential hypertension. 9.Pneumonia, improving. Blood cultures negative. Hospital Course: The patient is a 58-year-old male who comes in with complaint of shortness of breat h. He has history of COPD, nicotine dependence, hypertension. Had recent ureteral stone requiring c ystoscopy and stent placement, and subsequent stone extraction. The patient was found to have elevat ed white blood cell count. CTA chest was remarkable for PE. The patient was started on anticoagulat ion and was hypoxic at 88%. Was seen by Dr. Collazo with Pulmonology. The patient did have some pl euritic chest pain, which improved with treatment of the blood clot. His x-ray also showed some pneu monia. The patient was started on Levaquin. The patient's white count normalized. His clinical sym ptoms improved. He was no longer have a cough, pleuritic chest pain, no sputum production. He was n o longer hypoxic. He was able to be weaned off oxygen. The patient did, however, developed some navin ss hematuria secondary to his stents and recent nephrolithiasis. The patient was seen by Dr. Henley, who removed the double-J stents. He had to be placed on a 3-way catheter irrigation which cleared up his urine. Catheter was removed. The patient was cleared for discharge from [facility]. He has been sent home in a stable condition. The patient was counseled extensively on his new me dications side effects and warning signs. The patient voiced understanding. at the bedside. Followup: The patient will be followed up with primary care physician in 2-3 days. Follow up with p ulmonologist, Dr. Collazo in 2 weeks. Follow up with urologist in [place] as he is unable to follo w up with Dr. Henley as an outpatient due to insurance reasons within 2 weeks. Return to ER for worse eladio condition. Total time spent discharging the patient was 38 minutes. Physical Examination: General: Awake, alert, oriented. No acute distress. CV: S1, S2. No murmurs. Respiratory: Moving air well bilaterally. Abdomen: Soft, nontender, nondistended. Positive bowel sounds. Extremities: No clubbing, cyanosis, edema. Neurologic: Nonfocal. SA/MODL Voice ID: [id number] Report ID: [id number]
[2018-07-01 08:21] VITALS: BP 150/98; TEMP 97.4
[2018-07-01 08:29] VITALS: O2SAT 94
[2018-07-01] MEDS: HOME MED 1 EA UNK (Budesonide/Formoterol Fumarate [Symbicort 160-4.5 Mcg Inhaler] 2 PUFF) IN SCH (09:00)
[2018-07-01] MEDS: METOPROLOL TAR 50 MG TAB PO SCH ×2 (09:08→09:17)
[2018-07-01] MEDS: OXYBUTYNIN ER 5 MG TAB PO SCH (09:08)
[2018-07-01] MEDS: LISINOPRIL 20 MG TAB PO SCH (09:09)
[2018-07-01] MEDS: PANTOPRAZOLE 40MG TABLET PO SCH (09:09)
[2018-07-01] MEDS: APIXABAN 5 MG TABLET PO SCH (09:09)
--- NOTE | 2018-07-01 19:09 | PN ---
Date of Progress Note: 07/01/2018 Subjective: The patient seen and examined, chart reviewed and case discussed with RN. The patient's discharge was held yesterday as Dr. Henley wished to retain the catheter until midnight and then to r emove it and ensure the patient is able to void after the [place] catheter was removed. The patient di d have significant difficulty having [place] catheter removed and it was slightly traumatic removal. T he patient did well overnight. No further gross hematuria. The patient did have some dark urine how ever. Review of Systems: Negative except as above. Medications: List reviewed. Objective: Vital Signs: Temperature 97.4, heart rate 54, blood pressure 150/98, respirations 16, O2 94% on room air. GENERAL: Awake, alert, oriented x3. No acute distress CV: S1, S2. No murmurs. Respiratory: Moving air well bilaterally. Abdomen: Soft, nontender, nondistended. Positive bowel sounds. Extremities: No clubbing, cyanosis, edema. Neurologic: Nonfocal. Laboratory Data: None. Assessment: A 58-year-old male with: 1.Acute pulmonary embolism, bilateral, on anticoagulation. 2.Gross hematuria, resolved. 3.Recent nephrolithiasis with extraction and stenting with double-J stent removal. 4.Coronary artery disease, [place] artery, [place] heart without angina. 5.Pleuritic chest pain, resolved. 6.Chronic obstructive pulmonary disease, chronic bronchitis, stable. 7.Nicotine dependence with cigarette smoking, counseled. 8.Essential hypertension, stable. 9.Pneumonia, resolving. Plan: Discharge the patient home. The patient was again counseled regarding his medications and voi geoff understanding. He understands that he has to take a loading dose of 10 mg twice a day for 7 days and then 5 mg p.o. b.i.d. afterwards. /MONI Voice ID: [id number] Report ID: [id number]
== END 2018-07-01 10:53 | disposition home or self-care (01) | DRG 175 ==
LOC: ER 23:08 → ERHOLD 06-28 05:06 → 4TH 06-28 05:20
PROVIDERS: ADMIT Internal Medicine; ATTEND Internal Medicine
DX: I26.99 Other pulmonary embolism without acute cor pulmonale (principal); J18.9 Pneumonia, unspecified organism; J44.0 Chronic obstructive pulmonary disease with (acute) lower respiratory infection; R31.0 Gross hematuria; I25.10 Atherosclerotic heart disease of native coronary artery without angina pectoris; I10 Essential (primary) hypertension; R06.03 Acute respiratory distress; Z87.442 Personal history of urinary calculi; F17.210 Nicotine dependence, cigarettes, uncomplicated
CPT/HCPCS: 36415; 71045; 71046; 71275; 74177; 80048; 80076; 81003; 83690; 83735; 83880; 84484; 85014; 85018; 85025; 85610; 85730; 93005; 94640; 94760; 96372; 99285; J0456; J0696; J1650; J2175; J2270; J3475; J7030; J7512; Q9967

== ENCOUNTER 2019-04-29 20:25 | Emergency (ER) | payer MEDICARE, SELFPAY ==
--- NOTE | 2019-04-29 21:30 | RAD REPORT ---
EXAM DESCRIPTION: RAD - Lumbar Spine 3 Views - 04/29/2019 9:08 pm CLINICAL HISTORY: Back pain FINDINGS: Postsurgical changes involve lower lumbar spine. The hardware is in good position. Alignment of the lumbar spine is satisfactory. No fracture is seen. Mild spondylosis. Mild scoliosis Renal calculi
[2019-04-29] MEDS ORDERED: KETOROLAC 30 MG/ML INJ ONE (21:32)
--- NOTE | 2019-04-29 21:38 | ER ---
Nurse's Notes [facility] Name: Lino Dietrich Age: 59 yrs Sex: Male : 1960 Arrival Date: 04/29/2019 Time: 20:27 Bed 5 Private MD: Diagnosis: Lumbago;Paraspinal spasm;Mechanical fall Presentation: 04/29 20:35 Presenting complaint: Patient states: He was in the bathroom and he slipped on a loose aj1 tile and fell backwards and hit the wall behind him on his back. Reports that he has had previous back issues that this has made worse. States that he is concerned this may have messed with some of the hardware he already has in his back. Transition of care: patient was not received from another setting of care. Onset of symptoms was April 29, 2019. Risk Assessment: Do you want to hurt yourself or someone else? Patient reports no desire to harm self or others. Initial Sepsis Screen: Does the patient meet any 2 criteria? No. Patient's initial sepsis screen is negative. Does the patient have a suspected source of infection? No. Patient's initial sepsis screen is negative. Care prior to arrival: None. 20:35 Method Of Arrival: Ambulatory aj1 20:35 Acuity: MG 2 aj1 Triage Assessment: 20:37 General: Appears in no apparent distress. uncomfortable, Behavior is calm, cooperative, aj1 appropriate for age. Pain: Complains of pain in back Pain currently is 4 out of 10 on a pain scale. Neuro: Level of Consciousness is awake, alert, obeys commands, Oriented to person, place, time, situation. Cardiovascular: Patient's skin is warm and dry. Respiratory: Airway is patent Respiratory effort is even, unlabored, Respiratory pattern is regular, symmetrical. Historical: - Allergies: 20:37 NKDA; aj1 - Home Meds: 20:37 aspirin 81 mg Oral TbEC 1 tab once daily [Active]; Ditropan XL 10 mg Oral tr24 1 tab aj1 once daily [Active]; lisinopril 20 mg Oral tab 1 tab once daily [Active]; metoprolol tartrate 50 mg Oral tab 1 tab 2 times per day [Active]; [place] 10-325 mg Oral tab 1 tab Q 4 hrs PRN [Active]; pravastatin 20 mg Oral tab 1 tab once daily [Active]; ProAir HFA 90 mcg/actuation inhalation HFAA 1 puff TID prn [Active]; Protonix 40 mg Oral TbEC 1 tab once daily [Active]; Symbicort 160-4.5 mcg/actuation inhalation HFAA 2 puffs 2 times per day [Active]; - PMHx: 20:37 CAD; chronic back pain; Hepatitis; Hypertension; Kidney stones; aj1 - Immunization history:: Flu vaccine is up to date. - Social history:: Smoking status: Patient uses tobacco products, smokes one pack cigarettes per day. - Ebola Screening: : Patient denies travel to an Ebola-affected area in the 21 days before illness onset. Screenin:40 Abuse screen: Denies threats or abuse. Denies injuries from another. Nutritional aa1 screening: No deficits noted. Tuberculosis screening: No symptoms or risk factors identified. Fall Risk Fall in past 12 months (25 points). Assessment: 20:40 General: Appears in no apparent distress. comfortable, Behavior is calm, cooperative, aa1 appropriate for age. Pain: Complains of pain in back. Neuro: Level of Consciousness is awake, alert, obeys commands, Oriented to person, place, time, situation, Moves all extremities. Full function Gait is steady. Respiratory: Airway is patent Respiratory effort is even, unlabored, Respiratory pattern is regular, symmetrical. GI: No signs and/or symptoms were reported involving the gastrointestinal system. : No signs and/or symptoms were reported regarding the genitourinary system. EENT: No signs and/or symptoms were reported regarding the EENT system. Derm: Skin is intact, is healthy with good turgor, Skin is pink, warm \T\ dry. Musculoskeletal: Circulation, motion, and sensation intact. Capillary refill < 3 seconds, Range of motion: intact in all extremities. 21:26 Reassessment: Patient appears in no apparent distress at this time. Patient and/or aa1 family updated on plan of care and expected duration. Pain level reassessed. Patient is alert, oriented x 3, equal unlabored respirations, skin warm/dry/pink. Awaiting x-ray results. 21:48 Reassessment: Patient appears in no apparent distress at this time. Patient is alert, aa1 oriented x 3, equal unlabored respirations, skin warm/dry/pink. Discussed d/c \T\ f/u instructions with pt; denies questions or concerns at this time Patient states feeling better. Vital Signs: 20:37 BP 211 / 127; Pulse 67; Resp 18; Temp 98.0; Pulse Ox 99% on R/A; Weight 92.53 kg (R); aj1 Height 5 ft. 10 in. (177.80 cm) (R); Pain 4/10; 21:26 BP 182 / 113; Pulse 61; Resp 18; Pulse Ox 96% on R/A; Pain 4/10; aa1 21:48 BP 171 / 106; Pulse 61; Resp 18; Temp 98.1; Pulse Ox 98% on R/A; Pain 0/10; aa1 20:37 Body Mass Index 29.27 (92.53 kg, 177.80 cm) aj1 ED Course: 20:27 Patient arrived in ED. as 20:37 Triage completed. aj1 20:37 Arm band placed on Patient placed in an exam room. aj1 20:40 Patient has correct armband on for positive identification. Bed in low position. Call aa1 light in reach. Pulse ox on. NIBP on. 20:41 Jaspal Sexton MD is Attending Physician. ps1 20:41 Kimberley Lr, JHONATAN is Primary Nurse. aa1 21:04 Lumbar Spine (3 Views) XRAY In Process Unspecified. EDMS 21:48 No provider procedures requiring assistance completed. Patient did not have IV access aa1 during this emergency room visit. Administered Medications: 21:20 Drug: TORadol 30 mg Route: IM; Site: right deltoid; aa1 21:45 Follow up: Response: No adverse reaction; Pain is decreased aa1 Outcome: 21:37 Discharge ordered by . ps1 21:48 Discharged to home ambulatory, with significant other. aa1 21:48 Condition: good 21:48 Discharge instructions given to patient, Instructed on discharge instructions, follow up and referral plans. Demonstrated understanding of instructions, follow-up care. 21:50 Patient left the ED. aa1 Signatures: Dispatcher [employer] EDMS Marilee Tamez RN RN ajKimberley Danielson RN RN aa1 Jade Moore as Jaspal Sexton MD MD ps1
--- NOTE | 2019-04-29 21:38 | EDPHYS ---
Physician Documentation [facility] Name: Lino Dietrich Age: 59 yrs Sex: Male : 1960 Arrival Date: 04/29/2019 Time: 20:27 Bed 5 Private MD: ED Physician Jaspal Sexton HPI: 04/29 20:45 This 59 yrs old Male presents to ER via Ambulatory with complaints of Fall ps1 Injury, Back Pain. 20:45 patient has numerous back problems s/p surgery 6 years ago and sees pain management in [address] Bailon. States that [place] the [place] and fell on some loose tile and wants an X-ray to make sure that nothing has changed since his last one 5 weeks ago. He states that he has increased back pain since the fall localized to the right paraspinal region. No urinary complaints. No fecal incontinence. No saddle anesthesia. States that he has a history of hypertension. Just started taking his blood pressure medication again yesterday and states that it will come down and does not need to be addressed. . Historical: - Allergies: 20:37 NKDA; aj1 - Home Meds: 20:37 aspirin 81 mg Oral TbEC 1 tab once daily [Active]; Ditropan XL 10 mg Oral tr24 1 tab aj1 once daily [Active]; lisinopril 20 mg Oral tab 1 tab once daily [Active]; metoprolol tartrate 50 mg Oral tab 1 tab 2 times per day [Active]; [place] 10-325 mg Oral tab 1 tab Q 4 hrs PRN [Active]; pravastatin 20 mg Oral tab 1 tab once daily [Active]; ProAir HFA 90 mcg/actuation inhalation HFAA 1 puff TID prn [Active]; Protonix 40 mg Oral TbEC 1 tab once daily [Active]; Symbicort 160-4.5 mcg/actuation inhalation HFAA 2 puffs 2 times per day [Active]; - PMHx: 20:37 CAD; chronic back pain; Hepatitis; Hypertension; Kidney stones; aj1 - Immunization history:: Flu vaccine is up to date. - Social history:: Smoking status: Patient uses tobacco products, smokes one pack cigarettes per day. - Ebola Screening: : Patient denies travel to an Ebola-affected area in the 21 days before illness onset. ROS: 20:45 Constitutional: Negative for fever, chills, and weight loss, Eyes: Negative for injury, ps1 pain, redness, and discharge, Cardiovascular: Negative for chest pain, palpitations, and edema, Respiratory: Negative for shortness of breath, cough, wheezing, and pleuritic chest pain, Abdomen/GI: Negative for abdominal pain, nausea, vomiting, diarrhea, and constipation, Skin: Negative for injury, rash, and discoloration, Neuro: Negative for headache, weakness, numbness, tingling, and seizure, Psych: Negative for depression, anxiety, suicide ideation, homicidal ideation, and hallucinations. 20:45 MS/extremity: Positive for injury or acute deformity, pain, tenderness, of the right mid back and right low back. Exam: 20:45 Constitutional: This is a well developed, well nourished patient who is awake, alert, ps1 and in no acute distress. Head/Face: Normocephalic, atraumatic. Eyes: Pupils equal round and reactive to light, extra-ocular motions intact. Lids and lashes normal. Conjunctiva and sclera are non-icteric and not injected. Chest/axilla: Normal chest wall appearance and motion. Nontender with no deformity. No lesions are appreciated. Cardiovascular: Regular rate and rhythm. No gallops, murmurs, or rubs. Normal PMI, no JVD. No pulse deficits. Respiratory: Lungs have equal breath sounds bilaterally, clear to auscultation and percussion. No rales, rhonchi or wheezes noted. No increased work of breathing, no retractions or nasal flaring. Abdomen/GI: Soft, non-tender, with normal bowel sounds. No distension or tympany. No guarding or rebound. No evidence of tenderness throughout. Neuro: Awake and alert, GCS 15, oriented to person, place, time, and situation. Cranial nerves II-XII grossly intact. Sensory grossly intact. Psych: Awake, alert, with orientation to person, place and time. Behavior, mood, and affect are within normal limits. 20:45 Back: pain, that is moderate, of the right low back and right mid back, ROM is normal, normal spinal alignment noted, vertebral tenderness, is not appreciated, muscle spasm, is appreciated in the right low back and right mid back. Vital Signs: 20:37 BP 211 / 127; Pulse 67; Resp 18; Temp 98.0; Pulse Ox 99% on R/A; Weight 92.53 kg (R); aj1 Height 5 ft. 10 in. (177.80 cm) (R); Pain 4/10; 21:26 BP 182 / 113; Pulse 61; Resp 18; Pulse Ox 96% on R/A; Pain 4/10; aa1 21:48 BP 171 / 106; Pulse 61; Resp 18; Temp 98.1; Pulse Ox 98% on R/A; Pain 0/10; aa1 20:37 Body Mass Index 29.27 (92.53 kg, 177.80 cm) aj1 MDM: 21:36 Data reviewed: vital signs, nurses notes, radiologic studies, plain films. Counseling: ps1 I had a detailed discussion with the patient and/or guardian regarding: the historical points, exam findings, and any diagnostic results supporting the discharge/admit diagnosis, radiology results, to return to the emergency department if symptoms worsen or persist or if there are any questions or concerns that arise at home. 21:37 Patient medically screened. ps1 04/29 20:51 Order name: Lumbar Spine (3 Views) XRAY; Complete Time: 21:35 ps1 04/29 21:35 Interpretation: No acute disease. ps1 Administered Medications: 21:20 Drug: TORadol 30 mg Route: IM; Site: right deltoid; aa1 21:45 Follow up: Response: No adverse reaction; Pain is decreased aa1 Disposition: 04/29/19 21:37 Discharged to Home. Impression: Lumbago, Paraspinal spasm, Mechanical fall. - Condition is Stable. - Discharge Instructions: Back Pain, Adult. - Medication Reconciliation Form, Thank You Letter, Antibiotic Education, Prescription Opioid Use form. - Follow up: Private Physician; When: As needed; Reason: Further diagnostic work-up, Recheck today's complaints, Re-evaluation by your physician. Follow up: Emergency Department; When: As needed; Reason: Fever > 102 F, Worsening of condition. - Problem is new. - Symptoms have improved. Signatures: Dispatcher [employer] EDMS Marilee Tamez RN RN aj1 Kimberley Lr RN RN aa1 Jaspal Sexton MD MD ps1 Corrections: (The following items were deleted from the chart) 21:50 21:37 04/29/2019 21:37 Discharged to Home. Impression: Lumbago; Paraspinal spasm; aa1 Mechanical fall. Condition is Stable. Forms are Medication Reconciliation Form, Thank You Letter, Antibiotic Education, Prescription Opioid Use. Follow up: Private Physician; When: As needed; Reason: Further diagnostic work-up, Recheck today's complaints, Re-evaluation by your physician. Follow up: Emergency Department; When: As needed; Reason: Fever > 102 F, Worsening of condition. Problem is new. Symptoms have improved. ps1
[2019-04-30 00:37] VITALS: BP 171/106; TEMP 98.1; O2SAT 98
== END 2019-04-29 21:50 | disposition home or self-care (01) ==
LOC: ER 20:25
DX: M62.830 Muscle spasm of back (principal); M54.5 Low back pain; W19.XXXA Unspecified fall, initial encounter; Y93.9 Activity, unspecified; Y92.510 Bank as the place of occurrence of the external cause; Z79.82 Long term (current) use of aspirin; I10 Essential (primary) hypertension; I25.10 Atherosclerotic heart disease of native coronary artery without angina pectoris; F17.210 Nicotine dependence, cigarettes, uncomplicated
CPT/HCPCS: 72100; 96372; 99283

== ENCOUNTER 2019-10-12 15:02 | Emergency (ER) | payer MEDICARE, SELFPAY ==
[2019-10-12] MEDS ORDERED: KETOROLAC 30 MG/ML INJ ONE (15:39)
--- NOTE | 2019-10-12 15:43 | RAD REPORT ---
EXAM DESCRIPTION: RAD - Ankle Left 3 View - 10/12/2019 3:31 pm CLINICAL HISTORY: Pain;Swelling COMPARISON: No comparisons FINDINGS: Moderate soft tissue swelling is seen along the lateral malleolus. No acute fracture is se en. Small calcaneal spurs evident.
--- NOTE | 2019-10-12 15:49 | ER ---
Nurse's Notes [facility] Name: Lino Dietrich Age: 59 yrs Sex: Male : 1960 Arrival Date: 10/12/2019 Time: 15:05 Bed 23 Private MD: Diagnosis: Sprain of ankle Presentation: 10/12 15:08 Presenting complaint: left ankle pain 10/10 after stepping in hole 45 mins [employer]. hb Transition of care: patient was not received from another setting of care. Onset of symptoms was October 12, 2019. Risk Assessment: Do you want to hurt yourself or someone else? Patient reports no desire to harm self or others. Initial Sepsis Screen: Does the patient meet any 2 criteria? No. Patient's initial sepsis screen is negative. Does the patient have a suspected source of infection? No. Patient's initial sepsis screen is negative. Care prior to arrival: None. 15:08 Method Of Arrival: Wheelchair hb 15:08 Acuity: MG 4 hb Historical: - Allergies: 15:09 NKDA; hb - Home Meds: 15:53 aspirin 81 mg Oral TbEC 1 tab once daily [Active]; Ditropan XL 10 mg Oral tr24 1 tab mg2 once daily [Active]; lisinopril 20 mg Oral tab 1 tab once daily [Active]; metoprolol tartrate 50 mg Oral tab 1 tab 2 times per day [Active]; [place] 10-325 mg Oral tab 1 tab Q 4 hrs PRN [Active]; pravastatin 20 mg Oral tab 1 tab once daily [Active]; ProAir HFA 90 mcg/actuation inhalation HFAA 1 puff TID prn [Active]; Protonix 40 mg Oral TbEC 1 tab once daily [Active]; Symbicort 160-4.5 mcg/actuation inhalation HFAA 2 puffs 2 times per day [Active]; - PMHx: 15:09 chronic back pain; Hypertension; Hepatitis; CAD; Kidney stones; hb - Immunization history:: Adult Immunizations up to date. - Social history:: Smoking status: Patient uses tobacco products, smokes one pack cigarettes per day. - Ebola Screening: : No symptoms or risks identified at this time. Screenin:47 Abuse screen: Denies threats or abuse. Denies injuries from another. Nutritional mg2 screening: No deficits noted. Tuberculosis screening: No symptoms or risk factors identified. Fall Risk Fall in past 12 months (25 points). Gait- Weak (10 pts.). Assessment: 15:48 General: Appears in no apparent distress. comfortable, Behavior is calm, cooperative. mg2 Pain: Complains of pain in left lateral ankle Pain does not radiate. Pain currently is 5 out of 10 on a pain scale. Quality of pain is described as aching, Pain began suddenly, 1 hour ago. Neuro: Level of Consciousness is awake, alert, obeys commands, Oriented to person, place, time, situation. Cardiovascular: Capillary refill < 3 seconds Patient's skin is warm and dry. Respiratory: Airway is patent Respiratory effort is even, unlabored, Respiratory pattern is regular, symmetrical. GI: No signs and/or symptoms were reported involving the gastrointestinal system. : No signs and/or symptoms were reported regarding the genitourinary system. EENT: No signs and/or symptoms were reported regarding the EENT system. Derm: Skin is intact, is healthy with good turgor, Skin is pink, warm \T\ dry. normal. Musculoskeletal: Circulation, motion, and sensation intact. Capillary refill < 3 seconds, Swelling present in left lateral ankle. 16:15 Reassessment: Patient appears in no apparent distress at this time. patient refused mg2 crutches. he said he has one at home. Vital Signs: 15:09 BP 144 / 82; Pulse 55; Resp 16; Temp 98; Pulse Ox 99% on R/A; Weight 96.62 kg; Height 5 hb ft. 10 in. (177.80 cm); Pain 10/10; 16:15 BP 135 / 78; Pulse 59; Resp 18; Temp 98; Pulse Ox 100% on R/A; mg2 15:09 Body Mass Index 30.56 (96.62 kg, 177.80 cm) hb ED Course: 15:05 Patient arrived in ED. mr 15:06 Lois Phillips [facility]-C [facility]. kb 15:06 Prem Olivo MD is Attending Physician. kb 15:09 Triage completed. hb 15:09 Arm band placed on. hb 15:26 Desmond Beasley, JHONATAN is Primary Nurse. mg2 15:32 Ankle Left 3 View XRAY In Process Unspecified. EDMS 15:47 Patient has correct armband on for positive identification. Door closed. mg2 15:47 No provider procedures requiring assistance completed. Patient did not have IV access mg2 during this emergency room visit. 16:14 Air stirrup applied to left ankle. mg2 Administered Medications: 15:42 Drug: TORadol 30 mg Route: IM; Site: right gluteus; mg2 16:01 Follow up: Response: No adverse reaction mg2 Outcome: 15:48 Discharge ordered by . jeromy 16:16 Discharged to home via wheelchair, with family. mg2 16:16 Condition: good 16:16 Discharge instructions given to patient, family, Instructed on discharge instructions, follow up and referral plans. medication usage, Demonstrated understanding of instructions, follow-up care, medications, splint care, Prescriptions given X 1. 16:16 Patient left the ED. mg2 Signatures: Dispatcher [employer] EDMS Lois Phillips, SHAYY LOW-Shireen Kenny Sheyla Barger, RN RN Desmond Beasley RN RN mg2
--- NOTE | 2019-10-12 15:49 | EDPHYS ---
Physician Documentation [facility] Name: Lino Dietrich Age: 59 yrs Sex: Male : 1960 Arrival Date: 10/12/2019 Time: 15:05 Bed 23 Private MD: ED Physician Prem Olivo HPI: 10/12 15:45 This 59 yrs old Male presents to ER via Wheelchair with complaints of Ankle kb Injury. 15:45 The patient presents with decreased range of motion, an injury, pain, that is acute, kb swelling, tenderness. The complaints affect the left ankle. Onset: The symptoms/episode began/occurred 1 hour(s) ago. Context: The problem was sustained outdoors, resulted from a mis-step by the patient, hole, The patient can partially bear weight on the affected extremity. must have assistance. Associated signs and symptoms: Pertinent positives: swelling. Modifying factors: The symptoms are alleviated by nothing, the symptoms are aggravated by weight bearing. Severity of symptoms: At their worst the symptoms were moderate, in the emergency department the symptoms are unchanged. The patient has not experienced similar symptoms in the past. The patient has not recently seen a physician. Historical: - Allergies: 15:09 NKDA; hb - Home Meds: 15:53 aspirin 81 mg Oral TbEC 1 tab once daily [Active]; Ditropan XL 10 mg Oral tr24 1 tab mg2 once daily [Active]; lisinopril 20 mg Oral tab 1 tab once daily [Active]; metoprolol tartrate 50 mg Oral tab 1 tab 2 times per day [Active]; [place] 10-325 mg Oral tab 1 tab Q 4 hrs PRN [Active]; pravastatin 20 mg Oral tab 1 tab once daily [Active]; ProAir HFA 90 mcg/actuation inhalation HFAA 1 puff TID prn [Active]; Protonix 40 mg Oral TbEC 1 tab once daily [Active]; Symbicort 160-4.5 mcg/actuation inhalation HFAA 2 puffs 2 times per day [Active]; - PMHx: 15:09 chronic back pain; Hypertension; Hepatitis; CAD; Kidney stones; hb - Immunization history:: Adult Immunizations up to date. - Social history:: Smoking status: Patient uses tobacco products, smokes one pack cigarettes per day. - Ebola Screening: : No symptoms or risks identified at this time. ROS: 15:42 Constitutional: Negative for fever, chills, and weight loss, ENT: Negative for injury, kb pain, and discharge, Neck: Negative for injury, pain, and swelling, Cardiovascular: Negative for chest pain, palpitations, and edema, Respiratory: Negative for shortness of breath, cough, wheezing, and pleuritic chest pain, Abdomen/GI: Negative for abdominal pain, nausea, vomiting, diarrhea, and constipation, Back: Negative for injury and pain, Skin: Negative for injury, rash, and discoloration, Neuro: Negative for headache, weakness, numbness, tingling, and seizure. 15:42 MS/extremity: Positive for injury or acute deformity, pain, swelling, tenderness, of the left lateral ankle. Exam: 15:41 Constitutional: This is a well developed, well nourished patient who is awake, alert, kb and in no acute distress. Head/Face: Normocephalic, atraumatic. ENT: Nares patent. No nasal discharge, no septal abnormalities noted. Tympanic membranes are normal and external auditory canals are clear. Oropharynx with no redness, swelling, or masses, exudates, or evidence of obstruction, uvula midline. Mucous membranes moist. Neck: Trachea midline, no thyromegaly or masses palpated, and no cervical lymphadenopathy. Supple, full range of motion without nuchal rigidity, or vertebral point tenderness. No Meningismus. Chest/axilla: Normal chest wall appearance and motion. Nontender with no deformity. No lesions are appreciated. Cardiovascular: Regular rate and rhythm with a normal S1 and S2. No gallops, murmurs, or rubs. Normal PMI, no JVD. No pulse deficits. Respiratory: Lungs have equal breath sounds bilaterally, clear to auscultation and percussion. No rales, rhonchi or wheezes noted. No increased work of breathing, no retractions or nasal flaring. Abdomen/GI: Soft, non-tender, with normal bowel sounds. No distension or tympany. No guarding or rebound. No evidence of tenderness throughout. Skin: Warm, dry with normal turgor. Normal color with no rashes, no lesions, and no evidence of cellulitis. Neuro: Awake and alert, GCS 15, oriented to person, place, time, and situation. Cranial nerves II-XII grossly intact. Motor strength 5/5 in all extremities. Sensory grossly intact. Cerebellar exam normal. Normal gait. 15:41 Musculoskeletal/extremity: Extremities: grossly normal except: noted in the left lateral ankle: decreased ROM, pain, swelling, tenderness, ROM: limited active range of motion due to pain, Circulation is intact in all extremities. Sensation intact. Weight bearing: can bear weight with assistance only. Vital Signs: 15:09 BP 144 / 82; Pulse 55; Resp 16; Temp 98; Pulse Ox 99% on R/A; Weight 96.62 kg; Height 5 hb ft. 10 in. (177.80 cm); Pain 10/10; 16:15 BP 135 / 78; Pulse 59; Resp 18; Temp 98; Pulse Ox 100% on R/A; mg2 15:09 Body Mass Index 30.56 (96.62 kg, 177.80 cm) hb MDM: 15:10 Patient medically screened. kb 15:41 Data reviewed: vital signs, nurses notes. Data interpreted: Pulse oximetry: on room air kb is 99 %. Interpretation: normal. 15:47 Counseling: I had a detailed discussion with the patient and/or guardian regarding: the kb historical points, exam findings, and any diagnostic results supporting the discharge/admit diagnosis, radiology results, the need for outpatient follow up, a orthopedic surgeon, to return to the emergency department if symptoms worsen or persist or if there are any questions or concerns that arise at home. 10/12 15:16 Order name: Ankle Left 3 View XRAY; Complete Time: 15:47 kb 10/12 15:48 Order name: Aircast Ankle Splint; Complete Time: 16:16 kb Administered Medications: 15:42 Drug: TORadol 30 mg Route: IM; Site: right gluteus; mg2 16:01 Follow up: Response: No adverse reaction mg2 Disposition: 10/13 07:16 Co-signature as Attending Physician, Prem Olivo MD I agree with the assessment and kdr plan of care. Disposition: 10/12/19 15:48 Discharged to Home. Impression: Sprain of ankle. - Condition is Stable. - Discharge Instructions: Ankle Sprain, [id number]. - Prescriptions for Diclofenac Sodium 75 mg Oral Tablet, Delayed Release (E.C.) - take 1 tablet by ORAL route 2 times per day As needed; 30 tablet. - Medication Reconciliation Form, Thank You Letter, Antibiotic Education, Prescription Opioid Use form. - Follow up: Emergency Department; When: As needed; Reason: Worsening of condition. Follow up: Private Physician; When: 2 - 3 days; Reason: Recheck today's complaints, Continuance of care, Re-evaluation by your physician. Signatures: Dispatcher [employer] EDMS AlanStewartLois, CARROTING MACHINE OFFBEARER-C CARROTING MACHINE OFFBEARER-Ckb Prem Olivo MD MD [facility] Sheyla Barger RN RN Desmond Beasley RN RN mg2 Corrections: (The following items were deleted from the chart) 10/12 16:16 15:48 Crutches ordered. kb mg2 16:16 15:48 10/12/2019 15:48 Discharged to Home. Impression: Sprain of ankle. Condition is mg2 Stable. Forms are Medication Reconciliation Form, Thank You Letter, Antibiotic Education, Prescription Opioid Use. Follow up: Emergency Department; When: As needed; Reason: Worsening of condition. Follow up: Private Physician; When: 2 - 3 days; Reason: Recheck today's complaints, Continuance of care, Re-evaluation by your physician. kb
[2019-10-13 03:06] VITALS: TEMP 98
[2019-10-13 03:08] VITALS: BP 135/78; O2SAT 100
== END 2019-10-12 16:16 | disposition home or self-care (01) ==
LOC: ER 15:02
DX: S93.402A Sprain of unspecified ligament of left ankle, initial encounter (principal); X58.XXXA Exposure to other specified factors, initial encounter; Y93.01 Activity, walking, marching and hiking; Y92.89 Other specified places as the place of occurrence of the external cause; I10 Essential (primary) hypertension; I25.119 Atherosclerotic heart disease of native coronary artery with unspecified angina pectoris; F17.210 Nicotine dependence, cigarettes, uncomplicated; Z79.82 Long term (current) use of aspirin
CPT/HCPCS: 96372; 99284

== ENCOUNTER 2020-04-09 08:58 | Observation (INO) | payer MEDICARE ==
[2020-04-09 09:21] LABS: Absolute Lymphocytes (CBC) 1.4 K/uL (0.7-4.9); Basophils % 0.5 % (0-1.3); Hematocrit 46.8 % (39.6-49.0); Lymphocytes % 20.1 % (15.3-44.8); MPV 9.6 fL (7.6-11.3); RBC Red Blood Cell Count 5.03 M/uL (4.33-5.43)
--- NOTE | 2020-04-09 09:21 | RAD REPORT ---
EXAM DESCRIPTION: CT - Ct Stroke Brain Wo Cont - 04/09/2020 9:14 am CLINICAL HISTORY: VISUAL DISTURBANCES Headache, drowsiness COMPARISON: HEAD BRAIN W O CONTRAST dated 12/29/2010; HEAD BRAIN W O CONTRAST dated 05/03/2008 TECHNIQUE: All CT scans are performed using dose optimization technique as appropriate and may inclu de automated exposure control or mA/KV adjustment according to patient size. FINDINGS: No intracranial hemorrhage, hydrocephalus or extra-axial fluid collection.Mild generalized brain atrophy is seen.No areas of brain edema or evidence of midline shift. The paranasal sinuses and mastoids are clear. The calvarium is intact. IMPRESSION: No acute intracranial abnormality. The findings were discussed with Dr. Olivo On 04/09/2020 at 9:15 a.m. by telephone.
[2020-04-09 09:28] LABS: Protime INR 0.92
--- NOTE | 2020-04-09 09:32 | RAD REPORT ---
EXAM DESCRIPTION: RAD - Chest Single View - 04/09/2020 9:27 am CLINICAL HISTORY: MD wallace Chest pain. COMPARISON: Chest Pa And Lat (2 Views) dated 12/01/2018; Chest Pa And Lat (2 Views) dated 06/30/2018; Chest Single View dated 06/27/2018; Chest Single View dated 06/12/2018 FINDINGS: Portable technique limits examination quality. The lungs are grossly clear. The heart is upper limit normal in size with a tortuous thoracic aorta. No displaced fractures. IMPRESSION: No acute intrathoracic process suspected.
[2020-04-09 09:38] LABS: Potassium 3.9 mmol/L (3.5-5.1)
[2020-04-09 09:48] LABS: Thyroid Stimulating Hormone 0.633 uIU/mL (0.360-3.740); Troponin (Emerg Dept Use Only) < 0.02 ng/mL (0.0-0.045)
--- NOTE | 2020-04-09 11:02 | RAD REPORT ---
EXAM DESCRIPTION: MRI - Brain Wo Cont - 04/09/2020 10:50 am CLINICAL HISTORY: VISUAL DISTURBANCES Headache, drowsiness, CVA symptomology COMPARISON: Ct Stroke Brain Wo Cont dated 04/09/2020 TECHNIQUE: Multi-sequence, multiplanar MR imaging of the brain was performed without contrast. FINDINGS: Motion degradation is present, limiting quality of the study. No intracranial hemorrhage, hydrocephalus or extra-axial fluid collections. Generalized brain atrophy is present with [id number] periventricular and deep white matter chronic microvascular ischemi c changes. Small area of restricted diffusion measuring 8 mm is seen in the region of the right thala mus compatible with acute to subacute time frame lacunar infarct. No hemorrhagic component. Midline structures are normally formed. Mild left mastoid effusion. IMPRESSION: 8 mm acute to subacute time frame nonhemorrhagic right sided lacunar infarct in the [place] on of the right thalamus.
--- NOTE | 2020-04-09 11:38 | EDPHYS ---
Physician Documentation [facility] Name: Lino Dietrich Age: 59 yrs Sex: Male : 1960 Arrival Date: 04/09/2020 Time: 08:59 Bed 13 Private MD: ED Physician Brad Gotti HPI: 04/09 09:30 This 59 yrs old Male presents to ER via EMS with complaints of S/S of snw Possible Stroke. 09:30 The patient's problem is reported as difficulty walking, off balance, visual snw difficulty. Onset: The symptoms/episode began/occurred gradually, 3 day(s) ago, and became worse this morning, 0300. Duration: The episode is continuous. 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 The symptoms are alleviated by nothing. The symptoms are aggravated by changing position. Associated signs and symptoms: Pertinent positives: dizziness, lightheadedness, double blurry vision. Severity of symptoms: At their worst the symptoms were moderate severe. Patient's baseline: Neuro: alert and fully oriented, Motor: no deficits. The patient has not experienced similar symptoms in the past. It is unknown whether or not the patient has recently seen a physician. Historical: - Allergies: : NKDA; em - Home Meds: lisinopril 20 mg Oral tab 1 tab once daily [Active]; [place] 10-325 mg Oral tab 1 tab Q 4 em hrs PRN [Active]; pravastatin 20 mg Oral tab 1 tab once daily [Active]; Eliquis oral oral [Active]; metoprolol tartrate 50 mg Oral tab 1 tab 2 times per day [Active]; amlodipine 5 mg tab 1 tab once daily [Active]; hydrochlorothiazide 12.5 mg Oral tab 1 tab once daily [Active]; - PMHx: CAD; chronic back pain; Hepatitis; Hypertension; Kidney stones; em - PSHx: None; em - Immunization history:: Adult Immunizations up to date. - Social history:: Smoking status: Patient reports the use of cigarette tobacco products, smokes one pack cigarettes per day. ROS: 09:28 ENT: Negative for injury, pain, and discharge, Neck: Negative for injury, pain, and snw swelling, Cardiovascular: Negative for chest pain, palpitations, and edema, Respiratory: Negative for shortness of breath, cough, wheezing, and pleuritic chest pain, Abdomen/GI: Negative for abdominal pain, nausea, vomiting, diarrhea, and constipation, Back: Negative for injury and pain, : Negative for injury, bleeding, discharge, and swelling, MS/Extremity: Negative for injury and deformity, Skin: Negative for injury, rash, and discoloration, Psych: Negative for depression, anxiety, suicide ideation, homicidal ideation, and hallucinations. 09:28 Constitutional: Positive for malaise, loss of coordination, double vision. 09:28 Eyes: Positive for blurry vision, visual disturbance, double vision. 09:28 Neuro: Positive for dizziness, x 3 days, feeling intoxicated and falling at 0300. Exam: 09:16 Radiologist reports: Nothing acute snw 09:16 Constitutional: This is a well developed, well nourished patient who is awake, alert, and in no acute distress. Head/Face: Normocephalic, atraumatic. ENT: Nares patent. No nasal discharge, no septal abnormalities noted. Tympanic membranes are normal and external auditory canals are clear. Oropharynx with no redness, swelling, or masses, exudates, or evidence of obstruction, uvula midline. Mucous membranes moist. Neck: Trachea midline, no thyromegaly or masses palpated, and no cervical lymphadenopathy. Supple, full range of motion without nuchal rigidity, or vertebral point tenderness. No Meningismus. Chest/axilla: Normal chest wall appearance and motion. Nontender with no deformity. No lesions are appreciated. Cardiovascular: Regular rate and rhythm with a normal S1 and S2. No gallops, murmurs, or rubs. Normal PMI, no JVD. No pulse deficits. Respiratory: Lungs have equal breath sounds bilaterally, clear to auscultation and percussion. No rales, rhonchi or wheezes noted. No increased work of breathing, no retractions or nasal flaring. Abdomen/GI: Soft, non-tender, with normal bowel sounds. No distension or tympany. No guarding or rebound. No evidence of tenderness throughout. Back: No spinal tenderness. No costovertebral tenderness. Full range of motion. Skin: Warm, dry with normal turgor. Normal color with no rashes, no lesions, and no evidence of cellulitis. MS/ Extremity: Pulses equal, no cyanosis. Neurovascular intact. Full, normal range of motion. Psych: Awake, alert, with orientation to person, place and time. Behavior, mood, and affect are within normal limits. 09:16 Neuro: Orientation: is normal, Mentation: is normal, Memory: is normal, Cranial nerves: double vision on right medial gaze. extraocular movements show gaze deviation to the unable to move right eye all the way laterally, no gross hearing deficit,. Speech is clear and appropriate. Gag reflex present. Tongue strength is normal, Cerebellar function: Motor: is normal, moves all fours, Sensation: is normal, Gait: not tested. seizure activity, is not displayed by the patient, Abnormal movements: there are no abnormal movements. 09:21 Special observations: gaze appears off, pt states double vision on lateral gaze. snw Vital Signs: 08:57 BP 149 / 97; Pulse 52; Resp 18; Temp 97.7(O); Pulse Ox 95% on R/A; Weight 96.16 kg (R); em Height 5 ft. 10 in. (177.80 cm); Pain 2/10; 10:30 BP 156 / 103; Pulse 48; Resp 16; Pulse Ox 96% on R/A; em 12:04 BP 172 / 97; Pulse 47; Resp 16; Pulse Ox 94% on R/A; em 14:09 BP 130 / 69; Pulse 48; Resp 18; Pulse Ox 96% on R/A; em 08:57 Body Mass Index 30.42 (96.16 kg, 177.80 cm) em NIH Stroke Scale Scores: 09:00 NIHSS Score: 2 em 09:21 NIHSS Score: 2 snw [place] Coma Score: 09:21 Eye Response: spontaneous(4). Verbal Response: oriented(5). Motor Response: obeys snw commands(6). Total: 15. MDM: 09:11 Patient medically screened. snw 09:35 Data reviewed: vital signs, nurses notes. Data interpreted: Pulse oximetry: on room air snw is 95 %. Interpretation: normal. Counseling: I had a detailed discussion with the patient and/or guardian regarding: the historical points, exam findings, and any diagnostic results supporting the discharge/admit diagnosis, the presence of at least one elevated blood pressure reading (>120/80) during this emergency department visit, lab results, radiology results, TPA not considered 2nd to onset time decreased clarity and pt on Eliquis. Response to treatment: There is no appreciated change of the patient's symptoms at this time. 11:37 Counseling: I had a detailed discussion with the patient and/or guardian regarding: the snw historical points, exam findings, and any diagnostic results supporting the discharge/admit diagnosis. Physician consultation: Marcelino Ingram MD was called at 11:38, was contacted at 11:38, regarding consult, patient's condition, and will see patient in inpatient room. 11:39 Physician consultation: Feng Traylor MD was called at 11:39, was contacted at 11:39, snw regarding admission, to the ICU. 04/09 09:00 Order name: Basic Metabolic Panel; Complete Time: 09:39 aa5 04/09 09:00 Order name: CBC with Diff; Complete Time: 09:24 aa5 04/09 09:00 Order name: Protime (+inr); Complete Time: 09:36 aa5 04/09 09:00 Order name: Ptt, Activated; Complete Time: 09:36 aa5 04/09 09:04 Order name: TSH; Complete Time: 09:50 snw 04/09 09:05 Order name: Troponin (emerg Dept Use Only); Complete Time: 09:50 snw 04/09 13:42 Order name: glucometer results - FOR PT WITH NO ID; Complete Time: 15:10 em1 04/09 14:31 Order name: Thyroid Stimulating Hormone EDFL 04/09 14:31 Order name: CBC with Automated Diff EDMS 04/09 14:31 Order name: CBC with Automated Diff EDMS 04/09 14:31 Order name: Comprehensive Metabolic Panel EDMS 04/09 14:31 Order name: Comprehensive Metabolic Panel EDMS 04/09 14:31 Order name: Lipid Profile EDMS 04/09 14:31 Order name: Lipid Profile EDMS 04/09 09:00 Order name: CT Stroke Brain w/o Contrast; Complete Time: 09:24 aa5 04/09 09:00 Order name: Stroke CXR 1 View; Complete Time: 09:36 aa5 04/09 09:00 Order name: EKG; Complete Time: 09:02 aa5 04/09 10:02 Order name: Brain Wo Cont; Complete Time: 11:04 EDFL 04/09 14:17 Order name: Social Service Consult EDFL 04/09 14:31 Order name: Case Management Consult EDFL 04/09 14:31 Order name: CONS Pharmacy Consult EDFL 04/09 14:31 Order name: CONS Physician Consult EDFL 04/09 14:31 Order name: CONS Physician Consult EDFL 04/09 14:31 Order name: Occupational Therapy Consult EDFL 04/09 14:31 Order name: Physical Therapy Consult EDFL 04/09 14:31 Order name: Heart Healthy EDFL 04/09 14:31 Order name: Echo with Doppler EDFL 04/09 14:31 Order name: Carotid Artery Bilateral EDFL 04/09 09:00 Order name: Accucheck; Complete Time: 09:42 04/09 09:00 Order name: Cardiac monitoring; Complete Time: 09:42 04/09 09:00 Order name: EKG - Nurse/Tech; Complete Time: 09:42 04/09 09:00 Order name: IV Saline Lock; Complete Time: 09:42 04/09 09:00 Order name: Labs collected and sent; Complete Time: 09:42 04/09 09:00 Order name: NPO; Complete Time: 11:09 04/09 09:00 Order name: O2 Per Protocol; Complete Time: 09:42 04/09 09:00 Order name: O2 Sat Monitoring; Complete Time: 09:42 04/09 09:00 Order name: Stroke Swallow Screen; Complete Time: 11:09 aa Administered Medications: 11:40 Drug: foLIC Acid 1 mg Route: PO; em 12:00 Follow up: Response: No adverse reaction em Point of Care Testing: Blood Glucose: 09:23 Blood Glucose: 134 mg/dL; em Ranges: Critical Glucose Levels:Adult <50 mg/dl or >400 mg/dl <40 mg/dl or >180 mg/dl Disposition: 04/10 02:11 Co-signature as Attending Physician, Brad Gotti MD. [email or web address] Disposition: 04/09/20 11:37 Hospitalization ordered by Feng Traylor for Inpatient Admission. 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 - Bed requested for Telemetry/MedSurg (Inpatient). - Status is Inpatient Admission. em - Condition is Stable. - Problem is new. - Symptoms are unchanged. NIH Stroke Scale - NIH Stroke Score Date: 04/09/2020 Time: 09:00 Total Score = 2 1a. Level of Consciousness (LOC) - 0(Alert) 1b. Level of Consciousness (LOC) (Year \T\ Age) - 0(Both) 1c. LOC Commands (Open \T\ Closes Eyes/Banking Teacher) - 0(Both) 2. Best Gaze (Lateral Gaze Paresis) - 2(Forced deviation) 3. Visual Field Loss - 0(No visual loss) 4. Facial Palsy - 0(Normal) 5a. Left Arm: Motor (10-second hold) - 0(No drift) 5b. Right Arm: Motor (10-second hold) - 0(No drift) 6a. Left Leg: Motor (5-second hold - always test supine) - 0(No drift) 6b. Right Leg: Motor (5-second hold - always test supine) - 0(No drift) 7. Limb Ataxia (finger/nose \T\ heel/garcia - test with eyes open) - 0(Absent) 8. Sensory Loss (pinprick arms/legs/face) - 0(Normal) 9. Best Language: Aphasia (description/naming/reading) - 0(No aphasia) 10. Dysarthria (speech clarity - read or repeat words) - 0(Normal) 11. Extinction and Inattention (visual/tactile/auditory/spatial/personal) - 0(No abnormality) Initials: em NIH Stroke Scale - NIH Stroke Score Date: 04/09/2020 Time: 09:21 Total Score = 2 1a. Level of Consciousness (LOC) - 0(Alert) 1b. Level of Consciousness (LOC) (Year \T\ Age) - 0(Both) 1c. LOC Commands (Open \T\ Closes Eyes/Banking Teacher) - 0(Both) 2. Best Gaze (Lateral Gaze Paresis) - 2(Forced deviation) 3. Visual Field Loss - 0(No visual loss) 4. Facial Palsy - 0(Normal) 5a. Left Arm: Motor (10-second hold) - 0(No drift) 5b. Right Arm: Motor (10-second hold) - 0(No drift) 6a. Left Leg: Motor (5-second hold - always test supine) - 0(No drift) 6b. Right Leg: Motor (5-second hold - always test supine) - 0(No drift) 7. Limb Ataxia (finger/nose \T\ heel/garcia - test with eyes open) - 0(Absent) 8. Sensory Loss (pinprick arms/legs/face) - 0(Normal) 9. Best Language: Aphasia (description/naming/reading) - 0(No aphasia) 10. Dysarthria (speech clarity - read or repeat words) - 0(Normal) 11. Extinction and Inattention (visual/tactile/auditory/spatial/personal) - 0(No abnormality) Initials: snw Signatures: Dispatcher [employer] [facility] Riya Hair, JHONATAN RN dw Yamileth Carter, BOX LINER-C BOX LINER-Csnw Anthony Encarnacion, RN RN em Tia Medrano RN RN aa5 Brad Gotti MD MD [email or web address] Corrections: (The following items were deleted from the chart) 04/09 10:02 09:28 MR STROKE PROTOCOL+MRI.RAD.BRZ ordered. [facility] 11:39 11:37 Hospitalization Ordered by Feng rTaylor MD for Inpatient Admission. 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 Bed requested for Telemetry/MedSurg (Inpatient). Status is Inpatient Admission. Condition is Stable. Problem is new. Symptoms are unchanged. snw 14:57 11:39 04/09/2020 11:37 Hospitalization Ordered by Feng Traylor MD for dw Inpatient Admission. 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 Bed requested for Intensive Care Unit. Status is Inpatient Admission. Condition is Stable. Problem is new. Symptoms are unchanged. snw 15:37 14:57 04/09/2020 11:37 Hospitalization Ordered by Feng Traylor MD for em Inpatient Admission. 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 Bed requested for Telemetry/MedSurg (Inpatient). Status is Inpatient Admission. Condition is Stable. Problem is new. Symptoms are unchanged. dw
--- NOTE | 2020-04-09 11:38 | ER ---
Nurse's Notes [facility] Name: Lino Dietrich Age: 59 yrs Sex: Male : 1960 Arrival Date: 04/09/2020 Time: 08:59 Bed 13 Private MD: Diagnosis: Brain stem stroke syndrome Presentation: 04/09 08:57 Chief complaint: EMS states: called out for dizziness, blurred vision that started em about 3 days ago but got worse at 0300 this morning, BP 171/113 left arm, 161/101 right arm, BGL 101, pt states he feels like he is drunk, denies ETOH use, code stroke called at 0857. 08:57 Coronavirus screen: Proceed with normal triage. Patient denies a cough. Patient reports em shortness of breath or difficulty breathing. Patient denies measured and/or subjective temperature greater than 100.4F prior to today's visit. Patient denies travel on a cruise ship or to a country the [facility] currently lists as an affected area. Patient denies contact with known and/or suspected case of COVID-19. Ebola Screen: Patient negative for fever greater than or equal to 101.5 degrees Fahrenheit, and additional compatible Ebola Virus Disease symptoms Patient denies exposure to infectious person. Patient denies travel to an Ebola-affected area in the 21 days before illness onset. No symptoms or risks identified at this time. An acute neurological deficit is present. The charge nurse has been notified. The patients blood glucose was checked before arriving to the hospital and was found to be normal. Initial Sepsis Screen: Does the patient meet any 2 criteria? No. Patient's initial sepsis screen is negative. Does the patient have a suspected source of infection? No. Patient's initial sepsis screen is negative. Risk Assessment: Do you want to hurt yourself or someone else? Patient reports no desire to harm self or others. Onset of symptoms was April 09, 2020 at 03:00. 08:57 Method Of Arrival: EMS: [facility] em 08:57 Acuity: MG 2 em Stroke Activation: Symptom onset > 6 hours Physician: Stroke Attending; Name: ; Notified At: ; Arrived At: Physician: Chief Stroke Resident; Name: ; Notified At: ; Arrived At: Physician: Stroke Resident; Name: ; Notified At: ; Arrived At: Physician: ED Attending; Name: ; Notified At: ; Arrived At: Physician: ED Resident; Name: ; Notified At: ; Arrived At: Historical: - Allergies: : NKDA; em - Home Meds: lisinopril 20 mg Oral tab 1 tab once daily [Active]; Mellen 10-325 mg Oral tab 1 tab Q 4 em hrs PRN [Active]; pravastatin 20 mg Oral tab 1 tab once daily [Active]; Eliquis oral oral [Active]; metoprolol tartrate 50 mg Oral tab 1 tab 2 times per day [Active]; amlodipine 5 mg tab 1 tab once daily [Active]; hydrochlorothiazide 12.5 mg Oral tab 1 tab once daily [Active]; - PMHx: CAD; chronic back pain; Hepatitis; Hypertension; Kidney stones; em - PSHx: None; em - Immunization history:: Adult Immunizations up to date. - Social history:: Smoking status: Patient reports the use of cigarette tobacco products, smokes one pack cigarettes per day. Screenin:25 Abuse screen: Denies threats or abuse. Nutritional screening: No deficits noted. em Tuberculosis screening: No symptoms or risk factors identified. Fall Risk None identified. Assessment: 09:00 T-PA (Activase) Screening: Contraindications: Patient reports onset of signs and em symptoms of stroke greater than 6 hours ago: Yes. Is the patient on Aspirin, Heparin, or Warfarin: Yes. 09:00 VAN Scoring: Arm Drift: Patients demonstrates NO arm weakness. Patient is VAN Negative. em 09:00 General: Appears in no apparent distress. comfortable, Behavior is cooperative, em anxious, Denies fever. Pain: Complains of pain in head Pain currently is 2 out of 10 on a pain scale. Pain began last night. Neuro: Level of Consciousness is awake, alert, obeys commands, Oriented to person, place, time, situation, Appropriate for age Moves all extremities. Speech is slurred, Facial symmetry appears normal, Reports blurred vision diplopia, headache weakness. Cardiovascular: Capillary refill < 3 seconds Patient's skin is warm and dry. Rhythm is. Respiratory: Airway is patent Respiratory effort is even, unlabored, Respiratory pattern is regular, symmetrical. GI: Patient currently denies nausea, vomiting. Derm: Skin is pink, warm \T\ dry. Musculoskeletal: Capillary refill < 3 seconds, Range of motion: intact in all extremities. 09:07 Reassessment: taken to CT by me. em 09:37 Reassessment: Patient appears in no apparent distress at this time. pt wheeled to MRI em via wheelchair. 10:40 Patient has been NPO before screening. The patient is alert, and able to follow em commands. The patient exhibits slurred or garbled speech. Provider notified of the indication for Speech Therapy consult. The patient is not exhibiting difficulty speaking. The patient does not exhibit difficulty understanding words. The patient is able to swallow own secretions with no drooling or need for suction. Patient tolerated one teaspoon of water. No drooling, immediate coughing, gurgling, or clearing of the throat was noted. The patient tolerated 90mL of water. No drooling, immediate coughing, gurgling, or clearing of the throat was noted. The patient passed the bedside swallow screening. Oral medications may be given as ordered. Contact Physician for further diet orders. Provider notified of bedside swallow screening results: Yamileth LUCAS. 10:40 Reassessment: Patient appears in no apparent distress at this time. pt states voice is em normal for him, denies slurred speech. 11:40 Reassessment: pt request something to eat, provider notified, ordered pt tray. em 13:18 Reassessment: hospitalist at bedside, pt will be admitted, pending room assignment. em 15:04 Reassessment: US at bedside. em 15:05 Reassessment: nurse unavailable to receive report at this time. em Vital Signs: 08:57 BP 149 / 97; Pulse 52; Resp 18; Temp 97.7(O); Pulse Ox 95% on R/A; Weight 96.16 kg (R); em Height 5 ft. 10 in. (177.80 cm); Pain 2/10; 10:30 BP 156 / 103; Pulse 48; Resp 16; Pulse Ox 96% on R/A; em 12:04 BP 172 / 97; Pulse 47; Resp 16; Pulse Ox 94% on R/A; em 14:09 BP 130 / 69; Pulse 48; Resp 18; Pulse Ox 96% on R/A; em 08:57 Body Mass Index 30.42 (96.16 kg, 177.80 cm) em Esme Coma Score: 09:21 Eye Response: spontaneous(4). Verbal Response: oriented(5). Motor Response: obeys snw commands(6). Total: 15. NIH Stroke Scale Scores: 09:00 NIHSS Score: 2 em 09:21 NIHSS Score: 2 snw ED Course: 08:59 Patient arrived in ED. aa5 09:03 [facility] Carter [facility]C [facility] snw 09:04 Brad Gotti MD is Attending Physician. snw 09:12 Anthony Encarnacion, JHONATAN is Primary Nurse. em 09:13 CT completed. Patient tolerated procedure well. Patient moved back from CT. md1 09:14 CT Stroke Brain w/o Contrast In Process Unspecified. EDMS 09:20 Triage completed. em 09:20 Initial lab(s) drawn, by me, sent to lab. Inserted saline lock: 20 gauge in right em antecubital area, using aseptic technique. Blood collected. 09:23 Arm band placed on. em 09:25 Patient has correct armband on for positive identification. Placed in gown. Bed in low em position. Call light in reach. Side rails up X2. velvet weaver on. Pulse ox on. NIBP on. 09:26 X-ray completed. Portable x-ray completed in exam room. Patient tolerated procedure jb2 well. 09:28 Stroke CXR 1 View In Process Unspecified. EDMS 10:13 Brain Wo Cont In Process Unspecified. EDMS 11:33 Feng Traylor MD is Hospitalizing Provider. snw 15:33 No provider procedures requiring assistance completed. Patient admitted, IV remains in em place. Administered Medications: 11:40 Drug: foLIC Acid 1 mg Route: PO; em 12:00 Follow up: Response: No adverse reaction em Point of Care Testing: Blood Glucose: 09:23 Blood Glucose: 134 mg/dL; em Ranges: Outcome: 11:37 Decision to Hospitalize by Provider. snw 15:33 Admitted to Med/surg accompanied by tech, via wheelchair, room JHONATAN Hammonds, with chart, em Report called to JHONATAN Hammonds 15:33 Condition: good 15:33 Instructed on the need for admit, Demonstrated understanding of instructions. 15:37 Patient left the ED. em NIH Stroke Scale - NIH Stroke Score Date: 04/09/2020 Time: 09:00 Total Score = 2 1a. Level of Consciousness (LOC) - 0(Alert) 1b. Level of Consciousness (LOC) (Year \T\ Age) - 0(Both) 1c. LOC Commands (Open \T\ Closes Eyes/Glost Kiln Operator) - 0(Both) 2. Best Gaze (Lateral Gaze Paresis) - 2(Forced deviation) 3. Visual Field Loss - 0(No visual loss) 4. Facial Palsy - 0(Normal) 5a. Left Arm: Motor (10-second hold) - 0(No drift) 5b. Right Arm: Motor (10-second hold) - 0(No drift) 6a. Left Leg: Motor (5-second hold - always test supine) - 0(No drift) 6b. Right Leg: Motor (5-second hold - always test supine) - 0(No drift) 7. Limb Ataxia (finger/nose \T\ heel/garcia - test with eyes open) - 0(Absent) 8. Sensory Loss (pinprick arms/legs/face) - 0(Normal) 9. Best Language: Aphasia (description/naming/reading) - 0(No aphasia) 10. Dysarthria (speech clarity - read or repeat words) - 0(Normal) 11. Extinction and Inattention (visual/tactile/auditory/spatial/personal) - 0(No abnormality) Initials: NIH Stroke Scale - NIH Stroke Score Date: 04/09/2020 Time: 09:21 Total Score = 2 1a. Level of Consciousness (LOC) - 0(Alert) 1b. Level of Consciousness (LOC) (Year \T\ Age) - 0(Both) 1c. LOC Commands (Open \T\ Closes Eyes/Glost Kiln Operator) - 0(Both) 2. Best Gaze (Lateral Gaze Paresis) - 2(Forced deviation) 3. Visual Field Loss - 0(No visual loss) 4. Facial Palsy - 0(Normal) 5a. Left Arm: Motor (10-second hold) - 0(No drift) 5b. Right Arm: Motor (10-second hold) - 0(No drift) 6a. Left Leg: Motor (5-second hold - always test supine) - 0(No drift) 6b. Right Leg: Motor (5-second hold - always test supine) - 0(No drift) 7. Limb Ataxia (finger/nose \T\ heel/garcia - test with eyes open) - 0(Absent) 8. Sensory Loss (pinprick arms/legs/face) - 0(Normal) 9. Best Language: Aphasia (description/naming/reading) - 0(No aphasia) 10. Dysarthria (speech clarity - read or repeat words) - 0(Normal) 11. Extinction and Inattention (visual/tactile/auditory/spatial/personal) - 0(No abnormality) Initials: snw Signatures: Dispatcher [employer] EDYamileth Vásquez, MEDICINE WORKER-C MEDICINE WORKER-Csnw Ritesh Hernandez2 Anthony Encarnacion, RN RN Tia Pearson, RN RN aa5 Yaent Cast md1
[2020-04-09] MEDS ORDERED: FOLIC ACID 1 MG TABLET ONE (11:42)
--- NOTE | 2020-04-09 14:04 | P.HP ---
Certification for Inpatient With expected LOS: >2 Midnights Patient will require the following post-hospital care: Rehabilitation Practitioner: I am a practitioner with admitting privileges, knowledge of patient current condition, hospital course, and medical plan of care. Services: Services provided to patient in accordance with Admission requirements found in Title 42 Section 412.3 of the Code of Federal Regulations Patient History Date of Service: 04/09/20 Reason for admission: Double vision, fall History of Present Illness: 59-year-old male with past medical history of HTN, CAD, hx of PE on chronic anticoagulation , hyperlipidemia, no prior history of CVA or acute OK admitted for new onset weakness and double vision since last night. Patient started symptoms was preceded by intense headache while he was watching TV. headache was very strong and persistent to the extent he turned off the game on TV and he went to sleep and waking up at about 2:00 a.m. he had double vision affecting his ability to ambulate to the bathroom. He admits to 2 falls last night due to the double vision. He presented to the ED today over 12 hr from symptom onset. MRI of the head shows evidence of right thalamic lesion. Chest x-ray was clear. Patient was also noted with elevated calcium at 11.0. Review of his record shows persistent elevated calcium since the last 3 years. He has a history of renal stones status post basket extraction 2 years ago. Patient states his home blood pressure is usually controlled be admitted to average numbers been in the 170s over 90s. He is on show why he is on anticoagulation but denies any history of blood clot although noted on review of his records he had an acute PE requiring admission here 2 years ago On is evaluating the patient in the ED he has a left eye patch placed over his eye which he states has improved his vision Allergies No Known Drug Allergies Allergy (Verified 06/28/18 05:56) Unknown Home Medications: Budesonide/Formoterol Fumarate [Symbicort 160-4.5 Mcg Inhaler] 2 puff IN BID 06/28/18 Metoprolol Tartrate 50 mg PO BID 06/28/18 Oxybutynin Chloride [Oxybutynin Chloride ER] 10 mg PO DAILY 06/28/18 Pantoprazole [Protonix Tab*] 40 mg PO DAILY 06/28/18 Pravastatin Sodium 20 mg PO BEDTIME 06/28/18 lisinopriL [Lisinopril] 20 mg PO DAILY 06/28/18 Apixaban [Eliquis] 5 mg PO BID #60 tablet 06/30/18 Apixaban [Eliquis] 10 mg PO BID #28 tablet 06/30/18 levoFLOXacin [Levaquin*] 500 mg PO DAILY #5 tab 06/30/18 predniSONE [Deltasone] 10 mg PO BID #20 tab 06/30/18 - Past Medical/Surgical History Has patient received pneumonia vaccine in the past: No Diabetic: No -: htn -: chronic back pain -: shingles went into nerves in left eye -: Tobacco abuse -: hep c -: kidney stones -: Back [id number]-Pi. Bashir- hardware present -: Cholecystectomy Psychosocial/ Personal History: Has fiance, No children, Work-none - Family History Mother -: Hypertension Father -: Stroke (Multiple CVAs in the 60s) - Social History Smoking Status: Light Tobacco smoker (1-9 cigarettes/day) Counseled patient to stop smoking for: more than 10 minutes Smoking therapy provided: Yes Patient receptive to therapy: Yes Alcohol use: No CD- Drugs: No Caffeine use: Yes Place of Residence: Home Physical Examination - Vital Signs Blood Pressure: 151/111 Pulse: 64 Respirations: 16 - Physical Exam General: Alert, In no apparent distress, Oriented x3 HEENT: Atraumatic, Normocephalic, PERRLA, Other (impaired upward gaze , ) Neck: Supple, 2+ carotid pulse no bruit, JVD not distended Respiratory: Clear to auscultation bilaterally, Normal air movement Cardiovascular: No edema, Normal pulses, Regular rate/rhythm, Normal S1 S2 Gastrointestinal: Normal bowel sounds, Soft and benign, Non-distended, No tenderness Musculoskeletal: No clubbing, No swelling, No contractures Integumentary: No rashes, No breakdown, No significant lesion Neurological: Normal gait, Normal speech, Normal strength at 5/5 x4 extr (no p ronator drift , ), Sensation intact, Cranial nerves 3-12 intact, Normal reflexes 2+, Other (extraocular lesion -limited upward gaze , ) - Studies Laboratory Data (last 24 hrs) 04/09/20 09:14: PT 10.9, INR 0.92, APTT 29.3 04/09/20 09:14: WBC 7.1, Hgb 15.7, Hct 46.8, Plt Count 152 04/09/20 09:14: Sodium 140, Potassium 3.9, BUN 24 H, Creatinine 0.96, Glucose 141 H Imagings Data: MRI - Brain Wo Cont - 04/09/2020 10:50 am CLINICAL HISTORY: VISUAL DISTURBANCES Headache, drowsiness, CVA symptomology COMPARISON: Ct Stroke Brain Wo Cont dated 04/09/2020 TECHNIQUE: Multi-sequence, multiplanar MR imaging of the brain was performed without contrast. FINDINGS: Motion degradation is present, limiting quality of the study. No intracranial hemorrhage, hydrocephalus or extra-axial fluid collections. Generalized brain atrophy is present with [id number] periventricular and deep white matter chronic microvascular ischemic changes. Small area of restricted diffusion measuring 8 mm is seen in the region of the right thalamus compatible with acute to subacute time frame lacunar infarct. No hemorrhagic component. Midline structures are normally formed. Mild left mastoid effusion. IMPRESSION: 8 mm acute to subacute time frame nonhemorrhagic right sided lacunar infarct in the region of the right thalamus. Assessment and Plan - Problems (Diagnosis) (1) CVA, old, disturbances of vision Current Visit: Yes Status: Acute (2) CVA (cerebral vascular accident) Current Visit: Yes Status: Acute Qualifiers: Precerebral and cerebral artery: small artery (3) Hypercalcemia Current Visit: No Status: Acute (4) HTN (hypertension) Onset Date: 06/14/18 Current Visit: No Status: Chronic Qualifiers: Hypertension type: essential hypertension Qualified Code(s): I10 - Essential (primary) hypertension (5) Nephrolithiasis Onset Date: 06/19/15 Current Visit: No Status: Chronic (6) Tobacco abuse Onset Date: 06/14/18 Current Visit: No Status: Chronic (7) Hyperparathyroidism Current Visit: No Status: Suspected - Advance Directives Does patient have a Living Will: No Does patient have a Durable POA for Healthcare: No Physician Review: Patient Assessed, Agree with Above Assessment and Plan Physician Review Additional Text: Acute CVA with diplopia/impaired inferior oblique muscles-due to right thalamic lacunar infarct Will admit patient to inpatient status Will consult Neurology-already discussed with by emergency room Will obtain homocystine, folic acid, echocardiography, carotid Doppler Obtain lipid panel. Start aspirin and Plavix Continue Eliquis for now Keep blood pressure. Optimize better allow permissive hypertension over the next 48 hr we do IV hydralazine p.r.n. MAP greater than 120 Given limitation of neurological symptoms to effusion, will consult Ophthalmology Advice to continue eye patch for now but alternate with each eye Hypertension-permissible for now Chronic tobacco use-start nicotine patch, smoking cessation advised Hyperlipidemia, follow lipid panel, continue statin next NS line DVT prophylaxis-on Eliquis Hypercalcemia-chronic history, history of hyperparathyroidism, consult Nephrology to follow Obtain repeat PTH and vitamin-D level profile Disposition-possible hospital stay for 1-2 days Time Spent Managing Pts Care (In Minutes): 65
[2020-04-09] MEDS ORDERED: ALBUTEROL 2.5 MG/3 ML NEB SOL NEB PRN (14:17)
[2020-04-09] MEDS ORDERED: ONDANSETRON 4 MG/2 ML VIAL IV PRN (14:17)
[2020-04-09] MEDS ORDERED: ACETAMINOPHEN 500 MG TAB PO PRN (14:17)
[2020-04-09] MEDS ORDERED: MORPHINE 2 MG/ML SYR IV PRN (14:17)
[2020-04-09] MEDS ORDERED: HYDRALAZINE HCL 20 MG/ML VIAL IV PRN (14:27)
--- NOTE | 2020-04-09 15:38 | RAD REPORT ---
EXAM DESCRIPTION: USCarotid Artery Bilateral04/09/2020 3:08 pm CLINICAL HISTORY: cva COMPARISON: None FINDINGS: The velocity of the right internal carotid artery equals 73 cm/sec. The right ICA/CCA rati o 1.3 The velocity of the left internal carotid artery equals 46 cm/sec. The left ICA/CCA ratio .6 Mild plaque is present within the carotid arteries. The vertebral arteries demonstrate antegrade flow IMPRESSION: Mild plaque within the carotid arteries without evidence of a hemodynamically significan t stenosis NASCET criteria used. Mild 0-49% stenosis Moderate 50-69% stenosis Severe 70-99% stenosis
[2020-04-09] MEDS: PANTOPRAZOLE 40MG TABLET PO SCH (15:53)
[2020-04-09] MEDS: ASPIRIN EC 81 MG TAB PO SCH (15:54)
[2020-04-09 16:10] VITALS: BMI 30.7
[2020-04-09] MEDS: NICOTINE 21 MG/PAT TD SCH (16:32)
[2020-04-09] MEDS: APIXABAN 5 MG TABLET PO SCH (19:30)
[2020-04-09] MEDS ORDERED: ATORVASTATIN 10 MG TAB PO SCH (21:00)
[2020-04-09] MEDS ORDERED: HOME MED 1 EA UNK (Pravastatin Sodium [Pravastatin Sodium] 20 MG) PO SCH (21:00)
[2020-04-09] MEDS: HYDROCODONE/APAP 10/325 TAB PO PRN (23:08)
[2020-04-10 06:52] LABS: Absolute Lymphocytes (CBC) 1.9 K/uL (0.7-4.9); Basophils % 0.5 % (0-1.3); Hematocrit 46.3 % (39.6-49.0); Lymphocytes % 31.9 % (15.3-44.8); RBC Red Blood Cell Count 4.94 M/uL (4.33-5.43)
[2020-04-10 07:15] LABS: ALT/SGPT 28 U/L (12-78); AST/SGOT 12 U/L (15-37); Albumin 3.2 g/dL (3.4-5.0); Alkaline Phosphatase 75 U/L (45-117); BUN Blood Urea Nitrogen 25 mg/dL (7-18); Bicarbonate 24 mmol/L (21-32); Bilirubin Total 0.2 mg/dL (0.2-1.0); Glucose Level 96 mg/dL (74-106); HDL Cholesterol 32 mg/dL (40-60); LDL Cholesterol, Calculated 99 (<130); Potassium 3.7 mmol/L (3.5-5.1); Protein, Total 6.6 g/dL (6.4-8.2); Sodium Level 139 mmol/L (136-145)
[2020-04-10] MEDS ORDERED: HYDROCODONE/APAP 10/325 TAB PO PRN (07:54)
--- NOTE | 2020-04-10 07:54 | P.PN ---
Subjective Date of Service: 04/10/20 Chief Complaint: Double vision, fall Patient states his double vision has improved but not totally resolved. He also states his gait has improved and now able to walk in a straight line. Physical Examination - Vital Signs Temperature: 95.9 F Blood Pressure: 132/66 Pulse: 60 Respirations: 12 Pulse Ox (%): 93 - Physical Exam General: Alert, In no apparent distress, Oriented x3 HEENT: PERRLA, Mucous membr. moist/pink, EOMI Neck: No Thyromegaly Respiratory: Clear to auscultation bilaterally, Normal air movement Cardiovascular: No edema, Regular rate/rhythm, Normal S1 S2 Gastrointestinal: Normal bowel sounds, Soft and benign, No tenderness Musculoskeletal: No swelling, No erythema Integumentary: No rashes Neurological: Normal speech, Normal strength at 5/5 x4 extr - Studies Laboratory Data (last 24 hrs) 04/09/20 09:14: PT 10.9, INR 0.92, APTT 29.3 04/09/20 09:14: WBC 7.1, Hgb 15.7, Hct 46.8, Plt Count 152 04/09/20 09:14: Sodium 140, Potassium 3.9, BUN 24 H, Creatinine 0.96, Glucose 141 H Assessment And Plan - Current Problems (Diagnosis) (1) CVA (cerebral vascular accident) Current Visit: Yes Status: Acute Qualifiers: Precerebral and cerebral artery: small artery (2) Hypercalcemia Current Visit: No Status: Acute (3) HTN (hypertension) Onset Date: 06/14/18 Current Visit: No Status: Chronic Qualifiers: Hypertension type: essential hypertension Qualified Code(s): I10 - Essential (primary) hypertension (4) History of pulmonary embolism Current Visit: Yes Status: Acute (5) Tobacco abuse Onset Date: 06/14/18 Current Visit: No Status: Chronic - Plan Patient neurologic symptoms are improving. He is on Eliquis and Plavix. Lipitor. Patient to be seen by neurology. Echocardiogram is pending No problem with swallowing. Hold home antihypertensives for permissive hypertension. PT and OT. Physician Review: Patient Assessed, Agree with Above Assessment and Plan Physician Review Additional Text: Acute CVA with diplopia/impaired inferior oblique muscles-due to right thalamic lacunar infarct Will admit patient to inpatient status Will consult Neurology-already discussed with by emergency room Will obtain homocystine, folic acid, echocardiography, carotid Doppler Obtain lipid panel. Start aspirin and Plavix Continue Eliquis for now Keep blood pressure. Optimize better allow permissive hypertension over the next 48 hr we do IV hydralazine p.r.n. MAP greater than 120 Given limitation of neurological symptoms to effusion, will consult Ophthalmology Advice to continue eye patch for now but alternate with each eye Hypertension-permissible for now Chronic tobacco use-start nicotine patch, smoking cessation advised Hyperlipidemia, follow lipid panel, continue statin next NS line DVT prophylaxis-on Eliquis Hypercalcemia-chronic history, history of hyperparathyroidism, consult Nephrology to follow Obtain repeat PTH and vitamin-D level profile Disposition-possible hospital stay for 1-2 days
[2020-04-10] MEDS: ASPIRIN EC 81 MG TAB PO SCH (08:47)
[2020-04-10] MEDS: NICOTINE 21 MG/PAT TD SCH (08:47)
[2020-04-10] MEDS: PANTOPRAZOLE 40MG TABLET PO SCH (08:48)
[2020-04-10] MEDS: APIXABAN 5 MG TABLET PO SCH (08:48)
[2020-04-10] MEDS: HYDROCODONE/APAP 10/325 TAB PO PRN (08:54)
[2020-04-10] MEDS ORDERED: FOLIC ACID 1 MG TABLET PO SCH (09:00)
[2020-04-10] MEDS ORDERED: APIXABAN 5 MG TABLET PO SCH (09:00)
[2020-04-10] MEDS ORDERED: CLOPIDOGREL 75 MG TABLET PO SCH (09:00)
--- NOTE | 2020-04-10 11:24 | ECHO ---
HEIGHT: 5 ft 10 in WEIGHT: 214 lb 9 oz DATE OF STUDY: 04/10/[address]: Feng Traylor MD 2-DIMENSIONAL: YES M.MODE: YES DOPPLER: YES COLOR FLOW: YES TDS: NO PORTABLE: NO DEFINITY: NO BUBBLE STUDY: NO DIAGNOSIS: CEREBRAL VASCULAR ACCIDENT CARDIAC HISTORY: CATHERIZATION: NO SURGERY: NO PROSTHETIC VALVE: NO PACEMAKER: NO MEASUREMENTS (cm) DIASTOLIC (NORMALS) SYSTOLIC (NORMALS) IVSd 1.2 (0.6-1.2) LA Diam 4.2 (1.9-4.0) LVEF 68% LVIDd 4.1 (3.5-5.7) LVIDs 2.6 (2.0-3.5) %FS 38% LVPWd 1.2 (0.6-1.2) Ao Diam 3.1 (2.0-3.7) 2 DIMENSIONAL ASSESSMENT: RIGHT ATRIUM: NORMAL LEFT ATRIUM: NORMAL RIGHT VENTRICLE: NORMAL LEFT VENTRICLE: NORMAL TRICUSPID VALVE: NORMAL MITRAL VALVE: NORMAL PULMONIC VALVE: NORMAL AORTIC VALVE: NORMAL PERICARDIAL EFFUSION: NONE AORTIC ROOT: NORMAL LEFT VENTRICULAR WALL MOTION: NORMAL. DOPPLER/COLOR FLOW: NORMAL. COMMENTS: NORMAL LEFT VENTRICULAR SIZE AND FUNCTION. NO WALL MOTION ABNORMALITY. NO THROMBUS. NO VEGETATION. TECHNOLOGIST: JACKIE RICHARD
--- NOTE | 2020-04-10 12:02 | P.CNS ---
Chief Complaint: Double vision, fall Allergies No Known Drug Allergies Allergy (Verified 06/28/18 05:56) Unknown Home Medications: Amlodipine [Norvasc] 5 mg PO DAILY 04/09/20 Apixaban [Eliquis] 5 mg PO BID 04/09/20 Hydrocodone Bit/Acetaminophen [Hydrocodon-Acetaminophn 10-325] 1 each PO QIDP PRN 04/09/20 Lisinopril [Zestril] 20 mg PO DAILY 04/09/20 Metoprolol Succinate [Toprol Xl] 50 mg PO BID 6AM 6PM 04/09/20 Pravastatin Sodium 20 mg PO BEDTIME 04/09/20 hydroCHLOROthiazide [Hydrochlorothiazide] 12.5 mg PO DAILY 04/09/20 - Past Medical/Surgical History Diabetic: No -: htn -: chronic back pain -: shingles went into nerves in left eye -: Tobacco abuse -: hep c -: kidney stones -: Back [id number]-Iy. Bashir- hardware present -: Cholecystectomy Psychosocial/ Personal History: Has fiance, No children, Work-none - Family History Father Medical History: Stroke Mother Medical History: Hypertension - Social History Smoking Status: Current every day smoker Alcohol use: No CD- Drugs: No Caffeine use: No Place of Residence: Home Physical Examination Temp Pulse Resp BP Pulse Ox 97.0 F 53 18 160/94 H 96 04/10/20 08:00 04/10/20 08:00 04/10/20 09:54 04/10/20 08:00 04/10/20 09:54
[2020-04-10 12:13] VITALS: BP 152/96; TEMP 96.7
[2020-04-10 13:04] VITALS: O2SAT 56
[2020-04-10] MEDS ORDERED: HOME MED 1 EA UNK (Pravastatin Sodium [Pravastatin Sodium] 20 MG) PO SCH (21:00)
--- NOTE | 2020-04-10 22:02 | P.CNS ---
Date of Consult: 04/10/20 Reason for Consult: Hypercalcemia Requesting Physician: Feng Traylor Chief Complaint: Double vision, fall History of Present Illness: Pt is a 59 y/o male with past medical hx of HTN, presenting with complaints of double vision, s/p syncopal episode, slurred speech and trasient confusion. Pt state symptoms suddenly occured w/o warning he thought symptoms would improve but didnt, causing him to present. Pt underwent brain imaging in house which suggested a subacute infarct. Pt did not get tpa as he was out of the window for tpa. He does state at this time, his double vision is improved but not completely resolved. Reports improvement in generalized strength Labwork inhouse demonstrated hypercalcemia of 11 which improved to 10 today. Pt does report having a hx of recurrent kidney stones since the age of 14 and follows with urology Dr Reinaldo Henley. He has undergone lithotripsy a number of santhosh. Pt denies any current abdominal or flank discomfort. Denies any nausea, vomiting, diarrhea, chest pain. Does report that he tries to stay hydrated because of his kidney stones Allergies No Known Drug Allergies Allergy (Verified 06/28/18 05:56) Unknown Home Medications: Amlodipine [Norvasc*] 5 mg PO DAILY 04/09/20 Apixaban [Eliquis] 5 mg PO BID 04/09/20 Hydrocodone Bit/Acetaminophen [Hydrocodon-Acetaminophn 10-325] 1 each PO QIDP PRN 04/09/20 Lisinopril [Zestril] 20 mg PO DAILY 04/09/20 Metoprolol Succinate [Toprol Xl*] 50 mg PO BID 6AM 6PM 04/09/20 hydroCHLOROthiazide [Hydrochlorothiazide] 12.5 mg PO DAILY 04/09/20 Aspirin [Aspirin EC 81 MG] 162 mg PO DAILY #60 tablet. 04/10/20 Atorvastatin Calcium [Lipitor] 40 mg PO BEDTIME #30 tablet 04/10/20 - Past Medical/Surgical History Diabetic: No -: htn -: chronic back pain -: shingles went into nerves in left eye -: Tobacco abuse -: hep c -: kidney stones -: Back [id number]. Bashir- hardware present -: Cholecystectomy Psychosocial/ Personal History: Has fiance, No children, Work-none - Family History Father Medical History: Stroke Mother Medical History: Hypertension - Social History Smoking Status: Current every day smoker Alcohol use: No CD- Drugs: No Caffeine use: No Place of Residence: Home Review of Systems General: Unremarkable Eyes: Vision Change, As per HPI ENT: Unremarkable Respiratory: Unremarkable Cardiovascular: Unremarkable Gastrointestinal: Unremarkable Genitourinary: Unremarkable Musculoskeletal: Unremarkable Integumentary: Unremarkable Neurological: As per HPI Physical Examination Temp Pulse Resp BP Pulse Ox 96.7 F L 56 18 152/96 H 95 04/10/20 12:00 04/10/20 12:00 04/10/20 12:00 04/10/20 12:00 04/10/20 12:00 General: Alert, Oriented x3 HEENT: Atraumatic, Normocephalic, PERRLA Neck: Supple, Without JVD or thyroid abnormality Respiratory: Clear to auscultation bilaterally, Normal air movement Cardiovascular: No edema, Regular rate/rhythm, Normal S1 S2, No rubs, No murmurs Capillary refill: <2 Seconds Gastrointestinal: Normal bowel sounds, Soft and benign, Non-distended Musculoskeletal: No swelling - Problems (1) Acute renal injury Onset Date: 06/08/18 Status: Acute (2) CVA (cerebral vascular accident) Status: Acute Qualifiers: Precerebral and cerebral artery: small artery (3) Hypercalcemia Status: Acute (4) HTN (hypertension) Onset Date: 06/14/18 Status: Chronic Qualifiers: Hypertension type: essential hypertension Qualified Code(s): I10 - Essential (primary) hypertension (5) Nephrolithiasis Onset Date: 06/19/15 Status: Chronic Conclusions/Impression: PLAN kidney injury improved and resolved, Continued hydration. Hypercalcemia improved as well. However would obtain pTH and vitamin d level. Family hx of kidney stones. 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 Further work up and management in outpt. Discussed with patient further follow up in the outpt. Can see in clinic 2-3 weeks post discharge. Gave clinic imformation. Thank you for this consult. Will continue to follow along while in house
--- NOTE | 2020-04-12 21:53 | P.DS ---
Admission Date: 04/09/20 Discharge Date: 04/10/20 Disposition: ROUTINE DISCHARGE Discharge Condition: FAIR Reason for Admission: Double vision, fall - Problems (1) CVA (cerebral vascular accident) Status: Acute Qualifiers: Precerebral and cerebral artery: small artery (2) Hypercalcemia Status: Acute (3) HTN (hypertension) Onset Date: 06/14/18 Status: Chronic Qualifiers: Hypertension type: essential hypertension Qualified Code(s): I10 - Essential (primary) hypertension (4) History of pulmonary embolism Status: Acute (5) Tobacco abuse Onset Date: 06/14/18 Status: Chronic Brief History of Present Illness: 59-year-old gentleman with a history of hypertension, coronary artery disease, pulmonary embolism on chronic anticoagulation, hyperlipidemia presented to the emergency department with a complaint of double vision, preceded by headache. Brain CT in the ED showed no acute abnormality. MRI of the brain reported right lacunar thalamic infarct. Patient was hospitalized for further management of acute CVA. Hospital Course: Patient started on aspirin in addition to his chronic anticoagulation with Eliquis. Echocardiogram performed was unremarkable. Carotid Doppler showed Mild plaque within the carotid arteries without evidence of a hemodynamically significant stenosis. Patient had no trouble swallowing. His diplopia improved during the course of the hospital stay. He had no limb weakness. Patient also started on lipitor. LDL was within normal range. He is deemed clinically stable for discharge. Vital Signs/Physical Exam: Temp Pulse Resp BP Pulse Ox 96.7 F L 56 18 152/96 H 95 04/10/20 12:00 04/10/20 12:00 04/10/20 12:00 04/10/20 12:00 04/10/20 12:00 General: Alert, In no apparent distress, Oriented x3 HEENT: PERRLA, EOMI Neck: JVD not distended Respiratory: Clear to auscultation bilaterally, Normal air movement Gastrointestinal: Normal bowel sounds, Soft and benign, No tenderness Musculoskeletal: No swelling Neurological: Normal speech, Normal strength at 5/5 x4 extr Laboratory Data at Discharge: WBC 6.1 K/uL (4.3-10.9) D 04/10/20 05:19 Hgb 15.4 g/dL (13.6-17.9) 04/10/20 05:19 Hct 46.3 % (39.6-49.0) 04/10/20 05:19 Plt Count 139 K/uL (152-406) L 04/10/20 05:19 PT 10.9 SECONDS (9.5-12.5) 04/09/20 09:14 INR 0.92 04/09/20 09:14 APTT 29.3 SECONDS (24.3-36.9) 04/09/20 09:14 Sodium 139 mmol/L (136-145) 04/10/20 05:19 Potassium 3.7 mmol/L (3.5-5.1) 04/10/20 05:19 BUN 25 mg/dL (7-18) H 04/10/20 05:19 Creatinine 0.83 mg/dL (0.55-1.3) 04/10/20 05:19 Glucose 96 mg/dL (74-106) 04/10/20 05:19 Total Bilirubin 0.2 mg/dL (0.2-1.0) 04/10/20 05:19 AST 12 U/L (15-37) L 04/10/20 05:19 ALT 28 U/L (12-78) 04/10/20 05:19 Alkaline Phosphatase 75 U/L (45-117) 04/10/20 05:19 Triglycerides 147 mg/dL (<150) 04/10/20 05:19 Cholesterol 160 mg/dL (<200) 04/10/20 05:19 HDL Cholesterol 32 mg/dL (40-60) L 04/10/20 05:19 Cholesterol/HDL Ratio 5.00 04/10/20 05:19 Home Medications: Amlodipine [Norvasc*] 5 mg PO DAILY 04/09/20 Apixaban [Eliquis] 5 mg PO BID 04/09/20 Hydrocodone Bit/Acetaminophen [Hydrocodon-Acetaminophn 10-325] 1 each PO QIDP PRN 04/09/20 Lisinopril [Zestril] 20 mg PO DAILY 04/09/20 Metoprolol Succinate [Toprol Xl*] 50 mg PO BID 6AM 6PM 04/09/20 hydroCHLOROthiazide [Hydrochlorothiazide] 12.5 mg PO DAILY 04/09/20 Aspirin [Aspirin EC 81 MG] 162 mg PO DAILY #60 tablet. 04/10/20 Atorvastatin Calcium [Lipitor] 40 mg PO BEDTIME #30 tablet 04/10/20 New Medications: Aspirin [Aspirin EC 81 MG] 162 mg PO DAILY #60 tablet. Atorvastatin Calcium [Lipitor] 40 mg PO BEDTIME #30 tablet Patient Discharge Instructions: Follow up with primary care physician in 2-3 days. Follow up with neurologist Dr. Ingram in 1 month. Return to ER for worsening condition Diet: AHA Activity: Ad eh Followup: Marcelino Ingram MD [ASSOCIATE-ACTIVE - CAN ADMIT] -
[2020-04-13 13:32] LABS: Vitamin D 1,25-Dihydroxy Total 43 pg/mL (18-72); Vitamin D,1,25-OH2, D2 <8 pg/mL
== END 2020-04-10 14:09 | disposition home or self-care (01) ==
LOC: ER 08:58 → ERHOLD 14:18 → 2ND 15:31
PROVIDERS: ADMIT Internal Medicine; ATTEND Internal Medicine
DX: I63.81 Other cerebral infarction due to occlusion or stenosis of small artery (principal); H53.2 Diplopia; R47.81 Slurred speech; R53.1 Weakness; R29.702 NIHSS score 2; E83.52 Hypercalcemia; I10 Essential (primary) hypertension; I65.23 Occlusion and stenosis of bilateral carotid arteries; I25.10 Atherosclerotic heart disease of native coronary artery without angina pectoris; E78.5 Hyperlipidemia, unspecified; F17.210 Nicotine dependence, cigarettes, uncomplicated; Z79.01 Long term (current) use of anticoagulants; Z79.899 Other long term (current) drug therapy; Z86.711 Personal history of pulmonary embolism; Z86.39 Personal history of other endocrine, nutritional and metabolic disease; Z87.442 Personal history of urinary calculi; Z86.19 Personal history of other infectious and parasitic diseases
CPT/HCPCS: 93005; 93306; 85025 ×2; 80048; 36415; 85610; 80061; 82947; 85730; 82652; 84443; 84484; 83970; 80053; 82306; 70450; 71045; 93880; 70551; 97112; 97116; 97161; 97530; 99285; J2270; G0378 ×3

== ENCOUNTER 2022-09-17 05:27 | Observation (INO) | payer OTHER ==
--- OUTSIDE RECORDS SUMMARY | 2022-09-17 05:29 | XMS REPORT | Continuity of Care Document ---
:[address] [facility] t Address [address] [place] [address] Care Team Providers Name Role Phone RODERICK TANG Alex Primary Care Physician Unavailable MARIETTA QUEVEDO Attending Clinician Unavailable Marietta Quevedo MD Attending Clinician Bernabe ISRAEL, Leslee Lindsey Attending Clinician Unavailable Brenda Rosales MD Attending Clinician Doctor Unassigned, [place] Attending Clinician Unavailable Prem Mcdaniel MD Attending Clinician BARBARA MENDEZ Attending Clinician Unavailable Barbara Mendez MD Attending Clinician Only, Adc Test Attending Clinician Unavailable Iggy Gannon MD Attending Clinician IGGY GANNON Attending Clinician Unavailable Prem Mcdaniel Attending Clinician Ana Lilia Andrea Attending Clinician Lab, Ang - Db Attending Clinician Unavailable PREM MCDANIEL Attending Clinician Unavailable LEIA MACK Attending Clinician Unavailable Leia Mack MD Attending Clinician Pob, Adc Lab Main Attending Clinician Unavailable Eliud Perez MD Attending Clinician VIKI TAFOYA Attending Clinician Unavailable PANFILO HAMILTON Attending Clinician Unavailable MARIETTA QUEVEDO Admitting Clinician Unavailable Marietta Quevedo MD Admitting Clinician BARBARA MENDEZ Admitting Clinician Unavailable EMERGENCY ROOM, EMERGENCY Admitting Clinician Unavailable Payers Payer Name Policy Type Policy Number Effective Date Expiration Date Nadja ENGLAND/KAREN [id number] 2020 MEDICARE ADVANTAGE 00:00:00 Problems Condition Condition Condition Status Onset Resolution Last Treating Co mments Source Name Details Category Date Date Treatment Clinician Date Hyperparat Hyperparat Disease Active Overview : Univers hyroidism hyroidism 01-21 Formattin i ty of 00:00: g of this [place] note Medical might be Branch different from the original. Added automatic ally from request for surgery [id number] Thyroid Thyroid Disease Active Overview: Univ ers nodule nodule 01-21 Formattin ity of 00:00: g of [place] note Medical might be Branch different from the original. Added automatic ally from request for surgery [id number] Obesity Obesity Disease Active Univers (BMI (BMI 2-16 ity of 30-39.9) 30-39.9) 00:00: [place] 00 [facility] Allergies, Adverse Reactions, Alerts Allergy Allergy Status Severity Reaction(s) Onset Inactive Treating Comm ents Source Name Type Date Date Clinician NO KNOWN Drug Active Univers ALLERGIE Class ity of S [facility] Social History Social Habit Start Date Stop Date Quantity Comments Source Exposure to 2022-03-14 2022-03-24 Not sure [facility] SARS-CoV-2 (event) 00:00:00 14:17:00 [facility] Tobacco Comment 2022-03-11 2022-03-11 1 ppd [facility] 00:00:00 00:00:00 [facility] Tobacco use and 2017-10-16 2017-10-16 Never used [facility] exposure 00:00:00 00:00:00 [facility] Sex Ass[birth year] At [birth year] [facility] 00:00:00 00:00:00 [facility] Smoking Status Start Date Stop Date Source Current every day smoker 2017-10-16 00:00:00 Uni versity [facility] Medications Ordered Filled Start Stop Current Ordering Indication Dosage Frequency Signature Comments Components Source Medication Medication Date Date Medication? Clinician (SIG) Name Name hydroCHLORO Yes 25mg Take 25 mg Univers thiazide 25 5-14 by mouth ity of mg tablet 10:35: daily. [address] METOPROLOL Yes Take by [facility] ers TARTRATE 5-14 mouth. ity of ORAL 10:35: [address] amLODIPine Yes 10mg Take 10 mg U nivers 10 mg 5-14 by mouth ity of tablet 10:35: daily. [address] lisinopril Yes 40mg Take 40 mg U nivers 40 mg 5-14 by mouth ity of tablet 10:35: daily. [address] apixaban 5 Yes 5mg Take 5 mg Un manny mg tablet 5-14 by mouth 2 ity of 10:35: (two) [place] [address] times Medical daily. Branch ADULT Yes Take by [facility] ASPIRIN 5-14 mouth. ity of ORAL 10:35: [address] dexAMETHaso Yes [id number] Take one Univers ne 2 mg 8-02 tablet at ity of tablet 00:00: 11:30 PM [place] [address] as part of [facility] dexamethas one suppressio n test. CYCLOBENZAP Yes take 1 po U nivers RINE 10 MG 7-13 tid prn ity of ORAL TAB 00:00: pain/spasm [place] [address] Immunizations Ordered Filled Immunization Date Status Comments [facility] e Immunization Name Name SARS-COV-2 COVID-19 2022-02-12 Completed Unive rsity of MODERNA VACCINE 00:00:00 [facility] SARS-COV-2 COVID-19 2021-09-13 Completed Unive rsity of MODERNA VACCINE 00:00:00 [facility] SARS-COV-2 COVID-19 2021-02-07 Completed Unive rsity of MODERNA VACCINE 00:00:00 [facility] SARS-COV-2 COVID-19 2021-01-11 Completed Unive rsity of MODERNA VACCINE 00:00:00 [facility] Vital Signs Vital Name Observation Time Observation Value Comments Source Body height 2022-03-24 19:19:00 177.8 cm [facility] Body weight 2022-03-24 19:19:00 95.301 kg [facility] BMI 2022-03-24 19:19:00 30.15 kg/m2 [facility] Procedures This patient has no known procedures. Encounters Start End Encounter Admission Attending Care Care Encounter Source Date/Time Date/Time Type Type Clinicians Facility Department ID 2022-01-21 Outpatient Eliz QUEVEDO [facility] ABY [id number] Univers 13:29:41 MARIETTA graham [facility] 2022-08-14 2022-08-14 Outpatient [facility] [id number] Willis 11:03:49 11:03:49 [id number] F Ubly 2022-08-13 2022-08-13 Outpatient [facility] [id number] Willis 18:03:12 18:03:12 [id number] F Ubly 2022-08-04 2022-08-04 Outpatient Eliz KASIEJERZY [facility] [id number] Univers 11:15:00 11:15:00 MARIETTA graham [facility] 2022-03-24 2022-03-24 Outpatient Eliz FERROJERZY [facility] [id number] Univers 14:30:00 15:29:55 MARIETTA grhaam [facility] 2022-03-24 2022-03-24 Office WILLY Quevedo 1.2.840.114 [id number] Univers 14:30:00 15:29:55 Visit Marietta Iyer [id number] it y [facility] 4.2.7.2.686 Walter as BANK [phone] [facility] BLDG. [address] 2022-03-24 2022-03-24 Outpatient Eliz QUEVEDO [facility] [id number] Univers 14:30:00 15:29:55 MARIETTA graham [facility] 2022-03-14 2022-03-15 Outpatient Eliz MARTHA [facility] ABY [id number] Univers 06:47:00 10:35:00 MARIETTA graham [facility] 2022-03-14 2022-03-15 [facility] JOSE Quevedo [id number] Univers 06:47:00 10:35:00 Encounter Marietta COLINDRES 350.1.13.[address] [facility] 4.2.7.2.686 Walter as [phone] [facility] [address] 2022-03-14 2022-03-14 Anesthesia Leslee Kidd 1.2.840 .114 [id number] Univers 09:24:00 14:12:00 Event Brenda RosalesY 350.1.13.10 ity of HOSPITAL 4.2.7.2.686 Walter as [phone] [facility] [address] 2022-03-14 2022-03-14 Surgery JOSE Quevedo 1.2.840.114 [id number] Univers 09:10:00 13:49:00 Marietta JENS 350.1.13.10 it y of HOSPITAL 4.2.7.2.686 Walter as [phone] [facility] [address] 2022-03-14 2022-03-14 Orders Doctor LUPE 1.2.840.114 [id number] Univers 00:00:00 00:00:00 Only UnassignedJENS 350.1.13.10 ity of [place] [facility] 4.2.7.2.686 Walter as [phone] [address] 2022-03-10 2022-03-10 Telephone Martha [facility] 1.2.840.114 [id number] Univers 00:00:00 00:00:00 Marietta Helder 350.1.13.10 it y of NATIONAL 4.2.7.2.686 Walter as BANK [phone] [facility] [address] 2022-01-20 2022-01-20 Office Martha [facility] 1.2.840.114 [id number] [facility] 13:30:00 13:45:00 Visit Marietta Helder 350.1.13.10 it y of NATIONAL 4.2.7.2.686 Walter as BANK [phone] [facility] [address] 2022-01-20 2022-01-20 Outpatient R MARTHA [facility] [id number] Univers 13:30:00 13:30:00 MARIETTA graham [facility] 2022-01-20 2022-01-20 Orders Doctor LUPE 1.2.840.114 [id number] Univers 00:00:00 00:00:00 Only UnassignedJENS 350.1.13.10 ity of [place] [facility] 4.2.7.2.686 Walter as [phone] [address] 2022-01-20 2022-01-20 Orders Doctor LUPE 1.2.840.114 [id number] Univers 00:00:00 00:00:00 Only Unassigned, JENS 350.1.13.10 ity of [place] [facility] 4.2.7.2.686 Walter as [phone] [facility] [address] 2021-12-20 2021-12-20 Telephone [facility] 1.2.840.114 [id number] Univers 00:00:00 00:00:00 Prem [employer] 350.1.13.10 it y of [place] 4.2.7.2.686 Walter as RAFAL?BLEA [phone] [address] MEDICAL OFFICE BUILDING 2021-12-20 2021-12-20 Telephone [facility] 1.2.840.114 [id number] Univers 00:00:00 00:00:00 Prem Laury [facility] 350.1.13.10 i ty of [place].2.[place].2.[place] [phone] [address] 2021-12-18 2021-12-18 Outpatient R [facility] [id number] Univers 09:56:04 23:59:00 BARBARA ity [facility] 2021-12-18 2021-12-18 [facility] 1.2.840.114 [id number] Univers 09:56:04 23:59:00 Encounter Barbara Helder HEALTH 350.1.13.10 ity of [facility] 4.2.7.2.[place] [id number] [facility] [address] 2021-12-18 2021-12-18 Outpatient R [facility] [id number] Univers 09:56:04 23:59:00 BARBARA ity of [facility] 2021-12-16 2021-12-16 Laboratory Only, Adc Test [facility] 1.2.840. 114 [id number] Univers 10:00:00 10:15:00 Only Iggy Gannon 350.1.13.10 ity of [place] 4.2.7.2.686 [place] [phone] [facility] [address] 2021-12-16 2021-12-16 Outpatient R JAGDEEP [facility] [id number] Univers 10:00:00 10:00:00 IGGY ity of [facility] 2021-12-16 2021-12-16 Orders Doctor LUPE 1.2.840.114 [id number] Univers 00:00:00 00:00:00 Only Unassigned, JENS 350.1.13.10 ity of [place] [facility] 4.2.7.2.686 Walter as [phone] [facility] [address] 2021-12-12 2021-12-12 Telephone [facility] 1.2.840.114 [id number] Univers 00:00:00 00:00:00 Prem HEALTH 350.1.13.10 it y of [place] 4.2.7.2.686 Walter as RAFAL?BLEA [phone] [address] MEDICAL OFFICE BUILDING 2021-12-09 2021-12-09 [facility] 1.2.840.114 [id number] Univers 11:51:54 23:59:00 Encounter Barbara Y HEALTH 350.1.13.10 ity of CL[place]ICS [place]2.7.2.[place] [id number] [facility] [address] 2021-12-09 2021-12-09 [facility] [id number] Univers 09:32:20 11:50:00 BARBARA ity of [facility] 2021-12-09 2021-12-09 [facility] 1.2.840.114 [id number] Univers 09:32:20 11:50:00 Encounter Barbara Y HEALTH 350.1.13.10 ity of CL[place]ICS [place]2.7.2.[place] [id number] [facility] [address] [place] 2021-12-09 2021-12-09 [facility] 1.2.840.114 [id number] Univers 09:31:14 09:31:14 Encounter Barbara Y HEALTH 350.1.13.10 ity of CL[place]ICS [place]2.7.2.[place] [phone] [facility] [address] 2021-11-28 2021-11-28 Telephone [facility] 1.2.840.114 [id number] Univers 00:00:00 00:00:00 [facility] 350.1.13.10 it y of [place] 4.2.7.2.686 Walter as RAFAL?BLEA [phone] Pa katy TAYLOR [address] [place] [address] MEDICAL OFFICE BUILDING 2021-11-26 2021-11-26 Outpatient R ANDREA [facility] [id number] Univers 13:45:00 15:32:12 BARBARA ity of [facility] 2021-11-26 2021-11-26 Office ELISABET Mendez 1.2.840.114 [id number] Univers 13:45:00 15:32:12 Visit Barbara Iyer 350.1.13.10 it y of [facility] 4.2.7.2.686 Walter as BANK [phone] [facility] BLDG. [address] 2021-11-14 2021-11-14 Telephone [facility] 1.2.840.114 [id number] Univers 00:00:00 00:00:00 Ana Lilia HOOPER 350.1.13.10 ity of [facility] 4.2.7.2.[place] [phone] [facility] AND [address] DIABETES CLINIC 2021-11-07 2021-11-07 Telephone [facility] 1.2.840.114 [id number] Univers 00:00:00 00:00:00 Ana Lilia DUNBAR 350.1.13.10 i ty of [facility] 4.2.7.2.[place] [phone] Pa katy ALBERTO [address] [facility] 2021-11-06 2021-11-06 Director Of Philanthropy Lab, Stefano Ribera [facility] 1.2.840.1 [id number] Univers 08:00:00 08:15:00 Visit Violeta Prem [facility] 350.1.13.10 ity of [place] 4.2.7.2.686 Walter as RAFAL?BLEA [phone] Pa katy TAYLOR [address] MEDICAL OFFICE [facility] 2021-11-06 2021-11-06 Outpatient R [facility] [id number] Univers 08:00:00 08:00:00 PREM graham [facility] 2021-11-06 2021-11-06 Telephone [facility] .2.840.114 [id number] Univers 00:00:00 00:00:00 Prem Schaeffer [employer] 350.1.13.10 it y of [place] 4.2.7.2.686 Walter as RAFAL?BLEA [phone] Pa katy [address] MEDICAL OFFICE [facility] 2021-11-05 2021-11-05 Outpatient R VIOLETA [facility] [id number] Univers 10:30:00 10:30:00 PREM helder [facility] 2021-11-04 2021-11-04 Outpatient R [facility] [id number] Univers 14:15:00 14:15:00 PREM graham [facility] 2021-11-01 2021-11-01 Outpatient R [facility] [id number] Univers 16:00:00 17:15:34 PREM helder [facility] 2021-11-01 2021-11-01 Outpatient R [facility] [id number] Univers 16:00:00 17:15:34 PREM graham [facility] 2021-11-01 2021-11-01 Office [facility] .2.457.068 [id number] Univers 16:00:00 17:15:34 Visit Prem Schaeffer [employer] 350.1.13.10 it y of [facility] 4.2.7.2.686 Walter as RAFAL?BLEA [phone] Pa katy [address] OFFICE [facility] 2021-11-01 2021-11-01 Outpatient R [facility] [id number] Univers 16:00:00 17:15:34 PREM helder [facility] 2021-08-14 2021-08-14 Telephone [facility] .2.840.114 [id number] Univers 00:00:00 00:00:00 Prem Schaeffer Health 350.1.13.10 it y of [place] 4.2.7.2.686 Walter as Rafal?Blea [phone] [address] Medical Office [facility] 2021-07-12 2021-07-12 Office [facility] 1.2.269.496 [id number] Univers 16:33:40 17:49:19 Visit Prem H Health 350.1.13.10 it y of [place] 4.2.7.2.686 Walter as Rafal?Blea [phone] [address] Medical Office [facility] 2021-07-12 2021-07-12 Outpatient R [facility] [id number] Univers 16:30:00 16:30:00 PREM ity of [facility] 2021-07-10 2021-07-10 Orders Doctor LUPE 1.2.840.114 [id number] Univers 00:00:00 00:00:00 Only Unassigned, JENS 350.1.13.10 ity of [place] [facility] 4.2.7.2.686 Walter as [phone] [address] 2021-07-10 2021-07-10 Orders Doctor LUPE 1.2.840.114 [id number] Univers 00:00:00 00:00:00 Only Unassigned, JENS 350.1.13.10 ity of [place] [facility] 4.2.7.2.686 Walter as [phone] [address] 2021-07-04 2021-07-04 Telephone [facility] 1.2.840.114 [id number] Univers 00:00:00 00:00:00 Prem Schaeffer Health 350.1.13.10 it y of [place] 4.2.7.2.686 Walter as Rafal?Blea [phone] [address] Medical Office [facility] 2021-06-25 2021-06-25 Orders Doctor LUPE 1.2.840.114 [id number] Univers 00:00:00 00:00:00 Only Unassigned, JENS 350.1.13.10 ity of [place] [facility] 4.2.7.2.686 Walter as [phone] [address] 2021-06-25 2021-06-25 Orders Doctor LUPE 1.2.840.114 [id number] Univers 00:00:00 00:00:00 Only Unassigned, JENS 350.1.13.10 ity of [place] [facility] 4.2.7.2.686 Walter as [phone] [address] 2021-06-19 2021-06-19 Telephone [facility] 1.2.840.114 [id number] Univers 00:00:00 00:00:00 Prem Schaeffer [facility] 350.1.13.10 it y of [place] 4.2.7.2.686 Walter as Rafal?Blea [phone] [address] Office [facility] 2021-06-03 2021-06-03 Outpatient R [facility] [id number] Univers 16:30:00 17:22:40 PREM [facility] 2021-06-03 2021-06-03 Office [facility] 1.2.284.449 [id number] Univers 16:10:38 17:22:40 Visit Prem [place] 350.1.13.10 i ty of [place] [phone] [facility] [address] [facility] 2021-06-03 2021-06-03 Office [facility] 1.2.219.090 [id number] Univers 16:10:38 17:22:40 Visit Prem [place] 350.1.13.10 i ty of [place].2.[place] [phone] [facility] [address] [facility] 2021-06-03 2021-06-03 Outpatient R [facility] [id number] Univers 16:30:00 16:30:00 PRME [facility] 2021-05-23 2021-05-23 Orders Doctor ANDRADE 1.2.840.114 [id number] Univers 00:00:00 00:00:00 Only Unassigned, JENS 350.1.13.10 ity of [place] [facility] 4.2.7.2.686 Walter as [phone] [facility] [address] 2020-10-22 2020-10-22 [facility] [id number] Univers 11:00:00 11:00:00 LEIA ity [facility] 2020-08-21 2020-08-21 Telephone [facility] 1.2.840.114 [id number] Univers 00:00:00 00:00:00 Leia MULTISPEC 350.1.13.10 ity of IALTY 4.2.7.2.686 [facility] [phone] [facility] AND [place] [address] [place] [facility] 2020-08-15 2020-08-15 [facility] 1.2.840.114 [id number] Univers 16:36:27 23:59:00 Encounter Leia Dunbar 350.1.13.10 ity of [place] 4.2.7.2.686 [facility] [phone] [facility] [address] 2020-08-15 2020-08-15 Outpatient [facility] [id number] Univers 00:00:00 00:00:00 LEIA ity [facility] 2020-08-15 2020-08-15 Orders Doctor ANDRADE 1.2.840.114 [id number] Univers 00:00:00 00:00:00 Only Unassigned, JENS 350.1.13.10 ity of [place] [facility] 4.2.7.2.686 Walter as [phone] [address] 2020-05-24 2020-05-24 Orders Doctor LUPE 1.2.840.114 [id number] Univers 00:00:00 00:00:00 Only Unassigned, JENS 350.1.13.10 ity of [place] [facility] 4.2.7.2.686 Walter as [id number] [address] 2020-05-18 2020-05-18 [facility] [id number] Univers 10:00:00 10:00:00 LEIA ity [facility] 2020-05-08 2020-05-08 Telephone [facility] 1.2.840.114 [id number] Univers 00:00:00 00:00:00 Leia MULTISPEC 350.1.13.10 ity of [place]2.7.2.[place] C[place] [phone] [facility] AND [place] [address] [place] [facility] 2020-05-04 2020-05-04 Director Of Philanthropy Kenna, Adc Lab Main [facility] 1.2.8 40.114 [id number] [facility] 10:08:34 10:23:34 Visit Eliud Perez 350.1.13.10 ity of [place] Mackena [place] 4.2.7.2.686 [place] Professio [phone] [address] 2020-05-04 2020-05-04 Outpatient R FREDERICK [facility] [id number] [facility] 10:00:00 10:00:00 LEIA ity [facility] 2020-05-01 2020-05-01 Telephone [facility] 1.2.840.114 [id number] [facility] 00:00:00 00:00:00 Leia Dunbar 350.1.13.10 i ty of [place].2.[place] [phone] [address] 2020-04-30 2020-04-30 Director Of Philanthropy Kenna, Adc Lab Main [facility] 1.2.8 40.114 [id number] [facility] 11:35:41 11:50:41 Visit Leia Mack 350.1.13.10 ity of [place].2.[place].2.686 [place] [phone] [address] 2020-04-30 2020-04-30 Office [facility] 1.2.840.114 [id number] [facility] 10:26:53 11:20:58 Visit Leia Dunbar 350.1.13.10 i ty of [place] 4.2.[place].2.[place] [phone] [address] 2020-04-30 2020-04-30 Outpatient R FREDERICK [facility] [id number] Univers 10:30:00 10:30:00 LEIA [facility] 2007-05-13 2007-05-14 Emergency X LOTTIE, [facility] ERT [id number] Univers 21:15:00 04:26:00 VIKI 9 [facility] 2006-07-25 2006-07-25 Emergency X JOY, [facility] ERT [id number] Univers 13:28:00 14:37:00 PANFILO 8 [facility] Results Test Description Test Time Test Comments Results Result Comments Source SARS-CoV-2 (COVID-19), RT-PCR/TMA 2021-11-20 13:14:07 Test Item Value Reference Range Interpretation Comme nts SARS-CoV-2 INTERPRETATION NEGATIVE SEE NOTE S ARS-CoV-2 RNA NOT (test code = 08234) DETECTED Negative results do not preclude SARS-C oV-2 infection and should notb e used as the sole basis for patient management deci sions. Negativeresults must be combined with c linical observations, p atient history,and epi demiological information. Op timum specimen types and timin gfor peak viral levels during i nfections caused by SARS-CoV-2 h ave notbeen determined. Col lection of multiple specim ens or types ofspecimens may be necessary to detect virus. I mproper specimencollect ion and handling, seque nce variability under primers/p robes,or organism presen t below the limit of detect ion may lead to falsenegative r esults. Positive and negative pr edictive values oftesting are h ighly dependent on prevalence. False negative testresults are more likely when prevalence is high. SOURCE (test code = 74683) NASOPHARYNGEAL Note: Methodology is Harika Wm Real-Time RT-PCR. The expected result or reference range is NEGATI VE (Not Detected). For more information regarding COVID -19 testing to include clinica linformation, methodology det ail, intended use, FDA author ization andrecommended fact sheets for patients or hea lthcare providers, see Newcliniq.ly Announcement: S ARS-CoV-2 (COVID-19) by N AAT at URL below (note,fact shee ts are provided by method given in report:https:// www.[employer].com/ clinicians/tamika nt-communication s/ Alternativel y, see downloadable PD F fact sheet at:https://www. [employer].ShowEvidence/COVI D-19-RT-PCR UNL ESS OTHERWISE INDICATED, ALL TESTING PERFORMED [facility], [facility]. [address] [place] [address] 4 PRIVATE DUTY NURSE: Rena AU [id number] [employer] ACCREDITATION N O. [id number]
[2022-09-17] MEDS ORDERED: CYCLOBENZAPRINE 10 MG TAB ONE (06:01)
[2022-09-17] MEDS ORDERED: NITROGLYCERIN 1 GM PKT TD ONE (06:01)
[2022-09-17 06:13] LABS: Absolute Lymphocytes (CBC) 1.5 K/uL (0.7-4.9); Hematocrit 45.4 % (39.6-49.0); Lymphocytes % 21.8 % (15.3-44.8); MCV 92.5 fL (80-100); MPV 9.4 fL (7.6-11.3); RBC Red Blood Cell Count 4.91 M/uL (4.33-5.43)
[2022-09-17 06:31] LABS: Potassium 3.3 mmol/L (3.5-5.1); Troponin High Sensitivity 17.1 pg/mL (<58.9)
--- NOTE | 2022-09-17 07:49 | RAD REPORT ---
EXAM DESCRIPTION: CT - Angio Aorta For Dissection - 09/17/2022 7:05 am CLINICAL HISTORY: . Chest and abd pain COMPARISON: None TECHNIQUE: Computed tomography angiography of the chest, abdomen pelvis were obtained. 100 cc Isovue 370 was administered intravenously. Coronal and sagittal reconstruction were performed. MIP 3D reconstruction was performed All CT scans are performed using dose optimization technique as appropriate and may include automated exposure control or mA/KV adjustment according to patient size. FINDINGS: An aortic dissection is not seen. An aortic aneurysm is not displayed. The celiac, SMA and MARIA D are patent Mild atherosclerotic disease. A lung consolidation is not present. A pericardial effusion is not seen. A pleural effusion is not no anthony. Two cystic masses in the region of the pancreatic uncinate process. Largest measures 2.3 centimeters. Mild enlargement since the prior exam 1.8 centimeter left renal calculus. No hydronephrosis. Small renal cysts Cholecystectomy. With prominence common bile duct. Normal appendix with There no evidence diverticulitis. Postsurgical changes lumbar spine 2.2 centimeter nodule right lobe thyroid gland IMPRESSION: Negative for an aortic dissection. Cystic pancreatic masses may represent intraductal mucinous pancreatic neoplasm. Nonemergent MRI [place] mmended Prominence of common bile duct may be physiologic in this patient status post cholecystectomy. Pathol ogy such as a stricture can also result in this appearance. This should be correlated clinically and with appropriate lab values 2.2 centimeter nodule right lobe thyroid gland. Nonemergent thyroid ultrasound recommended
--- NOTE | 2022-09-17 08:09 | EDPHYS ---
Physician Documentation [facility] Name: Lino Dietrich Age: 62 yrs Sex: Male : 1960 Arrival Date: 09/17/2022 Time: 05:32 Bed 6 Private MD: KENNETH Physician Casey Valverde HPI: 09/17 06:37 This 62 yrs old Male presents to ER via Ambulatory with complaints of Back Pain, Chest rt Pain > 30 y/o. 06:37 The patient presents with pain that is chronic. The symptoms are located in the rt thoracic spine. Onset: The symptoms/episode began/occurred gradually. The pain radiates to the chest. Associated signs and symptoms: Pertinent positives: chest pain. Modifying factors: The patient symptoms are alleviated by nothing, the patient symptoms are aggravated by any movement. Severity of symptoms: At their worst the symptoms were moderate. Patient presents to the ED with an upper back pain that radiates upwards into the chest. The patient states that this is different in location from his chronic back pain. Denies numbness, tingling. Reports mild shortness of breath. Denies other acute complaints at this time, symptoms are moderate in severity, no other aggravating or elevating factors.. Historical: - Allergies: 05:51 NKDA; kl - Home Meds: 05:51 amlodipine 5 mg tab 1 tab once daily [Active]; aspirin 81 mg Oral TbEC 1 tab once daily kl [Active]; Ditropan XL 10 mg Oral tr24 1 tab once daily [Active]; Eliquis Oral [Active]; hydrochlorothiazide 12.5 mg Oral tab 1 tab once daily [Active]; lisinopril 20 mg Oral tab 1 tab once daily [Active]; [place] 10-325 mg Oral tab 1 tab Q 4 hrs PRN [Active]; metoprolol tartrate 50 mg Oral tab 1 tab 2 times per day [Active]; pravastatin 20 mg Oral tab 1 tab once daily [Active]; ProAir HFA 90 mcg/actuation inhalation HFAA 1 puff TID prn [Active]; Protonix 40 mg Oral TbEC 1 tab once daily [Active]; Symbicort 160-4.5 mcg/actuation inhalation HFAA 2 puffs 2 times per day [Active]; - PMHx: 05:51 CAD; chronic back pain; Hepatitis; Hypertension; Kidney stones; COPD; [place]; kl - Immunization history:: Adult Immunizations up to date. - Social history:: Smoking status: Patient reports the use of cigarette tobacco products, smokes one pack cigarettes per day. - Family history:: not pertinent. ROS: 06:37 Constitutional: Negative for fever, chills, and weight loss. rt 06:37 Constitutional: Negative for fever, chills, and weight loss, Eyes: Negative for injury, pain, redness, and discharge, ENT: Negative for injury, pain, and discharge, Neck: Negative for injury, pain, and swelling, Respiratory: Negative for shortness of breath, cough, wheezing, and pleuritic chest pain, Abdomen/GI: Negative for abdominal pain, nausea, vomiting, diarrhea, and constipation, MS/Extremity: Negative for injury and deformity, Skin: Negative for injury, rash, and discoloration, Neuro: Negative for headache, weakness, numbness, tingling, and seizure, Psych: Negative for depression, anxiety, suicide ideation, homicidal ideation, and hallucinations. 06:37 Cardiovascular: Positive for chest pain, Negative for edema. 06:37 Back: Positive for pain at rest, Negative for injury or acute deformity. Exam: 06:37 Constitutional: This is a well developed, well nourished patient who is awake, alert, rt and in no acute distress. Head/Face: Normocephalic, atraumatic. Eyes: Pupils equal round and reactive to light, extra-ocular motions intact. Lids and lashes normal. Conjunctiva and sclera are non-icteric and not injected. Cornea within normal limits. Periorbital areas with no swelling, redness, or edema. ENT: Nares patent. No nasal discharge, no septal abnormalities noted. Tympanic membranes are normal and external auditory canals are clear. Oropharynx with no redness, swelling, or masses, exudates, or evidence of obstruction, uvula midline. Mucous membranes moist. Neck: Trachea midline, no thyromegaly or masses palpated, and no cervical lymphadenopathy. Supple, full range of motion without nuchal rigidity, or vertebral point tenderness. No Meningismus. Chest/axilla: Normal chest wall appearance and motion. Nontender with no deformity. No lesions are appreciated. Cardiovascular: Regular rate and rhythm with a normal S1 and S2. No gallops, murmurs, or rubs. Normal PMI, no JVD. No pulse deficits. Respiratory: Lungs have equal breath sounds bilaterally, clear to auscultation and percussion. No rales, rhonchi or wheezes noted. No increased work of breathing, no retractions or nasal flaring. Abdomen/GI: Soft, non-tender, with normal bowel sounds. No distension or tympany. No guarding or rebound. No evidence of tenderness throughout. Back: No spinal tenderness. No costovertebral tenderness. Full range of motion. Skin: Warm, dry with normal turgor. Normal color with no rashes, no lesions, and no evidence of cellulitis. MS/ Extremity: Pulses equal, no cyanosis. Neurovascular intact. Full, normal range of motion. Neuro: Awake and alert, GCS 15, oriented to person, place, time, and situation. Cranial nerves II-XII grossly intact. Motor strength 5/5 in all extremities. Sensory grossly intact. Cerebellar exam normal. Normal gait. Psych: Awake, alert, with orientation to person, place and time. Behavior, mood, and affect are within normal limits. 06:37 ECG was reviewed by the Attending Physician. Vital Signs: 05:49 BP 217 / 123; Pulse 75; Resp 20; Temp 97.7(O); Pulse Ox 96% on R/A; Pain 5/10; kl 06:00 BP 199 / 109; Pulse 54; Resp 14; Temp 97.7; Pulse Ox 95% ; Pain 1/10; kd3 06:30 BP 157 / 96; Pulse 51; Resp 14; Pulse Ox 93% ; Pain 1/10; kd3 MDM: 05:47 Patient medically screened. rt 08:56 Differential diagnosis: arthritis, Obesity Osteoarthritis sprain. Data reviewed: vital farhad signs, nurses notes, lab test result(s), EKG, radiologic studies, plain films. 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 Test interpretation: by ED physician or midlevel provider: ECG, plain radiologic studies. Counseling: I had a detailed discussion with the patient and/or guardian regarding: the historical points, exam findings, and any diagnostic results supporting the discharge/admit diagnosis, lab results, radiology results, the need [facility] 09/17 05:56 Order name: Basic Metabolic Panel; Complete Time: 06:33 rt 09/17 05:56 Order name: CBC with Diff; Complete Time: 06:33 rt 09/17 05:56 Order name: NT PRO-BNP; Complete Time: 06:33 rt 09/17 05:56 Order name: Troponin HS; Complete Time: 06:33 rt 09/17 08:05 Order name: LFT's farhad 09/17 08:05 Order name: Lipase farhad 09/17 08:05 Order name: Strep farhad 09/17 08:05 Order name: COVID-19/FLU A+B farhad 09/17 08:07 Order name: TSH jd3 09/17 09:08 Order name: Potassium EDMS 09/17 09:15 Order name: Magnesium EDMS 09/17 09:15 Order name: Phosphorus EDMS 09/17 09:15 Order name: T4 Free EDMS 09/17 09:15 Order name: Urinalysis EDMS 09/17 05:56 Order name: XRAY Chest (1 view); Complete Time: 08:55 rt 09/17 05:56 Order name: CT Aorta for Dissection; Complete Time: 08:01 rt 09/17 08:05 Order name: CT C Spine; Complete Time: 08:55 farhad 09/17 08:14 Order name: Cholangiogram EDMS 09/17 09:15 Order name: Basic Metabolic Panel EDMS 09/17 09:15 Order name: Basic Metabolic Panel EDMS 09/17 09:15 Order name: CBC with Automated Diff EDMS 09/17 09:15 Order name: CBC with Automated Diff EDMS 09/17 09:15 Order name: NT PRO-BNP EDMS 09/17 09:15 Order name: NT PRO-BNP EDMS 09/17 09:28 Order name: Troponin High Sensitivity EDMS 09/17 09:28 Order name: Troponin High Sensitivity EDMS 09/17 09:28 Order name: Troponin High Sensitivity EDMS 09/17 13:27 Order name: MRI EDMS 09/17 05:56 Order name: EKG; Complete Time: 05:57 rt 09/17 05:56 Order name: Cardiac monitoring; Complete Time: 05:58 rt 09/17 05:56 Order name: EKG - Nurse/Tech; Complete Time: 05:58 rt 09/17 05:56 Order name: IV Saline Lock; Complete Time: 05:59 rt 09/17 05:56 Order name: Labs collected and sent; Complete Time: 06:12 rt 09/17 05:56 Order name: O2 Sat Monitoring; Complete Time: 05:58 rt 09/17 09:15 Order name: Heart Healthy EDMS 09/17 10:29 Order name: Diet Regular; Complete Time: 10:29 bd EC:37 Rate is 54 beats/min. Rhythm is regular, Sinus bradycardia. Left axis deviation noted. rt [place] interval is normal. QRS interval is normal. QT interval is normal. T waves are Inverted in lead aVL. No ST changes noted. Interpreted by me. Administered Medications: 06:05 Drug: Flexeril (cyclobenzaprine) 10 mg Route: PO; kd3 07:10 Follow up: Response: No adverse reaction; Pain is decreased kd3 06:05 Drug: Nitro-Bid (nitroglycerin) Ointment 2 % 1 inches Route: Transdermal; Site: 3 anterior chest wall; 07:09 Follow up: Response: No adverse reaction; Blood pressure is lowered kd3 09:37 Drug: Potassium Effervescent Tablet 25 mEq Route: PO; ko1 09:46 Drug: Zofran (Ondansetron) 4 mg Route: IVP; Site: left antecubital; ko1 09:46 Drug: Valtrex (valACYclovir) 1000 mg Route: PO; ko1 09:47 Drug: morphine 2 mg Route: IVP; Infused Over: 4 mins; Site: left antecubital; ko1 10:06 Drug: Rocephin (cefTRIAXone) 1 grams Route: IV; Rate: per protocol; Site: left ko1 antecubital; 10:40 Drug: morphine 2 mg Route: IVP; Infused Over: 4 mins; Site: left antecubital; ko1 Disposition Summary: 09/17/22 08:08 Hospitalization Ordered Hospitalization Status: Observation farhad Location: Telemetry/MedSurg (observation) farhad Condition: Fair farhad Problem: new farhad Symptoms: have improved farhad Bed/Room Type: Standard farhad Provider: Julian Anderson(09/17/22 08:53) farhad Room Assignment: 220(09/17/22 16:10) bd Diagnosis - Chest pain, unspecified farhad - Acute pharyngitis, unspecified farhad - Tobacco abuse counseling farhad - Tobacco use farhad - COPD/ Chronic obstructive pulmonary disease with (acute) exacerbation farhad Forms: - Medication Reconciliation Form farhad - SBAR form farhad Signatures: Dispatcher [employer] Germania Peralta Kimberly, RN RN kl Anderson, Corey, MD MD cha Doucette, Kyli, RN RN kd3 Araceli Marrero RN RN ko1 Taz Solis MD MD rt Corrections: (The following items were deleted from the chart) 08:53 08:08 Lela Valadez cha, cha 16:10 08:08 farhad ivan
--- NOTE | 2022-09-17 08:09 | ER ---
Nurse's Notes [facility] Name: Lino Dietrich Age: 62 yrs Sex: Male : 1960 Arrival Date: 09/17/2022 Time: 05:32 Bed 6 Private MD: Diagnosis: Chest pain, unspecified;Acute pharyngitis, unspecified;Tobacco abuse counseling;Tobacco use;COPD/ Chronic obstructive pulmonary disease with (acute) exacerbation Presentation: 09/17 05:49 Chief complaint: Chief complaint: Patient states: back neck and chest pain x 2 days kl pain starts in back and radiates up to right shoulder reports has not take medications x 2 days because he has felt ill. Coronavirus screen: Vaccine status: Patient reports receiving the 2nd dose of the covid vaccine. phizer. Ebola Screen: Patient negative for fever greater than or equal to 101.5 degrees Fahrenheit, and additional compatible Ebola Virus Disease symptoms. Initial Sepsis Screen: Does the patient meet any 2 criteria? No. Patient's initial sepsis screen is negative. Does the patient have a suspected source of infection? No. Patient's initial sepsis screen is negative. Risk Assessment: Do you want to hurt yourself or someone else? Patient reports no desire to harm self or others. 05:49 Method Of Arrival: Ambulatory 05:49 Acuity: MG 3 kl Triage Assessment: 05:52 General: Appears in no apparent distress. Behavior is calm, cooperative. Pain: Complains of pain in right clavicle, anterior aspect of right upper chest, right arm, posterior chest and back Pain currently is 5 out of 10 on a pain scale. EENT: No deficits noted. Neuro: No deficits noted. Cardiovascular: No deficits noted. Respiratory: No deficits noted. GI: No deficits noted. : No deficits noted. Derm: No deficits noted. Historical: - Allergies: 05:51 NKDA; kl - Home Meds: 05:51 amlodipine 5 mg tab 1 tab once daily [Active]; aspirin 81 mg Oral TbEC 1 tab once daily [Active]; Ditropan XL 10 mg Oral tr24 1 tab once daily [Active]; Eliquis Oral [Active]; hydrochlorothiazide 12.5 mg Oral tab 1 tab once daily [Active]; lisinopril 20 mg Oral tab 1 tab once daily [Active]; [place] 10-325 mg Oral tab 1 tab Q 4 hrs PRN [Active]; metoprolol tartrate 50 mg Oral tab 1 tab 2 times per day [Active]; pravastatin 20 mg Oral tab 1 tab once daily [Active]; ProAir HFA 90 mcg/actuation inhalation HFAA 1 puff TID prn [Active]; Protonix 40 mg Oral TbEC 1 tab once daily [Active]; Symbicort 160-4.5 mcg/actuation inhalation HFAA 2 puffs 2 times per day [Active]; - PMHx: 05:51 CAD; chronic back pain; Hepatitis; Hypertension; Kidney stones; COPD; [place]; kl - Immunization history:: Adult Immunizations up to date. - Social history:: Smoking status: Patient reports the use of cigarette tobacco products, smokes one pack cigarettes per day. - Family history:: not pertinent. Screenin:21 Abuse screen: Denies threats or abuse. Nutritional screening: No deficits noted. kd3 Tuberculosis screening: No symptoms or risk factors identified. Fall Risk None identified. Assessment: 05:50 General: Appears in no apparent distress. uncomfortable, well groomed, well developed, kd3 Behavior is calm, cooperative, appropriate for age. 05:50 Pain: Complains of pain in Patient C/O mid upper back pain that radiates to anterior kd3 aspect of right upper chest and right shoulder,onset 2 days. Patient C/O hoarse voice since yesterday. Pain currently is 10 out of 10 on a pain scale. Alleviated by medications, repositioning, Aggravated by repositioning. Neuro: No deficits noted. Cardiovascular: Chest pain is described as Pain is 10 out of 10 on a pain scale. is aggravated by Patient C/O repositioning from lying to sitting upright decreases pain to 1. Respiratory: Reports shortness of breath at rest on exertion. GI: No deficits noted. : No deficits noted. EENT: Reports hoarse voice.. Derm: No deficits noted. Musculoskeletal: No deficits noted. 08:00 Reassessment: No changes from previously documented assessment. Neuro: Level of ko1 Consciousness is awake, alert, obeys commands, Oriented to person, place, time, situation, Appropriate for age. Vital Signs: 05:49 BP 217 / 123; Pulse 75; Resp 20; Temp 97.7(O); Pulse Ox 96% on R/A; Pain 5/10; kl 06:00 BP 199 / 109; Pulse 54; Resp 14; Temp 97.7; Pulse Ox 95% ; Pain 1/10; kd3 06:30 BP 157 / 96; Pulse 51; Resp 14; Pulse Ox 93% ; Pain 1/10; kd3 ED Course: 05:32 Patient arrived in ED. bp1 05:37 Taz Solis MD is Attending Physician. rt 05:50 Inserted saline lock: 20 gauge in right antecubital area, using aseptic technique. kd3 05:51 Triage completed. kl 05:57 Lubna Davis, JHONATAN is Primary Nurse. kd3 06:21 Patient has correct armband on for positive identification. Bed in low position. Call kd3 light in reach. 06:32 XRAY Chest (1 view) In Process Unspecified. EDMS 06:50 intact, bleeding controlled, No redness/swelling at site. Pressure dressing applied, IV kd3 was not flushing, removed 20g IV to RAC. 06:52 Inserted saline lock: 20 gauge in left antecubital area, using aseptic technique. kd3 07:07 CT Aorta for Dissection In Process Unspecified. EDMS 07:55 Attending Physician role handed off by Taz Solis MD farhad 07:55 Casey Valverde MD is Attending Physician. farhad 08:00 No provider procedures requiring assistance completed. ko1 08:07 Lela Valadez MD is Hospitalizing Provider. farhad 08:22 CT C Spine In Process Unspecified. EDMS 08:53 Julian Anderson is Hospitalizing Provider. farhad 09:47 Strep Sent. ko1 09:47 COVID-19/FLU A+B Sent. ko1 09:47 Lipase Sent. ko1 09:47 LFT's Sent. ko1 09:47 TSH Sent. ko1 17:22 Client placed on continuous cardiac and pulse oximetry monitoring. NIBP monitoring ko1 applied. manager monitoring on. Administered Medications: 06:05 Drug: Flexeril (cyclobenzaprine) 10 mg Route: PO; kd3 07:10 Follow up: Response: No adverse reaction; Pain is decreased kd3 06:05 Drug: Nitro-Bid (nitroglycerin) Ointment 2 % 1 inches Route: Transdermal; Site: kd3 anterior chest wall; 07:09 Follow up: Response: No adverse reaction; Blood pressure is lowered kd3 09:37 Drug: Potassium Effervescent Tablet 25 mEq Route: PO; ko1 09:46 Drug: Zofran (Ondansetron) 4 mg Route: IVP; Site: left antecubital; ko1 09:46 Drug: Valtrex (valACYclovir) 1000 mg Route: PO; ko1 09:47 Drug: morphine 2 mg Route: IVP; Infused Over: 4 mins; Site: left antecubital; ko1 10:06 Drug: Rocephin (cefTRIAXone) 1 grams Route: IV; Rate: per protocol; Site: left ko1 antecubital; 10:40 Drug: morphine 2 mg Route: IVP; Infused Over: 4 mins; Site: left antecubital; ko1 Medication: 17:22 VIS not applicable for this client. ko1 Outcome: 08:08 Decision to Hospitalize by Provider. farhad 17:22 Admitted to Med/surg accompanied by tech, via wheelchair, room 220, with chart. ko1 17:22 Condition: good 17:22 Instructed on the need for admit, Demonstrated understanding of 17:23 Patient left the ED. ko1 Signatures: Dispatcher [employer] EDMS Juana Woods RN RN kl Anderson, Corey, MD MD cha Paniauga, Brittany bp1 Doucette, Kyli, RN RN kd3 Oliver, Kathy, RN RN ko1 Taz Solis MD MD rt Corrections: (The following items were deleted from the chart) 05:51 05:48 Chief complaint: kl kl 06:18 06:13 General: Appears in no apparent distress. uncomfortable, well groomed, well kd3 developed, kd3
--- NOTE | 2022-09-17 08:35 | RAD REPORT ---
EXAM DESCRIPTION: CT - C Spine Wo Con - 09/17/2022 8:20 am CLINICAL HISTORY: Right radiculopathy. Neck pain COMPARISON: None. TECHNIQUE: Computed axial tomography of the cervical spine were obtained with sagittal and coronal r econstruction images generated and reviewed. All CT scans are performed using dose optimization technique as appropriate and may include automated exposure control or mA/KV adjustment according to patient size. FINDINGS: Uncal vertebral and facet hypertrophy C2-3 results in mild to moderate narrowing of the ri ght neural foramina. Mild anterior subluxation C3 on C4. Uncal vertebral and facet hypertrophy C3-4 result in moderate liam rowing of the right neural foramina. Mild spondylosis C4-5 and C5-6 Disc space narrowing C6-7. Disc bulge. Mild narrowing of the thecal sac. Mild narrowing neural forami na. C7-T1 appears unremarkable. Loss of the normal lordosis cervical spine. No fracture or dislocation seen. IMPRESSION: A cervical fracture is not seen. Spondylosis C3-4 resulting in moderate right foraminal stenosis If the patient continues have symptoms to suggest spinal cord/spinal canal pathology then MRI would b e recommended.
--- NOTE | 2022-09-17 08:36 | RAD REPORT ---
EXAM DESCRIPTION: Angela Single View09/17/2022 6:30 am CLINICAL HISTORY: Chest pain COMPARISON: 2020 FINDINGS: The lungs appear clear of acute infiltrate. The heart is borderline enlarged IMPRESSION: No acute abnormalities displayed
[2022-09-17] MEDS ORDERED: ONDANSETRON 4 MG/2 ML VIAL ONE (08:47)
[2022-09-17] MEDS ORDERED: CEFTRIAXONE 1000 MG/VIAL ONE (08:47)
[2022-09-17] MEDS ORDERED: MORPHINE 2 MG/ML SYR ONE ×2 (08:55→10:42)
[2022-09-17] MEDS ORDERED: POTASSIUM CL SA 10 MEQ TAB PO ONE ×2 (09:06→14:16)
[2022-09-17] MEDS ORDERED: ACETAMINOPHEN 325 MG TABLET PO PRN (09:09)
[2022-09-17] MEDS ORDERED: ONDANSETRON 4 MG/2 ML VIAL IV PRN (09:12)
[2022-09-17] MEDS ORDERED: HYDRALAZINE HCL 20 MG/ML VIAL IV PRN (09:27)
--- NOTE | 2022-09-17 09:27 | P.HP ---
Certification for Inpatient Patient admitted to: Observation With expected LOS: <2 Midnights Patient will require the following post-hospital care: None Practitioner: I am a practitioner with admitting privileges, knowledge of patient current condition, hospital course, and medical plan of care. Services: Services provided to patient in accordance with Admission requirements found in Title 42 Section 412.3 of the Code of Federal Regulations Patient History Date of Service: 09/17/22 Reason for admission: Back and chest pain History of Present Illness: Patient is a 62-year-old male with a past medical history significant for hypertension, hyperlipidemia, chronic back pain, nicotine dependence, hep C who presents with complaint of low back pain ongoing for the past 3 days. Patient indicates that he is now having pain in the neck area with radiation to his right shoulder and right chest wall. Patient rated pain as 10/10 in severity and described pain as aching\sharp in quality. Patient denies any other signs or symptoms. Symptoms are aggravated or relieved by nothing. Patient decided to present to the hospital due to worsening symptoms. Allergies No Known Drug Allergies Allergy (Verified 06/28/18 05:56) Unknown Home Medications: Amlodipine [Norvasc*] 5 mg PO DAILY 04/09/20 Apixaban [Eliquis] 5 mg PO BID 04/09/20 Hydrocodone Bit/Acetaminophen [Hydrocodon-Acetaminophn 10-325] 1 each PO QIDP PRN 04/09/20 Lisinopril [Zestril] 20 mg PO DAILY 04/09/20 Metoprolol Succinate [Toprol Xl*] 50 mg PO BID 6AM 6PM 04/09/20 hydroCHLOROthiazide [Hydrochlorothiazide] 12.5 mg PO DAILY 04/09/20 Aspirin [Aspirin EC 81 MG] 162 mg PO DAILY #60 tablet. 04/10/20 Atorvastatin Calcium [Lipitor] 40 mg PO BEDTIME #30 tablet 04/10/20 - Past Medical/Surgical History Diabetic: No -: htn -: chronic back pain -: shingles went into nerves in left eye -: Tobacco abuse -: hep c -: kidney stones -: Back wvyvlvs-Brgglhlwetqk-Yv. Bashir- hardware present -: Cholecystectomy Psychosocial/ Personal History: Has fiance, No children, Work-none - Family History Father -: Stroke Mother -: Hypertension - Social History Smoking Status: Current every day smoker Smoking therapy provided: Yes Patient receptive to therapy: Yes Alcohol use: No CD- Drugs: No Caffeine use: No Place of Residence: Home Review of Systems General: Unremarkable Eyes: Unremarkable ENT: Unremarkable Respiratory: Unremarkable Cardiovascular: Chest Pain, Unremarkable Gastrointestinal: Unremarkable Genitourinary: Unremarkable Musculoskeletal: Neck Pain, Shoulder Pain, Back Pain Integumentary: Unremarkable Neurological: Unremarkable Lymphatics: Unremarkable Physical Examination - Physical Exam General: Alert, Oriented x3, Cooperative HEENT: Atraumatic, Normocephalic, PERRLA Neck: Supple, 2+ carotid pulse no bruit, JVD not distended Respiratory: Clear to auscultation bilaterally, Normal air movement Cardiovascular: No edema, Normal pulses Capillary refill: <2 Seconds Gastrointestinal: Normal bowel sounds, Soft and benign Musculoskeletal: Tenderness Integumentary: No rashes, No significant lesion Neurological: Normal speech, Sensation intact, Normal affect Lymphatics: No axilla or inguinal lymphadenopathy - Studies Laboratory Data (last 24 hrs) 09/17/22 05:50: WBC 6.60, Hgb 15.6, Hct 45.4, Plt Count 161 09/17/22 05:50: Sodium 139, Potassium 3.3 L, BUN 18, Creatinine 0.97, Glucose 125 H Assessment and Plan - Plan --Back pain. Patient has a history of chronic back pain. MRI of lumbar pending. Continue current pain medication regimen. --Cervicalgia. Patient reports neck pain that radiates to his right shoulder and right chest wall. CT Cervical spine indicates findings of Spondylosis C3-4 resulting in moderate right foraminal stenosis. MRI cervical pending for further evaluation. Continue current pain medication regimen. --Chest pain. Likely atypical. Serial troponins negative so far. Telemetry to monitor for any significant arrhythmia. --Hypertension. Stable. Continue home medication. --Nicotine dependence. Patient counseled on tobacco cessation. Refuses nicotine patch. --Hyperlipidemia. Continue statin. --History of hep C. Continue supportive care. --Transaminitis. Likely secondary to liver disease. We will continue to monitor LFTs. --DVT prophylaxis with Lovenox subQ. Discharge Plan: Home Plan to discharge in: 48 Hours - Advance Directives Does patient have a Living Will: No Does patient have a Durable POA for Healthcare: No - Code Status/Comfort Care Code Status Assessed: Yes Code Status: Full Code Physician Review: Patient Assessed, Agree with Above Assessment and Plan Critical Care: No
[2022-09-17] MEDS ORDERED: POTASSIUM 25 MEQ EFFERV TAB ONE (09:35)
[2022-09-17] MEDS ORDERED: VALACYCLOVIR 500 MG TAB ONE (09:36)
--- NOTE | 2022-09-17 10:13 | RAD REPORT ---
EXAM DESCRIPTION: [id number]/16/2022 10:06 am CLINICAL HISTORY: Abdominal pain COMPARISON: September 17, 2022 cat scan TECHNIQUE: Magnetic resonance cholangiogram was performed.3D MIP reconstruction performed. Additiona l axial and coronal magnetic resonance imaging of abdomen obtained. 16 cc MultiHance administered int ravenously. Dynamic sequences obtained FINDINGS: Cholecystectomy. Moderate dilatation of the common bile and common hepatic ducts. Abrupt transition in caliber involve s the distal common bile duct. A filling defect is not seen. Mild dilatation of the intrahepatic biliary tree. Pancreatic duct is normal caliber IMPRESSION: Moderate dilatation of the common bile and common hepatic ducts with an abrupt transitio n with the distal common bile duct. This may indicate a stricture. ERCP is recommended
[2022-09-17 10:34] LABS: Albumin 3.4 g/dL (3.4-5.0); Bilirubin Direct 0.2 mg/dL (0-0.2); Bilirubin Total 0.9 mg/dL (0.2-1.0); Protein, Total 7.8 g/dL (6.4-8.2)
[2022-09-17 11:01] LABS: SARS-COV-2 RT PCR NEGATIVE (NEGATIVE)
[2022-09-17 11:20] VITALS: BMI 31.2
[2022-09-17 11:24] LABS: Calcium Oxalate Crystals- Ur Few /HPF (None Seen); Specific Gravity > 1.030 (1.005-1.030); Urine Bilirubin NEGATIVE (Negative); Urine Blood Negative (Negative); Urine Clarity Clear (Clear); Urine Color Light-Yellow (Yellow); Urine Glucose NEGATIVE (Negative); Urine Protein TRACE (Negative); Urine Urobilinogen Normal (Normal); Urine pH 7.5 (5.0-7.0)
[2022-09-17 11:35] LABS: Magnesium 2.2 mg/dL (1.8-2.4)
[2022-09-17] MEDS: MORPHINE 4 MG/ML SYR IV PRN ×2 (13:21→16:49)
[2022-09-17] MEDS ORDERED: MORPHINE 4 MG/ML SYR ONE ×2 (13:24→16:52)
--- NOTE | 2022-09-17 13:27 | RAD REPORT ---
EXAM DESCRIPTION: MRI - C Spine Wo Cont- 09/17/2022 1:04 pm CLINICAL HISTORY: Cervical pain Neck pain, radiculopathy COMPARISON: No comparisons FINDINGS: Cervical vertebral bodies are normal in height and alignment. No suspicious marrow edema or marrow replacing process. No fracture or traumatic subluxation. The craniocervical junction is normal. C2-3 level: No significant findings. C3-4 level: Small posterior osteophyte/ disc complex is present attenuating the anterior subarachnoid space. Right-sided uncovertebral facet spurring mildly narrows the right exit foramen. C4-5 level: Mild bilateral facet hypertrophy. C5-6 level: Posterior disc bulge is present asymmetric to the left. Mild central canal stenosis. Left -sided facet uncovertebral spurring narrows the left exit foramen. C6-7 level: Moderate disc/ osteophyte complex is present moderately narrowing the central canal. Face t and uncovertebral spurring bilaterally with narrowing of both exit foramina. Mild edema is seen in the cord at this level. C7-T1 level: Small posterior osteophyte/ disc complex is present attenuating the anterior subarachnoi d space. Subtle cord edema suspected at C5-6 and C6-7. IMPRESSION: Moderate degenerative spondylosis is seen greatest at C5-6 and C6-7 with mild cord edema present.
[2022-09-17] MEDS ORDERED: ACETAMINOPHEN 325 MG TABLET ONE (16:05)
[2022-09-17] MEDS: METOPROLOL XL 50 MG TAB PO SCH (17:47)
--- NOTE | 2022-09-17 19:01 | EKG ---
Test Date: 2022-09-17 Test Time: 06:32:04 Freight Traffic Consultant: MEASUREMENT RESULTS: Intervals: Rate: 54 OR: 322 QRSD: 106 QT: 452 QTc: 428 [place]: P: 51 OR: 322 QRS: -12 T: 128 INTERPRETIVE STATEMENTS: Sinus bradycardia with 1st degree AV block with blocked premature atrial complexes Left ventricular hypertrophy with repolarization abnormality Cannot rule out Septal infarct, age undetermined Inferior infarct, age undetermined Abnormal ECG Compared to ECG 04/09/2020 09:12:19 Atrial premature complex(es) now present Left ventricular hypertrophy now present Early repolarization now present Sinus arrhythmia no longer present ST (T wave) deviation no longer present Possible ischemia no longer present Myocardial infarct finding still present Electronically Signed On 09-17-22 19:00:23 SENIOR PROCUREMENT SPECIALIST by Jv Erickson
[2022-09-17] MEDS ORDERED: ATORVASTATIN 40 MG TAB PO SCH (21:00)
[2022-09-18 05:04] LABS: Absolute Lymphocytes (CBC) 1.4 K/uL (0.7-4.9); Hematocrit 42.5 % (39.6-49.0); Lymphocytes % 19.4 % (15.3-44.8); MCV 92.8 fL (80-100); MPV 9.3 fL (7.6-11.3); RBC Red Blood Cell Count 4.58 M/uL (4.33-5.43)
[2022-09-18 05:39] LABS: Potassium 3.9 mmol/L (3.5-5.1)
[2022-09-18] MEDS: METOPROLOL XL 50 MG TAB PO SCH (06:00)
[2022-09-18 08:43] VITALS: BP 158/93; TEMP 97.9
[2022-09-18] MEDS ORDERED: ENOXAPARIN 40 MG/0.4 ML SQ SCH (09:00)
[2022-09-18] MEDS ORDERED: hydroCHLOROthiazide 12.5 MG CAP PO SCH (09:00)
[2022-09-18] MEDS ORDERED: AMLODIPINE 5 MG TAB PO SCH (09:00)
[2022-09-18] MEDS ORDERED: ASPIRIN EC 81 MG TAB PO SCH (09:00)
[2022-09-18] MEDS ORDERED: lisinopriL 20 MG TAB PO SCH (09:00)
[2022-09-18 10:13] VITALS: O2SAT 97
--- NOTE | 2022-09-18 12:26 | P.DS ---
Admission Date: 09/17/22 Discharge Date: 09/18/22 Disposition: ROUTINE DISCHARGE Discharge Condition: FAIR Reason for Admission: Back and chest pain - Problems (1) Chest pain Onset Date: 06/14/18 Status: Acute Qualifiers: Chest pain type: precordial pain Qualified Code(s): R07.2 - Precordial pain (2) Chronic back pain Onset Date: 06/19/15 Status: Chronic Qualifiers: Back pain location: back pain in unspecified location Back pain laterality: unspecified Qualified Code(s): M54.9 - Dorsalgia, unspecified; G89.29 - Other chronic pain (3) Biliary stricture Status: Acute Brief History of Present Illness: Patient is a 62-year-old male with a past medical history significant for hypertension, hyperlipidemia, chronic back pain, nicotine dependence, hep C who presents with complaint of low back pain ongoing for the past 3 days. Patient indicates that he was having pain in the neck area with radiation to his right shoulder and right chest wall. Patient rated pain as 10/10 in severity and described pain as aching\sharp in quality. Noted elevated LFT. Patient hospitalized for further evaluation and management. Hospital Course: Patient placed under observation on the medical floor. Troponin trended negative. Patient appears atypical, located in the right lower chest, radiating to the right shoulder. Noted history of hepatitis C. MRCP done showed moderate dilatation of the common bile and common hepatic ducts with an abrupt transition with the distal common bile duct. This may indicate a stricture. CT dissection showed cystic pancreatic masses which may represent intraductal mucinous pancreatic neoplasm. Patient informed of these findings and the need to follow-up with GI as an outpatient for further evaluation. ACS ruled out. Patient is deemed stable for discharge. Vital Signs/Physical Exam: Temp Pulse Resp BP Pulse Ox 97.9 F 55 18 158/93 H 96 09/18/22 08:00 09/18/22 09:32 09/18/22 08:00 09/18/22 09:32 09/18/22 08:00 General: Alert, In no apparent distress, Oriented x3 HEENT: Mucous membr. moist/pink Neck: Supple, JVD not distended Respiratory: Clear to auscultation bilaterally, Normal air movement Cardiovascular: No edema, Regular rate/rhythm, Normal S1 S2 Gastrointestinal: Soft and benign, Non-distended, No tenderness Musculoskeletal: No swelling Integumentary: No rashes, No cyanosis Neurological: Normal strength at 5/5 x4 extr Laboratory Data at Discharge: WBC 7.20 K/uL (4.3-10.9) 09/18/22 04:50 Hgb 14.2 g/dL (13.6-17.9) D 09/18/22 04:50 Hct 42.5 % (39.6-49.0) 09/18/22 04:50 Plt Count 162 K/uL (152-406) 09/18/22 04:50 Sodium 140 mmol/L (136-145) 09/18/22 04:50 Potassium 3.9 mmol/L (3.5-5.1) 09/18/22 04:50 BUN 22 mg/dL (7-18) H 09/18/22 04:50 Creatinine 0.87 mg/dL (0.55-1.3) 09/18/22 04:50 Glucose 115 mg/dL (74-106) H 09/18/22 04:50 Phosphorus 2.0 mg/dL (2.5-4.9) L 09/17/22 10:00 Magnesium 2.2 mg/dL (1.8-2.4) 09/17/22 10:00 Total Bilirubin 0.9 mg/dL (0.2-1.0) 09/17/22 10:00 AST 140 U/L (15-37) H 09/17/22 10:00 ALT 307 U/L (12-78) H* 09/17/22 10:00 Alkaline Phosphatase 218 U/L (45-117) H 09/17/22 10:00 Lipase 75 U/L (73-393) 09/17/22 10:00 Home Medications: Amlodipine [Norvasc*] 5 mg PO DAILY 04/09/20 Apixaban [Eliquis] 5 mg PO BID 04/09/20 Hydrocodone Bit/Acetaminophen [Hydrocodon-Acetaminophn 10-325] 1 each PO QIDP PRN 04/09/20 Lisinopril [Zestril] 20 mg PO DAILY 04/09/20 Metoprolol Succinate [Toprol Xl*] 50 mg PO BID 6AM 6PM 04/09/20 hydroCHLOROthiazide [Hydrochlorothiazide] 12.5 mg PO DAILY 04/09/20 Aspirin [Aspirin EC 81 MG] 162 mg PO DAILY #60 tablet. 04/10/20 Atorvastatin Calcium [Lipitor] 40 mg PO BEDTIME #30 tablet 04/10/20 Diet: AHA Activity: Ad eh Followup: NONE,NONE [Primary Care Provider] -
== END 2022-09-18 13:55 | disposition home or self-care (01) ==
LOC: ER 05:27 → ERHOLD 09:04 → 2ND 16:39
PROVIDERS: ADMIT Internal Medicine; ATTEND Internal Medicine
DX: R07.2 Precordial pain (principal); M54.2 Cervicalgia; G89.29 Other chronic pain; M54.9 Dorsalgia, unspecified; K86.2 Cyst of pancreas; I10 Essential (primary) hypertension; E78.5 Hyperlipidemia, unspecified; F17.200 Nicotine dependence, unspecified, uncomplicated; B19.20 Unspecified viral hepatitis C without hepatic coma; R74.01 Elevation of levels of liver transaminase levels; Z20.822 Contact with and (suspected) exposure to COVID-19
CPT/HCPCS: 93005; 87070; 85025 ×2; 81001; 80048 ×2; 36415; 83735; 84100; 84132; 80076; 87081; 84443; 84484 ×3; 84439; 83690; 83880 ×2; 0240U; 72125; 71275; 74175; 71045; 72141; 74181; 96375; 96374; 99285; Q9967; J1650; J2270 ×2; J2405; G0378 ×3

== ENCOUNTER 2024-10-19 12:54 | Emergency (ER) | payer OTHER ==
[2024-10-19 13:49] LABS: Absolute Eosinophils 0.1 K/uL (0-0.5); Absolute Lymphocytes (CBC) 0.7 K/uL (0.7-4.9); Absolute Monocytes 0.5 K/uL (0.1-1.3); Absolute Neutrophil 4.3 K/uL (1.8-8.0); Basophils % 0.5 % (0-1.3); Eosinophils % 1.3 % (0-4.4); Hematocrit 35.7 % (39.6-49.0); Hemoglobin 11.9 g/dL (13.6-17.9); Lymphocytes % 11.7 % (15.3-44.8); MCH 33.2 pg (27.0-35.0); MCHC 33.4 g/dL (32.0-36.0); MCV 99.3 fL (80-100); MPV 10.6 fL (7.6-11.3); Monocytes % 9.1 % (3.3-12.3); Neutrophils % 77.4 % (41.7-73.7); Platelets 99 thou/uL (152-406); Red Cell Distribution Width 16.1 % (12.1-15.2)
[2024-10-19 14:02] LABS: Anion Gap 9.8 mEq/L (5.0-15.0); Potassium 2.8 mEq/L (3.5-5.1)
[2024-10-19] MEDS ORDERED: POTASSIUM CL SA 10 MEQ TAB PO ONE (14:15)
--- NOTE | 2024-10-19 14:28 | ER ---
Nurse's Notes [facility] Name: iLno Dietrich Age: 64 yrs Sex: Male : 1960 Arrival Date: 10/19/2024 Time: 12:54 Bed 8 Private MD: Diagnosis: Hypokalemia Presentation: 10/19 13:05 Chief complaint: Patient states: he was sent by his cancer doctor for abnormal lab ap3 work, but it is unknown what the lab work was. Coronavirus screen: At this time, the client does not indicate any symptoms associated with coronavirus-19. Ebola Screen: No symptoms or risks identified at this time. Initial Sepsis Screen: Does the patient meet any 2 criteria? HR > 90 bpm. No. Patient's initial sepsis screen is negative. Does the patient have a suspected source of infection? No. Patient's initial sepsis screen is negative. Risk Assessment: Do you want to hurt yourself or someone else? Patient reports no desire to harm self or others. Onset of symptoms is unknown. 13:05 Method Of Arrival: Wheelchair ap3 13:05 Acuity: MG 3 ap3 Triage Assessment: 13:07 General: Appears uncomfortable, ill, Behavior is cooperative, appropriate for age, ap3 Reports fatigue for. Pain: Complains of pain in abdomen. Neuro: Level of Consciousness is awake, alert, obeys commands, Oriented to person, place, time, situation, Appropriate for age. Cardiovascular: Patient's skin is warm and dry. Respiratory: Airway is patent Respiratory effort is even, unlabored, Respiratory pattern is regular, symmetrical. GI: Reports lower abdominal pain, upper abdominal pain, nausea. Historical: - Allergies: 13:06 NKDA; ap3 - PMHx: 13:06 CAD; chronic back pain; COPD; Hepatitis; Hypertension; Kidney stones; [place]; pancreatic ap3 cancere (PR); - Immunization history:: unkown Flu vaccine status is unknown. - Infectious Disease History:: Denies. - Social history:: Smoking status: Patient denies any tobacco usage or history of. Screenin:08 Abuse screen: Denies threats or abuse. ap3 13:09 Tuberculosis screening: No symptoms or risk factors identified. ap3 14:13 [facility] ED Fall Risk Assessment (Adult) History of falling in the last 3 months, kc6 including since admission No falls in past 3 months (0 pts) Confusion or Disorientation No (0 pts) Intoxicated or Sedated No (0 pts) Impaired Gait No (0 pts) Mobility Assist Device Used No (0 pt) Altered Elimination No (0 pt) Score/Fall Risk Level 0 - 2 = Low Risk Oriented to surroundings, Maintained a safe environment. Nutritional screening: No deficits noted. Assessment: 14:12 General: Appears in no apparent distress. uncomfortable, well groomed, well developed, kc6 Behavior is calm, cooperative, appropriate for age. Neuro: Level of Consciousness is awake, alert, obeys commands, Oriented to person, place, time, situation, Appropriate for age. 15:28 Reassessment: Patient and/or family updated on plan of care and expected duration. Pain tm6 level reassessed. Patient is alert, oriented x 3, equal unlabored respirations, skin warm/dry/pink. Vital Signs: 13:05 BP 139 / 85; Pulse 94; Resp 19; Temp 98.2; Pulse Ox 100% ; ap3 14:13 BP 139 / 81; Pulse 80; Resp 16 S; Pulse Ox 100% on R/A; kc6 15:27 BP 135 / 80; Pulse 87; Resp 16; Temp 98.2; Pulse Ox 98% on R/A; Pain 0/10; tm6 15:27 Pain Scale: Adult tm6 ED Course: 12:57 Patient arrived in ED. mr 12:59 Stewart Phillipsistin, [facility] kb 12:59 Damir Vasques MD is Attending Physician. kb 13:06 Triage completed. ap3 13:08 Arm band placed on right wrist. ap3 13:17 Krystina Clark, RN is Primary Nurse. tm6 13:24 Patient has correct armband on for positive identification. Bed in low position. Call ap3 light in reach. Side rails up X 1. Adult w/ patient. Client placed on continuous cardiac and pulse oximetry monitoring. NIBP monitoring applied. monitor technician on. Pulse ox on. NIBP on. 13:39 Initial lab(s) drawn, by me, sent to lab. Inserted saline lock: 22 gauge in right ap3 wrist, using aseptic technique. Blood collected. Flushed with 10 mL NS. 13:40 BMP Sent. ap3 13:40 CBC with Diff Sent. ap3 15:01 EKG done, by ED staff, reviewed by Lois LUCAS. tm6 15:28 Provided Education on: go to cancer center upon discharge. tm6 15:28 No provider procedures requiring assistance completed. IV discontinued, intact, tm6 bleeding controlled, No redness/swelling at site. Pressure dressing applied. Administered Medications: 14:21 Drug: Potassium Chloride PO 40 mEq PO once Route: PO; kc6 15:01 Follow up: Response: No adverse reaction tm6 Medication: 15:29 VIS not applicable for this client. tm6 Outcome: 14: Discharge ordered by . jeromy 15:28 Discharged to home via wheelchair, with family, tm6 15:28 Condition: stable 15:28 Discharge instructions given to patient, family, Instructed on discharge instructions, follow up and referral plans. Demonstrated understanding of instructions, follow-up care, 15:29 Patient left the ED. tm6 Signatures: Lois Phillips, SHAYY CARDIAC CATH TECHNICIAN-CkShireen Kauffman, Reg Reg mr Ninfa Dubose, RN RN ap3 Toma Modi RN RN kc6 Krystina Clark RN RN tm6
--- NOTE | 2024-10-19 14:28 | EDPHYS ---
Physician Documentation [facility] Name: Lino Dietrich Age: 64 yrs Sex: Male : 1960 Arrival Date: 10/19/2024 Time: 12:54 Bed 8 Private MD: ED Physician Damir Vasques HPI: 10/19 13:10 This 64 yrs old Male presents to ER via Wheelchair with complaints of Abnormal Lab kb Results. 13:10 Pt is a 64 year old male who presents for abnormal labs. States he was diagnosed with kb pancreatic cancer a few months ago. States he had had upper abd pain since then that has not improved. Was admitted to [facility] 3 weeks ago and had a stent placed. Pt had his first appointment with the oncologist at the Cancer Center yesterday and had blood work done. States he got a call today and was told to come in because his blood work was "off." Pt denies any new symptoms. . Historical: - Allergies: 13:06 NKDA; ap3 - PMHx: 13:06 CAD; chronic back pain; COPD; Hepatitis; Hypertension; Kidney stones; [place]; pancreatic ap3 cancere ([place]); - Immunization history:: unkown Flu vaccine status is unknown. - Infectious Disease History:: Denies. - Social history:: Smoking status: Patient denies any tobacco usage or history of. ROS: 13:09 Constitutional: As per HPI kb Exam: 13:09 Constitutional: This is a well developed, well nourished patient who is awake, alert, kb and in no acute distress. Head/Face: Normocephalic, atraumatic. ENT: Moist Mucous membranes Cardiovascular: Regular rate Respiratory: Respirations even and unlabored. No increased work of breathing. Talking in full sentences Skin: Warm, dry with normal turgor. Normal color. MS/ Extremity: Pulses equal, no cyanosis. Neurovascular intact. Full, normal range of motion. Neuro: Awake and alert, GCS 15, oriented to person, place, time, and situation. 13:09 Abdomen/GI: Inspection: abdomen appears normal, Bowel sounds: normal, Palpation: soft, in all quadrants, moderate abdominal tenderness, in the right upper quadrant and left upper quadrant, 15:09 ECG was reviewed by the Attending Physician. kb Vital Signs: 13:05 BP 139 / 85; Pulse 94; Resp 19; Temp 98.2; Pulse Ox 100% ; ap3 14:13 BP 139 / 81; Pulse 80; Resp 16 S; Pulse Ox 100% on R/A; kc6 15:27 BP 135 / 80; Pulse 87; Resp 16; Temp 98.2; Pulse Ox 98% on R/A; Pain 0/10; tm6 15:27 Pain Scale: Adult tm6 MDM: 12:59 Medical Screening Exam initiated kb 13:10 Data reviewed: vital signs, nurses notes. kb 13:16 Historians other than the Patient: I spoke with a nurse at the Cancer Center. She kb informed me that the pt's potassium was low and that is why he was sent to the ER. . 14:22 Differential diagnosis: abnormal electrolytes, anemia, dehydration. Counseling: I had a kb detailed discussion with the patient and/or guardian regarding the historical points, exam findings, and any diagnostic results supporting the discharge/admit diagnosis, lab results, the need for outpatient follow up, a family practitioner, to return to the emergency department if symptoms worsen or persist or if there are any questions or concerns that arise at home. ED course: Discussed case with Sravanthi at the [facility]. She reports their potassium level came back 2.6. states they were going to call in PO potassium replacement, but pt's wanted to bring him into the ER. Potassium 2.8 at this time. PO potassium ordered. Pt will go to cancer center upon discharge for further instructions for starting treatment. . 14:26 Management of patient was discussed with the following: Sravanthi with the [facility]. kb 10/19 13:14 Order name: CBC with Diff; Complete Time: 14:44 kb 10/19 13:14 Order name: BMP; Complete Time: 14:04 kb 10/19 13:52 Order name: CBC Smear Scan; Complete Time: 14:44 EDMS 10/19 14:48 Order name: EKG; Complete Time: 14:48 kb 10/19 13:14 Order name: IV Start; Complete Time: 13:40 kb 10/19 14:48 Order name: EKG - Nurse/Tech; Complete Time: 15:01 kb EC:09 Rate is 78 beats/min. Rhythm is regular. QRS [place] is Normal. QRS interval is normal at kb 94 msec. QT interval is normal at 492 msec. Administered Medications: 14:21 Drug: Potassium Chloride PO 40 mEq PO once Route: PO; kc6 15:01 Follow up: Response: No adverse reaction tm6 Disposition: 16:18 Co-signature as Attending Physician, Damir Vasques MD I reviewed the patient's care rn provided by the Advanced Practice Provider and agree with the diagnosis and treatment plan. Disposition Summary: 10/19/24 14:27 Discharge Ordered Notes: Location: Home kb Condition: Stable kb Diagnosis - Hypokalemia kb Followup: kb - With: Emergency Department - When: As needed - Reason: Worsening of condition Followup: kb - With: Private Physician - When: 2 - 3 days - Reason: Recheck today's complaints, Continuance of care, Re-evaluation by your physician Discharge Instructions: - Discharge Summary Sheet kb - Hypokalemia kb Forms: - Medication Reconciliation Form kb - Antibiotic Education kb - Prescription Opioid Use kb - Patient Portal Instructions kb - Leadership Thank You Letter kb Signatures: Dispatcher [employer] EDLois Awad, RADIATION MONITOR-C RADIATION MONITOR-Ckb Damir Vasques MD MD rn Ninfa Dubose RN RN ap3 Toma Modi RN RN kc6 Krystina Clark RN tm6
[2024-10-19 14:43] LABS: Blood Morphology Comment NOT SEEN (NOT SEEN); Platelet Estimate DECR; White Blood Cell Scan OK (OK)
[2024-10-19 15:44] VITALS: TEMP 98.2
[2024-10-19 15:49] VITALS: BP 135/80; O2SAT 98
--- NOTE | 2024-10-21 15:45 | EKG ---
Test Date: 2024-10-19 Test Time: 14:59:10 Flat Sorting Machine Clerk: JOAO MEASUREMENT RESULTS: Intervals: Rate: 78 MS: QRSD: 94 QT: 432 QTc: 492 [place]: P: MS: QRS: -51 T: 44 INTERPRETIVE STATEMENTS: Accelerated Junctional rhythm Left axis deviation Anteroseptal infarct, age undetermined ST & T wave abnormality, consider inferior ischemia Abnormal ECG Compared to ECG 09/17/2022 06:32:04 ST (T wave) deviation now present Possible ischemia now present Sinus bradycardia no longer present Atrial premature complex(es) no longer present First degree AV block no longer present Left ventricular hypertrophy no longer present Early repolarization no longer present Myocardial infarct finding still present Electronically Signed On 10-21-24 15:44:07 BOX MAKER PAPERBOARD by Armond Raphael
== END 2024-10-19 15:29 | disposition home or self-care (01) ==
LOC: ER 12:54
DX: E87.6 Hypokalemia (principal); C25.9 Malignant neoplasm of pancreas, unspecified; I10 Essential (primary) hypertension; J44.9 Chronic obstructive pulmonary disease, unspecified; G89.29 Other chronic pain; I25.10 Atherosclerotic heart disease of native coronary artery without angina pectoris
CPT/HCPCS: 36415; 80048; 85025; 93005; 99284

== ENCOUNTER 2024-10-20 13:04 | Inpatient (IN) | payer OTHER ==
[2024-10-20 14:07] LABS: Absolute Eosinophils 0.1 K/uL (0-0.5); Absolute Lymphocytes (CBC) 0.6 K/uL (0.7-4.9); Absolute Monocytes 0.5 K/uL (0.1-1.3); Absolute Neutrophil 5.3 K/uL (1.8-8.0); Basophils % 0.2 % (0-1.3); Eosinophils % 0.8 % (0-4.4); Hematocrit 36.5 % (39.6-49.0); Hemoglobin 12.2 g/dL (13.6-17.9); Lymphocytes % 9.9 % (15.3-44.8); MCH 33.1 pg (27.0-35.0); MCHC 33.3 g/dL (32.0-36.0); MCV 99.4 fL (80-100); MPV 10.6 fL (7.6-11.3); Monocytes % 7.5 % (3.3-12.3); Neutrophils % 81.6 % (41.7-73.7); Nucleated Red Blood Cells % 0.1 % (0-0); Platelets 113 thou/uL (152-406); RBC Red Blood Cell Count 3.68 M/uL (4.33-5.43); Red Cell Distribution Width 15.8 % (12.1-15.2)
--- NOTE | 2024-10-20 14:19 | RAD REPORT ---
EXAMINATION: CT HEAD WITHOUT CONTRAST CT CERVICAL SPINE WITHOUT CONTRAST CLINICAL INDICATION: Head and neck injury status post fall. Head and neck pain TECHNIQUE: Axial CT images from the skull base to the vertex without intravenous contrast. Axial CT i mages through the cervical spine were obtained without intravenous contrast. Sagittal and coronal reformatted images were created from the data set. Coronal and sagittal reformatted images were creat ed from the data set. One or more of the following dose reduction techniques were used: Automated exposure control, adjustment of the mA and/or kV according to patient size, and/or iterative reconstr uction. Unless otherwise specified, incidental findings do not require dedicated imaging follow-up. [id number]. Comparison: 2021 C-spine FINDINGS: Small low-density area left cerebellum. Patchy low-density areas left occipital parietal region. An intracranial bleed is not seen. Ventricles are normal in caliber. Fluid right maxillary sinus. Right periorbital hematoma with air bubbles within the right face. Fract ure lateral wall right orbit No extra-axial fluid collection No fracture or dislocation is seen involving the cervical spine. Mild chronic anterior subluxation C3 on C4 and C4 on C5. Spondylosis cervical spine IMPRESSION: Low density area left cerebellum may represent an acute infarction. Low-density area left occipital parietal region probably infarction. Age is indeterminate. Small low-density areas basal ganglia and right thalamus probably lacunar infarcts of indeterminate a ge. MRI of the brain would be helpful for further evaluation. Fracture lateral wall right orbit incompletely evaluated on this exam. Dedicated CT face could be obt ained for further evaluation. A cervical fracture is not seen. If the patient continues to have symptoms to suggest acute QA INTERN/spinal pathology then MRI would be rec ommended
[2024-10-20 14:24] LABS: Anion Gap 8.3 mEq/L (5.0-15.0)
[2024-10-20 14:29] LABS: Potassium 2.3 mEq/L (3.5-5.1); Troponin High Sensitivity 89.7 pg/mL (<58.9)
[2024-10-20] MEDS ORDERED: KCL 20 MEQ/100 mL IVPB 100 ML IV ONE (14:34)
[2024-10-20] MEDS ORDERED: NA CHLORIDE 0.9% 1,000 ML ONE (14:34)
[2024-10-20] MEDS ORDERED: Magnesium Sulfate 2gm IVPB 2 G/50 ML BAG IV ONE (14:34)
--- NOTE | 2024-10-20 14:35 | RAD REPORT ---
Procedure: Chest Single View HISTORY: Cough COMPARISON: 2021 FINDINGS: The lungs appear clear of acute infiltrate. No significant pleural effusion noted. The heart is normal size. IMPRESSION: No acute abnormality is displayed.
[2024-10-20] MEDS ORDERED: ASPIRIN 81 MG CHEWABLE TABLET ONE (15:10)
--- NOTE | 2024-10-20 15:28 | RAD REPORT ---
EXAMINATION: CT MAXILLOFACIAL WITHOUT CONTRAST CLINICAL INDICATION: Facial pain status post fall TECHNIQUE: Axial images were obtained through the facial bones and orbits without intravenous contras t. Sagittal and coronal reconstructions were created from the data. One or more of the following dose reduction techniques were used: Automated exposure control, adjustment of the mA and/or kV accor ding to patient size, and/or iterative reconstruction. Unless otherwise specified, incidental findings do not require dedicated imaging follow-up. COMPARISON: No prior exam. FINDINGS: Minimally displaced fracture lateral wall right maxillary sinus. Nondisplaced fracture right orbital floor. Small amount of fluid right maxillary sinus. Right periorbital hematoma. The right globe is intact. Several air bubbles are present anterior to th e right globe and adjacent to the right maxillary sinus. IMPRESSION: Minimally displaced fracture lateral wall right maxillary sinus Nondisplaced fracture right orbital floor
--- NOTE | 2024-10-20 15:38 | EDPHYS ---
Physician Documentation [facility] Name: Lino Dietrich Age: 64 yrs Sex: Male : 1960 Arrival Date: 10/20/2024 Time: 13:04 Bed 6 Private MD: ED Physician Lake Paige HPI: 10/20 13:11 This 64 yrs old Male presents to ER via Unassigned with complaints of fall. ec2 13:12 Patient arrives today for generalized weakness and a fall. Patient with a history of ec2 pancreatic cancer, states that he has been having worsening generalized weakness, poor p.o. intake. Had a fall today, no LOC, not sure if he is on blood thinners.. Historical: - Allergies: 13:54 NKDA; tm6 - PMHx: 13:54 CAD; chronic back pain; COPD; Hepatitis; Hypertension; Kidney stones; [place]; pancreatic tm6 cancere ([place]); - Immunization history:: Flu vaccine is up to date. - Infectious Disease History:: Denies. - Social history:: Smoking status: Patient denies any tobacco usage or history of. ROS: 13:12 Constitutional: as per hpi ec2 Exam: 13:12 Constitutional: GEN: NAD Head: atraumatic Eyes: EOMI Ears: External ears are ec2 normal. CV: regular rate LUNGS: no respiratory distress ABD: non-distended SKIN: no evidence of rashes MSK: Contusion/abrasion to the right cheek. Neuro: Cranial nerves II through XII intact. Vital Signs: 13:16 BP 158 / 96 LA Sitting (/reg); Pulse 93; Resp 16; Temp 98.9; Pulse Ox 98% on R/A; tm6 13:57 Weight 71.67 kg; Height 5 ft. 11 in. ; Pain 2/10; tm6 15:37 BP 164 / 96; Pulse 82; Resp 16; Pulse Ox 99% on R/A; ll1 17:11 BP 120 / 82; Pulse 81; Resp 17; Pulse Ox 98% ; ll1 13:57 Body Mass Index 22.04 (71.67 kg, 180.34 cm) tm6 13:57 Pain Scale: Adult tm6 MDM: 13:09 Medical Screening Exam initiated ec2 13:12 Data reviewed: vital signs, nurses notes. ED course: Patient arrives today for ec2 evaluation after ground-level fall. Examination revealing for abrasion to the right face for elevated CT scan of the head and C-spine given the patient's age. Will obtain lab work as well as urine studies. Differential diagnosis includes intracranial brain bleed, C-spine fracture, urinary tract infection, anemia, electrolyte disturbances.. 14:11 ED course: EKG independently reviewed and interpreted by me, shows normal sinus rhythm, ec2 rate of 84, QTc prolongation at 612. will supplement potassium and mag. 15:36 ED course: CT imaging shows nonoperative facial fractures on the right side that can ec2 follow-up outpatient with ENT. Also with acute infarct, will require stroke workup. Will admit for further stroke workup, hypokalemia, hypomagnesemia, QTc prolongation.. 10/20 13:11 Order name: Basic Metabolic Panel; Complete Time: 14:43 ec2 10/20 13:11 Order name: CBC with Diff; Complete Time: 14:15 ec2 10/20 13:11 Order name: Troponin HS; Complete Time: 14:43 ec2 10/20 13:12 Order name: UAM ec2 10/20 16:43 Order name: Basic Metabolic Panel EDMS 10/20 16:43 Order name: Basic Metabolic Panel EDMS 10/20 16:43 Order name: CBC with Automated Diff EDMS 10/20 16:43 Order name: CBC with Automated Diff EDMS 10/20 16:43 Order name: Magnesium EDMS 10/20 16:43 Order name: Magnesium EDMS 10/20 16:43 Order name: Phosphorus EDMS 10/20 16:43 Order name: Phosphorus EDMS 10/20 16:43 Order name: Troponin High Sensitivity EDMS 10/20 16:43 Order name: Troponin High Sensitivity EDMS 10/20 16:43 Order name: Troponin High Sensitivity EDMS 10/20 16:43 Order name: Basic Metabolic Panel EDMS 10/20 16:55 Order name: Anti-Thrombin III Activity EDMS 10/20 16:55 Order name: C-ANCA Anti-Proteinase 3 EDMS 10/20 16:55 Order name: Cardiolipin Antibodies G,M EDMS 10/20 16:55 Order name: Factor V Leiden Mutation EDMS 10/20 16:55 Order name: Homocysteine EDMS 10/20 16:55 Order name: Miscellaneous Test Lab EDMS 10/20 16:55 Order name: P-ANCA Anti-Myeloperoxidase Ab EDDE 10/20 16:55 Order name: Protein C Antigen EDDE 10/20 16:55 Order name: Protein Electo w/M Moreno Serum EDDE 10/20 16:55 Order name: Protein S (Total EDDE 10/20 16:55 Order name: PROTHROMBIN GENE ANALYSIS (F2) EDDE 10/20 16:55 Order name: RPR [facility] 10/20 16:55 Order name: Vitamin B12 Level EDDE 10/20 16:55 Order name: Vitamin D, 25 ([place]), TOTAL EDDE 10/20 16:55 Order name: Lipid Profile EDDE 10/20 16:55 Order name: Lipid Profile [facility] 10/20 16:55 Order name: T4,Total EDDE 10/20 16:55 Order name: T4,Total [facility] 10/20 16:55 Order name: Thyroid Stimulating Hormone [facility] 10/20 16:55 Order name: Thyroid Stimulating Hormone [facility] 10/20 13:11 Order name: XRAY Chest (1 view); Complete Time: 14:43 ec2 10/20 13:11 Order name: CT Head C Spine; Complete Time: 15:32 ec2 10/20 14:22 Order name: Facial Bones W/O Con CT; Complete Time: 15:29 ec2 10/20 16:55 Order name: Echo with Doppler EDDE 10/20 16:55 Order name: Stroke Protocol [facility] 10/20 16:43 Order name: Physical Therapy Consult [facility] 10/20 16:46 Order name: CONS Physician Consult [facility] 10/20 16:55 Order name: Speech Therapy Consult [facility] 10/20 17:03 Order name: CONS Physician Consult [facility] 10/20 13:11 Order name: Cardiac monitoring; Complete Time: 14:10 ec2 10/20 13:11 Order name: EKG - Nurse/Tech; Complete Time: 14:10 ec2 10/20 13:11 Order name: IV Saline Lock; Complete Time: 13:27 ec2 10/20 13:11 Order name: Labs collected and sent; Complete Time: 13:27 ec2 10/20 13:11 Order name: O2 Per Protocol; Complete Time: 13:56 ec2 10/20 13:11 Order name: O2 Sat Monitoring; Complete Time: 13:56 ec2 Administered Medications: 15:52 Drug: Magnesium Sulfate IVPB 2 grams IVPB once over 30 mins Route: IVPB; Infused Over: hb 30 mins; Site: right forearm; 18:05 Follow up: Response: No adverse reaction; IV Status: Completed infusion; IV Intake: ll1 100ml 15:52 Drug: Aspirin PO Chewable Tablet 324 mg PO once; 81 mg tablets x 4 Route: PO; hb 17:14 Follow up: Response: No adverse reaction ll1 18:05 Not Given (NO IV): potassium [id number] meq IV at calculated rate once; administer over ll1 1-2 hours Disposition Summary: 10/20/24 15:38 Hospitalization Ordered Notes: Hospitalization Status: Inpatient Admission ec2 Provider: Casper Vasques ec2 [facility] ec2 Condition: Stable ec2 Problem: new ec2 Symptoms: are unchanged ec2 Bed/Room Type: Standard ec2 Room Assignment: 217(10/20/24 17:15) kb3 Diagnosis - Facial Bone Fractures, Hypokalemia, QTc prolongation, Weakness, Acute Cerebellar ec2 Infarct Forms: - Medication Reconciliation Form ec2 - SBAR form ec2 - Leadership Thank You Letter ec2 Critical care time excluding procedures: 15:36 Critical care time: Bedside Care: 30 minutes, Consultation: 5 minutes, Family ec2 Intervention: 5 minutes. Total time: 40 minutes Signatures: Dispatcher [employer] EDSheyla Brownlee RN RN Marion Sunshine RN RN kb3 Lake Paige MD MD ec2 Krystina Clark RN RN tm6 Barak Woods RN ll1 Corrections: (The following items were deleted from the chart) 13:12 13:12 Head C Spine MPR Wo Con+CT.RAD.BRZ ordered. EDMS EDMS 14:23 14:22 Facial Bones W/ MPR+CT.RAD.BRZ ordered. EDMS EDMS 17:15 15:38 ec2 kb3
--- NOTE | 2024-10-20 15:38 | ER ---
Nurse's Notes [facility] Name: Lino Dietrich Age: 64 yrs Sex: Male : 1960 Arrival Date: 10/20/2024 Time: 13:04 Bed 6 Private MD: Diagnosis: Facial Bone Fractures, Hypokalemia, QTc prolongation, Weakness, Acute Cerebellar Infarct Presentation: 10/20 13:09 Chief complaint: EMS states: about 1 hour ago, fell down on concrete, hit face. No LOC, tm6 right eye blurry. Coronavirus screen: Client denies travel out of the [place] in the last 14 days. Ebola Screen: Patient negative for fever greater than or equal to 101.5 degrees Fahrenheit, and additional compatible Ebola Virus Disease symptoms Patient denies exposure to infectious person. Patient denies travel to an Ebola-affected area in the 21 days before illness onset. No symptoms or risks identified at this time. Initial Sepsis Screen: Does the patient meet any 2 criteria? HR > 90 bpm. No. Patient's initial sepsis screen is negative. Does the patient have a suspected source of infection? No. Patient's initial sepsis screen is negative. Risk Assessment: Do you want to hurt yourself or someone else? Patient reports no desire to harm self or others. Onset of symptoms was October 20, 2024 at 12:00. 13:09 Method Of Arrival: EMS: [facility] tm6 13:09 Acuity: MG 4 tm6 Triage Assessment: 13:54 General: Appears in no apparent distress. Behavior is calm, cooperative. Pain: tm6 Complains of pain in right eye Pain currently is 2 out of 10 on a pain scale. EENT: Eyes bruising and hematoma round right eye. EENT: Reports blurred vision in right eye since fall. Neuro: Level of Consciousness is awake, alert, obeys commands, Oriented to person, place, time, situation. Cardiovascular: Patient's skin is warm and dry. Respiratory: Airway is patent Respiratory effort is even, unlabored, Respiratory pattern is regular, symmetrical. GI: No signs and/or symptoms were reported involving the gastrointestinal system. Abdomen is flat, non-distended. : No signs and/or symptoms were reported regarding the genitourinary system. Derm: Wound noted right eye Wound is bruising, hematoma. Musculoskeletal: No signs and/or symptoms reported regarding the musculoskeletal system. Historical: - Allergies: 13:54 NKDA; tm6 - PMHx: 13:54 CAD; chronic back pain; COPD; Hepatitis; Hypertension; Kidney stones; [place]; pancreatic tm6 cancere ([place]); - Immunization history:: Flu vaccine is up to date. - Infectious Disease History:: Denies. - Social history:: Smoking status: Patient denies any tobacco usage or history of. Screenin:[facility] ED Fall Risk Assessment (Adult) History of falling in the last 3 months, tm6 including since admission Yes- single mechanical fall (1 pt) Confusion or Disorientation Yes (5 pts) Intoxicated or Sedated No (0 pts) Impaired Gait Yes (1 pt) Mobility Assist Device Used Yes (1 pt) Altered Elimination No (0 pt) Score/Fall Risk Level 3 or more points = High Risk Oriented to surroundings, Maintained a safe environment, Educated pt \T\ family on fall prevention, incl call for assistance when getting out of bed, Provided non-skid footwear. Abuse screen: Denies threats or abuse. Denies injuries from another. Nutritional screening: No deficits noted. Tuberculosis screening: No symptoms or risk factors identified. Assessment: 13:55 General: Appears uncomfortable, Behavior is calm, cooperative, appropriate for age. ll1 Pain: Complains of pain in face Quality of pain is described as aching. Neuro: Reports headache. 13:55 Derm: hematoma to R eye area. ll1 13:57 Reassessment: see triage assessment. tm6 14:55 Reassessment: No changes from previously documented assessment. Patient and/or family ll1 updated on plan of care and expected duration. Pain level reassessed. Patient is alert, oriented x 3, equal unlabored respirations, skin warm/dry/pink. 15:36 Reassessment: No changes from previously documented assessment. Patient and/or family ll1 updated on plan of care and expected duration. Pain level reassessed. Patient is alert, oriented x 3, equal unlabored respirations, skin warm/dry/pink. 17:12 Reassessment: No changes from previously documented assessment. Patient and/or family ll1 updated on plan of care and expected duration. Pain level reassessed. Patient is alert, oriented x 3, equal unlabored respirations, skin warm/dry/pink. 18:12 Reassessment: No changes from previously documented assessment. Patient and/or family ll1 updated on plan of care and expected duration. Pain level reassessed. Patient is alert, oriented x 3, equal unlabored respirations, skin warm/dry/pink. Vital Signs: 13:16 BP 158 / 96 LA Sitting (/reg); Pulse 93; Resp 16; Temp 98.9; Pulse Ox 98% on R/A; tm6 13:57 Weight 71.67 kg; Height 5 ft. 11 in. ; Pain 2/10; tm6 15:37 BP 164 / 96; Pulse 82; Resp 16; Pulse Ox 99% on R/A; ll1 17:11 BP 120 / 82; Pulse 81; Resp 17; Pulse Ox 98% ; ll1 13:57 Body Mass Index 22.04 (71.67 kg, 180.34 cm) tm6 13:57 Pain Scale: Adult tm6 ED Course: 13:08 Patient arrived in ED. hb 13:09 Lake Paige MD is Attending Physician. ec2 13:09 Arm band placed on right wrist. tm6 13:09 Patient has correct armband on for positive identification. Bed in low position. Call tm6 light in reach. Side rails up X2. Provided Education on: use of call edmonds. Client placed on continuous cardiac and pulse oximetry monitoring. NIBP monitoring applied. child monitor on. Pulse ox on. NIBP on. Warm blanket given. Pillow given. 13:26 Barak Woods, RN is Primary Nurse. ll1 13:35 CT Head C Spine In Process Unspecified. EDMS 13:43 XRAY Chest (1 view) In Process Unspecified. EDMS 13:54 Triage completed. tm6 13:56 Initial lab(s) drawn, by me, sent to lab. Missed attempt(s): 22 gauge in right ll1 antecubital area. Bleeding controlled, band aid applied, catheter tip intact. 14:44 Missed attempt(s): 20 gauge in left antecubital area. Bleeding controlled, band aid sa1 applied, catheter tip intact. 14:50 Missed attempt(s): 22 gauge in left antecubital area. Bleeding controlled, band aid ll1 applied, catheter tip intact. 14:55 Missed attempt(s): 20 gauge in left upper arm. Bleeding controlled, band aid applied, ll1 catheter tip intact. 15:02 Facial Bones W/O Con CT In Process Unspecified. EDMS 15:38 Casper Vasques MD is Hospitalizing Provider. ec2 15:49 Inserted saline lock: 20 gauge in right antecubital area, using aseptic technique. hb ,using aseptic technique. US GUIDED Flushed with 10 mL NS. 16:15 Notified Charge Nurse of Unable to get IV after multiple attempts with multiple ll1 personnel. Mid line nurse contacted by Charge Nurse. Currently doing a Mid line and he will be next. Patient informed. 16:16 IV discontinued, intact, bleeding controlled, No redness/swelling at site. Pressure ll1 dressing applied. 18:08 No provider procedures requiring assistance completed. ll1 Administered Medications: 15:52 Drug: Magnesium Sulfate IVPB 2 grams IVPB once over 30 mins Route: IVPB; Infused Over: hb 30 mins; Site: right forearm; 18:05 Follow up: Response: No adverse reaction; IV Status: Completed infusion; IV Intake: ll1 100ml 15:52 Drug: Aspirin PO Chewable Tablet 324 mg PO once; 81 mg tablets x 4 Route: PO; hb 17:14 Follow up: Response: No adverse reaction ll1 18:05 Not Given (NO IV): potassium [id number] meq IV at calculated rate once; administer over ll1 1-2 hours Medication: 18:14 VIS not applicable for this client. ll1 Intake: 18:05 IV: 100ml; Total: 100ml. ll1 Outcome: 15:38 Decision to Hospitalize by Provider. ec2 17:46 Admitted to Med/surg accompanied by tech, via wheelchair, room 217, with chart, Report ll1 called to faxed to 2nd 17:46 Condition: stable 18:08 Patient left the ED. ll1 18:14 Instructed on the need for admit, ll1 Signatures: Dispatcher [employer] EDSheyla Brownlee RN RN Barak Woods RN RN ll1 Lake Paige MD MD ec2 Krystina Clark RN RN tm6 Sultan Ruben 1 Corrections: (The following items were deleted from the chart) 14:12 13:16 BP 158 / 96 Sitting L Arm Regular; Pulse 93bpm; Pulse Ox 98% RA; Temp 98.9F; sa1 tm6 15:36 13:55 Neuro: Reports a syncopal episode weakness ll1 ll1
--- NOTE | 2024-10-20 16:46 | P.HP ---
Certification for Inpatient Patient admitted to: Observation With expected LOS: <2 Midnights Practitioner: I am a practitioner with admitting privileges, knowledge of patient current condition, hospital course, and medical plan of care. Services: Services provided to patient in accordance with Admission requirements found in Title 42 Section 412.3 of the Code of Federal Regulations Patient History Date of Service: 10/20/24 Reason for admission: CVA, Trauma fall History of Present Illness: Lino Dietrich is a 64 year old male with Pmhx CAD, chronic back pain, COPD, Hepatitis, Hypertension, Kidney stones, [place], pancreatic cancere ([place]) who presented to the ED after a fall hitting his right face on the ground. He reports no loss of consciousness, but explains he is falling several times everyday. He reports not starting any medications, he does not take blood pressure medications, he feels he eats enough every day. Laboratory evaluation significant for potassium of 2.3, serum glucose 159, troponin 89.7, left shift with neutrophils 81.6. Initial vitals BP 158 / 96 LA Sitting (/reg); Pulse 93; Resp 16; Temp 98.9; Pulse Ox 98% on R/A; Chest xray reports "No acute abnormality is displayed." CT maxillofacial reports "Minimally displaced fracture lateral wall right maxillary sinus. Nondisplaced fracture right orbital floor. Right periorbital hematoma. The right globe is intact. Several air bubbles are present anterior to the right globe and adjacent to the right maxillary sinus." CT head/cervical spine reports "Low density area left cerebellum may represent an acute infarction. Low-density area left occipital parietal region probably infarction. Age is indeterminate. Small low-density areas basal ganglia and right thalamus probably lacunar infarcts of indeterminate age. MRI of the brain would be helpful for further evaluation. Fracture lateral wall right orbit incompletely evaluated on this exam. Dedicated CT face could be obtained for further evaluation. Lino Dietrich will be admitted to hospital service for further evaluation and treatment of CVA, right periorbital hematoma and fracture. Allergies No Known Drug Allergies Allergy (Verified 06/28/18 05:56) Unknown Home Medications: Amlodipine [Norvasc*] 5 mg PO DAILY 04/09/20 Apixaban [Eliquis] 5 mg PO BID 04/09/20 Hydrocodone Bit/Acetaminophen [Hydrocodon-Acetaminophn 10-325] 1 each PO QIDP PRN 04/09/20 Lisinopril [Zestril] 20 mg PO DAILY 04/09/20 Metoprolol Succinate [Toprol Xl*] 50 mg PO BID 6AM 6PM 04/09/20 hydroCHLOROthiazide [Hydrochlorothiazide] 12.5 mg PO DAILY 04/09/20 Aspirin [Aspirin EC 81 MG] 162 mg PO DAILY #60 tablet. 04/10/20 Atorvastatin Calcium [Lipitor] 40 mg PO BEDTIME #30 tablet 04/10/20 - Past Medical/Surgical History Diabetic: No -: htn -: chronic back pain -: shingles went into nerves in left eye -: Tobacco abuse -: hep c -: kidney stones -: Back upnolmq-Fyaycglvslkt-Nf. Bashir- hardware present -: Cholecystectomy Psychosocial/ Personal History: Has fiance, No children, Work-none - Family History Father -: Stroke Mother -: Hypertension - Social History Alcohol use: No CD- Drugs: No Caffeine use: No Review of Systems General: Weakness Eyes: Pain (Right eye), Redness ENT: Other (Dentures) Neurological: Weakness, Other ("Fall out") Physical Examination - Physical Exam General: Alert, In no apparent distress, Oriented x3 HEENT: PERRLA, Other (right facial bruising and abrasions), EOMI Neck: Supple, 2+ carotid pulse no bruit Respiratory: Clear to auscultation bilaterally, Normal air movement Cardiovascular: No edema, Normal pulses, Regular rate/rhythm, Normal S1 S2 Capillary refill: <2 Seconds Gastrointestinal: Normal bowel sounds, Hypoactive Musculoskeletal: No clubbing Integumentary: No rashes Neurological: Normal speech, Normal tone - Studies Laboratory Data (last 24 hrs) 10/20/24 10/20/24 13:55 13:55 WBC 6.50 Hgb 12.2 L Hct 36.5 L Plt Count 113 L Sodium 140 Potassium 2.3 L* D BUN 17 Creatinine 0.62 L Glucose 159 H Assessment and Plan - Plan Assessment and Plan Acute CVA Frequent Falls -CT head/cervical spine reports "Low density area left cerebellum may represent an acute infarction. Low-density area left occipital parietal region probably infarction. Age is indeterminate. Small low-density areas basal ganglia and right thalamus probably lacunar infarcts of indeterminate age." -hold plavix and aspirin with hematoma to right periorbit - Consulted Neurology - recommendations appreciated - Admit under observation status - No neurologic deficits on my exam - NIHSS = 0 - Allow permissive hypertension for tonight - q4hr neurochecks - Ordered MR brain + MRA head/neck - Ordered TTE - PT/OT evaluation requested - Ordered risk profile: Hgb A1c, lipid panel, TSH - Started folic acid, atorvastatin -orthostatic vitals Elevated troponin History of [place] -Troponin 89.7, serial pending -Consider cardiology consult -continuous telemetry Prolonged QT 2/2 hypokalemia -hold all medications that prolong QT -K 2.3 -replaced in ED, Redraw tonight Trauma /Fall Weakness and debilitation Right periorbital hematoma -Consult Dr. Anna for CT maxillofacial image review -CT maxillofacial reports "Minimally displaced fracture lateral wall right maxillary sinus. Nondisplaced fracture right orbital floor. Right periorbital hematoma. The right globe is intact. Several air bubbles are present anterior to the right globe and adjacent to the right maxillary sinus." -CT head/cervical spine reports "Fracture lateral wall right orbit incompletely evaluated on this exam. Dedicated CT face could be obtained for further evaluation." -Nasal precautions: Do not lift greater than 10 pounds Do not blow nose Do not use a straw Sleep with HOB elevated at 30 degrees Watch for blood from nose -Follow up with opthamology at discharge, delay reasonable for CVA admission -EOMI present, right eye palpable-nonrigid, HTN -monitor BP, allow permissive hypertension tonight DVT ppx SCD, hold lovenox with right periorbital hematoma Full code LOS 2 days Discharge Plan: Home Plan to discharge in: 48 Hours - Advance Directives Does patient have a Living Will: No Does patient have a Durable POA for Healthcare: No
--- NOTE | 2024-10-20 17:00 | P.CNS ---
Date of Consult: 10/20/24 I was asked by ER staff, LENS CEMENTER Rupinder Lemus, to review and comment on CT scan of the face in order to assist in medical decision making especially in regards to any need to transfer for higher level of care. I was informed of the following - the patient suffered CVA and fell and was brought to ER and evaluated including performance of imaging. The ER reported verbally that the patient was alert with facial bruising and swelling and was able to open the eyes. I reviewed the CT face which showed nondisplaced fracture of the right maxillary sinus and right orbit with some subcutaneous air in the right lower eye lid and soft tissue emphysema around the sinus fracture site. I do not see any role for operative management of the sinus fracture. 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 In lieu of immediate consultation, I recommended the ER staff check and document extraocular movements, pupillary response and monocular vision testing and monitor for any changes. There is no ENT indication for admission and the patient was not personally interviewed nor examined by me. I spent a total of 20 minutes with review of imaging, documention and direct communication via text and telephone.
[2024-10-20 18:52] VITALS: BMI 22.0
[2024-10-20] MEDS: NA CHLORIDE 0.9% 1,000 ML IV SCH (18:55)
[2024-10-20] MEDS: Mupirocin NASAL 2 APPL/1 GM TUBE NAS SCH (20:09)
[2024-10-20] MEDS ORDERED: AYR NASAL SALINE DROPS NAS PRN (20:42)
[2024-10-20] MEDS: ATORVASTATIN 40 MG TAB PO SCH (21:26)
[2024-10-20] MEDS: POTASSIUM CL SA 10 MEQ TAB PO SCH (21:27)
[2024-10-21] MEDS: MORPHINE 2 MG/ML SYR IV PRN (03:23)
[2024-10-21 04:05] LABS: Calcium Oxalate Crystals- Ur Few /HPF (None Seen); Specific Gravity 1.023 (1.005-1.030); Sqamous Epithelial <5 /HPF (None Seen); Urine Bacteria None Seen /HPF (<20); Urine Bilirubin NEGATIVE (Negative); Urine Blood 3+ (OVER) (Negative); Urine Clarity Extremely Turbid (Clear); Urine Color Yellow (Yellow); Urine Culture Reflex Order REFLEXED; Urine Glucose 4+ (Over) (Negative); Urine Ketones NEGATIVE (Negative); Urine Micro Reflex YN NO BILL MICROSCOPIC; Urine Mucus 1+ /HPF (None Seen); Urine Nitrite NEGATIVE (Negative); Urine Protein 1+ (Negative); Urine RBC >50 /HPF (None Seen); Urine Urobilinogen 1+ (Normal); Urine WBC 20-50 /HPF (<5)
[2024-10-21 04:47] LABS: Hemoglobin 11.5 g/dL (13.6-17.9); MCH 33.5 pg (27.0-35.0); MPV 10.4 fL (7.6-11.3); RBC Red Blood Cell Count 3.44 M/uL (4.33-5.43)
[2024-10-21 04:54] LABS: Absolute Eosinophils 0.1 K/uL (0-0.5); Absolute Lymphocytes (CBC) 0.8 K/uL (0.7-4.9); Absolute Monocytes 0.5 K/uL (0.1-1.3); Absolute Neutrophil 5.1 K/uL (1.8-8.0); Basophils % 0.4 % (0-1.3); Eosinophils % 1.7 % (0-4.4); Hematocrit 33.5 % (39.6-49.0); MCHC 34.3 g/dL (32.0-36.0); MCV 97.5 fL (80-100); Monocytes % 8.2 % (3.3-12.3); Neutrophils % 77.7 % (41.7-73.7); Nucleated Red Blood Cells % 0.1 % (0-0); Platelets 108 thou/uL (152-406)
[2024-10-21 05:12] LABS: Anion Gap 7.3 mEq/L (5.0-15.0); Magnesium 1.6 mg/dL (1.6-2.4); Phosphorus 1.7 mg/dL (2.5-4.9); T4,Total 9.8 ug/dL (4.5-12.1); Thyroid Stimulating Hormone 1.23 uIU/mL (0.358-3.740)
[2024-10-21 05:14] LABS: Potassium 2.3 mEq/L (3.5-5.1); Troponin High Sensitivity 80.3 pg/mL (<58.9)
[2024-10-21] MEDS: MAGNESIUM SULFATE 1 gm IVPB 1 GM/100 ML BAG IV ONE (06:34)
[2024-10-21] MEDS: POTASS/SODIUM PHOSPHATE 1 PKT POWD.PACK PO ONE ×2 (07:00→15:30)
--- NOTE | 2024-10-21 09:03 | RAD REPORT ---
EXAMINATION: CAROTID DUPLEX ULTRASOUND CLINICAL INDICATION: Acute CVA TECHNIQUE: Real-time grayscale, color flow and spectral Doppler sonographic images were obtained of t he extracranial carotid system using a linear transducer. COMPARISON: No prior exam. FINDINGS: RIGHT: Common carotid artery: 65 cm/s Internal carotid artery: 100 cm/s External carotid artery: 90 cm/s Right ICA/CCA ratio: 1.6 Plaque: Mild hard plaque at the carotid bulb. Vertebral artery Antegrade LEFT: Common carotid artery: 50 cm/s Internal carotid artery: 73 cm/s External carotid artery: 82 cm/s Left ICA/CCA ratio: 1.5 Plaque: Mild to moderate hard plaque at the carotid bulb Vertebral artery Antegrade IMPRESSION: No hemodynamically significant stenosis (greater than 50%) within the extracranial internal carotid a rteries. The degrees of stenosis, if any, are quantified according to the consensus statement of the Society o f Radiologists in Ultrasound (SRUS). Please refer to Evaristo E, Gautam C, Harsha G et al. Carotid Artery Stenosis: John-Scale and Doppler US Diagnosis--Society of Radiologists in Ultrasound Consensus Conference. Radiology. 2003;229(2):340-6.
[2024-10-21] MEDS: FOLIC ACID 1 MG TABLET PO SCH (09:55)
[2024-10-21] MEDS: POTASSIUM CL 40 MEQ in NA CHLORIDE 0.9% 500 ML IV SCH (09:55)
--- NOTE | 2024-10-21 11:00 | P.PN ---
Date of Service: 10/21/24 Subjective Sleeping comfortably this AM, when awake, sitting on the side of the bed, observed ambulating with physical therapy MRI head showing multi infarcts, Dr. Ingram visited with the family, Lino will be off balance and require further physical therapy right eye bruised, hematoma, good EOMI, reports some blurred vision int ermittently. ROS 10 point ROS as noted above, otherwise negative Physical Exam General: Sleeping but awakens easily, Alert, Oriented x3, NAD HEENT: PERRLA, Other (right facial bruising and abrasions), EOMI Neck: Supple, 2+ carotid pulse no bruit Respiratory: Clear to auscultation bilaterally, Normal air movement Cardiovascular: No edema, Normal pulses, NSR, Normal S1 S2 Capillary refill: <2 Seconds Gastrointestinal: Normal bowel sounds, Hypoactive, soft on palpation Musculoskeletal: No clubbing Integumentary: No rashes Neurological: Normal speech, Normal tone Vitals Reviewed Problem list Multiple acute infarction/18 mm left cerebellar/4.4 cm left occipital lobe/13 mm left frontal lobe [place] Elevated troponin History of [place] Prolonged QT 2/2 hypokalemia Trauma /Fall Weakness and debilitation Right periorbital hematoma Minimally displaced fracture lateral wall right maxillary sinus HTN Assessment and Plan Multiple acute infarction/18 mm left cerebellar/4.4 cm left occipital lobe/13 mm left frontal lobe F[place] -CT head/cervical spine reports "Low density area left cerebellum may represent an acute infarction. Low-density area left occipital parietal region probably infarction. Age is indeterminate. Small low-density areas basal ganglia and right thalamus probably lacunar infarcts of indeterminate age." -MRI brain reports ": Multiple areas of acute infarction are noted. These involve both cerebellar hemispheres, greater on the left measuring up to 18 mm. There is also a moderate-sized 4.4 cm area of infarct left occipital lobe. Several foci of infarction also seen in both parietal lobes as well as the left frontal lobe measuring 13 mm. No acute hemorrhage, hydrocephalus or midline shift." -hold plavix and aspirin with hematoma to right periorbital hematoma - Consulted Neurology - recommendations appreciated - Admit under observation status - No neurologic deficits on my exam - NIHSS = 0 - Allow permissive hypertension for tonight - q4hr neurochecks - Bilateral carotid US reports Right mild hard plaque at the carotid bulb and Left carotid with mild to moderate hard plaque at the carotid bulb - ECHO results pending - PT consulted -MANAGER PHARMACEUTICAL consulted - Ordered risk profile: Hgb A1c pending, lipid panel (Triglycerides 112, Cholesterol 110, LDL 66, HDL 22), TSH/free T4 1.230/9.8 - Started folic acid, atorvastatin -orthostatic vitals -Unknown time of last known normal, TNK/antithrombotics not appropriate Elevated troponin History of [place] -Troponin 89.7, 80.3- troponin last night was cancelled -Consider cardiology consult -continuous telemetry Prolonged QT 2/2 hypokalemia -hold all medications that prolong QT -K 2.3, redraw tonight -replaced in ED, Redraw last night was cancelled -Potassium BID today with potassium IV replaced this morning Trauma /Fall Weakness and debilitation Right periorbital hematoma Minimally displaced fracture lateral wall right maxillary sinus -Consult Dr. Anna for CT maxillofacial image review -CT maxillofacial reports "Minimally displaced fracture lateral wall right maxillary sinus. Nondisplaced fracture right orbital floor. Right periorbital hematoma. The right globe is intact. Several air bubbles are present anterior to the right globe and adjacent to the right maxillary sinus." -CT head/cervical spine reports "Fracture lateral wall right orbit incompletely evaluated on this exam. Dedicated CT face could be obtained for further evaluation." -Nasal precautions: Do not lift greater than 10 pounds Do not blow nose Do not use a straw Sleep with HOB elevated at 30 degrees Watch for blood from nose -Follow up with opthamology at discharge, delay reasonable for CVA admission -EOMI present, right eye palpable-nonrigid -Inpatient rehab recommended HTN Pulmonary embolism -monitor BP, allow permissive hypertension tonight -Chart reviewed, history of Pulmonary embolism 04/10/20, on chronic eliquis, will hold with current right periorbital hematoma DVT ppx SCD, hold lovenox with right periorbital hematoma Full code LOS 2 days Discharge Plan: Home Plan to discharge in: 48 Hours
--- NOTE | 2024-10-21 11:48 | RAD REPORT ---
EXAMINATION: MRI BRAIN WITHOUT CONTRAST CLINICAL INDICATION: CVA per CT head TECHNIQUE: Multiplanar multisequence MR images of the brain were obtained without intravenous contras t. Unless otherwise specified, incidental findings do not require dedicated imaging follow-up. COMPARISON: 10/20/2024 FINDINGS: INTRACRANIAL: Multiple areas of acute infarction are noted. These involve both cerebellar hemispheres , greater on the left measuring up to 18 mm. There is also a moderate-sized 4.4 cm area of infarct left occipital lobe. Several foci of infarction also seen in both parietal lobes as well as the left frontal lobe measuring 13 mm. No acute hemorrhage, hydrocephalus or midline shift. VASCULATURE: Normal signal voids in the larger intracranial arteries and dural venous sinuses. SINUSES: The paranasal sinuses and mastoid air cells are predominantly clear. BONE: The marrow signal pattern is within normal limits. IMPRESSION: Multiple bilateral areas of acute CVA as detailed. The distribution of these infarcts includes multip le vascular territories, suggesting potential embolic etiology.
--- NOTE | 2024-10-21 13:30 | P.CNS ---
Date of Consult: 10/21/24 Chief Complaint: CVA, Trauma fall History of Present Illness: Patient presented with acute CVA and fall with facial fracture, he denies syncope, report lot of problems with balance, denies cardiac history although his medications list shows Eliquis and BP medications, he can not really answer why he is on Eliquis. Allergies No Known Drug Allergies Allergy (Verified 06/28/18 05:56) Unknown Home medications list reviewed: Yes Home Medications: Amlodipine [Norvasc*] 5 mg PO DAILY 04/09/20 Apixaban [Eliquis] 5 mg PO BID 04/09/20 Hydrocodone Bit/Acetaminophen [Hydrocodon-Acetaminophn 10-325] 1 each PO QIDP PRN 04/09/20 Lisinopril [Zestril] 20 mg PO DAILY 04/09/20 Metoprolol Succinate [Toprol Xl*] 50 mg PO BID 6AM 6PM 04/09/20 hydroCHLOROthiazide [Hydrochlorothiazide] 12.5 mg PO DAILY 04/09/20 Aspirin [Aspirin EC 81 MG] 162 mg PO DAILY #60 tablet. 04/10/20 Atorvastatin Calcium [Lipitor] 40 mg PO BEDTIME #30 tablet 04/10/20 - Past Medical/Surgical History Diabetic: No -: htn -: chronic back pain -: shingles went into nerves in left eye -: Tobacco abuse -: hep c -: kidney stones -: Back adknllx-Yzofdjvtnehm-Bz. Bashir- hardware present -: Cholecystectomy Psychosocial/ Personal History: Has fiance, No children, Work-none - Family History Father Medical History: Stroke Mother Medical History: Hypertension - Social History Smoking Status: Current every day smoker Alcohol use: No CD- Drugs: No Caffeine use: No Place of Residence: Home Review of Systems 10-point ROS is otherwise unremarkable Physical Examination Temp Pulse Resp BP Pulse Ox 98.5 F 75 16 163/97 H 97 10/21/24 12:00 10/21/24 12:00 10/21/24 12:00 10/21/24 12:00 10/21/24 12:00 General: Alert, In no apparent distress HEENT: Atraumatic, PERRLA, Mucous membr. moist/pink, EOMI, Sclerae nonicteric Neck: Supple, 2+ carotid pulse no bruit, No LAD, Without JVD or thyroid abnormality Respiratory: Clear to auscultation bilaterally, Normal air movement Cardiovascular: Regular rate/rhythm, Normal S1 S2 Gastrointestinal: Normal bowel sounds, No tenderness Musculoskeletal: No tenderness Integumentary: No rashes Neurological: Normal gait, Normal speech, Normal tone, Normal affect Lymphatics: No axilla or inguinal lymphadenopathy Laboratory Data (last 24 hrs) 10/20/24 10/20/24 13:55 13:55 WBC 6.50 Hgb 12.2 L Hct 36.5 L Plt Count 113 L Sodium 140 Potassium 2.3 L* D BUN 17 Creatinine 0.62 L Glucose 159 H - Problems (1) Elevated troponin Current Visit: Yes Status: Acute Plan: mild elevated troponin that is trending down, denies chest pain, no significant EKG changes, most likely type 2 FL from recent fall and CVA. get Echo (2) CVA (cerebral vascular accident) Current Visit: No Status: Acute Plan: Patient BP is mild elevated, will allow some permissive HTN for 24 hours after stroke, Tele monitor shows no significant arrhythmia advised patient that he will need outpatient event monitor. Qualifiers: Precerebral and cerebral artery: small artery (3) HTN (hypertension) Onset Date: 06/14/18 Current Visit: No Status: Chronic Plan: resume BP medications once ok with Neurology team start with Toprol XL 50 mg daily Lisinopril 20 mg daily if BP stays high then can add HCTZ and Norvasc. Qualifiers: Hypertension type: essential hypertension Qualified Code(s): I10 - Essential (primary) hypertension
[2024-10-21] MEDS: POTASSIUM CL SA 10 MEQ TAB PO ONE (15:30)
--- NOTE | 2024-10-21 15:42 | EKG ---
Test Date: 2024-10-20 Test Time: 14:04:04 Cable Respooler: LAWANDA MEASUREMENT RESULTS: Intervals: Rate: 84 OK: 216 QRSD: 90 QT: 518 QTc: 612 [place]: P: OK: 216 QRS: -54 T: 15 INTERPRETIVE STATEMENTS: Sinus rhythm with 1st degree AV block Left axis deviation Inferior infarct, age undetermined Anterolateral infarct, age undetermined Prolonged QT Abnormal ECG Compared to ECG 10/19/2024 14:59:10 First degree AV block now present Prolonged QT interval now present Accelerated junctional rhythm no longer present ST (T wave) deviation no longer present Possible ischemia no longer present Myocardial infarct finding still present Electronically Signed On 10-21-24 15:40:04 STEEL ERECTOR by Armond Raphael
--- NOTE | 2024-10-21 19:35 | CON ---
Reason For Consultation: Consultation called because of multiple strokes. Chief Complaint: Had strokes and pancreatic cancer and he actually became emotional. History Of Present Illness: Mr. Dietrich is a 64-year-old right-handed patient with stage IV pancreatic cancer, hypertension, hepatitis, multiple kidney stones, COPD, chronic back pain, who had been falling for a few days without warning and unable to protect his face with the falls. After a s ignificant fall on the , where he impacted his right face on the ground and had severe pain. He came to [facility], where head and cervical spine CT scan identified a fracture in the later al wall of the right maxillary sinus, it was then completely evaluated by the imaging study. There w as an area of low density in the left cerebellum suspicious for infarct. Patchy low-density area in the left occipital and parietal region also identified. There was no intracranial bleeding. Ventric les were of normal size. The MRI subsequently done today showed multiple areas of acute infarct in b oth cerebellar hemispheres on the left at 18 mm, on the left occipital lobe 4.4 cm in size, in additi on left frontal lobe 13 mm area. The signal voids in the larger intracranial arteries and dural sinu ses were normal. The impression in the MRI is multiple bilateral areas of acute infarct noted as the y were in multiple vascular territories left, right, front, and back suggesting of embolic etiology, most likely cardioembolic. The patient did receive IV fluids, electrolyte replacement, , f olic acid. He has not received aspirin. It is noted there is no hemorrhage on his brain MRI. No ev idence of brain metastases, it is a pancreatic cancer. His laboratory studies did show significant h ypokalemia of 2.3 and elevated troponin I of 89.7, and he is evaluated by Cardiology for myocardial i nfarction. 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 He has had back surgery by Dr. Braswell with hardware present. Cholecystectomy. Medications: At home, aspirin 162 mg daily, Lipitor 40 mg at bedtime, hydrochlorothiazide 12.5 mg da izzy, Toprol 50 mg twice daily, lisinopril 20 mg daily, [place] 10/325 every 4 hours as needed, Eliquis 5 mg twice daily, Norvasc 5 mg daily. X-ray/imaging: Please note, a CT scan of the face did show minimally displaced fracture of the later al wall of the right maxillary sinus, nondisplaced fracture of the right orbital floor. There is rig ht periorbital hematoma. The right globe is intact. Air bubbles present anterior to the right lobe and adjacent to the right maxillary sinus. Laboratory Studies: White blood cell count 6.3, hemoglobin 11.5, platelets 108. pending. Sodium 140, potassium 2.3, chloride 105, BUN 17, creatinine 0.62, calcium 8.4. Troponin I 89.7. V itamin B12 is greater than 2000. Vitamin D is 31.3. Urinalysis shows 1+ urobilinogen, 75 esterase, greater than 50 red blood cells, white blood cells 20 to 50, 3+ blood, 4+ glucose, extreme clarity, a nd total protein is 1+. Carotid artery ultrasound shows no hemodynamically significant stenosis grea ter than 50% within the extracranial internal carotid arteries. Physical Examination: Vital Signs: Blood pressure 163/97, pulse 75, respiratory rate 12 to 18, temperature 98.6, oxygen sa turation 97%. Weight 158 pounds, height 5 feet 11 inches, BMI 22.0. General: Mr. Dietrich is lying in bed. He does have hematoma beneath the right eye, some bruising abov e as well from the fall where he impacted the ground. He does have some pain in that area. Chest: Clear. Heart: Regular. Extremities: Show some bruising, but no clubbing or cyanosis. Neurological: appears symmetric. Obviously, some swelling beneath the right eye, makes i t difficult for him to fully or move the face. His sensation appears intact. Arms do hav e some dysmetria noted bilaterally. Also in the lower extremities, some difficulty with coordination in terms of [id number]. His strength appears symmetrically weak in upper and lower extremities an d difficult to fully assess sensation. Does not appear to have significant focal sensory deficits. He has not ambulated and will ambulate. Attempts will be made with physical therapy to have the juan ent up and ambulate. Assessment: Mr. Dietrich is a 64-year-old patient with likely a hypercoagulable state in addition to guevara ving likely cardioembolic strokes in anterior, posterior, left, and right vascular territories. He h as had significant cerebellar and occipital strokes, largely away from the motor area. Deficits to i nclude incoordination, unsteady gait with high risk of falls, likely the reason for the patient losin g his balance and falling and he is unable to be fully aware that he is about to fall as he will have a very difficult time protecting himself from falling and at this point should be mobilized via a wh eelchair and a [id number] transfer done with both hands on a 2-wheeled walker at all times. He i s to be seen in the [facility] by the oncologist, Dr. Torres. He is also followed by Cardiology and ENT. As noted, he has multiple medical comorbid conditions. Plan: The patient may require full anticoagulation such as Eliquis 5 mg twice daily for the likely c ardioembolic strokes he suffered, high-dose statin 80 mg at night, folic acid 1 mg daily. At this po int, may have mild permissive hypertension over the next 5 days, then attempt to move towards normal systolic blood pressures. He may be evaluated by the Therapy Service to determine his need for physi amarilis, occupational, and speech therapy and if acute inpatient rehab is appropriate. His pain may be m anaged as needed with Tylenol and if need be, low dose of narcotic. Gabapentin may also be considere d at least 100 mg twice daily. The patient will be followed while in hospital or if he is of course transferred to the inpatient rehab unit. KYLAH/MONI Voice ID: [id number] Report ID: [id number]
[2024-10-21] MEDS: HYDROCODONE/APAP 7.5/325 MG TAB PO PRN (19:57)
[2024-10-21] MEDS: ENSURE ENLIVE 237 ML CAN PO SCH (20:01)
[2024-10-22 04:40] LABS: RPR (Rapid Plasma Reagin) NON-REACT (NON-REACT)
--- NOTE | 2024-10-22 07:33 | P.PN ---
Date of Service: 10/22/24 Subjective Awake sitting on the side of the bed bed mobility at baseline Some "off balance" observed during ambulation reports Lino would prefer to go home vs inpatient rehab and attend physical therapy outpatient Lino will need to see an medical office receptionist assistant upon discharge when that time comes. Squirrel Man, Dr. Anthony consulted, recommends outpatient evaluation at his clinic. Eye exam with EOMI intact, right eye peripheral vision declined to seeing shadows and denies tunneled vision Lovenox tonight, will monitor for bleeding Will need an ECHO prior to discharge, likely Thursday ROS 10 point ROS as noted above, otherwise negative Physical Exam General: Alert, Oriented x3, NAD HEENT: PERRLA, Other (right facial bruising and abrasions), EOMI Neck: Supple, 2+ carotid pulse no bruit Respiratory: Clear to auscultation bilaterally, Normal air movement Cardiovascular: No edema, Normal pulses, NSR, Normal S1 S2 Capillary refill: <2 Seconds Gastrointestinal: Normal bowel sounds, soft on palpation, NT/ND Musculoskeletal: No clubbing Integumentary: No rashes Neurological: Normal speech, Normal tone Vitals Reviewed Problem list Multiple acute infarction/18 mm left cerebellar/4.4 cm left occipital lobe/13 mm left frontal lobe [place] Elevated troponin History of [place] Prolonged QT 2/2 hypokalemia Trauma /Fall Weakness and debilitation Right periorbital hematoma Minimally displaced fracture lateral wall right maxillary sinus HTN Assessment and Plan Multiple acute infarction/18 mm left cerebellar/4.4 cm left occipital lobe/13 mm left frontal lobe Cardioembolic stroke with history of pancreatic cancer [place] -CT head/cervical spine reports "Low density area left cerebellum may represent an acute infarction. Low-density area left occipital parietal region probably infarction. Age is indeterminate. Small low-density areas basal ganglia and right thalamus probably lacunar infarcts of indeterminate age." -MRI brain reports ": Multiple areas of acute infarction are noted. These involve both cerebellar hemispheres, greater on the left measuring up to 18 mm. There is also a moderate-sized 4.4 cm area of infarct left occipital lobe. Several foci of infarction also seen in both parietal lobes as well as the left frontal lobe measuring 13 mm. No acute hemorrhage, hydrocephalus or midline shift." -hold plavix and aspirin with right periorbital hematoma - Consulted Neurology - recommendations appreciated - Admit under observation status - No neurologic deficits on my exam - NIHSS = 0 - Allow permissive hypertension for tonight - q4hr neurochecks - Bilateral carotid US reports Right mild hard plaque at the carotid bulb and Left carotid with mild to moderate hard plaque at the carotid bulb - ECHO pending, machine is currently down - PT ambulating -BID MANAGER recommends thin liquids and regular diet - Ordered risk profile: Hgb A1c pending, lipid panel (Triglycerides 112, Cholesterol 110, LDL 66, HDL 22), TSH/free T4 1.230/9.8 - Started folic acid, atorvastatin -orthostatic vitals -Unknown time of last known normal, TNK/antithrombotics not appropriate Elevated troponin History of [place] -Troponin 89.7, 80.3 -Consider cardiology consult -continuous telemetry Prolonged QT 2/2 hypokalemia -hold all medications that prolong QT -K 3.1-improved -replaced in ED, Redraw last night was cancelled -Potassium BID today with potassium IV replaced this morning Trauma /Fall Weakness and debilitation Right periorbital hematoma Minimally displaced fracture lateral wall right maxillary sinus -Consult Dr. Anna for CT maxillofacial image review -CT maxillofacial reports "Minimally displaced fracture lateral wall right maxillary sinus. Nondisplaced fracture right orbital floor. Right periorbital hematoma. The right globe is intact. Several air bubbles are present anterior to the right globe and adjacent to the right maxillary sinus." -CT head/cervical spine reports "Fracture lateral wall right orbit incompletely evaluated on this exam. 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 Torres d/t continual falling HTN Pulmonary embolism -monitor BP, allow permissive hypertension tonight -Chart reviewed, history of Pulmonary embolism 04/10/20, on chronic eliquis, will hold with current right periorbital hematoma DVT ppx SCD, hold lovenox with right periorbital hematoma Full code LOS 2 days Discharge Plan: Home Plan to discharge in: 48 Hours
[2024-10-22] MEDS: KCL 20 MEQ/100 mL IVPB 20 MEQ/100 ML BAG IV SCH (08:00)
[2024-10-22 09:27] LABS: Anion Gap 7.1 mEq/L (5.0-15.0); Magnesium 1.7 mg/dL (1.6-2.4); Phosphorus 1.8 mg/dL (2.5-4.9); Potassium 3.1 mEq/L (3.5-5.1)
[2024-10-22] MEDS: ENOXAPARIN 40 MG/0.4 ML SQ SCH (16:13)
[2024-10-23 06:19] LABS: Absolute Eosinophils 0.1 K/uL (0-0.5); Absolute Lymphocytes (CBC) 0.7 K/uL (0.7-4.9); Absolute Monocytes 0.5 K/uL (0.1-1.3); Absolute Neutrophil 4.9 K/uL (1.8-8.0); Basophils % 0.3 % (0-1.3); Eosinophils % 1.7 % (0-4.4); Hematocrit 32.9 % (39.6-49.0); Hemoglobin 10.8 g/dL (13.6-17.9); MCH 32.9 pg (27.0-35.0); MCHC 32.8 g/dL (32.0-36.0); MCV 100.2 fL (80-100); MPV 10.3 fL (7.6-11.3); Monocytes % 8.6 % (3.3-12.3); Neutrophils % 78.4 % (41.7-73.7); Platelets 101 thou/uL (152-406); RBC Red Blood Cell Count 3.29 M/uL (4.33-5.43); Red Cell Distribution Width 16.2 % (12.1-15.2)
[2024-10-23 06:32] LABS: Anion Gap 7.8 mEq/L (5.0-15.0); Magnesium 1.6 mg/dL (1.6-2.4); Phosphorus 1.9 mg/dL (2.5-4.9); Potassium 3.8 mEq/L (3.5-5.1)
[2024-10-23] MEDS: POTASSIUM PHOS IN 0.9 % NACL 15 MMOL/250 ML BAG IV ONE (10:08)
--- NOTE | 2024-10-23 12:45 | P.PN ---
Subjective Date of Service: 10/23/24 Chief Complaint: CVA, Trauma fall Subjective: No new changes, No C/O voiced, Tolerating diet, Ambulating, Improving Review of Systems 10-point ROS is otherwise unremarkable Physical Examination - Vital Signs Temperature: 97.7 F Blood Pressure: 183/94 Pulse: 82 Respirations: 12 Pulse Ox (%): 97 - Physical Exam General: Alert, In no apparent distress HEENT: Atraumatic, PERRLA, EOMI Neck: Supple, JVD not distended Respiratory: Clear to auscultation bilaterally, Normal air movement Cardiovascular: Regular rate/rhythm, Normal S1 S2 Gastrointestinal: Normal bowel sounds, No tenderness Musculoskeletal: No tenderness Integumentary: No rashes Neurological: Normal speech, Normal tone, Normal affect Lymphatics: No axilla or inguinal lymphadenopathy - Studies Medications List Reviewed: Yes Assessment And Plan - Current Problems (Diagnosis) (1) Elevated troponin Current Visit: Yes Status: Acute Plan: mild elevated troponin that is trending down, denies chest pain, no significant EKG changes, most likely type 2 VA from recent fall and CVA. get Echo (2) CVA (cerebral vascular accident) Current Visit: No Status: Acute Plan: Patient BP is mild elevated, will allow some permissive HTN until Neurology is ok to re start BP medications, Tele monitor shows no significant arrhythmia advised patient that he will need outpatient event monitor. agree with Neurology recommendations to start Eliquis 5 mg po BID for suspected cardio embolic stroke risk (timing of start is per neurology team) after monitor as outpatient if AF is seen then patient will be a good candidate for watchman. Qualifiers: Precerebral and cerebral artery: small artery (3) HTN (hypertension) Onset Date: 06/14/18 Current Visit: No Status: Chronic Plan: resume BP medications once ok with Neurology team start with Toprol XL 50 mg daily Lisinopril 20 mg daily if BP stays high then can add HCTZ and Norvasc. Qualifiers: Hypertension type: essential hypertension Qualified Code(s): I10 - Essential (primary) hypertension
--- NOTE | 2024-10-23 15:59 | P.PN ---
Date of Service: 10/23/24 Subjective Feeling depressed, continues to talk about his pancreatic cancer diagnosis He is incontinent with bowel, likely d/t the IV potassium running Right eye bruising with less tenderness and more light bruising Lovenox tonight and monitor for bleeding in the AM then will switch to Eliquis Will need an ECHO prior to discharge, likely Thursday ROS 10 point ROS as noted above, otherwise negative Physical Exam General: AAOx3, NAD, depressed HEENT: PERRLA, Other (right facial bruising and abrasions), EOMI Neck: Supple, 2+ carotid pulse no bruit Respiratory: Clear to auscultation bilaterally, Normal air movement Cardiovascular: No edema, Normal pulses, RRR, Normal S1 S2 Capillary refill: <2 Seconds Gastrointestinal: Normal bowel sounds, soft on palpation, NT/ND Musculoskeletal: No clubbing Integumentary: No rashes Neurological: Normal speech, Normal tone Vitals Reviewed Problem list Multiple acute infarction/18 mm left cerebellar/4.4 cm left occipital lobe/13 mm left frontal lobe [place] Elevated troponin History of [place] Prolonged QT 2/2 hypokalemia Trauma /Fall Weakness and debilitation Right periorbital hematoma Minimally displaced fracture lateral wall right maxillary sinus HTN Assessment and Plan Multiple acute infarction/18 mm left cerebellar/4.4 cm left occipital lobe/13 mm left frontal lobe Cardioembolic stroke with history of pancreatic cancer [place] -CT head/cervical spine reports "Low density area left cerebellum may represent an acute infarction. Low-density area left occipital parietal region probably infarction. Age is indeterminate. Small low-density areas basal ganglia and right thalamus probably lacunar infarcts of indeterminate age." -MRI brain reports ": Multiple areas of acute infarction are noted. These involve both cerebellar hemispheres, greater on the left measuring up to 18 mm. There is also a moderate-sized 4.4 cm area of infarct left occipital lobe. Several foci of infarction also seen in both parietal lobes as well as the left frontal lobe measuring 13 mm. No acute hemorrhage, hydrocephalus or midline shift." -hold plavix and aspirin with right periorbital hematoma - Consulted Neurology - Eliquis 5 mg BID, statin 80 mg, folic acid - Admit under observation status - No neurologic deficits on my exam - NIHSS = 0 - Allow permissive hypertension for tonight - q4hr neurochecks - Bilateral carotid US reports Right mild hard plaque at the carotid bulb and Left carotid with mild to moderate hard plaque at the carotid bulb - ECHO pending, machine is currently down - PT ambulating -PAPER BUNDLER recommends thin liquids and regular diet - Ordered risk profile: Hgb A1c pending, lipid panel (Triglycerides 112, Cholesterol 110, LDL 66, HDL 22), TSH/free T4 1.230/9.8 - Started folic acid, atorvastatin -orthostatic vitals -Unknown time of last known normal, TNK/antithrombotics not appropriate Elevated troponin History of [place] -Troponin 89.7, 80.3 -Consider cardiology consult -continuous telemetry Prolonged QT 2/2 hypokalemia -hold all medications that prolong QT -K 3.8-improved -Potassium BID today with potassium IV replaced this morning Hypophosphatemia -Phos 1.9 -Replace PRN Trauma /Fall Weakness and debilitation Right periorbital hematoma Minimally displaced fracture lateral wall right maxillary sinus -Consult Dr. Anna for CT maxillofacial image review -CT maxillofacial reports "Minimally displaced fracture lateral wall right maxillary sinus. Nondisplaced fracture right orbital floor. Right periorbital hematoma. The right globe is intact. Several air bubbles are present anterior to the right globe and adjacent to the right maxillary sinus." -CT head/cervical spine reports "Fracture lateral wall right orbit incompletely evaluated on this exam. 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 Torres d/t continual falling -Lipase pending -Serum glucose elevated, started accucheck with SSI HTN Pulmonary embolism -monitor BP, allow permissive hypertension til 10/25 -Chart reviewed, history of Pulmonary embolism 04/10/20, on chronic eliquis, will hold with current right periorbital hematoma DVT ppx lovenox Full code LOS 2 days Discharge Plan: Home Plan to discharge in: 48 Hours
[2024-10-23] MEDS: INSULIN REGULAR (HUMAN) 100 UNIT/ML SQ SCH (16:30)
[2024-10-23] MEDS: ATORVASTATIN 80 MG TAB PO SCH (20:30)
[2024-10-24 04:48] LABS: Absolute Eosinophils 0.2 K/uL (0-0.5); Absolute Lymphocytes (CBC) 0.8 K/uL (0.7-4.9); Absolute Monocytes 0.6 K/uL (0.1-1.3); Absolute Neutrophil 5.3 K/uL (1.8-8.0); Basophils % 0.7 % (0-1.3); Eosinophils % 2.2 % (0-4.4); Hematocrit 33.9 % (39.6-49.0); Hemoglobin 11.2 g/dL (13.6-17.9); Lymphocytes % 12.2 % (15.3-44.8); MCH 33.2 pg (27.0-35.0); MCHC 33.1 g/dL (32.0-36.0); MCV 100.4 fL (80-100); MPV 10.8 fL (7.6-11.3); Monocytes % 8.9 % (3.3-12.3); Nucleated Red Blood Cells % 0.1 % (0-0); Platelets 108 thou/uL (152-406); RBC Red Blood Cell Count 3.38 M/uL (4.33-5.43); Red Cell Distribution Width 15.6 % (12.1-15.2)
[2024-10-24 05:05] LABS: Magnesium 1.5 mg/dL (1.6-2.4); Phosphorus 2.3 mg/dL (2.5-4.9)
--- NOTE | 2024-10-24 12:56 | ECHO ---
HEIGHT: 5 ft 11 in WEIGHT: 158 lb 0 oz DATE OF STUDY: 10/24/[address]: Rupinder Lemus NP 2-DIMENSIONAL: YES M.MODE: YES DOPPLER: YES COLOR FLOW: YES TDS: NO PORTABLE: YES DEFINITY: NO BUBBLE STUDY: NO DIAGNOSIS: STROKE CARDIAC HISTORY: CATHERIZATION: NO SURGERY: NO PROSTHETIC VALVE: NO PACEMAKER: NO MEASUREMENTS (cm) DIASTOLIC (NORMALS) SYSTOLIC (NORMALS) IVSd 1.3 (0.6-1.2) LA Diam 3.2 (1.9-4.0) LVEF 60% LVIDd 5.0 (3.5-5.7) LVIDs 3.6 (2.0-3.5) %FS 27% LVPWd 1.3 (0.6-1.2) Ao Diam 2.6 (2.0-3.7) 2 DIMENSIONAL ASSESSMENT: RIGHT ATRIUM: NORMAL LEFT ATRIUM: NORMAL RIGHT VENTRICLE: NORMAL LEFT VENTRICLE: NORMAL TRICUSPID VALVE: NOT WELL VISUALIZED MITRAL VALVE: NOT WELL VISUALIZED PULMONIC VALVE: NOT SEEN AORTIC VALVE: NOT WELL VISUALIZED PERICARDIAL EFFUSION: NONE AORTIC ROOT: NOT SEEN LEFT VENTRICULAR WALL MOTION: NORMAL. DOPPLER/COLOR FLOW: NOT ASSESSED. COMMENTS: 1. LIMITED VIEWS, VERY LIMITED STUDY. 2. NORMAL LEFT VENTRICULAR SYSTOLIC FUNCTION. NORMAL WALL MOTION. LEFT VENTRICULAR EJECTION FRACTION 60%. TECHNOLOGIST: JUAN NELSON
--- NOTE | 2024-10-24 20:49 | P.PN ---
Date of Service: 10/24/24 Subjective awake, out of bed often, unsteady ambulation Will start Eliquis in the AM, will need to follow up with Dr. Anthony, ophthamo logist ROS 10 point ROS as noted above, otherwise negative Physical Exam General: Alert and Oriented x3, NAD, depressed HEENT: PERRLA, Other (right facial bruising and abrasions), EOMI Neck: Supple, 2+ carotid pulse no bruit Respiratory: Clear to auscultation bilaterally, Normal air movement Cardiovascular: No edema, Normal pulses, mild tachycardia, Normal S1 S2 Capillary refill: <2 Seconds Gastrointestinal: Normal bowel sounds, soft on palpation, NT/ND Musculoskeletal: No clubbing Integumentary: No rashes Neurological: Normal speech, Normal tone Vitals Reviewed Problem list Multiple acute infarction/18 mm left cerebellar/4.4 cm left occipital lobe/13 mm left frontal lobe [place] Elevated troponin History of [place] Prolonged QT 2/2 hypokalemia Trauma /Fall Weakness and debilitation Right periorbital hematoma Minimally displaced fracture lateral wall right maxillary sinus HTN Assessment and Plan Multiple acute infarction/18 mm left cerebellar/4.4 cm left occipital lobe/13 mm left frontal lobe Cardioembolic stroke with history of pancreatic cancer [place] -CT head/cervical spine reports "Low density area left cerebellum may represent an acute infarction. Low-density area left occipital parietal region probably infarction. Age is indeterminate. Small low-density areas basal ganglia and right thalamus probably lacunar infarcts of indeterminate age." -MRI brain reports ": Multiple areas of acute infarction are noted. These involve both cerebellar hemispheres, greater on the left measuring up to 18 mm. There is also a moderate-sized 4.4 cm area of infarct left occipital lobe. Several foci of infarction also seen in both parietal lobes as well as the left frontal lobe measuring 13 mm. No acute hemorrhage, hydrocephalus or midline shift." -hold plavix and aspirin with right periorbital hematoma - Consulted Neurology - Eliquis 5 mg BID, statin 80 mg, folic acid - Admit under observation status - No neurologic deficits on my exam - NIHSS = 0 - Allow permissive hypertension for tonight - q4hr neurochecks - Bilateral carotid US reports Right mild hard plaque at the carotid bulb and Left carotid with mild to moderate hard plaque at the carotid bulb - ECHO pending, machine is currently down - PT ambulating -SYNTHETIC DEPARTMENT SUPERVISOR recommends thin liquids and regular diet - Ordered risk profile: Hgb A1c pending, lipid panel (Triglycerides 112, Cholesterol 110, LDL 66, HDL 22), TSH/free T4 1.230/9.8 - Started folic acid, atorvastatin -orthostatic vitals -Unknown time of last known normal, TNK/antithrombotics not appropriate -Eliquis in the AM Elevated troponin History of [place] -Troponin 89.7, 80.3 -Consider cardiology consult -continuous telemetry Prolonged QT 2/2 hypokalemia -hold all medications that prolong QT -K 3.8-improved -Potassium BID today with potassium IV replaced this morning Hypophosphatemia -Phos 4.0 -Replace PRN Trauma /Fall Weakness and debilitation Right periorbital hematoma Minimally displaced fracture lateral wall right maxillary sinus -Consult Dr. Anna for CT maxillofacial image review -CT maxillofacial reports "Minimally displaced fracture lateral wall right maxillary sinus. Nondisplaced fracture right orbital floor. Right periorbital hematoma. The right globe is intact. Several air bubbles are present anterior to the right globe and adjacent to the right maxillary sinus." -CT head/cervical spine reports "Fracture lateral wall right orbit incompletely evaluated on this exam. 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 Torres d/t continual falling -Lipase pending -Serum glucose elevated, started accucheck with SSI HTN Pulmonary embolism -monitor BP, allow permissive hypertension til 10/25 -Chart reviewed, history of Pulmonary embolism 04/10/20, on chronic eliquis, will hold with current right periorbital hematoma DVT ppx lovenox Full code LOS 2 days Discharge Plan: Home Plan to discharge in: 48 Hours
[2024-10-24 21:32] LABS: Homocysteine 11.9 umol/L (<11.4)
[2024-10-25] MEDS: ONDANSETRON 4 MG/2 ML VIAL IV PRN (03:35)
[2024-10-25] MEDS: ACETAMINOPHEN 325 MG TABLET PO PRN (03:36)
[2024-10-25 05:59] LABS: Absolute Eosinophils 0.1 K/uL (0-0.5); Absolute Lymphocytes (CBC) 0.8 K/uL (0.7-4.9); Absolute Monocytes 0.7 K/uL (0.1-1.3); Basophils % 0.3 % (0-1.3); Eosinophils % 1.4 % (0-4.4); Hematocrit 33.7 % (39.6-49.0); Hemoglobin 11.5 g/dL (13.6-17.9); Lymphocytes % 10.3 % (15.3-44.8); MCH 33.7 pg (27.0-35.0); MCHC 34.1 g/dL (32.0-36.0); MCV 98.8 fL (80-100); MPV 9.9 fL (7.6-11.3); Monocytes % 8.9 % (3.3-12.3); Neutrophils % 79.1 % (41.7-73.7); Platelets 121 thou/uL (152-406); RBC Red Blood Cell Count 3.41 M/uL (4.33-5.43); Red Cell Distribution Width 15.5 % (12.1-15.2)
[2024-10-25 06:13] LABS: Anion Gap 7.7 mEq/L (5.0-15.0); Magnesium 1.5 mg/dL (1.6-2.4); Phosphorus 2.5 mg/dL (2.5-4.9); Potassium 3.7 mEq/L (3.5-5.1)
[2024-10-25] MEDS: Magnesium Sulfate 2gm IVPB 2 G/50 ML BAG IV ONE (08:21)
[2024-10-25] MEDS: POTASS/SODIUM PHOSPHATE 1 PKT POWD.PACK PO SCH (08:22)
[2024-10-25 13:14] LABS: Abnormal Protein Band 1 REPORT; Albumin, (SPE) 2.8 g/dL (3.8-4.8); Alpha-1-Globulins 0.4 g/dL (0.2-0.3); Alpha-2-Globulins 0.7 g/dL (0.5-0.9); Beta 1 Globulin 0.3 g/dL (0.4-0.6); Gamma Globulins 1.4 g/dL (0.8-1.7); INTERPRETATION REPORT; Total Protein 5.9 g/dL (6.1-8.1)
[2024-10-25 15:52] LABS: PT Prothrombin Time 18.3 SECONDS (9.4-12.5); PTT, Activated Partial Thromb 35.8 SECONDS (24.3-36.9); Protime INR 1.66
--- NOTE | 2024-10-25 16:23 | P.PN ---
Date of Service: 10/25/24 Subjective awake, sitting on the edge of the bed and saying he feels lost Still oriented x3 right eye peripheral vision limited, no change Bruising decreasing Will start heparin gtt today ROS 10 point ROS as noted above, otherwise negative Physical Exam General: AAO x3, NAD, depressed HEENT: PERRLA, Other (right facial bruising and abrasions), EOMI, right eye peripheral vision limited Neck: Supple, 2+ carotid pulse no bruit Respiratory: Clear to auscultation bilaterally, Normal air movement Cardiovascular: Normal pulses, mild tachycardia, Normal S1 S2 present Capillary refill: <2 Seconds Gastrointestinal: Normal bowel sounds, soft on palpation, NT/ND Musculoskeletal: No clubbing Integumentary: No rashes Neurological: Normal speech, Normal tone Vitals Reviewed Problem list Multiple acute infarction/18 mm left cerebellar/4.4 cm left occipital lobe/13 mm left frontal lobe [place] Elevated troponin History of [place] Prolonged QT 2/2 hypokalemia Trauma /Fall Weakness and debilitation Right periorbital hematoma Minimally displaced fracture lateral wall right maxillary sinus HTN Assessment and Plan Multiple acute infarction/18 mm left cerebellar/4.4 cm left occipital lobe/13 mm left frontal lobe Cardioembolic stroke with history of pancreatic cancer [place] -CT head/cervical spine reports "Low density area left cerebellum may represent an acute infarction. Low-density area left occipital parietal region probably infarction. Age is indeterminate. Small low-density areas basal ganglia and right thalamus probably lacunar infarcts of indeterminate age." -MRI brain reports ": Multiple areas of acute infarction are noted. These involve both cerebellar hemispheres, greater on the left measuring up to 18 mm. There is also a moderate-sized 4.4 cm area of infarct left occipital lobe. Several foci of infarction also seen in both parietal lobes as well as the left frontal lobe measuring 13 mm. No acute hemorrhage, hydrocephalus or midline shift." -hold plavix and aspirin with right periorbital hematoma - Consulted Neurology - Eliquis 5 mg BID, statin 80 mg, folic acid - Admit under observation status - No neurologic deficits on my exam - NIHSS = 0 - Allow permissive hypertension for tonight - q4hr neurochecks - Bilateral carotid US reports Right mild hard plaque at the carotid bulb and Left carotid with mild to moderate hard plaque at the carotid bulb - ECHO EF 60 %, limited study - PT ambulating -SUPERVISOR METAL CANS recommends thin liquids and regular diet - Ordered risk profile: Hgb A1c pending, lipid panel (Triglycerides 112, Cholesterol 110, LDL 66, HDL 22), TSH/free T4 1.230/9.8 - Started folic acid, atorvastatin -orthostatic vitals -Unknown time of last known normal, TNK/antithrombotics not appropriate -Heparin gtt instead of Eliquis to continue a close watch on his eye Elevated troponin History of [place] -Troponin 89.7, 80.3 -Consider cardiology consult -continuous telemetry Prolonged QT 2/2 hypokalemia -hold all medications that prolong QT -K 3.7-improved -Potassium BID today with potassium IV replaced this morning Hypophosphatemia hypomagnesemia -Phos 2.5, mag 1.5 -Replace PRN Trauma /Fall Weakness and debilitation Right periorbital hematoma Minimally displaced fracture lateral wall right maxillary sinus -Consult Dr. Anna for CT maxillofacial image review -CT maxillofacial reports "Minimally displaced fracture lateral wall right maxillary sinus. Nondisplaced fracture right orbital floor. Right periorbital hematoma. The right globe is intact. Several air bubbles are present anterior to the right globe and adjacent to the right maxillary sinus." -CT head/cervical spine reports "Fracture lateral wall right orbit incompletely evaluated on this exam. 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 Torres d/t continual falling -Lipase pending -Serum glucose elevated, started accucheck with SSI HTN Pulmonary embolism -monitor BP, allow permissive hypertension til 10/25 -Chart reviewed, history of Pulmonary embolism 04/10/20, on chronic eliquis, will hold with current right periorbital hematoma DVT ppx lovenox Full code LOS 2 days Discharge Plan: Home Plan to discharge in: 48 Hours <Rupinder Lemus - Last Filed: 10/25/24 17:04> Patient seen and examined, plan of care discussed with Ms. Lemus. Patient appear depressed. He reports no changes in visual impairment. Right periorbital hematoma is improving. Plan: Patient with multiple areas of acute infarct. Embolic stroke suspected. monitor and storage bin tender has not shown atrial fibrillation. Echocardiogram: Normal EF. Cardiology recommend event monitor as outpatient. Patient need anticoagulation for embolic CVA however he has right orbital floor fracture which has increased risk of bleeding, intraorbital hematoma. Case discussed with ophthalmology, plan is to start patient on heparin drip and monitor for bleeding and changes in visual acuity. Will then transition to Eliquis as recommended by neurology if evidence of bleeding 48 hours after initiating heparin drip. Continue PT. Follow-up with oncology as outpatient regarding stage IV pancreatic cancer with liver metastasis. <kaden silva - Last Filed: 10/27/24 13:59>
[2024-10-25] MEDS: HEPARIN/D5W 25,000 UNIT/500 ML BAG IV SCH (16:57)
[2024-10-25 22:23] LABS: Anti-Cardiolipin IgG Antibody <2.0 GPL-U/mL (<20.0); Anti-Cardiolipin IgM Antibody <2.0 MPL-U/mL (<20.0)
[2024-10-26 05:52] LABS: C-ANCA Anti-Proteinase 3 <1.0 AI (<1.0); P-ANCA Anti-Myeloperoxidase Ab <1.0 AI (<1.0)
[2024-10-26 06:16] LABS: Anion Gap 9.2 mEq/L (5.0-15.0); Magnesium 1.9 mg/dL (1.6-2.4); Phosphorus 2.8 mg/dL (2.5-4.9); Potassium 4.2 mEq/L (3.5-5.1)
[2024-10-26 07:13] LABS: Anti-Thrombin III Activity 76 % normal (80-135)
[2024-10-26 07:21] LABS: Absolute Eosinophils 0.1 K/uL (0-0.5); Absolute Lymphocytes (CBC) 0.8 K/uL (0.7-4.9); Absolute Monocytes 0.6 K/uL (0.1-1.3); Absolute Neutrophil 5.9 K/uL (1.8-8.0); Basophils % 0.3 % (0-1.3); Eosinophils % 1.5 % (0-4.4); Hematocrit 33.7 % (39.6-49.0); Hemoglobin 11.2 g/dL (13.6-17.9); MCHC 33.1 g/dL (32.0-36.0); MCV 99.4 fL (80-100); MPV 10.4 fL (7.6-11.3); Monocytes % 8.3 % (3.3-12.3); Neutrophils % 78.9 % (41.7-73.7); Platelets 135 thou/uL (152-406); RBC Red Blood Cell Count 3.39 M/uL (4.33-5.43); Red Cell Distribution Width 15.7 % (12.1-15.2)
[2024-10-26] MEDS: AMLODIPINE 5 MG TAB PO SCH (11:06)
--- NOTE | 2024-10-26 11:15 | P.PN ---
Date of Service: 10/26/24 Subjective Awake in bed, at bedside Bruising more decreased today unsteady gait, desires to walk, needing extra monitoring to make sure he doesn't fall Heparin gtt started yesterday 10/25, with no signs of bleeding ROS 10 point ROS as noted above, otherwise negative Physical Exam General: AAO x3, NAD, depressed HEENT: PERRLA, Other (right facial bruising and abrasions), EOMI, right eye peripheral vision limited Neck: Supple, 2+ carotid pulse no bruit Respiratory: Clear to auscultation bilaterally, Normal air movement Cardiovascular: Normal pulses, Normal S1 S2 present, mild tachycardia Capillary refill: <2 Seconds Gastrointestinal: Normal bowel sounds, soft on palpation, NT/ND Musculoskeletal: No clubbing Integumentary: No rashes Neurological: Normal speech, Normal tone, gait off balance Vitals Reviewed Problem list Multiple acute infarction/18 mm left cerebellar/4.4 cm left occipital lobe/13 mm left frontal lobe [place] Elevated troponin History of [place] Prolonged QT 2/2 hypokalemia Hypophosphatemia hypomagnesemia Trauma /Fall Weakness and debilitation Right periorbital hematoma Minimally displaced fracture lateral wall right maxillary sinus HTN Assessment and Plan Multiple acute infarction/18 mm left cerebellar/4.4 cm left occipital lobe/13 mm left frontal lobe Cardioembolic stroke with history of pancreatic cancer [place] -CT head/cervical spine reports "Low density area left cerebellum may represent an acute infarction. Low-density area left occipital parietal region probably infarction. Age is indeterminate. Small low-density areas basal ganglia and right thalamus probably lacunar infarcts of indeterminate age." -MRI brain reports ": Multiple areas of acute infarction are noted. These involve both cerebellar hemispheres, greater on the left measuring up to 18 mm. There is also a moderate-sized 4.4 cm area of infarct left occipital lobe. Several foci of infarction also seen in both parietal lobes as well as the left frontal lobe measuring 13 mm. No acute hemorrhage, hydrocephalus or midline shift." -hold plavix and aspirin with right periorbital hematoma - Consulted Neurology - Eliquis 5 mg BID, statin 80 mg, folic acid - Admit under observation status - No neurologic deficits on my exam - NIHSS = 0 - Allow permissive hypertension for tonight - q4hr neurochecks - Bilateral carotid US reports Right mild hard plaque at the carotid bulb and Left carotid with mild to moderate hard plaque at the carotid bulb - ECHO EF 60 %, limited study - PT ambulating -SQUAD BOSS recommends thin liquids and regular diet - Ordered risk profile: Hgb A1c pending, lipid panel (Triglycerides 112, Cholesterol 110, LDL 66, HDL 22), TSH/free T4 1.230/9.8 - Started folic acid, atorvastatin -orthostatic vitals -Unknown time of last known normal, TNK/antithrombotics not appropriate -Heparin gtt instead of Eliquis to continue a close watch on his eye Elevated troponin History of [place] -Troponin 89.7, 80.3 -Consider cardiology consult -continuous telemetry Prolonged QT 2/2 hypokalemia -hold all medications that prolong QT -K 4.0-improved -Potassium BID today with potassium IV replaced this morning Hypophosphatemia hypomagnesemia -Phos 2.3, mag 1.5 -Replace PRN Trauma /Fall Weakness and debilitation Right periorbital hematoma Minimally displaced fracture lateral wall right maxillary sinus -Consult Dr. Anna for CT maxillofacial image review -CT maxillofacial reports "Minimally displaced fracture lateral wall right maxillary sinus. Nondisplaced fracture right orbital floor. Right periorbital hematoma. The right globe is intact. Several air bubbles are present anterior to the right globe and adjacent to the right maxillary sinus." -CT head/cervical spine reports "Fracture lateral wall right orbit incompletely evaluated on this exam. 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 Torres d/t continual falling -Lipase 29 -Serum glucose elevated, started accucheck with SSI HTN Pulmonary embolism -monitor BP, Started norvasc -Chart reviewed, history of Pulmonary embolism 04/10/20, on chronic eliquis, will hold with current right periorbital hematoma DVT ppx heparin gtt Full code LOS 2 days Discharge Plan: Home Plan to discharge in: 48 Hours <Rupinder Lemus - Last Filed: 10/26/24 11:30> Patient seen and examined. Plan of care discussed with Ms. Lemus. Right preorbital hematoma appears to be improving. No change in visual acuity compared to yesterday however patient has visual field defect(appears to be hemianopia). Hemoglobin has been stable. Continue heparin drip for 1 more day and transition to Eliquis. Patient accepted to acute rehab. <kaden silva - Last Filed: 10/27/24 14:50>
[2024-10-27 06:55] LABS: Absolute Eosinophils 0.2 K/uL (0-0.5); Absolute Lymphocytes (CBC) 0.7 K/uL (0.7-4.9); Absolute Monocytes 0.7 K/uL (0.1-1.3); Absolute Neutrophil 5.1 K/uL (1.8-8.0); Basophils % 0.5 % (0-1.3); Eosinophils % 2.5 % (0-4.4); Hematocrit 33.3 % (39.6-49.0); Hemoglobin 11.4 g/dL (13.6-17.9); Lymphocytes % 10.5 % (15.3-44.8); MCH 33.8 pg (27.0-35.0); MCHC 34.3 g/dL (32.0-36.0); MCV 98.5 fL (80-100); MPV 9.4 fL (7.6-11.3); Monocytes % 10.2 % (3.3-12.3); Neutrophils % 76.3 % (41.7-73.7); Nucleated Red Blood Cells % 0.1 % (0-0); Platelets 134 thou/uL (152-406); RBC Red Blood Cell Count 3.38 M/uL (4.33-5.43); Red Cell Distribution Width 15.6 % (12.1-15.2)
[2024-10-27 07:14] LABS: Anion Gap 7.9 mEq/L (5.0-15.0); Magnesium 1.9 mg/dL (1.6-2.4); Phosphorus 2.4 mg/dL (2.5-4.9); Potassium 3.9 mEq/L (3.5-5.1)
--- NOTE | 2024-10-27 09:09 | P.PN ---
Date of Service: 10/27/24 Subjective No acute events overnight Patient frequently up without notifying nursing staff Bedcheck in place ROS 10 point ROS as noted above, otherwise negative Physical Exam General: AAO x3, NAD, depressed HEENT: PERRLA, Other (right facial bruising and abrasions), EOMI, right eye peripheral vision limited Neck: Supple, 2+ carotid pulse no bruit Respiratory: Clear to auscultation bilaterally, Normal air movement Cardiovascular: Normal pulses, Normal S1 S2 present, mild tachycardia Capillary refill: <2 Seconds Gastrointestinal: Normal bowel sounds, soft on palpation, NT/ND Musculoskeletal: No clubbing Integumentary: No rashes Neurological: Normal speech, Normal tone, gait off balance Vitals Reviewed Problem list Multiple acute infarction/18 mm left cerebellar/4.4 cm left occipital lobe/13 mm left frontal lobe Frequent Falls Elevated troponin History of DE Prolonged QT 2/2 hypokalemia Hypophosphatemia hypomagnesemia Trauma /Fall Weakness and debilitation Right periorbital hematoma Minimally displaced fracture lateral wall right maxillary sinus HTN Plan Multiple acute infarction/18 mm left cerebellar/4.4 cm left occipital lobe/13 mm left frontal lobe Cardioembolic stroke with history of pancreatic cancer Frequent Falls -CT head/cervical spine reports "Low density area left cerebellum may represent an acute infarction. Low-density area left occipital parietal region probably infarction. Age is indeterminate. Small low-density areas basal ganglia and right thalamus probably lacunar infarcts of indeterminate age." -MRI brain reports ": Multiple areas of acute infarction are noted. These involve both cerebellar hemispheres, greater on the left measuring up to 18 mm. There is also a moderate-sized 4.4 cm area of infarct left occipital lobe. Several foci of infarction also seen in both parietal lobes as well as the left frontal lobe measuring 13 mm. No acute hemorrhage, hydrocephalus or midline shift." - hold plavix and aspirin with right periorbital hematoma - Consulted Neurology - Eliquis 5 mg BID, statin 80 mg, folic acid - ECHO EF 60 %, limited study - PT ambulating - MACHINE FIXER recommends thin liquids and regular diet - Started folic acid, atorvastatin - Heparin gtt instead of Eliquis to continue a close watch on his eye Elevated troponin History of DE -Troponin 89.7, 80.3 -Consider cardiology consult -continuous telemetry Prolonged QT 2/2 hypokalemia -hold all medications that prolong QT -K 4.0-improved -Potassium BID today with potassium IV replaced this morning Hypophosphatemia hypomagnesemia -Phos 2.3, mag 1.5 -Replace PRN Trauma /Fall Weakness and debilitation Right periorbital hematoma Minimally displaced fracture lateral wall right maxillary sinus -Consult Dr. Anna for CT maxillofacial image review -CT maxillofacial reports "Minimally displaced fracture lateral wall right maxillary sinus. Nondisplaced fracture right orbital floor. Right periorbital hematoma. The right globe is intact. Several air bubbles are present anterior to the right globe and adjacent to the right maxillary sinus." -CT head/cervical spine reports "Fracture lateral wall right orbit incompletely evaluated on this exam. 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 Torres d/t continual falling -Lipase 29 -Serum glucose elevated, started accucheck with SSI HTN Pulmonary embolism -monitor BP, Started norvasc -Chart reviewed, history of Pulmonary embolism 04/10/20, on chronic eliquis, will hold with current right periorbital hematoma DVT ppx heparin gtt Full code LOS 1 day <Kevin Myers - Last Filed: 10/27/24 09:09> Patient seen and examined. Plan of care discussed with Kevin Myers. Imaging changes from yesterday. No change in visual acuity on examination. Hemoglobin has been stable. He is tolerating diet. Plan: Transition heparin drip to Eliquis. Titrate amlodipine to control blood pressure. Patient accepted to inpatient rehab. Continue PT. <kaden silva - Last Filed: 10/27/24 15:37>
[2024-10-27 20:22] LABS: PGA INTERPRETATION REPORT; Prothrombin Gene Analysis Test NEGATIVE
[2024-10-27] MEDS: APIXABAN 5 MG TABLET PO SCH (21:00)
[2024-10-27 21:20] VITALS: O2SAT 95
[2024-10-28 05:00] LABS: Absolute Eosinophils 0.1 K/uL (0-0.5); Absolute Lymphocytes (CBC) 0.7 K/uL (0.7-4.9); Absolute Monocytes 0.6 K/uL (0.1-1.3); Absolute Neutrophil 6.1 K/uL (1.8-8.0); Basophils % 0.2 % (0-1.3); Eosinophils % 1.9 % (0-4.4); Hematocrit 34.1 % (39.6-49.0); Hemoglobin 11.7 g/dL (13.6-17.9); Lymphocytes % 9.5 % (15.3-44.8); MCH 33.7 pg (27.0-35.0); MCHC 34.2 g/dL (32.0-36.0); MCV 98.3 fL (80-100); MPV 9.5 fL (7.6-11.3); Monocytes % 8.3 % (3.3-12.3); Neutrophils % 80.1 % (41.7-73.7); Nucleated Red Blood Cells % 0.1 % (0-0); Platelets 141 thou/uL (152-406); RBC Red Blood Cell Count 3.47 M/uL (4.33-5.43); Red Cell Distribution Width 15.6 % (12.1-15.2)
[2024-10-28 05:25] LABS: Anion Gap 7.8 mEq/L (5.0-15.0); Magnesium 1.7 mg/dL (1.6-2.4); Phosphorus 2.9 mg/dL (2.5-4.9); Potassium 3.8 mEq/L (3.5-5.1)
--- NOTE | 2024-10-28 08:53 | P.DS ---
Admission Date: 10/20/24 Discharge Date: 10/28/24 Reason for Admission: CVA, Trauma fall Brief History of Present Illness: Lino Dietrich is a 64 year old male with Pmhx CAD, chronic back pain, COPD, Hepatitis, Hypertension, Kidney stones, OR, pancreatic cancere (OR) who presented to the ED after a fall hitting his right face on the ground. He reports no loss of consciousness, but explains he is falling several times everyday. He reports not starting any medications, he does not take blood pressure medications, he feels he eats enough every day. Laboratory evaluation significant for potassium of 2.3, serum glucose 159, troponin 89.7, left shift with neutrophils 81.6. CT head/cervical spine reports "Low density area left cerebellum may represent an acute infarction. Low-density area left occipital parietal region probably infarction. Age is indeterminate. Small low-density areas basal ganglia and right thalamus probably lacunar infarcts of indeterminate age. MRI of the brain would be helpful for further evaluation. Fracture lateral wall right orbit incompletely evaluated on this exam. Dedicated CT face could be obtained for further evaluation. Hospital Course: General: AAO x3, NAD, depressed HEENT: PERRLA, Other (right facial bruising and abrasions), EOMI, right eye peripheral vision limited Neck: Supple, 2+ carotid pulse no bruit Respiratory: Clear to auscultation bilaterally, Normal air movement Cardiovascular: Normal pulses, Normal S1 S2 present, mild tachycardia Capillary refill: <2 Seconds Gastrointestinal: Normal bowel sounds, soft on palpation, NT/ND Musculoskeletal: No clubbing Integumentary: No rashes Neurological: Normal speech, Normal tone, gait off balance, some suspected hemianopia Problem list Multiple acute infarction/18 mm left cerebellar/4.4 cm left occipital lobe/13 mm left frontal lobe Frequent [place] Elevated troponin History of [place] Prolonged QT 2/2 hypokalemia Hypophosphatemia hypomagnesemia Trauma /Fall Weakness and debilitation Right periorbital hematoma Minimally displaced fracture lateral wall right maxillary sinus HTN Discharge Recs Multiple acute infarction/18 mm left cerebellar/4.4 cm left occipital lobe/13 mm left frontal lobe Cardioembolic stroke with history of pancreatic cancer Frequent [place] -CT head/cervical spine reports "Low density area left cerebellum may represent an acute infarction. Low-density area left occipital parietal region probably infarction. Age is indeterminate. Small low-density areas basal ganglia and right thalamus probably lacunar infarcts of indeterminate age." -MRI brain reports ": Multiple areas of acute infarction are noted. These involve both cerebellar hemispheres, greater on the left measuring up to 18 mm. There is also a moderate-sized 4.4 cm area of infarct left occipital lobe. Several foci of infarction also seen in both parietal lobes as well as the left frontal lobe measuring 13 mm. No acute hemorrhage, hydrocephalus or midline shift." -Consulted Neurology - Eliquis 5 mg BID, atorvastatin 80 mg, folic acid Intermittently confused Ambulating with walker Tolerating Diet Some likely hemianopia noted Moving all extremities Right periorbital hematoma Minimally displaced fracture lateral wall right maxillary sinus Do not lift greater than 10 pounds Do not blow nose Do not use a straw Sleep with HOB elevated at 30 degrees Watch for blood from nose -Follow up with opthamology at discharge, delay reasonable for CVA admission -Dr Anthony consulted recommends outpatient follow up History of pancreatic cancer with yecenia to the liver (Sep 2024) -Records reviewed from outside facilities showing 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 Torres d/t continual falling -Outpatient follow up HTN History of Pulmonary embolism Continue Eliquis <Kevin Myers - Last Filed: 10/28/24 08:52> Admission Date: 10/20/24 Discharge Date: 10/30/24 Hospital Course: Patient seen and examined, plan of care discussed with Kevin Myers. Patient tolerated heparin drip, no bleeding, right periorbital hematoma improved, no change in visual acuity since heparin drip was transitioned to Eliquis. Continue Eliquis for embolic stroke. Patient need outpatient workup for pancreatic cancer with mets to the liver. Vital signs stable for transfer to inpatient rehab. <kaden silva - Last Filed: 10/30/24 17:42> Disposition: TRANSFER TO INPATIENT REHAB Discharge Condition: GOOD Vital Signs/Physical Exam: Temp Pulse Resp BP Pulse Ox 98.5 F 88 16 153/76 H 98 10/28/24 04:00 10/28/24 04:00 10/28/24 04:00 10/28/24 04:00 10/28/24 04:00 Laboratory Data at Discharge: WBC 7.70 thou/uL (4.3-10.9) 10/28/24 04:31 Hgb 11.7 g/dL (13.6-17.9) L 10/28/24 04:31 Hct 34.1 % (39.6-49.0) L 10/28/24 04:31 Plt Count 141 thou/uL (152-406) L 10/28/24 04:31 PT 18.3 SECONDS (9.4-12.5) H 10/25/24 15:35 INR 1.66 10/25/24 15:35 APTT 34.7 SECONDS (24.3-36.9) 10/28/24 04:31 Sodium 135 mEq/L (136-145) L 10/28/24 04:31 Potassium 3.8 mEq/L (3.5-5.1) 10/28/24 04:31 BUN 19 mg/dL (7-18) H 10/28/24 04:31 Creatinine 0.52 mg/dL (0.70-1.30) L 10/28/24 04:31 Glucose 128 mg/dL (74-106) H 10/28/24 04:31 Phosphorus 2.9 mg/dL (2.5-4.9) 10/28/24 04:31 Magnesium 1.7 mg/dL (1.6-2.4) 10/28/24 04:31 Triglycerides 112 mg/dL (<150) 10/21/24 04:06 Cholesterol 110 mg/dL (<200) 10/21/24 04:06 HDL Cholesterol 22 mg/dL (40-60) L 10/21/24 04:06 Cholesterol/HDL Ratio 5.00 10/21/24 04:06 Lipase 29 U/L (13-75) 10/23/24 16:31 <Kevin Myers - Last Filed: 10/28/24 08:52> Vital Signs/Physical Exam: Temp Pulse Resp BP Pulse Ox 98.2 F 98 H 16 149/86 H 100 10/28/24 12:00 10/28/24 12:00 10/28/24 12:00 10/28/24 12:00 10/28/24 12:00 Laboratory Data at Discharge: WBC 7.70 thou/uL (4.3-10.9) 10/28/24 04:31 Hgb 11.7 g/dL (13.6-17.9) L 10/28/24 04:31 Hct 34.1 % (39.6-49.0) L 10/28/24 04:31 Plt Count 141 thou/uL (152-406) L 10/28/24 04:31 PT 18.3 SECONDS (9.4-12.5) H 10/25/24 15:35 INR 1.66 10/25/24 15:35 APTT 34.7 SECONDS (24.3-36.9) 10/28/24 04:31 Sodium 135 mEq/L (136-145) L 10/28/24 04:31 Potassium 3.8 mEq/L (3.5-5.1) 10/28/24 04:31 BUN 19 mg/dL (7-18) H 10/28/24 04:31 Creatinine 0.52 mg/dL (0.70-1.30) L 10/28/24 04:31 Glucose 128 mg/dL (74-106) H 10/28/24 04:31 Phosphorus 2.9 mg/dL (2.5-4.9) 10/28/24 04:31 Magnesium 1.7 mg/dL (1.6-2.4) 10/28/24 04:31 Triglycerides 112 mg/dL (<150) 10/21/24 04:06 Cholesterol 110 mg/dL (<200) 10/21/24 04:06 HDL Cholesterol 22 mg/dL (40-60) L 10/21/24 04:06 Cholesterol/HDL Ratio 5.00 10/21/24 04:06 Lipase 29 U/L (13-75) 10/23/24 16:31 <kaden silva - Last Filed: 10/30/24 17:42> Diet: AHA Activity: Fall precautions Time spent managing pt's care (in minutes): 40 <Kevin Myers - Last Filed: 10/28/24 08:52> <kaden silva - Last Filed: 10/30/24 17:42> Home Medications: Amlodipine [Norvasc*] 5 mg PO DAILY 04/09/20 Apixaban [Eliquis] 5 mg PO BID 04/09/20 Lisinopril [Zestril] 20 mg PO DAILY 04/09/20 Metoprolol Succinate [Toprol Xl*] 50 mg PO BID 6AM 6PM 04/09/20 hydroCHLOROthiazide [Hydrochlorothiazide] 12.5 mg PO DAILY 04/09/20 Aspirin [Aspirin EC 81 MG] 162 mg PO DAILY #60 tablet. 04/10/20 Metformin HCl 500 mg PO BID 10/22/24 Atorvastatin Calcium [Lipitor] 80 mg PO BEDTIME tab 10/28/24 Hydrocodone 5/APAP 325 [[place] 5/325] 1 tab PO Q6H PRN 10/30/24 Physician Discharge Instructions: PROBLEM: Acute CVA/Pancreatic cancer/Frequent Falls/ Facial Fractures GOAL: Clear understanding of disease process INSTRUCTIONS: Do not lift greater than 10 pounds Do not blow nose Do not use a straw Sleep with HOB elevated at 30 degrees Watch for blood from nose -Follow up with opthamology at discharge, delay reasonable for CVA admission -Dr Anthony consulted recommends outpatient follow up Return to Emergency Room if symptoms worsen Call 2nd Floor Nurses Station [phone] for questions or concerns regarding hospital stay or medications. Follow up with Primary care doctor in 1-2 weeks, call office for appointment Follow up with Dr Anthony, call office for appointment Diet: AHA Activity: Fall precautions [facility] Services Needed: InPatient Rehab Name of Company: Date or Referral: Discharge Recs Multiple acute infarction/18 mm left cerebellar/4.4 cm left occipital lobe/13 mm left frontal lobe Cardioembolic stroke with history of pancreatic cancer F[place] -CT head/cervical spine reports "Low density area left cerebellum may represent an acute infarction. Low-density area left occipital parietal region probably infarction. Age is indeterminate. Small low-density areas basal ganglia and right thalamus probably lacunar infarcts of indeterminate age." -MRI brain reports ": Multiple areas of acute infarction are noted. These involv e both cerebellar hemispheres, greater on the left measuring up to 18 mm. There is also a moderate-sized 4.4 cm area of infarct left occipital lobe. Several foci of infarction also seen in both parietal lobes as well as the left frontal lobe measuring 13 mm. No acute hemorrhage, hydrocephalus or midline shift." -Consulted Neurology - Eliquis 5 mg BID, atorvastatin 80 mg, folic acid Intermittently confused Ambulating with walker Tolerating Diet Some likely hemianopia noted Moving all extremities Right periorbital hematoma Minimally displaced fracture lateral wall right maxillary sinus Do not lift greater than 10 pounds Do not blow nose Do not use a straw Sleep with HOB elevated at 30 degrees Watch for blood from nose -Follow up with opthamology at discharge, delay reasonable for CVA admission -Dr Anthony consulted recommends outpatient follow up History of pancreatic cancer with yecenia to the liver (Sep 2024) -Records reviewed from outside facilities showing 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 Torers d/t continual falling -Outpatient follow up HTN History of Pulmonary embolism Continue Eliquis Followup: Sarah Nieto, [employer] [Primary Care Provider] - 1 Week
[2024-10-28 13:38] LABS: Protein C Antigen 50 % normal (70-140)
[2024-10-28 13:58] VITALS: BP 149/86; TEMP 98.2
[2024-10-29 02:28] LABS: Factor V (Leiden) Interp REPORT; Factor V (Leiden) Result NEGATIVE
== END 2024-10-28 16:17 | DRG 65 ==
LOC: ER 13:04 → ERHOLD 16:36 → 2ND 17:57
PROVIDERS: ADMIT Hospitalist; ATTEND Internal Medicine
DX: I63.9 Cerebral infarction, unspecified (principal); C25.9 Malignant neoplasm of pancreas, unspecified; S02.31XA Fracture of orbital floor, right side, initial encounter for closed fracture; S02.40CA Maxillary fracture, right side, initial encounter for closed fracture; T79.7XXA Traumatic subcutaneous emphysema, initial encounter; C78.7 Secondary malignant neoplasm of liver and intrahepatic bile duct; I25.10 Atherosclerotic heart disease of native coronary artery without angina pectoris; J44.9 Chronic obstructive pulmonary disease, unspecified; E87.6 Hypokalemia; S05.11XA Contusion of eyeball and orbital tissues, right eye, initial encounter; R26.9 Unspecified abnormalities of gait and mobility; E83.39 Other disorders of phosphorus metabolism; R53.81 Other malaise; E83.42 Hypomagnesemia; R29.704 NIHSS score 4; R29.703 NIHSS score 3; I10 Essential (primary) hypertension; M54.9 Dorsalgia, unspecified; F17.200 Nicotine dependence, unspecified, uncomplicated; I25.2 Old myocardial infarction; Z86.711 Personal history of pulmonary embolism; Z79.01 Long term (current) use of anticoagulants
CPT/HCPCS: 36415; 70450; 70486; 70551; 71045; 72125; 76377; 80048; 80061; 81001; 81240; 81241; 82306; 82607; 82947; 83036; 83090; 83690; 83735; 84100; 84132; 84165; 84425; 84436; 84443; 84484; 85025; 85300; 85302; 85305; 85306; 85610; 85730; 86021; 86147; 86592; 86593; 87086; 87088; 92610; 93005; 93306; 93880; 96365; 96366; 97110; 97112; 97116; 97161; 97530; 99285; J1644; J1650; J2270; J2405; J3475; J3480; J7030; J7040

== ENCOUNTER 2024-10-28 13:17 | Inpatient (IN) | payer OTHER ==
[2024-10-28] MEDS ORDERED: DOCUSATE NA/SENNA CONC 1 TAB PO PRN (16:00)
[2024-10-28] MEDS ORDERED: D10W 125 ML IV PRN (16:49)
[2024-10-28] MEDS ORDERED: GLUCAGON 1 MG/VIAL IM PRN (16:49)
[2024-10-28 17:14] VITALS: BMI 19.8
[2024-10-28] MEDS: METOPROLOL XL 50 MG TAB PO SCH (18:35)
[2024-10-28] MEDS: APIXABAN 5 MG TABLET PO SCH (20:13)
[2024-10-28] MEDS: ATORVASTATIN 80 MG TAB PO SCH (20:13)
[2024-10-28] MEDS: MELATONIN 3 MG TABLET PO PRN (20:13)
[2024-10-28] MEDS: INSULIN REGULAR (HUMAN) 100 UNIT/ML SQ SCH (20:14)
[2024-10-28] MEDS: HYDROCODONE/APAP 10/325 TAB PO PRN (20:18)
[2024-10-28 23:03] LABS: Barbiturates NEGATIVE (NEGATIVE); Benzodiazepines NEGATIVE (NEGATIVE); Cocaine NEGATIVE (NEGATIVE); METHAMPHETAM NEGATIVE (NEGATIVE); Methadone NEGATIVE (NEGATIVE); Opiates POSITIVE (NEGATIVE); Phencyclidine NEGATIVE (NEGATIVE); THC Cannibis NEGATIVE (NEGATIVE)
[2024-10-28 23:04] LABS: Calcium Oxalate Crystals- Ur Moderate /HPF (None Seen); Sqamous Epithelial <5 /HPF (None Seen); Urine Bacteria None Seen /HPF (<20); Urine Bilirubin NEGATIVE (Negative); Urine Blood 3+ (Negative); Urine Clarity Extremely Turbid (Clear); Urine Color Yellow (Yellow); Urine Crystals Unidentified Few /HPF (None Seen); Urine Culture Reflex Order REFLEXED; Urine Glucose NEGATIVE (Negative); Urine Ketones NEGATIVE (Negative); Urine Micro Reflex YN NO BILL MICROSCOPIC; Urine Mucus Slight /HPF (None Seen); Urine Nitrite NEGATIVE (Negative); Urine Protein 1+ (Negative); Urine RBC >50 /HPF (None Seen); Urine Urobilinogen 1+ (Normal); Urine pH 6.5 (5.0-7.0)
--- NOTE | 2024-10-29 01:59 | HP ---
Date of Admission: 10/28/2024 Time Of Service: 5 p.m. Chief Complaint: "I am weak and I need to get stronger." History Of Present Illness: Mr. Dietrich is a 64-year-old right-handed patient with hypertens ion, chronic back pain, shingles on the left eye, multiple back surgeries with hardware present, who has been falling over several weeks. He suffered a fall on October 20 after tripping and losing h is balance, hitting his right side including the face. Imaging showed multiple acute cardioembolic s trokes with diffuse weakness, debility, and right periorbital hematoma from fractures involving minim ally displaced area of the right maxillary sinus region. He had of course hypertension, hypophosphat emia, hypomagnesemia. He was seen by the Cardiology Service, Hospitalist Service, and determined john t the fractures did not require surgical intervention. He may especially after being evaluated by EN T Service will heal by secondary intention. While hospitalized, the patient had some episodes of dis orientation, confusion, and problems understanding communication and difficulty expressing himself. In addition, abnormal labs did include low hemoglobin and hematocrit, low sodium, low magnesium level , elevated glucose level, elevated BMP. Currently, the patient is completely dependent for mobilizat ion, minimum assistance for sit to stand, ambulation moderate assistance and he has impulsivity. He is now admitted to the inpatient rehabilitation unit to help him return to prior level of functioning and to reduce his risk of rehospitalization. Past Medical History: As noted above. Past Surgical History: Cholecystectomy, multiple back surgeries by Dr. Braswell with hardware placed. Allergies: NO KNOWN DRUG ALLERGIES. Medications: Amiodarone 5 mg daily, Eliquis 5 mg twice daily, aspirin 81 mg daily, Lipitor 80 mg at bedtime, hydrochlorothiazide 12.5 mg daily, [place] 10/325 every 4 hours as needed, Prinivil 20 mg alexis y, melatonin 3 mg at bedtime, Toprol-XL 50 mg twice daily, and Senokot-S 2 at bedtime. Allergies: NO KNOWN DRUG ALLERGIES. Laboratory Studies: White blood cell count 7.7, hemoglobin 11.7, hematocrit 34.1, platelets 141, pot assium 3.8, glucose 128, BUN 19, creatinine 0.52, calcium 8.5, magnesium 1.7. Family History: Noncontributory. Social History: Tobacco use, but no recent alcohol use. Drank heavily in the past. Review of Systems: Diffuse weakness, some problems with sleep and bowel movements and eating. Some mild pain in the rig ht face where he has fallen and the fracture over his maxillary region on the right, some bruising in the arms and legs. Otherwise, he has again diffuse weakness around 4 to 5. Decreased sensation in stocking-glove fashion and mild myalgias, arthralgias. Current Level Of Functioning: Currently, requires moderate assistance for ambulating, standing and d ynamic balancing. Setup assistance for eating, grooming, moderate assistance for bathing, supervisio n for upper body dressing, moderate assistance for lower body dressing and donning doffing footwear, transferring to toilet, wheelchair moderate assistance, walking moderate assistance required and cogn ition, some difficulty with comprehension and expression and will be having speech therapy. Physical Examination: Vital Signs: Blood pressure 167/98, pulse up to 100, respiratory rate 16, temperature 98.2, oxygen s aturation 99%. General: Mr. Dietrich is lying in bed. He is in no acute distress. HEENT: He is normocephalic, atraumatic except for the bruising beneath the right eye where he has hi t the face. There is also some around the upper part of the right eye. He has a fracture again on t he maxillary area. Otherwise, atraumatic in the face. Extremities: Mild bruising in the arms and legs. Otherwise, mild edema, but no significant edema an d again in terms of his strength, he is diffusely weak in upper and lower extremities around 4/5. Se nsory loss in a stocking-glove fashion, depressed reflexes. Rehab And Medical Assessment And Plan: Mr. Dietrich is a 64-year-old patient, admitted to the inpatient rehabilitation unit with impairment category 01, stroke. Impairment group code 01.4, stroke without paresis with incoordination. Etiologic diagnosis, cardioembolic strokes. Comorbidities; hypertensi on, decreased mobility, decreased physical functioning, chronic back pain, shingles, multiple back sahu rgeries and shingles involving the orbital region on the left eye. X-ray/imaging: Chest x-ray on 10/20 shows no acute abnormalities. Head CT scan on 10/20 shows low-d ensity area in the left cerebellum representing acute infarct. Also left occipital parietal region, again acute infarct. There was an age-indeterminate small low-density area in the basal ganglia in t he right thalamus, likely lacunar infarcts with undetermined age. No fractures seen in the cervical region. A facial CT scan on 10/20 shows minimally displaced fracture in the lateral wall of the righ t maxillary sinus, nondisplaced fracture of the right orbit. MRI done on 10/21, multiple bilateral a reas of acute CVA, distribution of infarcts suggest multiple territories and cardioembolic etiology. Carotid artery ultrasound on 10/21 shows no hemodynamically significant stenosis within the extracra nial vessels. EKG on the shows sinus rhythm, first-degree AV block, left axis deviation, inferi or infarct age undetermined. Echocardiogram on 10/20, limited study, but normal left ventricular sys tolic function, normal wall motion. Ejection fraction 60%. Plan: Will be for physical, occupational, and speech therapy 3.5 hours, 5 of 7 days. We will contin ue in terms of medications, [place] 10/325 every 4 hours as needed. We will continue Norvasc 5 mg alexis y for hypertension. Continue Eliquis 5 mg twice daily for DVT risk reduction and stroke risk reducti on, aspirin 81 mg daily for stroke risk reduction as well Lipitor 80 mg at bedtime for his dyslipidem ia, hydrochlorothiazide 12.5 mg daily for fluid management. He has an insulin sliding scale on board . Prinivil will help with blood pressure control at 20 mg daily, melatonin for insomnia, Toprol-XL f or heart rate control, and Senokot 2 at bedtime for constipation. Comorbidities That Are Impacting Rehabilitation: The patient has had some episodes per the staff of crying and family members at the bedside indicate he does have features of depression. We will consi juan pablo adding duloxetine 20 mg daily to help with mood. He has had fractures from multiple falls and kary harrison due to his multiple strokes involving his coordination, balance, will continue to be at very hig h risk of additional falls given his multiple strokes. We will have a gait belt at all times. Wheel chair to follow while he ambulates with a walker at all times. Risk of aspiration pneumonia and shantel ining upright. Chest x-ray will be repeated as indicated. Currently, chest is clear. Bowel movemen ts will be followed and if need be, KUB to rule out any obstruction will be done. Rehab Specific Plan: Mr. Dietrich will have physical, occupational, and speech therapy for 3.5 hours, 5 of 7 days, to improve his ability to transfer from bed to chair to wheelchair to a walker, to mobili ze at least household distances, go up and down several steps and perform activities of daily living without loss of balance, which he is likely to do because of the multiple strokes, especially again i n the posterior circulation. Mr. Dietrich and his family have a good understanding of the process of admission to the rehabilitation unit and how he will benefit from physical, occupational, and speech therapy. He will have 24 hours a day, 7 days a week, skilled rehabilitation and nursing, daily physician evaluation and management, and dialysis social worker evaluation and management for discharge planning, home equipment, and to continue with therapy and followup. If need be, additional help from the Hospitalist Service will be sought. Barriers To Discharge: Currently, because of his multiple strokes, he had been falling very frequent ly and may have to be mobilizing mostly by a wheelchair. May require extended stay, potentially if h yjoti is unable to have help at home and a alf which again can extend his stay. Length Of Stay: About 14 days. Disposition: Expected to be home with family as planned. Prognosis: Good. Code Status: Full code. Rehab Specific Goals: 1.Become independent with upper and lower body dressing, donning and doffing footwear. 2.Independently transfer from bed to chair to toilet to shower. 3.Independently perform toileting and showering. 4.Independently mobilize a wheelchair 250 feet. 5.Independently mobilize with a walker 250 feet. 6.Independently go up and 10 steps with bilateral handrails. 7.Independently perform all cognitive functioning. The above goals were reviewed with Mr. Dietrich and family and they are in agreement. By signing this document, I acknowledge I personally performed a full physical examination on Mr. Rae re no later than 24 hours after his admission to the inpatient rehabilitation facility and determined that he is able to tolerate the above course of treatment at an intensive level for a reasonable per iod of time. A detailed individualized plan of care for him will be completed by hospital day 4 base d on the preadmission screen, history and physical, and therapy evaluations. KYLAH/MODL Voice ID: [id number]
[2024-10-29 05:50] LABS: Absolute Eosinophils 0.2 K/uL (0-0.5); Absolute Lymphocytes (CBC) 0.7 K/uL (0.7-4.9); Absolute Monocytes 0.7 K/uL (0.1-1.3); Absolute Neutrophil 6.3 K/uL (1.8-8.0); Basophils % 0.5 % (0-1.3); Eosinophils % 2.1 % (0-4.4); Hematocrit 32.8 % (39.6-49.0); Lymphocytes % 8.7 % (15.3-44.8); MCH 33.5 pg (27.0-35.0); MCHC 33.5 g/dL (32.0-36.0); MCV 99.9 fL (80-100); MPV 9.5 fL (7.6-11.3); Monocytes % 8.6 % (3.3-12.3); Neutrophils % 80.1 % (41.7-73.7); Nucleated Red Blood Cells % 0.1 % (0-0); Platelets 137 thou/uL (152-406); RBC Red Blood Cell Count 3.28 M/uL (4.33-5.43); Red Cell Distribution Width 15.5 % (12.1-15.2)
[2024-10-29 06:12] LABS: Albumin 2.3 g/dL (3.4-5.0); Anion Gap 10.9 mEq/L (5.0-15.0); Magnesium 1.7 mg/dL (1.6-2.4); Potassium 3.9 mEq/L (3.5-5.1); Prealbumin 7.2 mg/dL (20-40)
[2024-10-29] MEDS: lisinopriL 20 MG TAB PO SCH (08:40)
[2024-10-29] MEDS: CRANBERRY FRUIT EXTRACT 425 MG CAPSULE PO SCH (08:41)
[2024-10-29] MEDS: MAGNESIUM OXIDE 400 MG TAB PO SCH (08:41)
[2024-10-29] MEDS: AMLODIPINE 5 MG TAB PO SCH (08:41)
[2024-10-29] MEDS: ASPIRIN 81 MG CHEWABLE TABLET PO SCH (08:41)
[2024-10-29] MEDS: hydroCHLOROthiazide 12.5 MG CAP PO SCH (08:41)
[2024-10-29] MEDS: FOLIC ACID 1 MG TABLET PO SCH (13:00)
[2024-10-29] MEDS ORDERED: POTASSIUM CL SA 10 MEQ TAB PO SCH (13:00)
[2024-10-30] MEDS: NA CHLORIDE 0.9% 1,000 ML IV SCH (08:00)
[2024-10-30] MEDS: DULOXETINE 20 MG CAP PO SCH (09:29)
[2024-10-30] MEDS: MULTIVITAMIN TAB PO SCH (09:29)
[2024-10-30] MEDS: HYDROCODONE/APAP 5/325 MG TAB PO PRN (14:19)
[2024-10-30] MEDS: MELATONIN 3 MG TABLET PO SCH (20:10)
[2024-10-31] MEDS: GLUCERNA SHAKE 237 ML CAN PO SCH (19:56)
[2024-10-31] MEDS: TRAZODONE 50 MG TABLET PO PRN (20:31)
--- NOTE | 2024-10-31 21:41 | PN ---
Date of Progress Note: 10/31/2024 Time Of Service: 1:25 p.m. Subjective: Mr. Dietrich is resting in his room. His is at bedside. She is worried about his pro gnosis. He does have prostate cancer and will [facility] up [facility] once he is discharged. The discussion about what to do following discharge did include hospice care and the patient may be admitted to hospice following discharge depending on decision of family, [facility] Hospice was discussed. Otherwise, he is still somewhat depressed about the situation, where he has had a cardioembolic strok e making difficult for coordination, balance, gait. Also has moderate depression. Objective: As noted, depression, mild myalgias, arthralgias, diffuse weakness and anxiety noted when interacting with the patient. Physical Examination: Vital Signs: Blood pressure 113/69, pulse 92, respiratory rate 18, temperature 97.3, oxygen saturati on 94%. General: Mr. Dietrich is lying in bed. is at bedside. There was a discussion about what to do fo llowing his discharge. The patient will be going to home and will likely have home hospice, may go t o hospice facility depending on how he is doing. Also plan will be for him to follow with [facility]. Laboratory Studies: White blood cell count 7.8, hemoglobin 11, platelets 137, glucose ranged from 14 0 to 233. Sodium 136, potassium 3.9, chloride 104, BUN 17, creatinine 0.49, prealbumin 7.2, albumin 2.3, magnesium 1.7, calcium 8.7. His drug screen was positive for opiates, which the patient has bee n receiving while in the unit. Urinalysis is consistent with urinary tract infection. However, his cultures did not show any bacterial growth. Progress Made With Physical, Occupational, And Speech Therapy: With physical therapy today, he did m obilize bed with modified independence. Multiple tkq-jm-yrwpy transfers and dcwbe-ul-etuku transfers done with contact guard standby assistance. Use the bicycle ergometer improved strength, needed hel p getting on and off the bike, was able to do a steady pace without a break for about 15 minutes. Al so ambulated 325 feet with a rolling walker with contact guard to min assist, completed another 250 f eet without an assistive device with minimum to moderate assistance. He was somewhat confused, but d id follow all commands appropriately. With occupational therapy, sitting at edge of bed, started to undress when told he will need to change his clothes, instructed to wait for help, brought to bathroo m and then walked to the sink, did require some supervision. Bed mobility was independent. Multiple qdh-fc-trpdz transfers done with supervision. In terms of his speech, he was not oriented to temporal and spatial concepts with cues, but did susta in attention skills for 15 to 20 seconds before needing cues. He was 50% accurate with divergent nam ing skills. He frequently talked off topic and did not recognize where he was or what his situation is, again noted to be confused by the therapist. Assessment: Mr. Dietrich is a 64-year-old patient in the rehabilitation unit with multiple cardioemboli c strokes, does have some moderate cognitive impairment, has pancreatic cancer that will be followed subsequently in the [facility]cology Service. He has depression treated with Cymbalta. He has dyslipidemia treated with Lipitor, Eliquis for DVT treatment, Norvasc to control his hypertension along with Prini chrisitano and metoprolol. He is stressed on for insomnia, Senokot for constipation. Plan: He will continue with physical, occupational, and speech therapy as noted, 3.5 hours daily for 5 days weekly. Also continue his comorbid conditions which have been mentioned including the antide pressant and his blood pressure management with multiple medications as noted. Dyslipidemia treated continued and [place] for pain. Comorbidities That Are Impacting Rehabilitation: The patient has been significantly depressed, likel y because of situation of stroke and pancreatic cancer. He will likely have hospice once discharged and will also be following up with Oncology. KYLAH/MONI Voice ID: [id number] Report ID: [id number]
[2024-11-01] MEDS: TRAZODONE 50 MG TABLET PO PRN (21:42)
--- NOTE | 2024-11-01 22:31 | PN ---
Time Of Service: 1:30 p.m. Subjective: Mr. Dietrich is resting in bed. He is somewhat depressed about the situation where he has prostate cancer, and he is also very worried about the multiple strokes and his ability to recover. The patient and the family did agree for hospice at home, and [facility] is seeing the patient and plan for him to be discharged to home hospice with his current medication regimen continued. Objective: Again, depression as noted. He has mild myalgias, arthralgias, and very difficult time t o engage as he is responding very poorly to verbal interaction, likely related to his depression, alt vicki he is mobilizing quite well with therapy. Physical Examination: Vital Signs: Blood pressure 116/61, pulse 78, respiratory rate of 16, temperature 97.2, oxygen satur ation 95%. General: Mr. Dietrich is in his bed, lying on the right side. HEENT: He appears normocephalic, atraumatic. Sclerae anicteric. Oropharynx pink and moist. Neck: Supple. Extremities: Mild stasis changes in lower extremities. Mild diffuse weakness in upper and lower ext remities. Mild dysarthria, but no real weakness with his stroke. Laboratory Studies: Blood sugars ranged from 141 to 315. He did not have additional blood work done . X-ray/imaging: No new x-rays or imaging. Medications: He does have [place] for severe pain at 5/325, Ensure for malnutrition, Cymbalta twice da izzy 20 mg for depression, Lipitor for dyslipidemia, aspirin for stroke risk reduction. Does have aml odipine for blood pressure and heart rate control, hydrochlorothiazide for fluid management, Prinivil to address his blood pressure, metoprolol for heart rate and blood pressure control, trazodone for i nsomnia. Progress Made With Physical, Occupational, And Speech Therapy: With physical therapy today, leonila feldman was independent. Multiple iqx-vk-vvooa transfers and wuarg-dn-jyuxp transfers done. He was abl e to do simulated car transfer, did so with contact guard assistance. He did ambulate 250 feet with a rolling walker with supervision. Actually wanting to go to every room as he walked around the unit , ready to get back in his bed. He did ambulate 100 feet without an assistive device with contact gu michael assistance. Mild loss of balance detected. With occupational therapy, bed mobility independent, but still requires supervision with all functional transfers. Did complete his shower with supervis ion. Cues needed to initiate tasks, sequencing, and problem solving. Completed upper body dressing with independence, supervision for lower body dressing. Donning and doffing socks was independent. It was noted the patient did have some blood stains on his buttocks in the shower, and there was some mild bleeding through the nose. The patient was on Xarelto, that was discontinued. At the time of my evaluation, there was no evidence of blood in the nose or from any other area and he is actually b eing discharged to Hospice. His last hemoglobin was 11.0 on the and wants that repeated current ly. Assessment: Mr. Dietrich is a 64-year-old patient with cardioembolic strokes with some incoordination m ore than weakness. Also has pancreatic cancer, decreased mobility, decreased physical functioning. He has depression, insomnia, hypertension, dyslipidemia, pain. Plan: 1.We will until discharge continue with physical, occupational, and speech therapy. 2.His comorbid condition medications are continued as noted. He will be discharged to [facility] and will follow up with Oncology as appropriate and primary care physician as scheduled. KYLAH/MONI Voice ID: [id number] Report ID: [id number]
[2024-11-02] MEDS: AMLODIPINE 5 MG TAB PO SCH (11:22)
[2024-11-02] MEDS: hydroCHLOROthiazide 12.5 MG CAP PO SCH (11:23)
[2024-11-02] MEDS: lisinopriL 20 MG TAB PO SCH (11:23)
[2024-11-02 12:34] LABS: Hematocrit 21.2 % (39.6-49.0); Hemoglobin 7.1 g/dL (13.6-17.9)
[2024-11-02] MEDS ORDERED: NA CHLORIDE 0.9% 250 ML IV SCH (15:00)
[2024-11-02 19:40] VITALS: TEMP 98.2
[2024-11-03] MEDS ORDERED: NA CHLORIDE 0.9% 1,000 ML ONE (04:12)
[2024-11-03] MEDS: NA CHLORIDE 0.9% 1,000 ML IV SCH (04:34)
[2024-11-03 05:23] LABS: Hematocrit 22.9 % (39.6-49.0); Hemoglobin 7.6 g/dL (13.6-17.9)
[2024-11-03] MEDS ORDERED: SODIUM CHLORIDE 0.9% 10ML INJ IV PRN (06:46)
[2024-11-03] MEDS ORDERED: NS 0.9% VIAL 10 ML ONE (07:05)
[2024-11-03] MEDS: PANTOPRAZOLE 40 MG INJ IVP SCH (07:22)
[2024-11-03 07:29] VITALS: BP 113/64
[2024-11-03 08:53] LABS: Anion Gap 9.5 mEq/L (5.0-15.0); Potassium 3.5 mEq/L (3.5-5.1); Prealbumin 7.7 mg/dL (20-40)
== END 2024-11-03 16:45 | disposition hospice, home (50) | DRG 57 ==
LOC: 5TH 15:27
PROVIDERS: ADMIT Psychiatry & Neurology Neurology with Special Qualifications in Child Neurology; ATTEND Psychiatry & Neurology Neurology with Special Qualifications in Child Neurology
DX: I69.398 Other sequelae of cerebral infarction (principal); B02.30 Zoster ocular disease, unspecified; C25.9 Malignant neoplasm of pancreas, unspecified; R26.89 Other abnormalities of gait and mobility; I10 Essential (primary) hypertension; M54.9 Dorsalgia, unspecified; E83.39 Other disorders of phosphorus metabolism; E83.42 Hypomagnesemia; R53.1 Weakness; E78.5 Hyperlipidemia, unspecified; G47.00 Insomnia, unspecified; K59.00 Constipation, unspecified; F32.A Depression, unspecified
CPT/HCPCS: 36415; 36430; 80048; 80307; 81001; 82040; 82947; 83036; 83735; 84134; 85014; 85018; 85025; 86850; 86900; 86901; 86920; 87086; 87088; 92523; 97110; 97116; 97129; 97163; 97165; 97530; 97542; A4216; J2470; J7030; J7050; P9016